=== PATIENT | male | born 1960 | race African-American/Black ===

== ENCOUNTER → 2016-10-20 | Outpatient (REF) | payer MEDICARE, MEDICAID ==
[~2016-10-20] MED LIST: /MOM400 PO; /PANT40TA PO; CALC600T7 PO; COLA50CA3 PO; DIPH50CA PO; FERR325T3 PO; KEPP1TAB2 PO; PHEN-312 PO; TRAZ150T PO; VALI2TAB PO; ZYPR20TA PO
[2016-10-20 16:26] LABS: ALBUMIN 3.8 GM/DL (3.2-5.2); ALBUMIN/GLOBULIN RATIO 1.09 (1.00-1.93); ALKALINE PHOSPHATASE 87 U/L (45-117); ALT/SGPT 25 U/L (12-78); ANION GAP 9 MEQ/L (8-16); AST/SGOT 22 U/L (15-37); BILIRUBIN,TOTAL 0.4 MG/DL (0.2-1.0); BLOOD UREA NITROGEN 7 MG/DL (7-18); CALCIUM LEVEL 9.2 MG/DL (8.5-10.1); CARBON DIOXIDE LEVEL 27 MEQ/L (21-32); CHLORIDE LEVEL 105 MEQ/L (98-107); CREATININE FOR GFR 0.63 MG/DL (0.70-1.30); FERRITIN 55 NG/ML (26-388); GLOMERULAR FILTRATION RATE > 60.0 (>56); GLUCOSE, FASTING 84 MG/DL (70-105); PERCENT SATURATION 31.1 % (19.7-37.4); POTASSIUM SERUM 4.2 MEQ/L (3.5-5.1); SODIUM LEVEL 141 MEQ/L (136-145); TOTAL IRON BINDING CAPACITY 283 UG/DL (250-450); TOTAL PROTEIN 7.3 GM/DL (6.4-8.2)
[2016-10-20 16:52] LABS: INR 0.94
[2016-10-20 17:37] LABS: MEAN CORPUSCULAR VOLUME 97.5 fl (80.0-96.0); WHITE BLOOD COUNT 3.5 K/mm3 (4.0-10.0)
[2016-10-20 17:38] LABS: MEAN CORPUSCULAR HEMOGLOBIN 32.3 pg (27.0-33.0); MEAN CORPUSCULAR HGB CONC 33.2 g/dl (32.0-36.5); RED CELL DISTRIBUTION WIDTH 12.2 % (11.5-14.5)
[2016-10-20 17:40] LABS: EOSINOPHILS 1 % (0-5)
== END ==
LOC: M SFHCPLAZ 12:12
PROVIDERS: ATTEND Family Medicine
DX: Z01.818 Encounter for other preprocedural examination (principal); K02.9 Dental caries, unspecified; D50.9 Iron deficiency anemia, unspecified; C91.50 Adult T-cell lymphoma/leukemia (HTLV-1-associated) not having achieved remission; G40.909 Epilepsy, unspecified, not intractable, without status epilepticus
CPT/HCPCS: 36415; 80053; 80180; 82728; 83550; 85007; 85027; 85610; 85730; G0463

== ENCOUNTER → 2016-10-30 | Day surgery (SDC) | payer MEDICARE, MEDICAID ==
[~2016-10-30] VITALS: Ht 162.6 cm; Wt 67.1 kg
[~2016-10-30] MED LIST changes: +GLYCOPYRROLATE INJ 0.2 MG/ML 2 ML VIAL As Ordered ONE; +KETAMINE HCL 200 MG/20 ML VIAL As Ordered ONE; +LIDOCAINE 2% INJ 100 MG/5 ML SDV (FOR ANES.) As Ordered ONE; +LR 1,000 ML IV SCH; +MIDAZOLAM INJ 2 MG/2 ML VIAL (J2250) As Ordered ONE; +NEOSTIGMINE 1MG/ML 5 ML SYRINGE (J2710) As Ordered ONE; +ONDANSETRON 4MG/2ML VIAL (J2405) As Ordered ONE; +ONDANSETRON 4MG/2ML VIAL (J2405) IV PRN; +PROPOFOL 200 MG/20 ML VIAL As Ordered ONE; +ROCURONIUM BROMIDE 50 MG/5 ML VIAL As Ordered ONE; +SEVOFLURANE INHAL SOLN 250 ML BTL As Ordered ONE; +dexameTHASONE 4 MG/ML 1ML VIAL (J1100) As Ordered ONE; +ePHEDrine SULFATE 25 MG/5 ML(5MG/ML) SYRINGE As Ordered ONE; +fentaNYL 100 MCG/2 ML INJECTION (J3010) IV PRN; +fentaNYL 250 MCG/5 ML INJECTION (J3010) As Ordered ONE
[2016-10-30 15:45] VITALS: BP 151/85
--- NOTE | 2016-10-30 18:26 | RO ---
DATE OF PROCEDURE: 10/30/2016 PREOPERATIVE DIAGNOSIS: Dental Caries POSTOPERATIVE DIAGNOSIS: Dental Caries PROCEDURE: operative, scaling and root planing, full mouth radiographs SURGEON: Dr. Kilo Knowles ACADEMIC ASSOCIATE: None ANESTHESIA: General DESCRIPTION OF PROCEDURE: The patient, Jerome Lloyd, was brought to the operating room with premedication and placed onto the operating table in the supine position. All monitoring equipment was attached to the patient, and general anesthetic medicaments were delivered via inhalation. Nasal intubation proceeded and tube extension was secured into position after breathing was monitored. Patient was then prepped for dental surgical procedures. One large moist throat pack was placed. Mouth prop was placed. Full mouth radiograph sequence was taken. Comprehensive exam completed. Decay removal followed by composite condensation was completed on the occlusal of tooth #4, 18, 20, and 31, on the lingual surface of tooth #9, on the mesial incisal, facial and lingual surface of tooth #24, on the mesial, incisal, facial, lingual , and distal surface of tooth #25. Generalized perio charting completed. Four quadrant scaling and root planing completed. Fluoride application completed. Final removal of all gross fluids from intraoral and extraoral areas. Patient then left in the care of the providing anesthesiologist. Note, there was continuous removal of all gross fluid throughout the duration of all performed dental procedures. MAGGIE
== END | disposition home or self-care (01) ==
LOC: M SDC 09:17
PROVIDERS: ATTEND Dentist General Practice
DX: K02.9 Dental caries, unspecified (principal); F73 Profound intellectual disabilities; K21.9 Gastro-esophageal reflux disease without esophagitis; Z79.899 Other long term (current) drug therapy; E55.9 Vitamin D deficiency, unspecified; K59.00 Constipation, unspecified; D50.9 Iron deficiency anemia, unspecified; C91.50 Adult T-cell lymphoma/leukemia (HTLV-1-associated) not having achieved remission; G40.909 Epilepsy, unspecified, not intractable, without status epilepticus
CPT/HCPCS: 70310; D2330; D2335; D2391; D4341; D9223; J1100; J2250; J2405; J2710; J3010

== ENCOUNTER → 2017-03-22 | Outpatient (REF) | payer MEDICARE, MEDICAID ==
[~2017-03-22] MED LIST changes: -GLYCOPYRROLATE INJ 0.2 MG/ML 2 ML VIAL As Ordered ONE; -KETAMINE HCL 200 MG/20 ML VIAL As Ordered ONE; -LIDOCAINE 2% INJ 100 MG/5 ML SDV (FOR ANES.) As Ordered ONE; -LR 1,000 ML IV SCH; -MIDAZOLAM INJ 2 MG/2 ML VIAL (J2250) As Ordered ONE; -NEOSTIGMINE 1MG/ML 5 ML SYRINGE (J2710) As Ordered ONE; -ONDANSETRON 4MG/2ML VIAL (J2405) As Ordered ONE; -ONDANSETRON 4MG/2ML VIAL (J2405) IV PRN; -PROPOFOL 200 MG/20 ML VIAL As Ordered ONE; -ROCURONIUM BROMIDE 50 MG/5 ML VIAL As Ordered ONE; -SEVOFLURANE INHAL SOLN 250 ML BTL As Ordered ONE; -dexameTHASONE 4 MG/ML 1ML VIAL (J1100) As Ordered ONE; -ePHEDrine SULFATE 25 MG/5 ML(5MG/ML) SYRINGE As Ordered ONE; -fentaNYL 100 MCG/2 ML INJECTION (J3010) IV PRN; -fentaNYL 250 MCG/5 ML INJECTION (J3010) As Ordered ONE
== END ==
LOC: M LABDRAW1 12:08
PROVIDERS: ATTEND Physician Assistant Medical
DX: R56.9 Unspecified convulsions (principal)

== ENCOUNTER → 2017-03-22 | Outpatient (REF) | payer MEDICARE, MEDICAID ==
[2017-03-22 13:10] LABS: BASO % 0.4 % (0.0-1.0); EOS % 1.5 % (0.0-3.0); LARGE UNSTAINED CELL # 0.1 K/mm3 (0.0-0.4); LYMPH # 1.1 K/mm3 (1.5-4.5); LYMPH % 33.3 % (24.0-44.0); MEAN CORPUSCULAR HGB CONC 32.8 g/dl (32.0-36.5); MEAN CORPUSCULAR VOLUME 97.4 fl (80.0-96.0); MONO # 0.4 K/mm3 (0.0-0.8); MONO % 11.9 % (0.0-5.0); NEUTROPHILS # 1.6 K/mm3 (1.8-7.7); NEUTROPHILS % 49.9 % (36.0-66.0); PLATELET COUNT, AUTOMATED 214 k/mm3 (150-450); RED CELL DISTRIBUTION WIDTH 12.6 % (11.5-14.5); VITAMIN B12 LEVEL 955 PG/ML (247-911); WHITE BLOOD COUNT 3.3 K/mm3 (4.0-10.0)
[2017-03-22 13:35] LABS: ALBUMIN 3.6 GM/DL (3.2-5.2); ALBUMIN/GLOBULIN RATIO 1.06 (1.00-1.93); ALKALINE PHOSPHATASE 105 U/L (45-117); ALT/SGPT 24 U/L (12-78); ANION GAP 7 MEQ/L (8-16); AST/SGOT 23 U/L (15-37); BILIRUBIN,TOTAL 0.2 MG/DL (0.2-1.0); BLOOD UREA NITROGEN 15 MG/DL (7-18); CALCIUM LEVEL 9.1 MG/DL (8.5-10.1); CARBON DIOXIDE LEVEL 27 MEQ/L (21-32); CHLORIDE LEVEL 105 MEQ/L (98-107); CREATININE FOR GFR 0.71 MG/DL (0.70-1.30); GLOMERULAR FILTRATION RATE > 60.0 (>56); GLUCOSE, FASTING 108 MG/DL (70-105); POTASSIUM SERUM 4.1 MEQ/L (3.5-5.1); SODIUM LEVEL 139 MEQ/L (136-145)
[2017-03-23 11:43] LABS: ALBUMIN 3.91 GM/DL (3.29-5.55); ALBUMIN % 55.9 % (55.8-66.1); GAMMA GLOBULIN % 19.4 % (11.1-18.8)
== END ==
LOC: M LABDRAW1 12:07
PROVIDERS: ATTEND Family Medicine
DX: G40.909 Epilepsy, unspecified, not intractable, without status epilepticus (principal); D50.9 Iron deficiency anemia, unspecified; Z12.5 Encounter for screening for malignant neoplasm of prostate
CPT/HCPCS: 36415; 80053; 80180; 80184; 82607; 84165; 85025; G0103

== ENCOUNTER → 2017-07-28 | Outpatient (REF) | payer MEDICARE, MEDICAID ==
[2017-07-28 13:09] LABS: MEAN CORPUSCULAR HEMOGLOBIN 30.8 pg (27.0-33.0); MEAN CORPUSCULAR VOLUME 96.5 fl (80.0-96.0); RED CELL DISTRIBUTION WIDTH 12.5 % (11.5-14.5); RETIC HEMOGLOBIN EQUIVALENT 36.8 pg (24-36); RETICULOCYTE % 2.2 % (0.5-1.5); WHITE BLOOD COUNT 3.2 10^3/uL (4.0-10.0)
[2017-07-28 13:30] LABS: ALBUMIN 3.8 GM/DL (3.2-5.2); ALBUMIN/GLOBULIN RATIO 1.06 (1.00-1.93); ALKALINE PHOSPHATASE 112 U/L (45-117); ALT/SGPT 31 U/L (12-78); ANION GAP 6 MEQ/L (8-16); AST/SGOT 19 U/L (15-37); BILIRUBIN,TOTAL 0.2 MG/DL (0.2-1.0); BLOOD UREA NITROGEN 10 MG/DL (7-18); CALCIUM LEVEL 9.5 MG/DL (8.5-10.1); CARBON DIOXIDE LEVEL 32 MEQ/L (21-32); CHLORIDE LEVEL 102 MEQ/L (98-107); CREATININE FOR GFR 0.81 MG/DL (0.70-1.30); FERRITIN 52 NG/ML (26-388); GLOMERULAR FILTRATION RATE > 60.0 (>56); GLUCOSE, FASTING 104 MG/DL (70-105); PERCENT SATURATION 31.7 % (19.7-50.0); PHENOBARBITAL LEVEL 22.4 UG/ML (15.0-40.0); POTASSIUM SERUM 4.4 MEQ/L (3.5-5.1); SODIUM LEVEL 140 MEQ/L (136-145); TOTAL IRON BINDING CAPACITY 268 UG/DL (250-450); TOTAL PROTEIN 7.4 GM/DL (6.4-8.2)
[2017-07-28 13:38] LABS: CBCMD ORDERED? YES (YES)
[2017-07-28 14:17] LABS: BASOPHILS 2 % (0-4); EOSINOPHILS 2 % (0-5)
== END ==
LOC: M LABDRAW1 10:10
PROVIDERS: ATTEND Family Medicine
DX: D50.9 Iron deficiency anemia, unspecified (principal); E55.9 Vitamin D deficiency, unspecified; G40.909 Epilepsy, unspecified, not intractable, without status epilepticus

== ENCOUNTER → 2017-09-21 | Outpatient (REF) | payer MEDICARE, MEDICAID | LOC: M LABNEURO 14:27 | PROVIDERS: ATTEND Physician Assistant Medical | DX: R56.9 Unspecified convulsions (principal) ==

== ENCOUNTER 2017-10-07 12:10 | Emergency (ER) | payer MEDICARE, MEDICAID ==
[2017-10-07] MEDS: DERMABOND TOPICAL SKIN ADHESIVE TOP (13:24)
== END 2017-10-07 13:35 | disposition home or self-care (01) ==
LOC: M ED 12:10
DX: S01.81XA Laceration without foreign body of other part of head, initial encounter (principal); W19.XXXA Unspecified fall, initial encounter; Y92.9 Unspecified place or not applicable; Y93.9 Activity, unspecified; F79 Unspecified intellectual disabilities; Z79.899 Other long term (current) drug therapy
CPT/HCPCS: 12011

== ENCOUNTER → 2017-12-09 | Outpatient (REF) | payer MEDICARE, MEDICAID ==
[2017-12-09 12:44] LABS: BASO % 0.9 % (0.0-1.0); EOS # 0.1 10^3/uL (0.0-0.50); EOS % 1.5 % (0.0-3.0); HEMATOCRIT 41.4 % (42.0-52.0); HEMOGLOBIN 13.6 g/dl (14.0-18.0); IMMATURE GRANULOCYTE % 0.3 % (0-3.0); LYMPH # 1.5 10^3/uL (1.5-4.5); LYMPH % 44.4 % (24.0-44.0); MEAN CORPUSCULAR HEMOGLOBIN 30.8 pg (27.0-33.0); MEAN CORPUSCULAR HGB CONC 32.9 g/dl (32.0-36.5); MEAN CORPUSCULAR VOLUME 93.7 fl (80.0-96.0); MONO # 0.5 10^3/uL (0.0-0.8); MONO % 15.5 % (0.0-5.0); NEUTROPHILS # 1.3 10^3/uL (1.8-7.7); NEUTROPHILS % 37.4 % (36.0-66.0); PLATELET COUNT, AUTOMATED 233 10^3/uL (150-450); RED BLOOD COUNT 4.42 10^6/uL (4.30-6.10); RED CELL DISTRIBUTION WIDTH 12.6 % (11.5-14.5); RETIC HEMOGLOBIN EQUIVALENT 35.9 pg (24-36); RETICULOCYTE % 1.5 % (0.5-1.5); WHITE BLOOD COUNT 3.4 10^3/uL (4.0-10.0)
[2017-12-09 13:45] LABS: ALKALINE PHOSPHATASE 97 U/L (45-117); ALT/SGPT 26 U/L (12-78); AST/SGOT 21 U/L (7-37); BILIRUBIN,TOTAL 0.2 MG/DL (0.2-1.0); CHLORIDE LEVEL 103 MEQ/L (98-107); CREATININE FOR GFR 0.71 MG/DL (0.70-1.30); FREE T4 0.91 NG/DL (0.76-1.46); PHENOBARBITAL LEVEL 22.2 UG/ML (15.0-40.0); POTASSIUM SERUM 4.3 MEQ/L (3.5-5.1); SODIUM LEVEL 141 MEQ/L (136-145); THYROID STIMULATING HORMONE 0.966 uIU/ML (0.358-3.740); TOTAL PROTEIN 7.7 GM/DL (6.4-8.2)
[2017-12-09 14:03] LABS: ALBUMIN 3.7 GM/DL (3.2-5.2); ALBUMIN/GLOBULIN RATIO 0.93 (1.00-1.93); ANION GAP 5 MEQ/L (8-16); BLOOD UREA NITROGEN 12 MG/DL (7-18); CALCIUM LEVEL 9.3 MG/DL (8.5-10.1); CARBON DIOXIDE LEVEL 33 MEQ/L (21-32); GLUCOSE, FASTING 82 MG/DL (70-100)
[2017-12-12 00:08] LABS: LEVETIRACETAM (KEPPRA) 25.8 ug/mL (10.0-40.0)
== END ==
LOC: M LABDRAW1 12:13
DX: G40.909 Epilepsy, unspecified, not intractable, without status epilepticus (principal); D50.9 Iron deficiency anemia, unspecified; Z79.899 Other long term (current) drug therapy
CPT/HCPCS: 84443

== ENCOUNTER → 2018-04-15 | Outpatient (REF) | payer MEDICARE, MEDICAID ==
[2018-04-15 13:48] LABS: BASO % 0.6 % (0.0-1.0); EOS # 0.1 10^3/uL (0.0-0.50); EOS % 2.4 % (0.0-3.0); HEMATOCRIT 42.7 % (42.0-52.0); HEMOGLOBIN 14.2 g/dl (13.5-17.5); IMMATURE GRANULOCYTE % 0.3 % (0-3.0); LYMPH # 1.6 10^3/uL (1.5-4.5); LYMPH % 46.8 % (24.0-44.0); MEAN CORPUSCULAR HEMOGLOBIN 31.9 pg (27.0-33.0); MEAN CORPUSCULAR HGB CONC 33.3 g/dl (32.0-36.5); MONO # 0.6 10^3/uL (0.0-0.8); MONO % 16.8 % (0.0-5.0); NEUTROPHILS # 1.1 10^3/uL (1.8-7.7); NEUTROPHILS % 33.1 % (36.0-66.0); PLATELET COUNT, AUTOMATED 217 10^3/uL (150-450); RED BLOOD COUNT 4.45 10^6/uL (4.30-6.10); RED CELL DISTRIBUTION WIDTH 12.4 % (11.5-14.5); RETIC HEMOGLOBIN EQUIVALENT 36.4 pg (24-36); RETICULOCYTE # 95.2 10^9/L (17-77); RETICULOCYTE % 2.1 % (0.5-1.5); WHITE BLOOD COUNT 3.4 10^3/uL (4.0-10.0)
[2018-04-15 14:07] LABS: ALBUMIN 3.8 GM/DL (3.2-5.2); ALBUMIN/GLOBULIN RATIO 0.95 (1.00-1.93); ALKALINE PHOSPHATASE 109 U/L (45-117); ALT/SGPT 41 U/L (12-78); ANION GAP 7 MEQ/L (8-16); AST/SGOT 32 U/L (7-37); BILIRUBIN,TOTAL 0.4 MG/DL (0.2-1.0); BLOOD UREA NITROGEN 14 MG/DL (7-18); C REACTIVE PROTEIN QUANTITATIV 3.04 MG/DL (0.00-0.30); CARBON DIOXIDE LEVEL 28 MEQ/L (21-32); CHLORIDE LEVEL 104 MEQ/L (98-107); CHOLESTEROL LEVEL 175 MG/DL (<200); CHOLESTEROL RISK RATIO 2.868 (<5); CREATININE FOR GFR 0.75 MG/DL (0.70-1.30); GLOMERULAR FILTRATION RATE > 60.0 (>56); GLUCOSE, FASTING 91 MG/DL (70-100); HDL CHOLESTEROL 61 MG/DL (>40); LDL CHOLESTEROL 86.8 MG/DL (<100); NON-HDL-C 114 MG/DL; PHENOBARBITAL LEVEL 26.8 UG/ML (15.0-40.0); POTASSIUM SERUM 4.2 MEQ/L (3.5-5.1); PSA SCREENING 1.45 NG/ML (< 4.0); SODIUM LEVEL 139 MEQ/L (136-145); TOTAL PROTEIN 7.8 GM/DL (6.4-8.2); TRIGLYCERIDES LEVEL 136 MG/DL (<150)
[2018-04-15 14:09] LABS: TOTAL 25(OH) VITAMIN D 33.7 NG/ML (30.0-100.0)
[2018-04-15 14:10] LABS: PTH INTACT 32.6 PG/ML (18.5-88.0)
[2018-04-20 00:12] LABS: (LD) FRACTION 1 33 % (17-32); (LD) FRACTION 2 28 % (25-40); (LD) FRACTION 3 19 % (17-27); (LD) FRACTION 4 8 % (5-13); (LD) FRACTION 5 12 % (4-20); LDH 146 IU/L (121-224)
== END ==
LOC: M LABDRAW1 11:50
DX: C91.50 Adult T-cell lymphoma/leukemia (HTLV-1-associated) not having achieved remission (principal); D50.9 Iron deficiency anemia, unspecified; E55.9 Vitamin D deficiency, unspecified; R63.4 Abnormal weight loss; Z12.5 Encounter for screening for malignant neoplasm of prostate; G40.909 Epilepsy, unspecified, not intractable, without status epilepticus; Z51.81 Encounter for therapeutic drug level monitoring; Z79.899 Other long term (current) drug therapy
CPT/HCPCS: 83625

== ENCOUNTER → 2018-04-15 | Outpatient (REF) | payer MEDICARE, MEDICAID ==
[2018-04-15 14:18] LABS: PHENOBARBITAL LEVEL 29.3 UG/ML (15.0-40.0)
== END ==
LOC: M LAB REF 11:53
DX: Z51.81 Encounter for therapeutic drug level monitoring (principal); Z79.899 Other long term (current) drug therapy; R56.9 Unspecified convulsions

== ENCOUNTER → 2018-04-27 | Outpatient (REF) | payer MEDICARE, MEDICAID | LOC: M LABDRAW1 08:46 | DX: G40.909 Epilepsy, unspecified, not intractable, without status epilepticus (principal) | CPT/HCPCS: 36415 ==

== ENCOUNTER 2018-07-29 16:39 | Inpatient (IN) | payer MEDICARE, MEDICAID ==
[2018-07-29] MEDS ORDERED: ONDANSETRON 4MG/2ML VIAL (J2405) IV (16:45)
[2018-07-29 17:45] LABS: ALBUMIN 3.9 GM/DL (3.2-5.2); ALBUMIN/GLOBULIN RATIO 0.95 (1.00-1.93); ALKALINE PHOSPHATASE 117 U/L (45-117); ALT/SGPT 28 U/L (12-78); ANION GAP 5 MEQ/L (8-16); AST/SGOT 27 U/L (7-37); BASO % 1.1 % (0.0-1.0); BILIRUBIN,TOTAL 0.3 MG/DL (0.2-1.0); BLOOD UREA NITROGEN 11 MG/DL (7-18); CALCIUM LEVEL 9.3 MG/DL (8.5-10.1); CARBON DIOXIDE LEVEL 32 MEQ/L (21-32); CHLORIDE LEVEL 103 MEQ/L (98-107); EOS # 0.1 10^3/uL (0.0-0.50); GLOMERULAR FILTRATION RATE > 60.0 (>56); GLUCOSE, FASTING 83 MG/DL (70-100); HEMATOCRIT 42.5 % (42.0-52.0); HEMOGLOBIN 14.1 g/dl (13.5-17.5); IMMATURE GRANULOCYTE % 0.3 % (0-3.0); LYMPH # 1.9 10^3/uL (1.5-4.5); LYMPH % 54.5 % (24.0-44.0); MEAN CORPUSCULAR HEMOGLOBIN 31.7 pg (27.0-33.0); MEAN CORPUSCULAR HGB CONC 33.2 g/dl (32.0-36.5); MEAN CORPUSCULAR VOLUME 95.5 fl (80.0-96.0); MONO # 0.5 10^3/uL (0.0-0.8); MONO % 14.8 % (0.0-5.0); NEUTROPHILS % 27.3 % (36.0-66.0); PLATELET COUNT, AUTOMATED 225 10^3/uL (150-450); POTASSIUM SERUM 4.2 MEQ/L (3.5-5.1); RED BLOOD COUNT 4.45 10^6/uL (4.30-6.10); RED CELL DISTRIBUTION WIDTH 11.9 % (11.5-14.5); SODIUM LEVEL 140 MEQ/L (136-145); WHITE BLOOD COUNT 3.5 10^3/uL (4.0-10.0)
[2018-07-29 17:48] LABS: POSITIVE DIFF POS FLAG
[2018-07-29] MEDS: OLANZapine 10 MG TAB PO (21:41)
[2018-07-29] MEDS: PANTOPRAZOLE 40MG TAB (PROTONIX) PO (21:41)
[2018-07-29] MEDS: levETIRAcetam 250MG TABLET (KEPPRA) PO (21:41)
[2018-07-29] MEDS: PHENobarbital 30 MG TAB PO (21:41)
[2018-07-29] MEDS: traZODone 100 MG TAB PO (21:41)
[2018-07-30] MEDS ORDERED: ENOXAPARIN 40 MG/0.4 ML SYRINGE (J1650) SC (09:00)
[2018-07-30] MEDS ORDERED: PANTOPRAZOLE 40MG TAB (PROTONIX) PO (09:00)
[2018-07-30] MEDS: MOM 30ML SUSPENSION UDC PO (09:14)
[2018-07-30] MEDS: PHENobarbital 30 MG TAB PO ×2 (09:14→20:18)
[2018-07-30] MEDS: levETIRAcetam 250MG TABLET (KEPPRA) PO ×2 (09:15→20:17)
[2018-07-30] MEDS: PANTOPRAZOLE 40MG TAB (PROTONIX) PO ×2 (09:15→20:17)
[2018-07-30] MEDS: DOCUSATE SODIUM 100 MG CAP PO (09:15)
[2018-07-30] MEDS: traZODone 100 MG TAB PO (20:17)
[2018-07-30] MEDS: OLANZapine 10 MG TAB PO (20:17)
[2018-07-31] MEDS: MOM 30ML SUSPENSION UDC PO (10:30)
[2018-07-31] MEDS: DOCUSATE SODIUM 100 MG CAP PO (10:30)
[2018-07-31] MEDS: PANTOPRAZOLE 40MG TAB (PROTONIX) PO ×2 (10:31→22:29)
[2018-07-31] MEDS: GOLYTELY SOLN 4000 ML BTL PO (10:31)
[2018-07-31] MEDS: PHENobarbital 30 MG TAB PO ×2 (10:31→22:29)
[2018-07-31] MEDS: levETIRAcetam 250MG TABLET (KEPPRA) PO ×2 (10:31→22:29)
[2018-07-31] MEDS: traZODone 100 MG TAB PO (22:29)
[2018-07-31] MEDS: OLANZapine 10 MG TAB PO (22:31)
[2018-08-01 06:23] LABS: HEMATOCRIT 39.7 % (42.0-52.0); HEMOGLOBIN 13.2 g/dl (13.5-17.5); MEAN CORPUSCULAR HEMOGLOBIN 31.3 pg (27.0-33.0); MEAN CORPUSCULAR HGB CONC 33.2 g/dl (32.0-36.5); MEAN CORPUSCULAR VOLUME 94.1 fl (80.0-96.0); PLATELET COUNT, AUTOMATED 191 10^3/uL (150-450); RED BLOOD COUNT 4.22 10^6/uL (4.30-6.10); RED CELL DISTRIBUTION WIDTH 11.7 % (11.5-14.5)
[2018-08-01 06:56] LABS: ANION GAP 6 MEQ/L (8-16); BLOOD UREA NITROGEN 4 MG/DL (7-18); CALCIUM LEVEL 8.2 MG/DL (8.5-10.1); CARBON DIOXIDE LEVEL 31 MEQ/L (21-32); CHLORIDE LEVEL 107 MEQ/L (98-107); GLOMERULAR FILTRATION RATE > 60.0 (>56); GLUCOSE, FASTING 79 MG/DL (70-100); POTASSIUM SERUM 3.8 MEQ/L (3.5-5.1); SODIUM LEVEL 144 MEQ/L (136-145)
[2018-08-01] MEDS: MOM 30ML SUSPENSION UDC PO (09:00)
[2018-08-01] MEDS: levETIRAcetam 250MG TABLET (KEPPRA) PO ×2 (10:00→22:03)
[2018-08-01] MEDS: PHENobarbital 30 MG TAB PO ×2 (10:00→22:03)
[2018-08-01] MEDS: DOCUSATE SODIUM 100 MG CAP PO (10:01)
[2018-08-01] MEDS: PANTOPRAZOLE 40MG TAB (PROTONIX) PO ×2 (10:01→22:03)
[2018-08-01] MEDS ORDERED: PROPOFOL 200 MG/20 ML VIAL As Ordered (14:19)
[2018-08-01] MEDS ORDERED: LIDOCAINE 2% INJ 100 MG/5 ML SDV (FOR ANES.) As Ordered (14:19)
[2018-08-01] MEDS: traZODone 100 MG TAB PO (22:03)
[2018-08-01] MEDS: OLANZapine 10 MG TAB PO (22:04)
[2018-08-02] MEDS: MOM 30ML SUSPENSION UDC PO (09:00)
[2018-08-02] MEDS: PHENobarbital 30 MG TAB PO (10:31)
[2018-08-02] MEDS: DOCUSATE SODIUM 100 MG CAP PO (10:31)
[2018-08-02] MEDS: levETIRAcetam 250MG TABLET (KEPPRA) PO (10:31)
[2018-08-02] MEDS: PANTOPRAZOLE 40MG TAB (PROTONIX) PO (10:31)
== END 2018-08-02 12:45 | disposition home or self-care (01) | DRG 392 ==
LOC: M MSPAV 16:39
DX: R19.5 Other fecal abnormalities (principal); C91.50 Adult T-cell lymphoma/leukemia (HTLV-1-associated) not having achieved remission; F73 Profound intellectual disabilities; G40.909 Epilepsy, unspecified, not intractable, without status epilepticus; R63.4 Abnormal weight loss; Z79.899 Other long term (current) drug therapy; G47.00 Insomnia, unspecified; E55.9 Vitamin D deficiency, unspecified; D50.9 Iron deficiency anemia, unspecified; K59.00 Constipation, unspecified

== ENCOUNTER → 2018-08-01 | Day surgery (SDC) | payer MEDICARE, MEDICAID | END | disposition home or self-care (01) | LOC: M OPP 13:35 | DX: Z12.11 Encounter for screening for malignant neoplasm of colon (principal); K64.0 First degree hemorrhoids | CPT/HCPCS: G0121 ==

== ENCOUNTER → 2019-06-13 | Outpatient (REF) | payer MEDICARE, MEDICAID ==
[~2019-06-13] MED LIST changes: -/MOM400 PO; -/PANT40TA PO; +ATIV2TAB PO; +BENA25CA4 PO; +CALC1TAB82 PO; +COLA100C5 PO; +MILK10SU PO; +MILK120011 PO; +PANT40TA3 PO; +PHEN64.8 PO; +PROT1TAB2 PO; +TRAZ-163 PO
[2019-06-13 13:23] LABS: BASO % 0.8 % (0.0-1.0); EOS # 0.1 10^3/uL (0.0-0.5); EOS % 2.3 % (0.0-3.0); HEMATOCRIT 41.7 % (42.0-52.0); HEMOGLOBIN 13.9 g/dl (13.5-17.5); LYMPH # 1.2 10^3/uL (1.5-5.0); LYMPH % 47.5 % (24.0-44.0); MEAN CORPUSCULAR HEMOGLOBIN 32.3 pg (27.0-33.0); MEAN CORPUSCULAR HGB CONC 33.3 g/dl (32.0-36.5); MONO # 0.4 10^3/uL (0.0-0.8); MONO % 16.9 % (0.0-5.0); NEUTROPHILS % 32.5 % (36.0-66.0); PLATELET COUNT, AUTOMATED 199 10^3/uL (150-450); WHITE BLOOD COUNT 2.6 10^3/uL (4.0-10.0)
[2019-06-13 13:32] LABS: ALBUMIN 3.8 GM/DL (3.2-5.2); ALT/SGPT 27 U/L (12-78); BILIRUBIN,TOTAL 0.3 MG/DL (0.2-1.0); BLOOD UREA NITROGEN 13 MG/DL (7-18); CALCIUM LEVEL 9.3 MG/DL (8.5-10.1); CARBON DIOXIDE LEVEL 28 MEQ/L (21-32); CHLORIDE LEVEL 105 MEQ/L (98-107); CREATININE FOR GFR 0.72 MG/DL (0.70-1.30); FERRITIN 52 NG/ML (26-388); GLOMERULAR FILTRATION RATE > 60.0 (>56); GLUCOSE, FASTING 88 MG/DL (70-100); IRON (FE) 99 UG/DL (65-175); PERCENT SATURATION 31.4 % (19.7-50.0); POTASSIUM SERUM 4.3 MEQ/L (3.5-5.1); SODIUM LEVEL 138 MEQ/L (136-145); TOTAL IRON BINDING CAPACITY 315 UG/DL (250-450); TOTAL PROTEIN 7.3 GM/DL (6.4-8.2)
[2019-06-13 13:51] LABS: NEUTROPHILS # 0.9 10^3/uL (1.5-8.5)
== END ==
LOC: M LABDRAW1 09:25
PROVIDERS: ATTEND Family Medicine
DX: C91.50 Adult T-cell lymphoma/leukemia (HTLV-1-associated) not having achieved remission (principal); G40.909 Epilepsy, unspecified, not intractable, without status epilepticus; D50.9 Iron deficiency anemia, unspecified

== ENCOUNTER → 2019-06-13 | Outpatient (REF) | payer MEDICARE, MEDICAID ==
[2019-06-13 13:32] LABS: PHENOBARBITAL LEVEL 26.4 UG/ML (15.0-40.0)
[2019-06-13 13:39] LABS: PTH INTACT 38.2 PG/ML (18.5-88.0); TOTAL 25(OH) VITAMIN D 35.2 NG/ML (30.0-100.0)
== END ==
LOC: M LABDRAW1 09:27
PROVIDERS: ATTEND Physician Assistant Medical
DX: G40.909 Epilepsy, unspecified, not intractable, without status epilepticus (principal); Z12.5 Encounter for screening for malignant neoplasm of prostate; E55.9 Vitamin D deficiency, unspecified; C91.50 Adult T-cell lymphoma/leukemia (HTLV-1-associated) not having achieved remission; D50.9 Iron deficiency anemia, unspecified
CPT/HCPCS: 36415; 80053; 80180; 80184; 82306; 82728; 83550; 83625; 83970; 85025; 85046; G0103

== ENCOUNTER → 2019-07-19 | Outpatient (REF) | payer MEDICARE, MEDICAID | LOC: M LABDRAW1 09:10 | PROVIDERS: ATTEND Physician Assistant Medical | DX: R56.9 Unspecified convulsions (principal) ==

== ENCOUNTER → 2019-11-01 | Outpatient (REF) | payer MEDICARE, MEDICAID ==
[~2019-11-01] MED LIST changes: +ACET1TAB55 PO; +AMLO25TA PO; +AZIT-12 PO; +CEFD300CAP PO; +CVS100LI4 PO; +LORA2TA PO; +MAGN400O53 PO; -TRAZ-163 PO; +TRAZ-257 PO
[2019-11-01 12:29] LABS: BASO % 2.1 % (0.0-1.0); HEMATOCRIT 38.2 % (42.0-52.0); HEMOGLOBIN 12.4 g/dl (13.5-17.5); LYMPH # 1.4 10^3/uL (1.5-5.0); LYMPH % 69.6 % (24.0-44.0); MEAN CORPUSCULAR HEMOGLOBIN 31.8 pg (27.0-33.0); MEAN CORPUSCULAR HGB CONC 32.5 g/dl (32.0-36.5); MEAN CORPUSCULAR VOLUME 97.9 fl (80.0-96.0); MONO # 0.3 10^3/uL (0.0-0.8); MONO % 14.4 % (0.0-5.0); NEUTROPHILS % 12.9 % (36.0-66.0); PLATELET COUNT, AUTOMATED 299 10^3/uL (150-450)
[2019-11-01 12:40] LABS: TOTAL 25(OH) VITAMIN D 39.7 NG/ML (30.0-100.0)
[2019-11-01 13:01] LABS: NEUTROPHILS # 0.3 10^3/uL (1.5-8.5); WHITE BLOOD COUNT 1.9 10^3/uL (4.0-10.0)
== END ==
LOC: M LABDRAW1 11:58
PROVIDERS: ATTEND Family Medicine
DX: D50.9 Iron deficiency anemia, unspecified (principal); G40.909 Epilepsy, unspecified, not intractable, without status epilepticus; E55.9 Vitamin D deficiency, unspecified; Z79.899 Other long term (current) drug therapy

== ENCOUNTER → 2019-11-20 | Outpatient (REF) | payer MEDICARE, MEDICAID ==
[2019-11-20 13:08] LABS: BASO % 0.7 % (0.0-1.0); EOS % 1.4 % (0.0-3.0); HEMATOCRIT 39.1 % (42.0-52.0); HEMOGLOBIN 12.6 g/dl (13.5-17.5); LYMPH # 1.3 10^3/uL (1.5-5.0); LYMPH % 45.8 % (24.0-44.0); MEAN CORPUSCULAR HEMOGLOBIN 30.9 pg (27.0-33.0); MEAN CORPUSCULAR HGB CONC 32.2 g/dl (32.0-36.5); MEAN CORPUSCULAR VOLUME 95.8 fl (80.0-96.0); MONO # 0.4 10^3/uL (0.0-0.8); MONO % 12.6 % (0.0-5.0); NEUTROPHILS # 1.1 10^3/uL (1.5-8.5); NEUTROPHILS % 39.2 % (36.0-66.0); PLATELET COUNT, AUTOMATED 262 10^3/uL (150-450); RED BLOOD COUNT 4.08 10^6/uL (4.30-6.10); WHITE BLOOD COUNT 2.9 10^3/uL (4.0-10.0)
== END ==
LOC: M LABDRAW1 12:15
PROVIDERS: ATTEND Family Medicine
DX: C91.50 Adult T-cell lymphoma/leukemia (HTLV-1-associated) not having achieved remission (principal)

== ENCOUNTER → 2020-03-27 | Outpatient (CLI) | payer MEDICARE, MEDICAID ==
[2020-03-27 13:57] LABS: ALBUMIN 3.8 GM/DL (3.2-5.2); ALT/SGPT 29 U/L (12-78); BILIRUBIN,TOTAL 0.3 MG/DL (0.2-1.0); BLOOD UREA NITROGEN 12 MG/DL (7-18); C REACTIVE PROTEIN QUANTITATIV < 0.30 MG/DL (0.00-0.30); CALCIUM LEVEL 9.1 MG/DL (8.5-10.1); CARBON DIOXIDE LEVEL 29 MEQ/L (21-32); CHLORIDE LEVEL 105 MEQ/L (98-107); CHOLESTEROL LEVEL 197 MG/DL (<200); CHOLESTEROL RISK RATIO 3.177 (<5); CREATININE FOR GFR 0.86 MG/DL (0.70-1.30); FREE T4 0.93 NG/DL (0.76-1.46); GLOMERULAR FILTRATION RATE > 60.0 (>56); GLUCOSE, FASTING 84 MG/DL (70-100); HDL CHOLESTEROL 62 MG/DL (>40); LDL CHOLESTEROL 102 MG/DL (<100); NON-HDL-C 135 MG/DL; POTASSIUM SERUM 3.9 MEQ/L (3.5-5.1); SODIUM LEVEL 136 MEQ/L (136-145); TOTAL PROTEIN 7.7 GM/DL (6.4-8.2); TRIGLYCERIDES LEVEL 164 MG/DL (<150)
[2020-03-27 15:16] LABS: BASO % 0.9 % (0.0-1.0); EOS # 0.1 10^3/uL (0.0-0.5); EOS % 1.7 % (0.0-3.0); HEMATOCRIT 39.8 % (42.0-52.0); HEMOGLOBIN 12.9 g/dl (13.5-17.5); LYMPH # 1.4 10^3/uL (1.5-5.0); MEAN CORPUSCULAR HEMOGLOBIN 31.2 pg (27.0-33.0); MEAN CORPUSCULAR HGB CONC 32.4 g/dl (32.0-36.5); MEAN CORPUSCULAR VOLUME 96.4 fl (80.0-96.0); MONO # 0.7 10^3/uL (0.0-0.8); MONO % 19.8 % (0.0-5.0); NEUTROPHILS # 1.2 10^3/uL (1.5-8.5); NEUTROPHILS % 35.6 % (36.0-66.0); PLATELET COUNT, AUTOMATED 210 10^3/uL (150-450); RED BLOOD COUNT 4.13 10^6/uL (4.30-6.10); WHITE BLOOD COUNT 3.4 10^3/uL (4.0-10.0)
== END ==
LOC: M PLALAB 08:30
PROVIDERS: ATTEND Family Medicine
DX: Z12.5 Encounter for screening for malignant neoplasm of prostate (principal); C91.50 Adult T-cell lymphoma/leukemia (HTLV-1-associated) not having achieved remission; I10 Essential (primary) hypertension
CPT/HCPCS: 36415; 80053; 80061; 80180; 80184; 83625; 84439; 84443; 85025; 86140; G0103

== ENCOUNTER → 2020-08-19 | Outpatient (REF) | payer MEDICARE, MEDICAID ==
[~2020-08-19] MED LIST changes: +CALC-234 PO; -CALC1TAB82 PO; -MAGN400O53 PO; +MILKSUS22 PO; +PANT40TA29 PO; -PANT40TA3 PO
[2020-08-19 14:12] LABS: BASO % 1.2 % (0.0-1.0); EOS % 0.8 % (0.0-3.0); HEMATOCRIT 41.3 % (42.0-52.0); HEMOGLOBIN 13.1 g/dl (13.5-17.5); LYMPH # 1.3 10^3/uL (1.5-5.0); LYMPH % 48.8 % (24.0-44.0); MEAN CORPUSCULAR HEMOGLOBIN 30.4 pg (27.0-33.0); MEAN CORPUSCULAR HGB CONC 31.7 g/dl (32.0-36.5); MEAN CORPUSCULAR VOLUME 95.8 fl (80.0-96.0); MONO # 0.4 10^3/uL (0.0-0.8); MONO % 16.3 % (0.0-5.0); NEUTROPHILS % 32.9 % (36.0-66.0); PLATELET COUNT, AUTOMATED 218 10^3/uL (150-450); RED BLOOD COUNT 4.31 10^6/uL (4.30-6.10); WHITE BLOOD COUNT 2.6 10^3/uL (4.0-10.0)
[2020-08-19 14:35] LABS: NEUTROPHILS # 0.9 10^3/uL (1.5-8.5)
[2020-08-19 14:42] LABS: HEMOGLOBIN A1c 5.1 %
[2020-08-19 14:45] LABS: ALBUMIN 4.2 GM/DL (3.2-5.2); ALT/SGPT 17 U/L (12-78); BILIRUBIN,TOTAL 0.3 MG/DL (0.2-1.0); BLOOD UREA NITROGEN 9 MG/DL (7-18); CALCIUM LEVEL 9.6 MG/DL (8.8-10.2); CARBON DIOXIDE LEVEL 30 MEQ/L (21-32); CHLORIDE LEVEL 104 MEQ/L (98-107); CREATININE FOR GFR 0.84 MG/DL (0.70-1.30); FERRITIN 15 NG/ML (26-388); GLOMERULAR FILTRATION RATE > 60.0 (>49); GLUCOSE, FASTING 73 MG/DL (70-100); PHENOBARBITAL LEVEL 26.7 UG/ML (15.0-40.0); POTASSIUM SERUM 4.3 MEQ/L (3.5-5.1); SODIUM LEVEL 139 MEQ/L (136-145)
[2020-08-22 00:07] LABS: INSULIN LEVEL 4.6 uIU/mL (2.6-24.9); LEVETIRACETAM (KEPPRA) 22.6 ug/mL (10.0-40.0)
== END ==
LOC: M SFHCPLAZ 10:12
PROVIDERS: ATTEND Family Medicine
DX: G40.909 Epilepsy, unspecified, not intractable, without status epilepticus (principal); D50.9 Iron deficiency anemia, unspecified; Z79.899 Other long term (current) drug therapy
CPT/HCPCS: 36415; 80053; 80180; 80184; 82728; 83036; 83525; 85025; 85046; G0463

== ENCOUNTER 2020-09-22 18:50 | Emergency (ER) | payer MEDICARE, MEDICAID ==
[2020-09-22 18:56] VITALS: BP 128/88
[2020-09-22] MEDS ORDERED: DIPH50CA29 PO (19:03)
[2020-09-22] MEDS ORDERED: LORA2TAB14 (19:03)
[2020-09-22] MEDS ORDERED: BANO25TA PO (19:03)
--- NOTE | 2020-09-22 19:52 | REP ---
INDICATION: trauma COMPARISON: None. TECHNIQUE: AP, lateral views of the thoracic spine. FINDINGS: Alignment and kyphosis is maintained. Vertebral bodies intact. No acute fracture / compression injury or subluxation. IMPRESSION: No acute fracture/compression injury or subluxation. <Electronically signed by Neville Lin > 09/22/20 194
== END 2020-09-22 20:47 | disposition home or self-care (01) ==
LOC: M ED 18:50 → EDBD 18:50 → M ED 20:47
DX: S20.419A Abrasion of unspecified back wall of thorax, initial encounter (principal); W10.8XXA Fall (on) (from) other stairs and steps, initial encounter; Y92.019 Unspecified place in single-family (private) house as the place of occurrence of the external cause; Y93.9 Activity, unspecified; Y99.9 Unspecified external cause status; Z79.899 Other long term (current) drug therapy

== ENCOUNTER → 2020-12-16 | Outpatient (REF) | payer MEDICARE, MEDICAID ==
[~2020-12-16] MED LIST changes: +BANO25TA PO; +DIPH50CA29 PO; +LORA2TAB14
[2020-12-16 12:55] LABS: BASO % 1.2 % (0.0-1.0); EOS # 0.1 10^3/uL (0.0-0.5); EOS % 2.4 % (0.0-3.0); HEMATOCRIT 38.4 % (42.0-52.0); HEMOGLOBIN 12.5 g/dl (13.5-17.5); LYMPH # 1.2 10^3/uL (1.5-5.0); LYMPH % 46.2 % (24.0-44.0); MEAN CORPUSCULAR HEMOGLOBIN 31.8 pg (27.0-33.0); MEAN CORPUSCULAR HGB CONC 32.6 g/dl (32.0-36.5); MEAN CORPUSCULAR VOLUME 97.7 fl (80.0-96.0); MONO # 0.3 10^3/uL (0.0-0.8); MONO % 11.2 % (2.0-8.0); PLATELET COUNT, AUTOMATED 211 10^3/uL (150-450); RED BLOOD COUNT 3.93 10^6/uL (4.30-6.10); WHITE BLOOD COUNT 2.5 10^3/uL (4.0-10.0)
[2020-12-16 13:27] LABS: ALBUMIN 3.8 GM/DL (3.2-5.2); ALT/SGPT 27 U/L (12-78); BILIRUBIN,TOTAL 0.2 MG/DL (0.2-1.0); BLOOD UREA NITROGEN 11 MG/DL (7-18); CALCIUM LEVEL 9.3 MG/DL (8.8-10.2); CARBON DIOXIDE LEVEL 33 MEQ/L (21-32); CHLORIDE LEVEL 105 MEQ/L (98-107); CREATININE FOR GFR 0.66 MG/DL (0.70-1.30); FERRITIN 48 NG/ML (26-388); GLOMERULAR FILTRATION RATE > 60.0 (>49); GLUCOSE, FASTING 76 MG/DL (70-100); PHENOBARBITAL LEVEL 26.7 UG/ML (15.0-40.0); POTASSIUM SERUM 4.3 MEQ/L (3.5-5.1); SODIUM LEVEL 140 MEQ/L (136-145); TOTAL PROTEIN 7.5 GM/DL (6.4-8.2)
[2020-12-16 13:28] LABS: TOTAL 25(OH) VITAMIN D 43.7 NG/ML (30.0-100.0)
[2020-12-16 13:29] LABS: PTH INTACT 34.2 PG/ML (18.5-88.0)
== END ==
LOC: M SFHCPLAZ 10:28
PROVIDERS: ATTEND Family Medicine
DX: K22.11 Ulcer of esophagus with bleeding (principal); G40.909 Epilepsy, unspecified, not intractable, without status epilepticus; E55.9 Vitamin D deficiency, unspecified; C91.50 Adult T-cell lymphoma/leukemia (HTLV-1-associated) not having achieved remission; Z79.899 Other long term (current) drug therapy
CPT/HCPCS: 36415; 80053; 80180; 80184; 82306; 82728; 83970; 85025; G0463

== ENCOUNTER → 2021-03-12 | Outpatient (CLI) | payer MEDICARE, MEDICAID ==
[~2021-03-12] MED LIST changes: +MILK24002 PO; -MILKSUS22 PO
[2021-03-12 12:33] LABS: EOS % 0.5 % (0.0-3.0); HEMATOCRIT 39.1 % (42.0-52.0); HEMOGLOBIN 12.8 g/dl (13.5-17.5); LYMPH # 0.9 10^3/uL (1.5-5.0); LYMPH % 47.2 % (24.0-44.0); MEAN CORPUSCULAR HEMOGLOBIN 32.2 pg (27.0-33.0); MEAN CORPUSCULAR HGB CONC 32.7 g/dl (32.0-36.5); MEAN CORPUSCULAR VOLUME 98.2 fl (80.0-96.0); MONO # 0.3 10^3/uL (0.0-0.8); MONO % 14.5 % (2.0-8.0); NEUTROPHILS % 36.8 % (36.0-66.0); PLATELET COUNT, AUTOMATED 192 10^3/uL (150-450); RED BLOOD COUNT 3.98 10^6/uL (4.30-6.10); WHITE BLOOD COUNT 1.9 10^3/uL (4.0-10.0)
[2021-03-12 13:08] LABS: NEUTROPHILS # 0.7 10^3/uL (1.5-8.5)
[2021-03-12 18:15] LABS: ALBUMIN 3.8 GM/DL (3.2-5.2); ALT/SGPT 32 U/L (12-78); BILIRUBIN,TOTAL 0.4 MG/DL (0.2-1.0); BLOOD UREA NITROGEN 14 MG/DL (7-18); CALCIUM LEVEL 9.1 MG/DL (8.8-10.2); CARBON DIOXIDE LEVEL 31 MEQ/L (21-32); CHLORIDE LEVEL 103 MEQ/L (98-107); CREATININE FOR GFR 0.81 MG/DL (0.70-1.30); GLOMERULAR FILTRATION RATE > 60.0 (>49); GLUCOSE, FASTING 95 MG/DL (70-100); POTASSIUM SERUM 4.3 MEQ/L (3.5-5.1); SODIUM LEVEL 140 MEQ/L (136-145); TOTAL PROTEIN 7.3 GM/DL (6.4-8.2)
[2021-03-12 19:16] LABS: PHENOBARBITAL LEVEL 27.3 UG/ML (15.0-40.0)
== END ==
LOC: M WUC 09:25
PROVIDERS: ATTEND Physician Assistant Medical
DX: R56.9 Unspecified convulsions (principal); R63.4 Abnormal weight loss

== ENCOUNTER → 2021-03-31 | Outpatient (CLI) | payer MEDICARE, MEDICAID ==
[2021-03-31 16:52] LABS: BASO % 0.7 % (0.0-1.0); EOS # 0.1 10^3/uL (0.0-0.5); EOS % 1.7 % (0.0-3.0); HEMOGLOBIN 11.6 g/dl (13.5-17.5); LYMPH # 1.4 10^3/uL (1.5-5.0); LYMPH % 48.3 % (24.0-44.0); MEAN CORPUSCULAR HEMOGLOBIN 32.5 pg (27.0-33.0); MEAN CORPUSCULAR HGB CONC 33.1 g/dl (32.0-36.5); MONO # 0.5 10^3/uL (0.0-0.8); MONO % 16.1 % (2.0-8.0); NEUTROPHILS % 33.2 % (36.0-66.0); PLATELET COUNT, AUTOMATED 206 10^3/uL (150-450); RED BLOOD COUNT 3.57 10^6/uL (4.30-6.10); WHITE BLOOD COUNT 2.9 10^3/uL (4.0-10.0)
== END ==
LOC: M WUC 15:19
PROVIDERS: ATTEND Family Medicine
DX: C91.50 Adult T-cell lymphoma/leukemia (HTLV-1-associated) not having achieved remission (principal)

== ENCOUNTER → 2021-04-23 | Outpatient (CLI) | payer MEDICARE, MEDICAID ==
[~2021-04-23] MED LIST changes: +DEPA1TAB3 PO; +SENN-23 PO
[2021-04-23 09:07] LABS: BASO % 0.8 % (0.0-1.0); EOS % 1.6 % (0.0-3.0); HEMATOCRIT 37.3 % (42.0-52.0); HEMOGLOBIN 12.6 g/dl (13.5-17.5); LYMPH % 41.3 % (24.0-44.0); MEAN CORPUSCULAR HEMOGLOBIN 32.6 pg (27.0-33.0); MEAN CORPUSCULAR HGB CONC 33.8 g/dl (32.0-36.5); MEAN CORPUSCULAR VOLUME 96.6 fl (80.0-96.0); MONO # 0.4 10^3/uL (0.0-0.8); MONO % 16.7 % (2.0-8.0); NEUTROPHILS % 39.2 % (36.0-66.0); PLATELET COUNT, AUTOMATED 184 10^3/uL (150-450); RED BLOOD COUNT 3.86 10^6/uL (4.30-6.10); WHITE BLOOD COUNT 2.5 10^3/uL (4.0-10.0)
[2021-04-23 09:40] LABS: ALT/SGPT 37 U/L (12-78); BILIRUBIN,TOTAL 0.3 MG/DL (0.2-1.0); BLOOD UREA NITROGEN 10 MG/DL (7-18); CALCIUM LEVEL 9.4 MG/DL (8.8-10.2); CARBON DIOXIDE LEVEL 29 MEQ/L (21-32); CHLORIDE LEVEL 106 MEQ/L (98-107); CREATININE FOR GFR 0.74 MG/DL (0.70-1.30); FERRITIN 26 NG/ML (26-388); FREE T4 1.01 NG/DL (0.76-1.46); GLOMERULAR FILTRATION RATE > 60.0 (>49); GLUCOSE, FASTING 82 MG/DL (70-100); PHENOBARBITAL LEVEL 29.9 UG/ML (15.0-40.0); PHENYTOIN (DILANTIN) 0.5 UG/ML (10.0-20.0); POTASSIUM SERUM 3.8 MEQ/L (3.5-5.1); SODIUM LEVEL 141 MEQ/L (136-145); TOTAL PROTEIN 7.7 GM/DL (6.4-8.2)
[2021-04-23 09:52] LABS: ERYTHROCYTE SEDIMENTATION RATE 9 mm/hr (0-20)
[2021-04-23 10:16] LABS: PTH INTACT 34.6 PG/ML (18.5-88.0); TOTAL 25(OH) VITAMIN D 41.5 NG/ML (30.0-100.0); VITAMIN B12 LEVEL 633 PG/ML (247-911)
== END ==
LOC: M LAB 08:15
PROVIDERS: ATTEND Family Medicine
DX: E55.9 Vitamin D deficiency, unspecified (principal); G40.909 Epilepsy, unspecified, not intractable, without status epilepticus; R63.4 Abnormal weight loss; Z12.5 Encounter for screening for malignant neoplasm of prostate; Z79.899 Other long term (current) drug therapy
CPT/HCPCS: 36415; 80053; 80184; 80185; 82306; 82607; 82728; 83970; 84439; 84443; 85025; 85652; 86140; 86677; G0103

== ENCOUNTER → 2021-05-14 | Outpatient (CLI) | payer MEDICARE, MEDICAID ==
[~2021-05-14] MED LIST changes: -DEPA1TAB3 PO; -SENN-23 PO
--- NOTE | 2021-05-14 11:11 | REP ---
INDICATION: CACHEXIA. COMPARISON: None. TECHNIQUE: Routine scans without contrast administration. FINDINGS: Nodules present in the left lower lobe measuring 2.6 x 2.3 x 1.5 cm, 1 cm, and 1.8 x 1.5 cm. These nodules are not calcified. The lungs are otherwise clear but show emphysematous changes. No hilar or mediastinal adenopathy. No pleural fluid or thickening. Adrenal glands not enlarged.. Bony structures unremarkable. IMPRESSION: Three nodules in the left lower lobe are suspicious for malignancy. <Electronically signed by Andrea Aguiar > 05/14/21 [id number]
--- NOTE | 2021-05-14 11:16 | REP ---
INDICATION: CACHEXIA. COMPARISON: None. TECHNIQUE: Unenhanced CT scan of the abdomen pelvis. FINDINGS: Three nodules left lower lobe. Liver normal size and attenuation. No mass or biliary tract dilatation. Gallbladder fluid-filled aunts of gallstone. Pancreas, spleen, aorta, adrenal glands and unremarkable PA kidneys normal size configuration. No hydronephrosis, mass or calculus. Distended urinary bladder. Fecal impaction in the colon and rectum. No mass, adenopathy or inflammatory change in the abdomen or pelvis. IMPRESSION: Fecal impaction. Distended urinary bladder. <Electronically signed by Andrea Aguiar > 05/14/21 1114
--- NOTE | 2021-05-14 11:17 | REPVR ---
PROCEDURE INFORMATION: Exam: CT Head Without Contrast Exam date and time: 05/14/2021 10:38 AM Age: 60 years old Clinical indication: Other: Cachexia TECHNIQUE: Imaging protocol: Computed tomography of the head without contrast. Radiation optimization: All CT scans at this facility use at least one of these dose optimization techniques: automated exposure control; mA and/or kV adjustment per patient size (includes targeted exams where dose is matched to clinical indication); or iterative reconstruction. COMPARISON: IO Teeth, partial-dental film 10/30/2016 11:00 AM FINDINGS: Brain: The brain demonstrates diffuse volume loss. No visible evolving territorial infarct. No hemorrhage. No evidence of edema or intracranial mass effect. Subinsular hypodensities likely reflecting chronic ischemia. Cerebral ventricles: No ventriculomegaly. Paranasal sinuses: Retention cyst or polyp in the right maxillary sinus. Mastoid air cells: Visualized mastoid air cells are well aerated. Bones/joints: Degenerative changes of the temporomandibular joints. No acute fracture seen. Chronic appearing nasal bone fracture. Soft tissues: Unremarkable. IMPRESSION: No acute intracranial abnormality seen. Electronically signed by: Kenzie Lerma On 05/14/2021 11:17:21 AM
--- NOTE | 2021-05-14 11:31 | REPVR ---
PROCEDURE INFORMATION: Exam: CT Neck Without Contrast Exam date and time: 05/14/2021 10:38 AM Age: 60 years old Clinical indication: Other: Cachexia TECHNIQUE: Imaging protocol: Computed tomography images of the neck without contrast. Radiation optimization: All CT scans at this facility use at least one of these dose optimization techniques: automated exposure control; mA and/or kV adjustment per patient size (includes targeted exams where dose is matched to clinical indication); or iterative reconstruction. COMPARISON: [place] Chest, 1 view 03/20/2021 6:05 PM FINDINGS: Limited assessment the mucosal surfaces without intravenous. Isodense lead not be visible. Nasopharynx: Unremarkable. Oropharynx: Unremarkable. No significant tonsillar enlargement. Hypopharynx: Unremarkable. Larynx: Unremarkable. Normal epiglottis. Retropharyngeal space: Unremarkable. Submandibular/Parotid glands: Normal. Glands are normal in size. Thyroid: The thyroid gland is mildly enlarged and heterogeneous. Bilateral thyroid nodules, for example a nodule in the lower pole of the left thyroid lobe measuring 1.5 cm. Right tracheoesophageal groove ovoid soft tissue density lesion measures approximately 3.1 x 2.2 cm on image 54 of series 401. This may represent an exophytic thyroid nodule, parathyroid adenoma or abnormal lymph node. Lymph nodes: See "Thyroid" finding. No enlarged internal jugular or accessory sammy chain lymph nodes identified. Trachea: Visualized trachea is unremarkable. Lungs: Unremarkable as visualized. Bones/joints: Multilevel cervical degenerative disc disease, in particular diffuse disc height loss and spondylosis with uncovertebral arthropathy at C2-C3. Facet arthropathy is severe on the at C4-C5. Mild lower cervical dextroconvex scoliosis. No acute fracture seen. Soft tissues: Unremarkable. IMPRESSION: 1. 3.1 x 2.2 cm right tracheal a soft groove soft tissue density lesion arising from versus adjacent to the right thyroid lobe; may represent a thyroid nodule, parathyroid adenoma or abnormal lymph node. 2. A discrete 1.5 cm nodule in the lower pole of the left thyroid lobe. Thyroid ultrasound may be performed for further evaluation. COMMENTS: Consistent with the [place] [employer]'s Incidental Findings Committee white paper (J Am Aravind Radiol 2015): In patients aged 35 years and older with an incidental thyroid nodule equal to or greater than 1.[address], MRI or extrathyroidal US, further evaluation with dedicated thyroid US is recommended for patients with normal life expectancy and without comorbidities. For smaller nodules without suspicious features, no further evaluation or follow up is recommended. Electronically signed by: Kenzie Lerma On 05/14/2021 11:30:22 AM
== END ==
LOC: M RAD 10:00
PROVIDERS: ATTEND Physician Assistant
DX: R64 Cachexia (principal)

== ENCOUNTER → 2021-05-26 | Outpatient (CLI) | payer MEDICARE, MEDICAID ==
[2021-05-26 16:24] LABS: BASO % 0.9 % (0.0-1.0); EOS # 0.1 10^3/uL (0.0-0.5); HEMATOCRIT 37.2 % (42.0-52.0); HEMOGLOBIN 12.3 g/dl (13.5-17.5); LYMPH # 1.4 10^3/uL (1.5-5.0); LYMPH % 41.4 % (24.0-44.0); MEAN CORPUSCULAR HEMOGLOBIN 31.9 pg (27.0-33.0); MEAN CORPUSCULAR HGB CONC 33.1 g/dl (32.0-36.5); MEAN CORPUSCULAR VOLUME 96.6 fl (80.0-96.0); MONO # 0.5 10^3/uL (0.0-0.8); MONO % 14.9 % (2.0-8.0); NEUTROPHILS # 1.4 10^3/uL (1.5-8.5); NEUTROPHILS % 40.5 % (36.0-66.0); PLATELET COUNT, AUTOMATED 194 10^3/uL (150-450); RED BLOOD COUNT 3.85 10^6/uL (4.30-6.10); WHITE BLOOD COUNT 3.4 10^3/uL (4.0-10.0)
[2021-05-26 16:34] LABS: INR 0.96; PROTHROMBIN TIME 13.1 SECONDS (12.7-14.5)
[2021-05-26 16:35] LABS: PARTIAL THROMBOPLASTIN TIME 31.4 SECONDS (25.9-37.0)
[2021-05-26 16:51] LABS: ALBUMIN 3.5 GM/DL (3.2-5.2); ALT/SGPT 31 U/L (12-78); BILIRUBIN,TOTAL 0.3 MG/DL (0.2-1.0); BLOOD UREA NITROGEN 16 MG/DL (7-18); CALCIUM LEVEL 9.7 MG/DL (8.8-10.2); CARBON DIOXIDE LEVEL 29 MEQ/L (21-32); CHLORIDE LEVEL 105 MEQ/L (98-107); CREATININE FOR GFR 0.62 MG/DL (0.70-1.30); GLOMERULAR FILTRATION RATE > 60.0 (>49); GLUCOSE, FASTING 81 MG/DL (70-100); POTASSIUM SERUM 4.5 MEQ/L (3.5-5.1); SODIUM LEVEL 140 MEQ/L (136-145); VALPROIC ACID (DEPAKOTE) 27.6 UG/ML (50.0-100.0)
== END ==
LOC: M WUC 13:33
PROVIDERS: ATTEND Family Medicine
DX: F79 Unspecified intellectual disabilities (principal); R63.4 Abnormal weight loss

== ENCOUNTER → 2021-05-26 | Outpatient (CLI) | payer MEDICARE, MEDICAID | LOC: M PLARAD 12:38 | PROVIDERS: ATTEND Physician Assistant | DX: R91.8 Other nonspecific abnormal finding of lung field (principal); R22.1 Localized swelling, mass and lump, neck; E04.1 Nontoxic single thyroid nodule; Z53.8 Procedure and treatment not carried out for other reasons ==

== ENCOUNTER → 2021-06-17 | Outpatient (CLI) | payer MEDICARE, MEDICAID ==
--- NOTE | 2021-06-17 14:48 | REP ---
INDICATION: ABNORMAL FINDING OF LUNG FIELD COMPARISON: 05/14/2021 also without contrast TECHNIQUE: Standard helical technique without intravenous contrast. This causes exam limitations. FINDINGS: Limited evaluation of the mediastinum and pulmonary alexus show no significant changes from the prior exam. Although adenopathy cannot be ruled out. There is no gross mass. There are no pleural or pericardial effusions. There is no significant change in appearance of the imaged osseous structures or imaged upper abdomen. Evaluation of the lung shields shows no significant change from the prior exam. There are multiple left lower lobe nodules. No new abnormal nodules, masses, or opacities have developed. IMPRESSION: There has been no significant change in appearance of the nodules when compared to the prior exam, however, I feel that the completion of findings may in fact represent a large arteriovenous malformation rather than a true nodular mass. A contrast-enhanced CT examination of the chest is recommended for further evaluation. <Electronically signed by Eric Gallo > 06/17/21 [id number]
== END ==
LOC: M PLAIMG 13:26
PROVIDERS: ATTEND Internal Medicine Pulmonary Disease
DX: R91.8 Other nonspecific abnormal finding of lung field (principal)

== ENCOUNTER → 2021-07-11 | Outpatient (CLI) | payer MEDICARE, MEDICAID | LOC: M LABSMTC 09:47 | PROVIDERS: ATTEND Anesthesiology | DX: Z01.812 Encounter for preprocedural laboratory examination (principal); Z20.822 Contact with and (suspected) exposure to COVID-19 ==

== ENCOUNTER → 2021-07-14 | Outpatient (CLI) | payer MEDICARE, MEDICAID ==
[~2021-07-14] MED LIST changes: +DEPA1TAB3 PO; +SENN-23 PO
[2021-07-14 11:49] LABS: BASO % 0.9 % (0.0-1.0); EOS # 0.1 10^3/uL (0.0-0.5); EOS % 4.6 % (0.0-3.0); HEMATOCRIT 39.4 % (42.0-52.0); HEMOGLOBIN 12.7 g/dl (13.5-17.5); LYMPH # 1.3 10^3/uL (1.5-5.0); LYMPH % 58.9 % (24.0-44.0); MEAN CORPUSCULAR HEMOGLOBIN 31.9 pg (27.0-33.0); MEAN CORPUSCULAR HGB CONC 32.2 g/dl (32.0-36.5); MONO # 0.4 10^3/uL (0.0-0.8); MONO % 19.2 % (2.0-8.0); NEUTROPHILS % 16.4 % (36.0-66.0); PLATELET COUNT, AUTOMATED 190 10^3/uL (150-450); RED BLOOD COUNT 3.98 10^6/uL (4.30-6.10); WHITE BLOOD COUNT 2.2 10^3/uL (4.0-10.0)
[2021-07-14 12:00] LABS: INR 0.93; PARTIAL THROMBOPLASTIN TIME 30.2 SECONDS (25.9-37.0); PROTHROMBIN TIME 12.8 SECONDS (12.7-14.5)
[2021-07-14 12:14] LABS: BLOOD UREA NITROGEN 9 MG/DL (7-18); CALCIUM LEVEL 9.3 MG/DL (8.8-10.2); CARBON DIOXIDE LEVEL 32 MEQ/L (21-32); CHLORIDE LEVEL 105 MEQ/L (98-107); CREATININE FOR GFR 0.82 MG/DL (0.70-1.30); GLOMERULAR FILTRATION RATE > 60.0 (>49); GLUCOSE, FASTING 80 MG/DL (70-100); POTASSIUM SERUM 4.4 MEQ/L (3.5-5.1); SODIUM LEVEL 140 MEQ/L (136-145)
[2021-07-14 12:24] LABS: NEUTROPHILS # 0.4 10^3/uL (1.5-8.5)
== END ==
LOC: M PLALAB 07-11 10:04
PROVIDERS: ATTEND Internal Medicine Pulmonary Disease
DX: R91.8 Other nonspecific abnormal finding of lung field (principal)

== ENCOUNTER 2021-07-16 07:59 | Day surgery (SDC) | payer MEDICARE, MEDICAID ==
[~2021-07-16] VITALS: Ht 162.6 cm; Wt 50.5 kg
[~2021-07-16 07:59] MED LIST changes: +ALBUTEROL SULFATE 2.5 MG/0.5 ML INH NEB SOLN INH ONE; +LIDOCAINE 4% INJ 5ML AMP INH ONE; +LR 1,000 ML IV ONE
[2021-07-16] MEDS ORDERED: LIDOCAINE 1% SDV 30ML VIAL As Ordered ONE (09:14)
[2021-07-16] MEDS ORDERED: EPINEPHrine 1MG/10ML SYRINGE 1.5IN As Ordered ONE (09:14)
[2021-07-16] MEDS ORDERED: THROMBIN SOLN 5,000 UNITS VIAL As Ordered ONE (09:14)
[2021-07-16] MEDS ORDERED: CETACAINE SPRAY 5GM As Ordered ONE (09:14)
[2021-07-16] MEDS ORDERED: dexameTHASONE 4 MG/ML 1ML VIAL (J1100 PER 1MG) As Ordered ONE (09:20)
[2021-07-16] MEDS ORDERED: fentaNYL 100 MCG/2 ML INJECTION (J3010) As Ordered ONE (09:20)
[2021-07-16] MEDS ORDERED: propofoL 200 MG/20 ML VIAL As Ordered ONE (09:20)
[2021-07-16] MEDS ORDERED: ROCURONIUM BROMIDE 50 MG/5 ML VIAL As Ordered ONE (09:20)
[2021-07-16] MEDS ORDERED: MIDAZOLAM INJ 2MG/2ML VIAL (J2250 PER 1MG) As Ordered ONE (09:20)
[2021-07-16] MEDS ORDERED: LIDOCAINE 2% 100MG/5ML SDV (FOR ANES.) As Ordered ONE (09:20)
[2021-07-16] MEDS ORDERED: KETAMINE HCL 200 MG/20 ML VIAL As Ordered ONE (09:26)
[2021-07-16] MEDS ORDERED: PHENYLephrine 500MCG 5ML (100MCG/ML) SYRINGE As Ordered ONE (10:05)
[2021-07-16] MEDS ORDERED: SUGAMMADEX SODIUM 500 MG/5 ML VIAL (BRIDION) As Ordered ONE (10:06)
[2021-07-16] MEDS ORDERED: ONDANSETRON 4MG/2ML VIAL As Ordered ONE (10:06)
--- NOTE | 2021-07-16 11:29 | REP ---
INDICATION: POST OP BRONCH COMPARISON: 03/20/2021 TECHNIQUE: Portable AP view of the chest FINDINGS: Mediastinum and cardiac silhouette are stable and within normal limits. Lung sheilds demonstrate chronic appearing changes. Subtle opacity in the left upper lung zone suggested. No effusion. No pneumothorax. Skeletal structures intact. IMPRESSION: Status post bronchoscopy. No evidence for effusion or pneumothorax. <Electronically signed by Neville Lin > 07/16/21 112
--- NOTE | 2021-07-16 11:32 | ROOR ---
Patient Name: Jerome Lloyd Procedure Date: 07/16/2021 9:22 AM Date of : 1960 Admit Type: Outpatient Age: 61 Note Status: Finalized Attending MD: Alba Lira MD Procedure: Bronchoscopy Indications: Left lower lobe nodule Providers: Alba Lira MD (Doctor), ELIECER BONILLA MD (1st Assisting Doctor) Referring MD: 1. NO/Unknown PCP 1. NO/Unknown PCP, Admin. (Referring MD) Requesting Physician: Medicines: General Anesthesia, Cetacaine topical, Epinephrine 1 mg/10 mL topical 1 mL Complications: No immediate complications. Estimated blood loss: Minimal Procedure: Pre-Anesthesia Assessment: - Prior to the procedure, a History and Physical was performed, and patient medications and allergies were reviewed. The patient's tolerance of previous anesthesia was also reviewed. The risks and benefits of the procedure and the sedation options and risks were discussed with the patient. All questions were answered, and informed consent was obtained. Prior Anticoagulants: The patient has taken no previous anticoagulant or antiplatelet agents. ASA Grade Assessment: III - A patient with severe systemic disease. After reviewing the risks and benefits, the patient was deemed in satisfactory condition to undergo the procedure. - Patient identification and proposed procedure were verified prior to the procedure by the physician, the nurse, the anesthesiologist, the moisture meter operator and the geotechnical engineering technician. The procedure was verified in the procedure room. The Bronchoscope was introduced through the mouth, via the endotracheal tube (the patient was intubated for the procedure) and advanced to the tracheobronchial tree of both lungs. The procedure was accomplished without difficulty. The patient tolerated the procedure well. Findings: The endotracheal tube is in good position. The visualized portion of the trachea is of normal caliber. The dejon is sharp. The tracheobronchial tree was examined to at least the first segmental level. Anatomic variant noted in right upper lobe. Bronchial anatomy otherwise normal. Mucosa with nodularity, appeared cartilaginous with scattered pitting noted. Scant mucous secretions. FoxyP2 Robotic Electromagnetic navigation bronchoscopy was performed. The CT scan was used for planning purposes. A virtual bronchoscopic image was generated using the planning software. The target in the posterior basal segment of the left lower lobe was marked. A nodule 2.6 cm in size was found and a pathway was created. After a complete airway exam, the navigation phase was then begun to locate the target lesion(s). Positioning off-center (in relation to the lesion) was confirmed using the Olympus radial probe US catheter. The locatable guide was removed from the extended working channel. Transbronchial biopsies of a nodule were performed in the posterior basal segment of the left lower lobe using forceps and sent for histopathology examination. The procedure was guided by fluoroscopy. Transbronchial biopsy technique was selected because the sampling site was not visible endoscopically. Transbronchial needle aspirations of a nodule were performed in the posterior basal segment of the left lower lobe using a fine (20 gauge) needle and sent for routine cytology. The procedure was guided by fluoroscopy. Transbronchial needle aspiration technique was selected because the sampling site was not accessible using standard endoscopic (bronchoscopic) techniques. Bronchoalveolar lavage was performed in the LLL posterior basal segment (B10) of the lung and sent for routine cytology and bacterial, AFB and fungal analysis. The return was blood-tinged. There were no mucoid plugs in the return fluid. An endobronchial ultrasound endoscope was utilized in order to assist with fine needle aspiration in the right paratracheal area, in the subcarinal area, in the right hilum and in the left hilum. There were no pathologically enlarged lymph nodes on survey, no aspiration performed of lymph nodes. Endobronchial biopsies of a mucosal nodularity were performed in the left lower lobe using a forceps and sent for histopathology examination. Impression: - Left lower lobe nodule - The airway examination was normal. - Electromagnetic navigation bronchoscopy was performed. - Transbronchial lung biopsies were performed. - A transbronchial needle aspiration was performed. - Bronchoalveolar lavage was performed. - Endobronchial ultrasound was performed. - An endobronchial biopsy was performed. Recommendation: - Follow up with bronchoscopist as previously scheduled. Procedure Code(s): --- Professional --- 61070, Bronchoscopy, rigid or flexible, including fluoroscopic guidance, when performed; with transbronchial needle aspiration biopsy(s), trachea, main stem and/or lobar bronchus(i) 94828, Bronchoscopy, rigid or flexible, including fluoroscopic guidance, when performed; with transbronchial lung biopsy(s), single lobe 25237, Bronchoscopy, rigid or flexible, including fluoroscopic guidance, when performed; with bronchial alveolar lavage 29870, Bronchoscopy, rigid or flexible, including fluoroscopic guidance, when performed; with computer-assisted, image-guided navigation (List separately in addition to code for primary procedure[s]) 10984, Bronchoscopy, rigid or flexible, including fluoroscopic guidance, when performed; with transendoscopic endobronchial ultrasound (EBUS) during bronchoscopic diagnostic or therapeutic intervention(s) for peripheral lesion(s) (List separately in addition to code for primary procedure[s]) CPT copyright 2019 [employer] [employer]. All rights reserved. The codes documented in this report are preliminary and upon tow operator review may be revised to meet current compliance requirements. Attending Participation: I personally performed the entire procedure. Alba Lira MD 07/16/2021 11:31:44 AM ELIECER BONILLA MD Number of Addenda: 0 Note Initiated On: 07/16/2021 9:22 AM
[2021-07-16] MEDS ORDERED: ONDANSETRON 4MG/2ML VIAL IV PRN (11:50)
[2021-07-16] MEDS ORDERED: LR 1,000 ML IV SCH (11:50)
[2021-07-16] MEDS ORDERED: fentaNYL 100 MCG/2 ML INJECTION (J3010) IV PRN (11:50)
[2021-07-16 12:27] VITALS: BP 146/77
--- NOTE | 2021-07-16 15:05 | ECGEPIP ---
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
== END 2021-07-16 12:50 | disposition home or self-care (01) ==
LOC: M SDC 07:59
PROVIDERS: ATTEND Internal Medicine Pulmonary Disease
DX: R91.8 Other nonspecific abnormal finding of lung field (principal); R63.4 Abnormal weight loss; F73 Profound intellectual disabilities; G40.89 Other seizures; E55.9 Vitamin D deficiency, unspecified; K59.04 Chronic idiopathic constipation; K44.9 Diaphragmatic hernia without obstruction or gangrene; I10 Essential (primary) hypertension; Z79.899 Other long term (current) drug therapy; K21.9 Gastro-esophageal reflux disease without esophagitis; F41.9 Anxiety disorder, unspecified
CPT/HCPCS: 31624; 31627; 31628; 31629; 31654; 71045; 76000; 87070; 87102; 87116; 87205; 87206; 88108; 88173; 88305; 88313; 93005; J1100; J2250; J2370; J2405; J3010; S2900

== ENCOUNTER 2021-07-30 09:15 | Inpatient (IN) | payer MEDICARE, MEDICAID ==
[2021-07-29 23:30] VITALS: BP 131/79
[~2021-07-30] VITALS: Ht 162.6 cm; Wt 57.6 kg
[~2021-07-30 09:15] MED LIST changes: -ALBUTEROL SULFATE 2.5 MG/0.5 ML INH NEB SOLN INH ONE; -LIDOCAINE 4% INJ 5ML AMP INH ONE; -LR 1,000 ML IV ONE
--- OUTSIDE RECORDS SUMMARY | 2021-07-30 09:24 | CCD | Continuity of Care Document ---
Author Author Jerome AHUMADA M.D. Organization Unknown Address [address] [place] [address] Phone [phone] Care Team Providers Care Vending Machine Coin Collector Name Role Phone Ligia Tineo PA-C AUTM [phone] Problems Description No Information Available Social History Type Date Description Comments Sex Unknown Tobacco Use Start: Unknown Patient has never smoked Smoking Status Reviewed: 07/22/21 Patient has never smoked Allergies and adverse reactions Description No Known Drug Allergies Medications Active Medications SIG Qnty Indications Ordering Provide r Date Banophen 50mg Capsules 1 tab by mouth every day Unknown Calcium + Vitamin D3 600-5mg-mcg T ablets 1 tab by mouth every day Unknown 0 D[address]proex Sodium 500mg Tablets [address] 1 tab by mouth every day Unknown Dulcolax 10mg Suppository 1 per rectum every day as directed Unknown Levetiracetam 750mg Tablets 1 tab by mouth twice a day Unknown Lorazepam 2mg Tablets 1 tab by mouth every day Unknown Pantoprazole Sodium 40mg Tablets D R 1 tab every day Unknown Phenobarbital 64.8mg Tablets 2 tab by mouth every day Unknown Senna 8.6mg Tablets 1 tab by mouth every day at bedtime Unknown Trazodone HCL 100mg Tablets 1 tab by mouth every day Unknown Olanzapine 20mg Tablets 1 tab by mouth every day Unknown Amlodipine Besylate 2.5mg Tablets 1 tab by mouth every day Unknown Immunizations Description No Information Available Vital Signs Date Vital Result Comment 07/22/2021 1:22pm BP Systolic 126 mmHg BP Diastolic 78 mmHg Heart Rate 73 /min O2 % BldC Oximetry 99 % Height 64 inches 5'4" [place] Body Weight 130 lb 06/13/2021 9:20am BP Systolic 124 mmHg BP Diastolic 76 mmHg Heart Rate 93 /min O2 % BldC Oximetry 99 % Height 64 inches 5'4" [place] Body Weight 130 lb Results Test Acquired Date Facility Test Result H/L Range Note Laboratory test finding 07/16/2021 [facility] Main Lab [address] [place] [address] [phone] Pathology Request For Service (SEE NOTE) 1 Bal Culture And Gram Stain 07/16/2021 [facility] Main Lab [address] [place] [address] [phone] Gram Stain (SEE NOTE) Normal 2 Bal Culture FULL REPORT IN L <SEE NOTE> Normal 3 Laboratory test finding 07/16/2021 [facility] [address] [place] [address] [phone] Afb Smear & Culture Due to limited s <SEE NOTE> 4 Laboratory test finding 07/16/2021 [facility] [address] [place] [address] [phone] Non Farm Equipment Engineer/Cytology Req For Servi (SEE NOTE) 5 Laboratory test finding 07/16/2021 [facility] [address] [place] [address] [phone] Non Farm Equipment Engineer/Cytology Req For Servi (SEE NOTE) 6 CBC With Differential 07/14/2021 [facility] Main Lab [address] [place] [address] [phone] White Blood Count 2.2 10 Low 4.0-10.0 Red Blood Count 3.98 10 Low 4.30-6.10 Hemoglobin 12.7 g/dL Low 13.5-17.5 Hematocrit 39.4 % Low 42.0-52.0 Mean Corpuscular Volume 99.0 fl High 80.0-96.0 Mean Corpuscular Hemoglobin 31.9 pg Normal 27.0-33.0 Mean Corpuscular HGB Conc 32.2 g/dL Normal 32.0-36.5 Red Cell Distribution Width 13.0 % Normal 11.5-14.5 Platelet Count, Automated 190 10 Normal 150-450 Neutrophils % 16.4 % Low 36.0-66.0 Lymph % 58.9 % High 24.0-44.0 [place] % 19.2 % High 2.0-8.0 Eos % 4.6 % High 0.0-3.0 Baso % 0.9 % Normal 0.0-1.0 Immature Granulocyte % 0.0 % Normal 0-3.0 Nucleated Red Blood Cell % 0.0 % Normal 0-0 Neutrophils # 0.4 10 Low 1.5-8.5 7 Lymph # 1.3 10 Low 1.5-5.0 Red [place]ow # 0.4 10 Normal 0.0-0.8 Eos # 0.1 10 Normal 0.0-0.5 Baso # 0.0 10 Normal 0.0-0.2 Basic Metabolic Profile 07/14/2021 [facility] Main Lab [address] [place] [address] [phone] Glucose, Fasting 80 mg/dL Normal 70-100 Blood Urea Nitrogen 9 mg/dL Normal 7-18 Creatinine For GFR 0.82 mg/dL Normal 0.70-1.30 Glomerular Filtration Rate > 60.0 Normal >49 8 Sodium Level 140 mEq/L Normal 136-145 Potassium Serum 4.4 mEq/L Normal 3.5-5.1 Chloride Level 105 mEq/L Normal 98-107 Carbon Dioxide Level 32 mEq/L Normal 21-32 Anion Gap 3 mEq/L Low 8-16 Calcium Level 9.3 mg/dL Normal 8.8-10.2 PT & Aptt 07/14/2021 [facility] Main Lab [address] [place] [address] [phone] Prothrombin Time 12.8 seconds Normal 12.7-14.5 Inr 0.93 Normal 9 Partial Thromboplastin Time 30.2 seconds Normal 25.9-37.0 Quanteferon TB Gold Test 07/14/2021 [facility] Main Lab [address] [place] [address] [phone] QuantiFERON Criteria (SEE NOTE) Normal . 10 QuantiFERON TB1 Ag Value 0.08 IU/mL Normal . QuantiFERON TB2 Ag Value 0.07 IU/mL Normal . QuantiFERON Nil Value 0.07 IU/mL Normal . QuantiFERON Mitogen Value >10.00 IU/mL Normal . QuantiFERON-TB Gold Plus Negative Normal Negative 11 Laboratory test finding 07/14/2021 [facility] Main Lab [address] [place], [place] [address] [phone] Flow Cytometry BLD Send Out SEE PATHOLOGY RE <SEE NO TE> Normal 12 Laboratory test finding 07/14/2021 [facility] [address] [place] [address] [phone] Pathology Request For Service (SEE NOTE) 13 1 FINAL DIAGNOSIS A - Lung, left lower lobe, forceps biopsy: Fragments of benign lung parenchyma. No evidence for malignancy. B - Lung, left lower lobe, endobronchial forceps biopsy: Minute fragments of bronchial wall mucosa. No evidence for malignancy. No alveolar parenchyma is noted on multiple H&E stained levels. 07/17/2021 - 1134 CLINICAL DIAGNOSIS Left lower lobe abnormality and cancer 07/16/20211444 GROSS DIAGNOSIS A - Received in formalin labeled "left lower lobe forceps biopsy" consists of multiple mooney-red fragments measuring 0.3 x 0.3 x 0.1 cm in aggregate. All in one. B - Received in formalin labeled "endobronchial forceps biopsy, left lower lobe" consists of two mooney fragments measuring 0.2 x 0.2 x 0.1 cm in aggregate. All in one. -SV 07/16/2021 - 1444 Signed CLARE SHARMA MD 07/18/2021 0852 2 NO CELLS SEEN NO ORGANISMS SEEN 3 FULL REPORT IN LAB NOTES (eC W and Medent). NO GROWTH AEROBICALLY 4 Due to limited sensitivity, smear results should be used as an adjunct in evaluating patient tuberculosis status. Cultural examination is highly recommended for clinical diagnosis. AFB smear Kinyoun NEGATIVE (NO AFB Seen ) 5 SPECIMEN: Broncho alveolar lavage 2ml Emlyn with red flecks SPECIMEN ADEQUACY: Satisfactory for evaluation CATEGORIZATION: No Malignancy identified DESCRIPTIONS: Scattered bronchial cells noted in a background of blood elements. COMMENTS: 07/17/2021 - [address](ASCP) 07/17/2021 1020 (Prelim) Signed CLARE SHARMA MD 07/18/2021 0852 6 SPECIMEN: FNA Lef t lower lobe lung Slides and Cytolyt (red) received SPECIMEN ADEQUACY: Satisfactory for evaluation CATEGORIZATION: No Malignancy identified DESCRIPTIONS: Specimen consists mainly of red blood cells with rare bronchial cells, neutrophils, and lymphocytes noted. COMMENTS: 07/17/2021 - [address](ASCP) 07/17/2021 1029 (Prelim) Signed CLARE SHARMA MD 07/18/2021 0852 7 Scan Verified machine result s. VERIFIED 8 Units are mL/min/1.73 m2 Chronic Kidney Disease Staging per NKF: Stage I & II GFR >=60 Normal to Mildly Decreased Stage III GFR 30-59 Moderately Decreased Stage IV GFR 15-29 Severely Decreased Stage V GFR <15 Very Little GFR Left ESRD GFR <15 on IT DATA ARCHITECT 9 THERAPUTIC HUMAN INR VALUES INDICATIONS NORMAL RANGES PROPHYLAXIS/TREATMENT OF: VENOUS THROMBOSIS 2.0-3.0 PULMONARY EMBOLISM 2.0-3.0 PREVENTION OF SYSTEMIC EMBOLISM FROM: TISSUE HEART VALVES 2.0-3.0 ACUTE MYOCARDIAL INFARCTION 2.0-3.0 VALVULAR HEART DISEASE 2.0-3.0 ATRIAL FIBRILLATION 2.0-3.0 MECHANICAL VALVES(HIGH RISK) 2.5-3.5 RECURRENT MYOCARDIAL INFARCTION 2.5-3.5 10 . The QuantiFERON-TB Gold Plus result is determined by subtracting the Nil value from either TB antigen (Ag) tube. The mitogen tube serves as a control for the test. 11 The specimen received for Qu antiFERON testing was incubated by the ordering institution. Specific procedures outlined in our Directory of Services and in the package insert for the QuantiFERON Gold (In Tube) test must be followed to enable for proper stimulation of cells for the production of interferon gamma. Chemiluminescence immunoassay methodology Performed at: - [facility] [address] [id number] Business Technology Architect: Alda Mac MD, Phone: [phone] SEE PATHOLOGY REPORT Specimen Collection for Pathology Reference Lab Testing. Refer to [facility] Pathology Report for Results:[id number] FINAL DIAGNOSIS Peripheral blood, flow cytometry: No definitive evidence of acute leukemia or non-Hodgkin B-cell lymphoma. Subpopulation of CD3+ T cells detected lacking both CD4 and CD8 expression (21% of total lymphocytes). Leukopenia with absolute neutropenia (0.4K/uL) and lymphopenia (1.3K/uL), and macrocytic anemia. T-cell Receptor Gamma Chain (PCR-Assay): There was no definitive evidence of a clonal population of cells exhibiting a T-cell receptor gamma chain gene rearrangement. See [facility] [id number] and [id number]. 07/18/2021 - 929 CLINICAL DIAGNOSIS Leukopenia 07/15/20211303 GROSS DIAGNOSIS Received two green and two purple top tubes of peripheral blood submitted to [facility]. for flow cytometry. -OA 07/15/2021 - 1303 Signed GO ESCAMILLA MD 07/18/2021930 Procedures Date Code Description Status 06/13/2021 74170 Office/Outpatient New Moderate M DM 45-59 Minutes Completed Medical Devices Description No Information Available Encounters Type Date Location Provider Dx Diagnosis Office Visit 06/13/2021 9:30a [facility] K Alba coles M.D. R91.8 Other nonspecific abnormal f inding of lung field F73 Profound intellectual disabi lities G40.89 Other seizures Assessments Date Code Description Provider 07/22/2021 R91.8 Other nonspecific abnormal findi ng of lung field Alba Ahumada M.D. 07/22/2021 F73 Profound intellectual disabiliti Alba Villegas M.D. 07/22/2021 G40.89 Other seizures Alba Ahumada M.D. 06/13/2021 R91.8 Other nonspecific abnormal findi ng of lung field Alba Ahumada M.D. 06/13/2021 F73 Profound intellectual disabiliti Alba Villegas M.D. 06/13/2021 G40.89 Other seizures Alba Ahumada M.D. Plan of Treatment 07/22/2021 - Alba Ahumada M.D.* R91.8 Other nonspecific abnormal finding of lung field * F73 Profound intellectual disabilities * G40.89 Other seizures* New Xrays:* CT Chest W Contrast, Ordered: 07/22/21 Functional Status Description No Information Available Mental Status Description No Information Available Referrals Refer to Reason for Referral Status Appt Date Alba Ahumada M.D. LUNG NODULE Scheduled 06/13/2021 [facility], Pulmonary [address] [place], [place] [address] [phone]
--- OUTSIDE RECORDS SUMMARY | 2021-07-30 09:24 | CCD ---
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 Active confi rmed 575041473 Problem Seizure disorder G40.909 Active confirmed 12 5119637 Problem Fe deficiency anemia D50.9 Active confirmed 95903450 Problem Colon cancer screening Z12.11 Active confirmed 075558189 Problem Ulcer of esophagus with bleeding K22.11 Active conf irmed 64618195 Problem Intellectual disability F79 Active confirmed 436198816 Problem Sleep disturbance G47.9 Active confirmed 53 148831 Problem Vitamin D deficiency E55.9 Active confirmed 25077137 Problem Thyroid nodule E04.1 Active confirmed 54355 5005 Problem Prostate cancer screening Z12.5 Active confirmed 542160655 Problem Insomnia, unspecified type G47.00 Active confirmed 893422828 Problem Hypertension, essential I10 Active confirmed 76559507 Problem Borderline osteopenia M85.80 Active confirmed 022090926 Problem Hyperactivity F90.9 Active confirmed 649469 00 ALLERGIES No Known Allergies ENCOUNTERS from 1960 to 2021-07-22 Encounter Location Date Provider Diagnosis [address] [phone] [place] [address] Jul, Mustapha Mar Intellectual disability F79 IMMUNIZATIONS Vaccine Route Administration Date Status Influenza Pharmacy Given Unknown Sep 11, 2019 Adminis tered Influenza 6mo & up Fluzone Unknown Jul 13, 2017 Other s Influenza 6mo & up Fluzone IM Intramuscular Jul 14, 2013 Admi nistered SOCIAL HISTORY Tobacco Use: Social History Observation Description Date Details (start date - stop date) Never Smoker Sex Assigned At : Social History Observation Description Sex Assigned At Unknown Audit Question Answer Notes Total Score: 0 Interpretation: Alcohol Education Restoration: Question Answer Notes Restoration No evangelical beliefs that would impact health care. Sexual Hx: Question Answer Notes Had sex in the last 12 months (vaginal, oral, or anal)? No Drug and Alcohol Question Answer Notes Total Score: 0 Interpretation: No problems reported Alcohol Screening: Question Answer Notes Did you have a drink containing alcohol in the past year? No Points 0 Interpretation Negative Tobacco Use: Question Answer Notes Are you a: never smoker REASON FOR REFERRAL No Information VITAL SIGNS No information MEDICATIONS Medication SIG (Take, Route, Frequency, Duration) Notes Start Da te End Date Status Pantoprazole Sodium 40 MG TAKE ONE TABLET BY MOUTH TWICE DAILY for 28 Active guaiFENesin 100 MG/5ML 10 ml as needed Orally every 4 hours for cough Oct, Active ZyPREXA 20 mg 1 tablet p.o. Daily at bedtime for 28 Active Senna S 8.6-50 MG 2 tab Orally bid for 28 Active Pantoprazole Sodium 40 MG 1 tablet Orally AC BID for 30 day(s) Active Calcium 600+D High Potency 600-400 MG-UNIT 1 tablet Or ally twice daily for 30 day(s) Active PHENobarbital 64.8 MG 2 capsules by mouth Daily at bedtime for 30 Day s Active Senna S 8.6-50 MG 2 tab Orally bid for 30 Days Active Ativan 2 MG 2 tablets Orally prn apointments for 30 day(s) 10 Jun, 2021 Active Trazodone HCl 100 MG 3 tablets Orally at bedtime for 30 days Active Divalproex Sodium 500 MG 2 tablet Orally Qhs for 30 Days 0 4 May, 2021 Active ZyPREXA 20 mg 1 tablet p.o. Daily at bedtime for 30 Days Active Benadryl 50 MG 2 tabs p.o. at bedtime for 30 Days Active levETIRAcetam 750 MG 1 tablet Orally Twice a day for 30 Days Active Trazodone HCl 100 MG TAKE THREE TABLETS BY MOUTH AT BEDTIME for 28 Active amLODIPine Besylate 2.5 MG 1 tablet Orally Daily Active Banophen 50 MG TAKE ONE CAPSULE BY MOUTH AT BEDTIME Orally Lawanda y for 30 days Active Dulcolax 10 MG 1 suppository Rectal if no BM after 3 days for 30 Days Active Acetaminophen 325 MG 2 tablets as needed Orally every 4 hours fo r pain Oct, Active Calcium 600+D High Potency 600-400 MG-UNIT 1 tablet Or ally twice daily for 30 Days Active Milk of Magnesia 400 MG/5ML 15 ml Orally daily for 30 day(s) Active PROCEDURES No Information RESULTS No Results REASON FOR VISIT trazodone MEDICAL (GENERAL) HISTORY Type Description Date Medical History 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 chronic since at least September 1999 when WBC was 2.7 with 36% segs/47% lymphs/17% monocytes/March 2008 normal flow cytometry Medical History anemia, macrocytic, mild, ch ronic-10/2011 EGD/colonoscopy-hiatal hernia, internal hemorrhoids, negative SB biopsy-[facility] Medical History mental retardation, profound secondary t o childhood meningitis Medical History insomnia Medical History constipation, chronic Medical History vitamin D deficiency Medical History large hiatal hernia, esophag eal ulcer s/p clipping 04/2013 EGD-[facility] Medical History + H pylori Ab-treated 05/2013 c metro/bis /tetra/PPI x 10D Medical History generalized seizure disorder Medical History Non-bleeding Grade I interna l hemorrhoids-colonosopy by Dr. Dao 07/2018 Medical History [facility] [id number] completed by Dr. Asha mehta Surgical History teeth extraction-[facility] 11/13/16 Surgical History [id number] IH-W 08/01/18 Hospitalization History UGI bleed 2 bleeding esophag eal ulcer, antoine hgb 8.0, s/p 2u PRBCs, clipped by Dr. Carranza, colonoscopy c poor prep but no obvious lesions, unable to do CT 2 agitation 04/2013 Hospitalization History admission for inpatient colonoscopy prep c W 07/2018 Hospitalization History lingular CAP by CXR-resolved c IV az ithro/ceft, BCX2 NG 10/17- Goals Section No Information Health Concerns No Information MEDICAL EQUIPMENT No Information MENTAL STATUS No Information FUNCTIONAL STATUS No Information ASSESSMENTS Encounter Date Diagnosis Assessment Notes Treatment Notes Treatm ent Clinical Notes Jul, Intellectual disability (ICD-10 - F79) PLAN OF TREATMENT Medication Medication Name Sig Start Date Stop Date Senna S 8.6-50 MG 2 tab Orally bid for 30 Days Trazodone HCl 100 MG 3 tablets Orally at bedtime for 30 days Calcium 600+D High Potency 600-400 MG-UNIT 1 tablet Or ally twice daily for 30 day(s) Ativan 2 MG 2 tablets Orally prn apointments for 30 day(s) 1 0 Jun, 2021 Milk of Magnesia 400 MG/5ML 15 ml Orally daily for 30 day(s) levETIRAcetam 750 MG 1 tablet Orally Twice a day for 30 Days ZyPREXA 20 mg 1 tablet p.o. Daily at bedtime for 30 Days Benadryl 50 MG 2 tabs p.o. at bedtime for 30 Days Banophen 50 MG TAKE ONE CAPSULE BY MOUTH AT BEDTIME Orally Lawanda y for 30 days Divalproex Sodium 500 MG 2 tablet Orally Qhs for 30 Days May, Pantoprazole Sodium 40 MG 1 tablet Orally AC BID for 30 day(s) Dulcolax 10 MG 1 suppository Rectal if no BM after 3 days for 3 0 Days PHENobarbital 64.8 MG 2 capsules by mouth Daily at bedtime for 3 0 Days Insurance Providers Payer Name Payer Address Payer Phone Insured Name Patient Relati onship to Insured Coverage Start Date Coverage End Date MEDICAID [employer] [address] [facility] [address] EL[place]E FRAGA MEDICARE Part A and B [address] [facility] [address] [phone] ELIANE FRAGA self
--- OUTSIDE RECORDS SUMMARY | 2021-07-30 09:24 | CCD ---
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 Active confi rmed 749460343 Problem Seizure disorder G40.909 Active confirmed 12 6513336 Problem Fe deficiency anemia D50.9 Active confirmed 73817540 Problem Colon cancer screening Z12.11 Active confirmed 119347618 Problem Ulcer of esophagus with bleeding K22.11 Active conf irmed 19941817 Problem Intellectual disability F79 Active confirmed 385332754 Problem Sleep disturbance G47.9 Active confirmed 53 225872 Problem Vitamin D deficiency E55.9 Active confirmed 75596465 Problem Thyroid nodule E04.1 Active confirmed 94521 5005 Problem Prostate cancer screening Z12.5 Active confirmed 628034245 Problem Insomnia, unspecified type G47.00 Active confirmed 481098815 Problem Hypertension, essential I10 Active confirmed 22167422 Problem Borderline osteopenia M85.80 Active confirmed 050266859 Problem Hyperactivity F90.9 Active confirmed 787986 00 ALLERGIES No Known Allergies ENCOUNTERS from 1960 to 2021-07-16 Encounter Location Date Provider Diagnosis [facility] [address] [place] [address] [place] [address] 12 Jul, 2021 Mustapha Mar IMMUNIZATIONS Vaccine Route Administration Date Status Influenza [...] Notes Total Score: 0 Interpretation: Alcohol Education Druze: Question Answer Notes Druze No presybeterian beliefs that would impact health care. Sexual [...] Orally AC BID for 30 day(s) Active Benadryl 50 MG 2 tabs p.o. at bedtime for 30 Days Active PHENobarbital 64.8 MG 2 capsules by mouth Daily at bedtime for 30 Day s Active Ativan 2 MG 2 tablets Orally prn apointments for 30 day(s) Jun, Active Calcium 600+D High Potency 600-400 MG-UNIT 1 tablet Or ally twice daily for 30 day(s) Active Senna S 8.6-50 MG 2 tab Orally bid for 30 Days Active Divalproex Sodium 500 MG 2 tablet Orally Qhs for 30 Days 0 May, Active ZyPREXA 20 mg 1 tablet p.o. Daily at bedtime for 30 Days Active Calcium 600+D High Potency 600-400 MG-UNIT 1 tablet Or ally twice daily for 30 Days Active levETIRAcetam 750 MG 1 tablet Orally Twice a day for 30 Days Active Trazodone HCl 100 MG TAKE THREE TABLETS BY MOUTH AT BEDTIME for 28 Active Trazodone HCl 100 MG 3 tablets Orally at bedtime for 30 days Active Banophen 50 MG TAKE ONE CAPSULE BY MOUTH AT BEDTIME Orally Lawanda y for 30 days Active Dulcolax 10 MG 1 suppository Rectal if no BM after 3 days for 30 Days Active Acetaminophen 325 MG 2 tablets as needed Orally every 4 hours fo r pain Oct, Active amLODIPine Besylate 2.5 MG 1 tablet Orally Daily Active Milk of Magnesia 400 MG/5ML 15 ml Orally daily for 30 day(s) Active PROCEDURES No Information RESULTS No Results REASON FOR VISIT question on lorazepam MEDICAL (GENERAL) HISTORY Type Description Date Medical [...] hernia, esophag eal ulcer s/p clipping 04/2013 EGD-[facility] Medical History + H pylori Ab-treated 05/2013 c metro/bis /tetra/PPI x 10D Medical History generalized seizure disorder Medical History Non-bleeding Grade I interna l hemorrhoids-colonosopy by Dr. Dao 07/2018 Medical History [facility] [id number] completed by Dr. Asha mehta Surgical History teeth extraction-[facility] 11/13/16 Surgical History [id number] IH-W 08/01/18 Hospitalization History UGI bleed 2 [...] No Information FUNCTIONAL STATUS No Information ASSESSMENTS No Information PLAN OF TREATMENT Medication Medication Name Sig Start Date Stop Date Ativan 2 MG 2 tablets Orally prn apointments for 30 day(s) 1 0 Jun, 2021 Senna S 8.6-50 MG 2 tab Orally bid for 30 Days Benadryl 50 MG 2 tabs p.o. at bedtime for 30 Days Calcium 600+D High Potency 600-400 MG-UNIT 1 tablet Or ally twice daily for 30 day(s) Milk of Magnesia 400 MG/5ML 15 ml Orally daily for 30 day(s) levETIRAcetam 750 MG 1 tablet Orally Twice a day for 30 Days ZyPREXA 20 mg 1 tablet p.o. Daily at bedtime for 30 Days Trazodone HCl 100 MG 3 tablets Orally at bedtime for 30 days Banophen 50 MG TAKE ONE CAPSULE BY [...] Insured Coverage Start Date Coverage End Date MEDICARE Part A and B [address] [facility] [phone] ELIANE FRAGA MEDICAID [email or web address] [address] [facility] [id number] [place] FRAGA
--- OUTSIDE RECORDS SUMMARY | 2021-07-30 09:24 | CCD | Continuity of Care Document ---
Author Author Jerome AHUMADA M.D. Organization Unknown Address [address] [place] [address] Phone [phone] Care Team Providers Care Supervisor Kennel Name Role Phone Ligia Tineo PA-C AUTM [phone] Problems Description No Information Available Social History [...] Oximetry 99 % Height 64 inches 5'4" [place] Body Weight 130 lb 06/13/2021 9:20am BP Systolic 124 mmHg BP Diastolic 76 mmHg Heart Rate 93 /min O2 % BldC Oximetry 99 % Height 64 inches 5'4" [place] Body Weight 130 lb Results Test Acquired Date Facility Test Result H/L Range Note Laboratory test finding 07/16/2021 [facility] Main Lab [address] [place] [address] [phone] Pathology Request For Service (SEE NOTE) 1 Bal Culture And Gram Stain 07/16/2021 [facility] Main Lab [address] [place] [address] [phone] Gram Stain (SEE NOTE) Normal 2 Bal Culture FULL REPORT IN L <SEE NOTE> Normal 3 Laboratory test finding 07/16/2021 [facility] Lab [address] [place] [address] [phone] Afb Smear & Culture Due to limited s <SEE NOTE> 4 Laboratory test finding 07/16/2021 [facility] Lab [address] [place] [address] [phone] Non Salon Shampoo Assistant/Cytology Req For Servi (SEE NOTE) 5 Laboratory test finding 07/16/2021 [facility] Lab [address] [place] [address] [phone] Non Salon Shampoo Assistant/Cytology Req For Servi (SEE NOTE) 6 CBC With Differential 07/14/2021 [facility] Main Lab [address] [place] [address] [phone] White Blood Count 2.2 10 Low 4.0-10.0 [...] 36.0-66.0 Lymph % 58.9 % High 24.0-44.0 [place] % 19.2 % High 2.0-8.0 Eos % 4.6 % High 0.0-3.0 Baso % 0.9 % Normal 0.0-1.0 Immature Granulocyte % 0.0 % Normal 0-3.0 Nucleated Red Blood Cell % 0.0 % Normal 0-0 Neutrophils # 0.4 10 Low 1.5-8.5 7 Lymph # 1.3 10 Low 1.5-5.0 [place] # 0.4 10 Normal 0.0-0.8 Eos # 0.1 10 Normal 0.0-0.5 Baso # 0.0 10 Normal 0.0-0.2 Basic Metabolic Profile 07/14/2021 [facility] Main Lab [address] [place] [address] [phone] Glucose, Fasting 80 mg/dL Normal 70-100 Blood [...] mg/dL Normal 8.8-10.2 PT & Aptt 07/14/2021 [facility] Main Lab [address] [place] [address] [phone] Prothrombin Time 12.8 seconds Normal 12.7-14.5 Inr 0.93 Normal 9 Partial Thromboplastin Time 30.2 seconds Normal 25.9-37.0 Quanteferon TB Gold Test 07/14/2021 [facility] Main Lab [address] [place] [address] [phone] QuantiFERON Criteria (SEE NOTE) Normal . 10 QuantiFERON TB1 Ag Value 0.08 IU/mL Normal . QuantiFERON TB2 Ag Value 0.07 IU/mL Normal . QuantiFERON Nil Value 0.07 IU/mL Normal . QuantiFERON Mitogen Value >10.00 IU/mL Normal . QuantiFERON-TB Gold Plus Negative Normal Negative 11 Laboratory test finding 07/14/2021 [facility] Main Lab [address], [place] [address] [phone] Flow Cytometry BLD Send Out SEE PATHOLOGY RE <SEE NO TE> Normal 12 Laboratory test finding 07/14/2021 [facility] Lab [address] [place] [address] [phone] Pathology Request For Service (SEE NOTE) 13 [...] ) 5 SPECIMEN: Broncho alveolar lavage 2ml [place] with red flecks SPECIMEN ADEQUACY: Satisfactory for [...] Little GFR Left ESRD GFR <15 on TRANSFORMER MOLDER 9 THERAPUTIC HUMAN INR VALUES INDICATIONS NORMAL [...] Chemiluminescence immunoassay methodology Performed at: - [facility] [address] [id number] Strategy Analyst: Adla Mac MD, Phone: [phone] SEE PATHOLOGY REPORT Specimen Collection for Pathology Reference Lab Testing. Refer to [facility] Pathology Report for Results:[id number] 13 FINAL DIAGNOSIS Peripheral blood, flow cytometry: [...] T-cell receptor gamma chain gene rearrangement. See [facility] [id number] and [id number]. 07/18/2021 - 929 CLINICAL DIAGNOSIS Leukopenia 07/15/2021 - 1303 GROSS DIAGNOSIS Received two green and two purple top tubes of peripheral blood submitted to [facility]. for flow cytometry. -OA 07/15/2021 - 1303 Signed GO ESCAMILLA MD 07/18/2021 0931 Procedures Date Code Description Status 07/16/2021 63690 With Endobronchial Ultrasound Gu ided Completed 07/16/2021 27610 Bronchoscopy W/Transbronchial Kelsie ng Biopsy Completed 07/16/2021 97041 Bronchoscopy Rigid/F lexible Fluoroscopic Guide Computer-Assisted Completed 07/16/2021 19084 Bronchoscopy W/Bronchial Alveola r Lavage Completed 06/13/2021 87936 Office/Outpatient New Moderate M DM 45-59 Minutes Completed Medical Devices Description No Information Available Encounters Type Date Location Provider Dx Diagnosis Office Visit 06/13/2021 9:30a [facility]Thoracic K Alba coles M.D. R91.8 Other nonspecific abnormal f inding of lung field F73 Profound intellectual disabi lities G40.89 Other seizures Assessments Date Code Description Provider 07/22/2021 R91.8 Other nonspecific abnormal findi ng of lung field Alba Ahumada M.D. 07/22/2021 F73 Profound intellectual disabiliti es Alba Ahumada M.D. 07/22/2021 G40.89 Other seizures Alba Ahumada M.D. 07/16/2021 R91.8 Other nonspecific abnormal findi ng of lung field Alba Ahumada M.D. 06/13/2021 R91.8 Other nonspecific abnormal findi ng of lung field Alba Ahumada M.D. 06/13/2021 F73 Profound intellectual disabiliti es Alba Ahumada M.D. 06/13/2021 G40.89 Other seizures Alba Ahumada M.D. Plan of Treatment 07/22/2021 - Alba Ahumada M.D.* R91.8 Other nonspecific abnormal finding of lung field * F73 Profound intellectual disabilities * G40.89 Other seizures * * New Xrays:* CT Chest W Contrast, Ordered: 07/22/21 * Follow up:* Video/phone follow-up with sister (HCP) after CT chest with IV contrast Functional Status Description No Information Available Mental Status Description No Information Available Referrals Refer to Dr Reason for Referral Status Appt Date Alba Ahumada M.D. LUNG NODULE Scheduled 06/13/2021 [facility], Pulmonary [address] [place], [place] [address] [phone]
--- OUTSIDE RECORDS SUMMARY | 2021-07-30 09:24 | CCD | Continuity of Care Document ---
Author Author Jerome AHUMADA M.D. Organization Unknown Address [address] [place] [address] Phone [phone] Care Team Providers Care Baseball Pitcher Name Role Phone Ligia Tineo PA-C AUTM [phone] Problems Description No Information Available Social History [...] Oximetry 99 % Height 64 inches 5'4" [place] Body Weight 130 lb 06/13/2021 9:20am BP Systolic 124 mmHg BP Diastolic 76 mmHg Heart Rate 93 /min O2 % BldC Oximetry 99 % Height 64 inches 5'4" [place] Body Weight 130 lb Results Test Acquired Date Facility Test Result H/L Range Note Laboratory test finding 07/16/2021 [facility] Main Lab [address] [place] [address] [phone] Pathology Request For Service (SEE NOTE) 1 Bal Culture And Gram Stain 07/16/2021 [facility] Main Lab [address] [place] [address] [phone] Gram Stain (SEE NOTE) Normal 2 Bal Culture FULL REPORT IN L <SEE NOTE> Normal 3 Laboratory test finding 07/16/2021 [facility] Lab [address] [place] [address] [phone] Afb Smear & Culture Due to limited s <SEE NOTE> 4 Laboratory test finding 07/16/2021 [facility] Lab [address] [place] [address]07 [phone] Non Liner Replacer/Cytology Req For Servi (SEE NOTE) 5 Laboratory test finding 07/16/2021 [facility] Lab [address] [place] [address] [phone] Non Liner Replacer/Cytology Req For Servi (SEE NOTE) 6 CBC With Differential 07/14/2021 [facility] Main Lab [address] [place] [address] [phone] White Blood Count 2.2 10 Low 4.0-10.0 [...] 36.0-66.0 Lymph % 58.9 % High 24.0-44.0 [place] % 19.2 % High 2.0-8.0 Eos % 4.6 % High 0.0-3.0 Baso % 0.9 % Normal 0.0-1.0 Immature Granulocyte % 0.0 % Normal 0-3.0 Nucleated Red Blood Cell % 0.0 % Normal 0-0 Neutrophils # 0.4 10 Low 1.5-8.5 7 Lymph # 1.3 10 Low 1.5-5.0 [place] # 0.4 10 Normal 0.0-0.8 Eos # 0.1 10 Normal 0.0-0.5 Baso # 0.0 10 Normal 0.0-0.2 Basic Metabolic Profile 07/14/2021 [facility] Main Lab [address] [place] [address] [phone] Glucose, Fasting 80 mg/dL Normal 70-100 Blood [...] mg/dL Normal 8.8-10.2 PT & Aptt 07/14/2021 [facility] n[facility] Main Lab [address] [place] [address] [phone] Prothrombin Time 12.8 seconds Normal 12.7-14.5 Inr 0.93 Normal 9 Partial Thromboplastin Time 30.2 seconds Normal 25.9-37.0 Quanteferon TB Gold Test 07/14/2021 [facility] Main Lab [address] [place] [address] [phone] QuantiFERON Criteria (SEE NOTE) Normal . 10 QuantiFERON TB1 Ag Value 0.08 IU/mL Normal . QuantiFERON TB2 Ag Value 0.07 IU/mL Normal . QuantiFERON Nil Value 0.07 IU/mL Normal . QuantiFERON Mitogen Value >10.00 IU/mL Normal . QuantiFERON-TB Gold Plus Negative Normal Negative 11 Laboratory test finding 07/14/2021 [facility] Main Lab [address] [place], [place] [address] [phone] Flow Cytometry BLD Send Out SEE PATHOLOGY RE <SEE NO TE> Normal 12 Laboratory test finding 07/14/2021 [facility] Lab [address] [place] [address] [phone] Pathology Request For Service (SEE NOTE) 13 [...] ) 5 SPECIMEN: Broncho alveolar lavage 2ml [place] with red flecks SPECIMEN ADEQUACY: Satisfactory for [...] Little GFR Left ESRD GFR <15 on INTERNET ASSESSOR 9 THERAPUTIC HUMAN INR VALUES INDICATIONS NORMAL [...] Chemiluminescence immunoassay methodology Performed at: - [facility] [address] [id number] Campus Recruiting Internship: Alda Mac MD, Phone: [phone] 12 SEE PATHOLOGY REPORT Specimen Collection for Pathology Reference Lab Testing. Refer to [facility] Pathology Report for Results:[id number] 13 FINAL DIAGNOSIS Peripheral blood, flow cytometry: [...] T-cell receptor gamma chain gene rearrangement. See [facility] [id number] and [id number]. 07/18/2021 - 929 CLINICAL DIAGNOSIS Leukopenia 07/15/20211303 GROSS DIAGNOSIS Received two green and two purple top tubes of peripheral blood submitted to [facility]. for flow cytometry. -OA 07/15/2021 - 1303 Signed GO ESCAMILLA MD 07/18/2021930 Procedures Date Code Description Status 06/13/2021 08036 Office/Outpatient New Moderate M DM 45-59 Minutes Completed Medical Devices Description No Information Available Encounters Type Date Location Provider Dx Diagnosis Office Visit 06/13/2021 9:30a [facility]Thoracic K Alba coles M.D. R91.8 Other [...] Alba Ahumada M.D. LUNG NODULE Scheduled 06/13/2021 [facility], Pulmonary [address] [place], [place] [address] [phone]
--- OUTSIDE RECORDS SUMMARY | 2021-07-30 09:24 | CCD | Continuity of Care Document ---
Author Author Jerome AHUMADA M.D. Organization Unknown Address [address] [place] [address] Phone [phone] Care Team Providers Care Valve Machine Operator Name Role Phone Ligia Tineo PA-C AUTM [phone] Problems Description No Information Available Social History [...] Oximetry 99 % Height 64 inches 5'4" [employer] Body Weight 130 lb 06/13/2021 9:20am BP Systolic 124 mmHg BP Diastolic 76 mmHg Heart Rate 93 /min O2 % BldC Oximetry 99 % Height 64 inches 5'4" [employer] Body Weight 130 lb Results Test Acquired Date Facility Test Result H/L Range Note Laboratory test finding 07/16/2021 [facility] Main Lab [address] [place] [address] [phone] Pathology Request For Service (SEE NOTE) 1 Bal Culture And Gram Stain 07/16/2021 [facility] Main Lab [address] [place] [address] [phone] Gram Stain (SEE NOTE) Normal 2 Bal Culture FULL REPORT IN L <SEE NOTE> Normal 3 Laboratory test finding 07/16/2021 [facility] Lab [address] [place] [address] [phone] Afb Smear & Culture Due to limited s <SEE NOTE> 4 Laboratory test finding 07/16/2021 [facility] Lab [address] [place] [address] [phone] Non Community Relations Officer/Cytology Req For Servi (SEE NOTE) 5 Laboratory test finding 07/16/2021 [facility] Lab [address] [place] [address] [phone] Non Community Relations Officer/Cytology Req For Servi (SEE NOTE) 6 CBC With Differential 07/14/2021 [facility] Main Lab [address] [place] [address] [phone] White Blood Count 2.2 10 Low 4.0-10.0 [...] 36.0-66.0 Lymph % 58.9 % High 24.0-44.0 [place] % 19.2 % High 2.0-8.0 Eos % 4.6 % High 0.0-3.0 Baso % 0.9 % Normal 0.0-1.0 Immature Granulocyte % 0.0 % Normal 0-3.0 Nucleated Red Blood Cell % 0.0 % Normal 0-0 Neutrophils # 0.4 10 Low 1.5-8.5 7 Lymph # 1.3 10 Low 1.5-5.0 [place] # 0.4 10 Normal 0.0-0.8 Eos # 0.1 10 Normal 0.0-0.5 Baso # 0.0 10 Normal 0.0-0.2 Basic Metabolic Profile 07/14/2021 [facility] Main Lab [address] [place] [address] [phone] Glucose, Fasting 80 mg/dL Normal 70-100 Blood [...] mg/dL Normal 8.8-10.2 PT & Aptt 07/14/2021 [facility] nter Main Lab [address] [place] [address]387 [phone] Prothrombin Time 12.8 seconds Normal 12.7-14.5 Inr 0.93 Normal 9 Partial Thromboplastin Time 30.2 seconds Normal 25.9-37.0 Quanteferon TB Gold Test 07/14/2021 [facility] Main Lab [address] [place] [address]645 [phone] QuantiFERON Criteria (SEE NOTE) Normal . 10 QuantiFERON TB1 Ag Value 0.08 IU/mL Normal . QuantiFERON TB2 Ag Value 0.07 IU/mL Normal . QuantiFERON Nil Value 0.07 IU/mL Normal . QuantiFERON Mitogen Value >10.00 IU/mL Normal . QuantiFERON-TB Gold Plus Negative Normal Negative 11 Laboratory test finding 07/14/2021 [facility] Main Lab [address] [place], [place] [address] [phone] Flow Cytometry BLD Send Out SEE PATHOLOGY RE <SEE NO TE> Normal 12 Laboratory test finding 07/14/2021 [facility] Lab [address] [place] [address] [phone] Pathology Request For Service (SEE NOTE) 13 [...] ) 5 SPECIMEN: Broncho alveolar lavage 2ml [place] with red flecks SPECIMEN ADEQUACY: Satisfactory for [...] Little GFR Left ESRD GFR <15 on MILKING MACHINE OPERATOR 9 THERAPUTIC HUMAN INR VALUES INDICATIONS NORMAL [...] Chemiluminescence immunoassay methodology Performed at: - [facility] [address] [id number] Data Operations Leader: Alda Mac MD, Phone: [phone] SEE PATHOLOGY REPORT Specimen Collection for Pathology Reference Lab Testing. Refer to [facility] Pathology Report for Results:[id number] 13 FINAL DIAGNOSIS Peripheral blood, flow cytometry: [...] T-cell receptor gamma chain gene rearrangement. See [facility] [id number] and [id number]. 07/18/2021 - 929 CLINICAL DIAGNOSIS Leukopenia 07/15/20211303 GROSS DIAGNOSIS Received two green and two purple top tubes of peripheral blood submitted to [facility]. for flow cytometry. -OA 07/15/2021 - 1303 Signed GO ESCAMILLA MD 07/18/2021930 Procedures Date Code Description Status 06/13/2021 44622 Office/Outpatient New Moderate M DM 45-59 Minutes Completed Medical Devices Description No Information Available Encounters Type Date Location Provider Dx Diagnosis Office Visit 06/13/2021 9:30a [facility] Pulmonary/Thoracic K Alba coles M.D. R91.8 Other [...] Alba Ahumada M.D. LUNG NODULE Scheduled 06/13/2021 [facility], Pulmonary [address] [place], [place] [address] [phone]
--- OUTSIDE RECORDS SUMMARY | 2021-07-30 09:24 | CCD | Continuity of Care Document ---
Author Author Jerome AHUMADA M.D. Organization Unknown Address [address] [place] [address] Phone [phone] Care Team Providers Care Surgery Manager Name Role Phone Ligia Tineo PA-C AUTM [phone] Problems Description No Information Available Social History [...] Oximetry 99 % Height 64 inches 5'4" [place] Body Weight 130 lb 06/13/2021 9:20am BP Systolic 124 mmHg BP Diastolic 76 mmHg Heart Rate 93 /min O2 % BldC Oximetry 99 % Height 64 inches 5'4" [place] Body Weight 130 lb Results Test Acquired Date Facility Test Result H/L Range Note Laboratory test finding 07/16/2021 [facility] Main Lab [address] [place] [address] [phone] Pathology Request For Service (SEE NOTE) 1 Bal Culture And Gram Stain 07/16/2021 [facility] Main Lab [address] [place] [address] [phone] Gram Stain (SEE NOTE) Normal 2 Bal Culture FULL REPORT IN L <SEE NOTE> Normal 3 Laboratory test finding 07/16/2021 [facility] Lab [address] [place] [address] [phone] Afb Smear & Culture Due to limited s <SEE NOTE> 4 Laboratory test finding 07/16/2021 [facility] Lab [address] [place] [address]252 [phone] Non Exhibition Designer/Cytology Req For Servi (SEE NOTE) 5 Laboratory test finding 07/16/2021 [facility] Lab [address] [place] [address] [phone] Non Exhibition Designer/Cytology Req For Servi (SEE NOTE) 6 CBC With Differential 07/14/2021 [facility] Main Lab [address] [place] [address] [phone] White Blood Count 2.2 10 Low 4.0-10.0 [...] 36.0-66.0 Lymph % 58.9 % High 24.0-44.0 [place] % 19.2 % High 2.0-8.0 Eos % 4.6 % High 0.0-3.0 Baso % 0.9 % Normal 0.0-1.0 Immature Granulocyte % 0.0 % Normal 0-3.0 Nucleated Red Blood Cell % 0.0 % Normal 0-0 Neutrophils # 0.4 10 Low 1.5-8.5 7 Lymph # 1.3 10 Low 1.5-5.0 [place] # 0.4 10 Normal 0.0-0.8 Eos # 0.1 10 Normal 0.0-0.5 Baso # 0.0 10 Normal 0.0-0.2 Basic Metabolic Profile 07/14/2021 [facility] Main Lab [address] [place] [address]81 [phone] Glucose, Fasting 80 mg/dL Normal 70-100 Blood [...] mg/dL Normal 8.8-10.2 PT & Aptt 07/14/2021 [facility] nter Main Lab [address] [place] [address] [phone] Prothrombin Time 12.8 seconds Normal 12.7-14.5 Inr 0.93 Normal 9 Partial Thromboplastin Time 30.2 seconds Normal 25.9-37.0 Quanteferon TB Gold Test 07/14/2021 [facility] Main Lab [address] [place] [address]70 [phone] QuantiFERON Criteria (SEE NOTE) Normal . 10 QuantiFERON TB1 Ag Value 0.08 IU/mL Normal . QuantiFERON TB2 Ag Value 0.07 IU/mL Normal . QuantiFERON Nil Value 0.07 IU/mL Normal . QuantiFERON Mitogen Value >10.00 IU/mL Normal . QuantiFERON-TB Gold Plus Negative Normal Negative 11 Laboratory test finding 07/14/2021 [facility] Main Lab [address] [place], [place] [address] [phone] Flow Cytometry BLD Send Out SEE PATHOLOGY RE <SEE NO TE> Normal 12 Laboratory test finding 07/14/2021 [facility] Lab [address] [place] [address] [phone] Pathology Request For Service (SEE NOTE) 13 [...] ) 5 SPECIMEN: Broncho alveolar lavage 2ml [place] with red flecks SPECIMEN ADEQUACY: Satisfactory for [...] Little GFR Left ESRD GFR <15 on LOADING MACHINE OPERATOR HELPER 9 THERAPUTIC HUMAN INR VALUES INDICATIONS NORMAL [...] Chemiluminescence immunoassay methodology Performed at: - [facility] [address] [id number] Anesthesia Tech: Alda Mac MD, Phone: [phone] SEE PATHOLOGY REPORT Specimen Collection for Pathology Reference Lab Testing. Refer to [facility] Pathology Report for Results:[id number] 13 FINAL DIAGNOSIS Peripheral blood, flow cytometry: [...] chain gene rearrangement. See [facility] [id number] and [id number]. 07/18/2021 - 929 CLINICAL DIAGNOSIS Leukopenia 07/15/2021 - 1303 GROSS DIAGNOSIS Received two green and two purple top tubes of peripheral blood submitted to [facility]. for flow cytometry. -OA 07/15/2021 - 1303 Signed GO ESCAMILLA MD 07/18/2021 0931 Procedures Date Code Description Status 07/22/2021 32150 Office/Outpatient Established Mo d MDM 30-39 Min Completed 07/16/2021 75123 With Endobronchial Ultrasound Gu ided Completed 07/16/2021 86640 Bronchoscopy W/Transbronchial Kelsie ng Biopsy Completed 07/16/2021 44265 Bronchoscopy Rigid/F lexible Fluoroscopic Guide Computer-Assisted Completed 07/16/2021 65413 Bronchoscopy W/Bronchial Alveola r Lavage Completed 06/13/2021 80384 Office/Outpatient New Moderate M DM 45-59 Minutes Completed Medical Devices Description No Information Available Encounters Type Date Location Provider Dx Diagnosis Office Visit 07/22/2021 1:30p [facility] K Alba coles M.D. R91.8 Other nonspecific abnormal f inding of lung field F73 Profound intellectual disabi lities G40.89 Other seizures Office Visit 06/13/2021 9:30a [facility] Alba Howard M.D. R91.8 Other nonspecific abnormal f inding [...] Appt Date Alba Ahumada M.D. LUNG NODULE Closed 06/13/2021 [facility], Pulmonary [address] [place], [place] [address] [phone]
--- OUTSIDE RECORDS SUMMARY | 2021-07-30 09:24 | CCD | Continuity of Care Document ---
Author Author Jerome AHUMADA M.D. Organization Unknown Address [address] [place] [address] Phone [phone] Care Team Providers Care Professor Of Marketing Name Role Phone Ligia Tineo PA-C AUTM [phone] Problems Description No Information Available Social History [...] Oximetry 99 % Height 64 inches 5'4" [place] Body Weight 130 lb 06/13/2021 9:20am BP Systolic 124 mmHg BP Diastolic 76 mmHg Heart Rate 93 /min O2 % BldC Oximetry 99 % Height 64 inches 5'4" [place] Body Weight 130 lb Results Test Acquired Date Facility Test Result H/L Range Note Laboratory test finding 07/16/2021 [facility] Main Lab [address] [place] [address] [phone] Pathology Request For Service (SEE NOTE) 1 Bal Culture And Gram Stain 07/16/2021 [facility] Main Lab [address] [place] [address] [phone] Gram Stain (SEE NOTE) Normal 2 Bal Culture FULL REPORT IN L <SEE NOTE> Normal 3 Laboratory test finding 07/16/2021 [facility] [address] [place] [address] [phone] Afb Smear & Culture Due to limited s <SEE NOTE> 4 Laboratory test finding 07/16/2021 [facility] [address] [place] [address]37 [phone] Non Nursing Staff Development Coordinator/Cytology Req For Servi (SEE NOTE) 5 Laboratory test finding 07/16/2021 [facility] [address] [place] [address] 30684 [phone] Non Nursing Staff Development Coordinator/Cytology Req For Servi (SEE NOTE) 6 CBC With Differential 07/14/2021 [facility] Main Lab [address] [place] [address] 35056 [phone] White Blood Count 2.2 10 Low 4.0-10.0 [...] 36.0-66.0 Lymph % 58.9 % High 24.0-44.0 [place] % 19.2 % High 2.0-8.0 Eos % 4.6 % High 0.0-3.0 Baso % 0.9 % Normal 0.0-1.0 Immature Granulocyte % 0.0 % Normal 0-3.0 Nucleated Red Blood Cell % 0.0 % Normal 0-0 Neutrophils # 0.4 10 Low 1.5-8.5 7 Lymph # 1.3 10 Low 1.5-5.0 [place] # 0.4 10 Normal 0.0-0.8 Eos # 0.1 10 Normal 0.0-0.5 Baso # 0.0 10 Normal 0.0-0.2 Basic Metabolic Profile 07/14/2021 [facility] Main Lab [address] [place] [address]159 [phone] Glucose, Fasting 80 mg/dL Normal 70-100 Blood [...] mg/dL Normal 8.8-10.2 PT & Aptt 07/14/2021 [facility] nter Main Lab [address] [place] [address] 61284 [phone] Prothrombin Time 12.8 seconds Normal 12.7-14.5 Inr 0.93 Normal 9 Partial Thromboplastin Time 30.2 seconds Normal 25.9-37.0 Quanteferon TB Gold Test 07/14/2021 [facility] Main Lab [address] [place] [address] [phone] QuantiFERON Criteria (SEE NOTE) Normal . 10 QuantiFERON TB1 Ag Value 0.08 IU/mL Normal . QuantiFERON TB2 Ag Value 0.07 IU/mL Normal . QuantiFERON Nil Value 0.07 IU/mL Normal . QuantiFERON Mitogen Value >10.00 IU/mL Normal . QuantiFERON-TB Gold Plus Negative Normal Negative 11 Laboratory test finding 07/14/2021 [facility] Main Lab [address] [place], [place] [address] [phone] Flow Cytometry BLD Send Out SEE PATHOLOGY RE <SEE NO TE> Normal 12 Laboratory test finding 07/14/2021 [facility] [address] [place] [address] [phone] Pathology Request For Service (SEE NOTE) 13 [...] ) 5 SPECIMEN: Broncho alveolar lavage 2ml [place] with red flecks SPECIMEN ADEQUACY: Satisfactory for [...] Little GFR Left ESRD GFR <15 on PETROLEUM PLANT OPERATOR 9 THERAPUTIC HUMAN INR VALUES INDICATIONS [...] Chemiluminescence immunoassay methodology Performed at: - [facility] [address] [id number] Road Traffic Controller: Alda Mac MD, Phone: [phone] 12 SEE PATHOLOGY REPORT Specimen Collection for Pathology Reference Lab Testing. Refer to [facility] Pathology Report for Results:[id number] 13 FINAL DIAGNOSIS Peripheral blood, flow cytometry: [...] T-cell receptor gamma chain gene rearrangement. See [facility] [id number] and [id number]. 07/18/2021 - 929 CLINICAL DIAGNOSIS Leukopenia 07/15/20211303 GROSS DIAGNOSIS Received two green and two purple top tubes of peripheral blood submitted to [facility]. for flow cytometry. -OA 07/15/2021 - 1303 Signed GO ESCAMILLA MD 07/18/2021930 Procedures Date Code Description Status 06/13/2021 83573 Office/Outpatient New Moderate M DM 45-59 Minutes Completed Medical Devices Description No Information Available Encounters Type Date Location Provider Dx Diagnosis Office Visit 06/13/2021 9:30a [facility] K Alba coles M.D. R91.8 Other [...] Alba Ahumada M.D. LUNG NODULE Scheduled 06/13/2021 [facility], Pulmonary [address] [place], [place] [address] [phone]
--- OUTSIDE RECORDS SUMMARY | 2021-07-30 09:24 | CCD | Continuity of Care Document ---
Author Author Jerome AHUMADA M.D. Organization Unknown Address [address] [place] [address] Phone [phone] Care Team Providers Care Hadoop Infrastructure Architect Name Role Phone Ligia Tineo PA-C AUTM [phone] Problems Description No Information Available Social History [...] Oximetry 99 % Height 64 inches 5'4" [place] Body Weight 130 lb 06/13/2021 9:20am BP Systolic 124 mmHg BP Diastolic 76 mmHg Heart Rate 93 /min O2 % BldC Oximetry 99 % Height 64 inches 5'4" [place] Body Weight 130 lb Results Test Acquired Date Facility Test Result H/L Range Note Laboratory test finding 07/16/2021 [facility] Main Lab [address] [place] [address] [phone] Pathology Request For Service (SEE NOTE) 1 Bal Culture And Gram Stain 07/16/2021 [facility] Main Lab [address] [place] [address]82 [phone] Gram Stain (SEE NOTE) Normal 2 Bal Culture FULL REPORT IN L <SEE NOTE> Normal 3 Laboratory test finding 07/16/2021 [facility] Lab [address] [place] [address] 65233 [phone] Afb Smear & Culture Due to limited s <SEE NOTE> 4 Laboratory test finding 07/16/2021 [facility] Lab [address] [place] [address]74 [phone] Non Print Production Coordinator/Cytology Req For Servi (SEE NOTE) 5 Laboratory test finding 07/16/2021 [facility] Lab [address] [place] [address] 92498 [phone] Non Print Production Coordinator/Cytology Req For Servi (SEE NOTE) 6 CBC With Differential 07/14/2021 [facility] Main Lab [address] [place] [address]231 [phone] White Blood Count 2.2 10 Low 4.0-10.0 [...] 36.0-66.0 Lymph % 58.9 % High 24.0-44.0 [place] % 19.2 % High 2.0-8.0 Eos % 4.6 % High 0.0-3.0 Baso % 0.9 % Normal 0.0-1.0 Immature Granulocyte % 0.0 % Normal 0-3.0 Nucleated Red Blood Cell % 0.0 % Normal 0-0 Neutrophils # 0.4 10 Low 1.5-8.5 7 Lymph # 1.3 10 Low 1.5-5.0 [place] # 0.4 10 Normal 0.0-0.8 Eos # 0.1 10 Normal 0.0-0.5 Baso # 0.0 10 Normal 0.0-0.2 Basic Metabolic Profile 07/14/2021 [facility] Main Lab [address] [place] [address]17 [phone] Glucose, Fasting 80 mg/dL Normal 70-100 Blood [...] mg/dL Normal 8.8-10.2 PT & Aptt 07/14/2021 [facility] nter Main Lab [address] [place] [address] 65783 [phone] Prothrombin Time 12.8 seconds Normal 12.7-14.5 Inr 0.93 Normal 9 Partial Thromboplastin Time 30.2 seconds Normal 25.9-37.0 Quanteferon TB Gold Test 07/14/2021 [facility] Main Lab [address] [place] [address] 51496 [phone] QuantiFERON Criteria (SEE NOTE) Normal . 10 QuantiFERON TB1 Ag Value 0.08 IU/mL Normal . QuantiFERON TB2 Ag Value 0.07 IU/mL Normal . QuantiFERON Nil Value 0.07 IU/mL Normal . QuantiFERON Mitogen Value >10.00 IU/mL Normal . QuantiFERON-TB Gold Plus Negative Normal Negative 11 Laboratory test finding 07/14/2021 [facility] Main Lab [address] [place], [place] [address] [phone] Flow Cytometry BLD Send Out SEE PATHOLOGY RE <SEE NO TE> Normal 12 Laboratory test finding 07/14/2021 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 Refer to [facility] Pathology Report for Results:[id number] 13 FINAL DIAGNOSIS Peripheral blood, flow cytometry: [...] receptor gamma chain gene rearrangement. See [facility] [id number] and [id number]. 07/18/2021 - 929 CLINICAL DIAGNOSIS Leukopenia 07/15/20211303 GROSS DIAGNOSIS Received two green and two purple top tubes of peripheral blood submitted to [facility]. for flow cytometry. -OA 07/15/2021 - 1303 Signed GO ESCAMILLA MD 07/18/2021930 Procedures Date Code Description Status 06/13/2021 76362 Office/Outpatient New Moderate M DM 45-59 Minutes Completed Medical Devices Description No Information Available Encounters Type Date Location Provider Dx Diagnosis Office Visit 06/13/2021 9:30a [facility] K Alba coles M.D. R91.8 Other [...] Alba Ahumada M.D. LUNG NODULE Scheduled 06/13/2021 [facility], Pulmonary [address] [place], [place] [address] [phone]
--- OUTSIDE RECORDS SUMMARY | 2021-07-30 09:24 | CCD | Continuity of Care Document ---
Author Author Jerome AHUMADA M.D. Organization Unknown Address [address] [place] [address] Phone [phone] Care Team Providers Care Truck Engine Assembler Name Role Phone Ligia Tineo PA-C AUTM [phone] Problems Description No Information Available Social History [...] Oximetry 99 % Height 64 inches 5'4" [place] Body Weight 130 lb 06/13/2021 9:20am BP Systolic 124 mmHg BP Diastolic 76 mmHg Heart Rate 93 /min O2 % BldC Oximetry 99 % Height 64 inches 5'4" [place] Body Weight 130 lb Results Test Acquired Date Facility Test Result H/L Range Note Laboratory test finding 07/16/2021 [facility] Main Lab [address] [place] [address] [phone] Pathology Request For Service (SEE NOTE) 1 Bal Culture And Gram Stain 07/16/2021 [facility] Main Lab [address] [place] [address]36 [phone] Gram Stain (SEE NOTE) Normal 2 Bal Culture FULL REPORT IN L <SEE NOTE> Normal 3 Laboratory test finding 07/16/2021 [facility] Lab [address] [place] [address] 18638 [phone] Afb Smear & Culture Due to limited s <SEE NOTE> 4 Laboratory test finding 07/16/2021 [facility] Lab [address] [place] [address] 86479 [phone] Non Household Assistant/Cytology Req For Servi (SEE NOTE) 5 Laboratory test finding 07/16/2021 [facility] [address] [place] [address] 22464 [phone] Non Household Assistant/Cytology Req For Servi (SEE NOTE) 6 CBC With Differential 07/14/2021 [facility] Main Lab [address] [place] [address] 61755 [phone] White Blood Count 2.2 10 Low 4.0-10.0 [...] 36.0-66.0 Lymph % 58.9 % High 24.0-44.0 [place] % 19.2 % High 2.0-8.0 Eos % 4.6 % High 0.0-3.0 Baso % 0.9 % Normal 0.0-1.0 Immature Granulocyte % 0.0 % Normal 0-3.0 Nucleated Red Blood Cell % 0.0 % Normal 0-0 Neutrophils # 0.4 10 Low 1.5-8.5 7 Lymph # 1.3 10 Low 1.5-5.0 [place] # 0.4 10 Normal 0.0-0.8 Eos # 0.1 10 Normal 0.0-0.5 Baso # 0.0 10 Normal 0.0-0.2 Basic Metabolic Profile 07/14/2021 [facility] Main Lab [address] [place] [address] 6[address]71 [phone] Glucose, Fasting 80 mg/dL Normal 70-100 Blood [...] mg/dL Normal 8.8-10.2 PT & Aptt 07/14/2021 [facility] nter Main Lab [address] [place] [address] 37171 [phone] Prothrombin Time 12.8 seconds Normal 12.7-14.5 Inr 0.93 Normal 9 Partial Thromboplastin Time 30.2 seconds Normal 25.9-37.0 Quanteferon TB Gold Test 07/14/2021 [facility] Main Lab [address] [place] [address]103 [phone] QuantiFERON Criteria (SEE NOTE) Normal . 10 QuantiFERON TB1 Ag Value 0.08 IU/mL Normal . QuantiFERON TB2 Ag Value 0.07 IU/mL Normal . QuantiFERON Nil Value 0.07 IU/mL Normal . QuantiFERON Mitogen Value >10.00 IU/mL Normal . 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 Refer to [facility] Pathology Report for Results:[id number] 13 FINAL DIAGNOSIS Peripheral blood, flow cytometry: [...] chain gene rearrangement. See [facility] [id number] and [id number]. 07/18/2021 - 929 CLINICAL DIAGNOSIS Leukopenia 07/15/20211303 GROSS DIAGNOSIS Received two green and two purple top tubes of peripheral blood submitted to [facility]. for flow cytometry. -OA 07/15/2021 - 1303 Signed GO ESCAMILLA MD 07/18/2021930 Procedures Date Code Description Status 06/13/2021 74467 Office/Outpatient New Moderate M DM 45-59 Minutes Completed Medical Devices Description No Information Available Encounters Type Date Location Provider Dx Diagnosis Office Visit 06/13/2021 9:30a [facility] K Alba coles M.D. R91.8 Other [...] Alba Ahumada M.D. LUNG NODULE Scheduled 06/13/2021 [facility], Pulmonary [address] [place], [place] [address] [phone]
--- OUTSIDE RECORDS SUMMARY | 2021-07-30 09:25 | CCD ---
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 Active confi rmed 106934678 Problem Seizure disorder G40.909 Active confirmed 12 9698879 Problem Fe deficiency anemia D50.9 Active confirmed 00105257 Problem Colon cancer screening Z12.11 Active confirmed 646954044 Problem Ulcer of esophagus with bleeding K22.11 Active conf irmed 75495783 Problem Intellectual disability F79 Active confirmed 036503193 Problem Sleep disturbance G47.9 Active confirmed 53 665169 Problem Vitamin D deficiency E55.9 Active confirmed 53754912 Problem Thyroid nodule E04.1 Active confirmed 06748 5005 Problem Prostate cancer screening Z12.5 Active confirmed 283161722 Problem Insomnia, unspecified type G47.00 Active confirmed 640366801 Problem Hypertension, essential I10 Active confirmed 82564600 Problem Borderline osteopenia M85.80 Active confirmed 080300396 Problem Hyperactivity F90.9 Active confirmed 484846 00 ALLERGIES No Known Allergies ENCOUNTERS from 1960 to 2021-05-29 Encounter Location Date Provider Diagnosis [address] [phone] [place] [address] May, Mustapha Mar IMMUNIZATIONS Vaccine Route Administration Date [...] Notes Total Score: 0 Interpretation: Alcohol Education Scientology: Question Answer Notes Scientology No uatsdin beliefs that would impact health care. Sexual [...] every 4 hours for cough Oct, Active Banophen 50 MG TAKE ONE CAPSULE BY MOUTH AT BEDTIME for 30 Active Trazodone HCl 100 MG 3 tablets Orally at bedtime for 30 days Active Pantoprazole Sodium 40 MG 1 tablet Orally AC BID for 30 day(s) Active Calcium 600+D High Potency 600-400 MG-UNIT 1 tablet Or ally twice daily for 30 day(s) Active ZyPREXA 20 mg 1 tablet p.o. Daily at bedtime for 28 Active Senna S 8.6-50 MG 2 tab Orally bid for 30 Days Active Dulcolax 10 MG 1 suppository Rectal if no BM after 3 days for 30 Days Active Ativan 2 MG 2 tablets Orally prn apointments for 30 day(s) May, Active Senna S 8.6-50 MG 2 tab Orally bid for 28 Active Benadryl 50 MG . p.o. 2 tablets QHS and 1 tablet 1 hour prior to dental apt for 30 Days Active Calcium 600+D High Potency 600-400 MG-UNIT 1 tablet Or ally twice daily for 30 Days Active Divalproex Sodium 500 MG 2 tablet Orally Qhs for 30 Days 0 4 May, 2021 Active Trazodone HCl 100 MG TAKE THREE TABLETS BY MOUTH AT BEDTIME for 28 Active amLODIPine Besylate 2.5 MG 1 tablet Orally Daily Active ZyPREXA 20 mg 1 tablet p.o. Daily at bedtime for 30 Days Active PHENobarbital 64.8 MG 2 capsules by mouth Daily at bedtime for 30 Day s Active Acetaminophen 325 MG 2 tablets as needed Orally every 4 hours fo r pain Oct, Active Milk of Magnesia 400 MG/5ML 15 ml Orally daily for 30 day(s) Active levETIRAcetam 750 MG 1 tablet Orally Twice a day for 30 Days Active PROCEDURES No Information RESULTS No Results REASON FOR VISIT PET/Pulm MEDICAL (GENERAL) HISTORY Type Description Date Medical [...] hernia, esophag eal ulcer s/p clipping 04/2013 EGD-[facility] Medical History + H pylori Ab-treated 05/2013 c metro/bis /tetra/PPI x 10D Medical History generalized seizure disorder Medical History Non-bleeding Grade I interna l hemorrhoids-colonosopy by Dr. Dao 07/2018 Medical History [facility] [id number] completed by Dr. Asha mehta Surgical History teeth extraction-[facility] 11/13/16 Surgical History [id number] IH-W 08/01/18 Hospitalization History UGI bleed 2 [...] 2 tab Orally bid for 30 Days Ativan 2 MG 2 tablets Orally prn apointments for 30 day(s) 2 3 May, 2021 Calcium 600+D High Potency 600-400 MG-UNIT 1 tablet Or ally twice daily for 30 day(s) Pantoprazole Sodium 40 MG 1 tablet Orally AC BID for 30 day(s) Dulcolax 10 MG 1 suppository Rectal if no BM after 3 days for 3 0 Days PHENobarbital 64.8 MG 2 capsules by mouth Daily at bedtime for 3 0 Days levETIRAcetam 750 MG 1 tablet Orally Twice a day for 30 Days Divalproex Sodium 500 MG 2 tablet Orally Qhs for 30 Days May, Trazodone HCl 100 MG 3 tablets Orally at bedtime for 30 days Milk of Magnesia 400 MG/5ML 15 ml Orally daily for 30 day(s) ZyPREXA 20 mg 1 tablet p.o. Daily at bedtime for 30 Days Benadryl 50 MG . p.o. 2 tablets QHS and 1 tablet 1 hour prior to dental apt for 30 Days Next Appt Details Provider Name:Mustapha Mar, 2021-07-03 0 1:30:00 PM, [address] [facility], , [place], [address], Insurance Providers Payer Name Payer Address Payer Phone Insured Name Patient Relati onship to Insured Coverage Start Date Coverage End Date MEDICAID [employer] [address] [facility] [id number] ELIANE FRAGA MEDICARE Part A and B [address] [facility] [address] [phone] ELIANE FRAGA
--- OUTSIDE RECORDS SUMMARY | 2021-07-30 09:25 | CCD ---
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 Active confi rmed 217514230 Problem Seizure disorder G40.909 Active confirmed 12 4120568 Problem Fe deficiency anemia D50.9 Active confirmed 73843860 Problem Colon cancer screening Z12.11 Active confirmed 559156229 Problem Ulcer of esophagus with bleeding K22.11 Active conf irmed 40548370 Problem Intellectual disability F79 Active confirmed 470277298 Problem Sleep disturbance G47.9 Active confirmed 53 840888 Problem Vitamin D deficiency E55.9 Active confirmed 81886484 Problem Thyroid nodule E04.1 Active confirmed 41847 5005 Problem Prostate cancer screening Z12.5 Active confirmed 221727570 Problem Insomnia, unspecified type G47.00 Active confirmed 344504566 Problem Hypertension, essential I10 Active confirmed 44809650 Problem Borderline osteopenia M85.80 Active confirmed 673320461 Problem Hyperactivity F90.9 Active confirmed 855416 00 ALLERGIES No Known Allergies ENCOUNTERS from 1960 to 2021-05-22 Encounter Location Date Provider Diagnosis [address] [phone] [place] [address] May, Mustapha Mar Weight loss R63.4 ; Constipa tion, chronic K59.00 ; Borderline osteopenia M85.80 ; T-cell leukemia-lymphoma, 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 Sexual [...] REASON FOR REFERRAL No Information VITAL SIGNS Weight 118.4 lbs May, Weight-kg 53.71 kg May, Height 64 in May, BMI 20.32 kg/m2 May, Heart Rate unable /min May, Respiratory Rate 18 /min May, Temperature 97.1 degrees Fahrenheit May, Oximetry unable May, Blood pressure systolic 112 mm Hg May, Blood pressure diastolic 62 mm Hg May, MEDICATIONS Medication SIG (Take, Route, Frequency, Duration) [...] after 3 days for 30 Days Active Divalproex Sodium 500 MG 1 tablet Orally Qhs May, Active Senna S 8.6-50 MG 2 tab Orally bid for 28 Active Benadryl 50 MG . p.o. 2 tablets QHS and 1 tablet 1 hour prior to dental apt for 30 Days Active Calcium 600+D High Potency 600-400 MG-UNIT 1 tablet Or ally twice daily for 30 Days Active ZyPREXA 20 mg 1 tablet p.o. 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 chronic since at least September 1999 when WBC was 2.7 with 36% segs/47% lymphs/17% monocytes/March 2008 normal flow cytometry Medical History anemia, macrocytic, mild, ch ronic-10/2011 EGD/colonoscopy-hiatal hernia, internal hemorrhoids, negative SB biopsy-[facility] Medical History mental retardation, profound secondary t o childhood meningitis Medical History insomnia Medical History constipation, chronic Medical History vitamin D deficiency Medical History large hiatal hernia, esophag eal ulcer s/p clipping 04/2013 EGD-[facility] Medical History + H pylori Ab-treated 05/2013 c metro/bis /tetra/PPI x 10D Medical History generalized seizure disorder Medical History Non-bleeding Grade I interna l hemorrhoids-colonosopy by Dr. Dao 07/2018 Medical History [facility] [id number] completed by Dr. Asha mehta Surgical History teeth extraction-[facility] 11/13/16 Surgical History [id number] IH-W 08/01/18 Hospitalization History UGI bleed 2 [...] Notes Treatment Notes Treatm ent Clinical Notes May, Weight loss (ICD-10 - R63.4) C: repeat Cg +/- EGD/colon, + VPA QHS (no legal guardian, sister Livier Fraga lives in [facility]-gives consent via phone, d/w her 04/21/21 re wt loss us); at least partially 2 increased hyperactivity c intermittent decreased caloric intake (see below) 05/14/21 CT HNCAP s: LLL NC nodules , 10, ; ergo, referred to Dr. Gardner Puml and WB PET 05/26/21 c pre-diazepam 05/04- caloric intake quite variable: range 340-3668, since 05/15/21 >2000 x 05/17/21 1330 04/21/21 down 24# since 12/16/20 147 (16% decline); but per staff taking 100% of ALL meals s V/D/F/C, but continues to be active QHS; ergo, BW for wt loss c recheck in 14D bringing in QD calorie count 04/01/21 140 01/06/21 given no BM in 6D; doc 200 QHS to sen/doc 2 BID c bis 10 martins prn no BM in 3D 12/16/20 147 17 May, 2021 Constipation, chronic (ICD-10 - K59.00) Stable on sen/doc 2 BID, MOM 1200 mg QD, bisa 10 sup if no BM in 3D 01/06/21 given no BM in 6D; doc 200 QHS to sen/doc 2 BID c bis 10 martins prn no BM in 3D May, Borderline osteopenia (ICD-10 - M85.80) 06/2016 BMD 1.0/0.4/0.9 c 3.5/x/11% change c/w 12/2010; therefore, CCR-recheck 06/2021May, T-cell leukemia-lymphoma, adult (ICD-10 - C91.50 ) No fever/chills, night sweats to do CT scans or bone marrow biopsy would require general anesthesia hgb as per Fe 03/31/21 2.9 (), 11.6, 98, 206K; LDH 171 c stable iso 08/09/20 2.6 (), 13.1, 96, 218K 03/27/20 3.4 (), 12.9, 96, 210; LDH 166 c WNL iso 11/01/19 1.9 ()-ANC 247, 12.4, 98, 299, CHr 37/0.8; given severe n, repeat in 7-10D (favor at least paritally 2 recent PN given baseline levels 06/2019) 06/2019 2.6 (), 13.9, 97, 199K 04/2018 3.4, 14.2 (//)-FC c high normal T/NK cell proportion but no clonal T-LGL lymphocytosis, LDH 146 c normal iso 12/2017 3.4, 13.6, 237K 07/2017 3.2, 13.2 (44/37/15), 97, 209K 03/2017 3.3, (50/33/12), 214K 10/2016 3.5 (52/32/5/10 atypical lymphs), 181K 10/2015 4.3 (33/53/5), 199K 06/2015 2.8 (34/41/11/atypical lymph 11), 195K 02/2015 2.8, 39%, 218K 04/2012 3.7, 36%-ANC 1332 May, Intellectual disability (ICD-10 - F79) Stable on traz 300 QHS, olanz 20 QHS (MDD 20), DPH 100 QHS, DVP DR 500 QHS c yen 4/diphen 50 1H prior to dental apt (now going to [place]) 05/09/21 +DVP 500 DR QHS given agitation/wt loss May, Hypertension, essential (ICD-10 - I10) Stable off amlo 2.5 10/25/19 RS held almo given SBP to 103 10/2019 amlo 2.5 started during admission for lingular PN-favor moreso 2 agitation May, Insomnia, unspecified type (ICD-10 - G47.00) Stable on regimen as per ID Contingency: yen qhs 06/2019 increased traz 200 to 300 given agitation most nights, wandering into others rooms May, Ulcer of esophagus with bleeding (ICD-10 - K22.1 1) No recurrent symptoms on current regimen 04/2013 acute blood loss anemia 2 bleeding esphogeal ulcer on HH requiring clipping by W-started panto 40 BID May, Seizure disorder (ICD-10 - G40.909) No active on chronic leve 750 BID, pheno 129.6 QHS 03/31/21 stable CBCD/CMP c 25, 27 05/22/16 leve added by [facility] due to seizure ? 2 sleep deprivation (last previous had been ~2Y prior) May, Fe deficiency anemia (ICD-10 - D50.9) hgb as per T-cell h/o UGI bleed-04/201303/31/21 11.6, 98, nadine 48 s sup 08/19/20 13.1, 96, nadine 15, r36/1.9 04/2018 14.2, 96 c CHr 36; therefore, 07/2018 held 65 QD 04/23/21 633 03/2017 955 09/2014 1275 07/2011 B12 1255 02/2015 462 07/2011 RBC folate 406 February 2011 normal SPEP May, Vitamin D deficiency (ICD-10 - E55.9) 04/23/21 42, 9.4, 35 on CC 600/400 BID 10/2019 40, PTH 30 12/2018 44, 9.1, 29 May, Prostate cancer screening (ICD-10 - Z12.5) Patient without LUTs/no incontinence with scheduled voids by staff 04/23/21 2.1 03/27/20 2.0 04/2018 1.5 03/2017 1.7 02/2016 1.7 10/2015 2.1 06/2014 0.6 04/2013 0.5 09/2012 0.5 10/2011 PSA stable at 0.5 04/2013 normal SAEID by ML May, Colon cancer screening (ICD-10 - Z12.11) repeat Cologuard 07/2021 given 04/2013 colonoscopy c poor visualization, despite multiple day inpatient prep, checked Cologuard which was +; therefore, admitted 07/29/18 for inpatient prep for colonoscopy 08/01/18 which was normal May, Other Prevention Guide lines, Men Ages 50 to 64 material was printed 03/27/20 102/62/164, <0.3 12/2018 97/58/123 06/2016 lipids 98/53/136 04/23/21 1.6, 1.0 03/27/20 1.0, 0.9 12/2017 1.0, 0.9 06/2016 TSH 1.0 PLAN OF TREATMENT Medication Medication Name Sig Start Date Stop Date Senna S 8.6-50 MG 2 tab Orally bid for 30 Days Divalproex Sodium 500 MG 1 tablet Orally Qhs May, Calcium 600+D High Potency 600-400 MG-UNIT 1 [...] 15 ml Orally daily for 30 day(s) Ativan 2 MG 3 tablets Orally prn apointments for 30 day(s) Benadryl 50 MG . p.o. 2 tablets QHS and 1 tablet 1 hour prior to dental apt for 30 Days Treatment Notes Assessment Notes Clinical Notes Weight loss C: repeat Cg +/- EG D/colon, + VPA QHS (no legal guardian, sister Livier Fraga lives in [facility]-gives consent via phone, d/w her 04/21/21 re wt loss us); at least partially 2 increased hyperactivity c intermittent decreased caloric intake (see below)05/14/21 CT HNCAP s: LLL NC nodules , 10, ; ergo, referred to Dr. Gardner Puml and WB PET 05/26/21 c pre-diazepam05/04- caloric intake quite variable: range 340-3668, since 05/15/21 >2000 x 05/17/21 16724 down 24# since 12/16/20 147 (16% decline); but per staff taking 100% of ALL meals s V/D/F/C, but continues to be active QHS; ergo, BW for wt loss c recheck in 14D bringing in QD calorie count04/01/21 1404 given no BM in 6D; doc 200 QHS to sen/doc 2 BID c bis 10 martins prn no BM in 3D12/16/20 147 Colon cancer screening repeat Cologuard given 04/2013 colonoscopy c poor visualization, despite multiple day inpatient prep, checked Cologuard which was +; therefore, admitted 07/29/18 for inpatient prep for colonoscopy 08/01/18 which was normal Constipation, chronic Stable on sen/doc 2 BID, MOM 1200 mg QD, bisa 10 sup if no BM in 3D01/06/21 given no BM in 6D; doc 200 QHS to sen/doc 2 BID c bis 10 martins prn no BM in 3D Borderline osteopenia 06/2016 BMD 1.0/0.4 /0.9 c 3.5/x/11% change c/w 12/2010; therefore, CCR-recheck 06/2021 T-cell leukemia-lymphoma, adult No fever /chills, night sweatsto do CT scans or bone marrow biopsy would require general anesthesiahgb as per 03/31/21 2.9 (33/48/16), 11.6, 98, 206K; LDH 171 c stable iso11 2.6 (33/49/16), 13.1, 9 6, 218K6/ 3.4 (36/40/20), 12.9, 96, 210; LDH 166 c WNL iso11/01/19 1.9 (/)-ANC 247, 12.4, 98, 299, CHr 37/0.8; given severe n, repeat in 7-10D (favor at least paritally 2 recent PN given baseline levels 06/2019)06/2019 2.6 (33/48/17), 13.9, 97, 199K04/2018 3.4, 14.2 (//)-FC c high normal T/NK cell proportion but no clonal T-LGL lymphocytosis, LDH 146 c normal iso12/2017 3.4, 13.6, 237K1 3.2, 13.2 (44/37/15), 97, 209 3.3, (50/33/12), 214K1 3.5 (52/32/5/10 atypical lymphs), 181K1 4.3 (33/53/5), 199K9 2.8 (34/41/11/atypical lymph 11), 195 2.8, 39%, 218K04/2012 3.7, 36%-ANC 1332 Intellectual disability Stable on traz 3 00 QHS, olanz 20 QHS (MDD 20), DPH 100 QHS, DVP DR 500 QHS c yen 4/diphen 50 1H prior to dental apt (now going to [place])05/09/21 +DVP 500 DR QHS given agitation/wt loss Hypertension, essential Stable off amlo 2. [place] [address]/2019 amlo 2.5 started during admission for lingular PN-favor moreso 2 agitation Insomnia, unspecified type Stable on reg imen as per IDContingency: yen qhs06/2019 increased traz 200 to 300 given agitation most nights, wandering into others rooms Prostate cancer screening Patient withou t LUTs/no incontinence with scheduled voids by staff04/23/21 2.16 2.04/2018 1. 1. 1. 2. 0. 0.512/2011 0. PSA stable at 0. normal SAEID by ML Vitamin D deficiency 04/23/21 42, 9.4, 35 on CC 600/400 BID10/2019 40, PTH 44, 9.1, 29 Ulcer of esophagus with bleeding No recu rrent symptoms on current regimen04/2013 acute blood loss anemia 2 bleeding esphogeal ulcer on HH requiring clipping by W-started panto 40 BID Seizure disorder No active on chronic leve 750 BID, pheno 129.6 QHS03/31/21 stable CBCD/CMP c 25, 278/ leve added by [facility] due to seizure ? 2 sleep deprivation (last previous had been ~2Y prior) Fe deficiency anemia hgb as per T-cellh/ o UGI bleed- 11.6, 98, nadine 48 s sup08/19/20 13.1, 96, nadine 15, r36/1. 14.2, 96 c CHr 36; therefore, 07/2018 held 65 QD04/23/216/2016512/2013 797988/2010 B12 1 2554/2014 20882/2010 RBC folate 406May 2010 normal SPEP Treatment Notes Test Name Order Date Comprehensive Metabolic Profile (CMP) 2021-05-20 VALPROIC ACID (DEPAKOTE) 2021-05-20 CBC with Differential 2021-05-20 PT & APTT 2021-05-20 QUANTIFERON TB GOLD TEST 2021-05-20 PHENOBARBITAL LEVEL 2021-05-20 LEVETIRACETAM (KEPPRA) 2021-05-20 Next Appt Details 6-8W, BW NOW Reason: Provider Name:Mustapha Mar, 2021-07-03 0 1:30:00 PM, [address] [facility], , [place], [address], Insurance Providers Payer Name Payer Address Payer Phone Insured Name Patient Relati onship to Insured Coverage Start Date Coverage End Date MEDICARE Part A and B [address] [place] [phone] ELIANE FRAGA self MEDICAID [employer] [address] [facility] [id number] [phone] ELIANE FRAGA self
--- OUTSIDE RECORDS SUMMARY | 2021-07-30 09:25 | CCD ---
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 Active confi rmed 033168459 Problem Seizure disorder G40.909 Active confirmed 12 1371267 Problem Fe deficiency anemia D50.9 Active confirmed 71033539 Problem Colon cancer screening Z12.11 Active confirmed 875407446 Problem Ulcer of esophagus with bleeding K22.11 Active conf irmed 64823392 Problem Intellectual disability F79 Active confirmed 902825097 Problem Sleep disturbance G47.9 Active confirmed 53 547674 Problem Vitamin D deficiency E55.9 Active confirmed 45001144 Problem Thyroid nodule E04.1 Active confirmed 70431 5005 Problem Prostate cancer screening Z12.5 Active confirmed 721874531 Problem Insomnia, unspecified type G47.00 Active confirmed 666761944 Problem Hypertension, essential I10 Active confirmed 78415528 Problem Borderline osteopenia M85.80 Active confirmed 100387881 Problem Hyperactivity F90.9 Active confirmed 071144 00 ALLERGIES No Known Allergies ENCOUNTERS from 1960 to 2021-07-09 Encounter Location Date Provider Diagnosis [address] [phone] [place] [address] 04 Jul, 2021 Mustapha Mar Intellectual disability F79 IMMUNIZATIONS Vaccine [...] Notes Total Score: 0 Interpretation: Alcohol Education Judaism: Question Answer Notes Judaism No roman catholic beliefs that would impact health care. Sexual [...] Information RESULTS No Results REASON FOR VISIT Banophen MEDICAL (GENERAL) HISTORY Type Description Date Medical [...] hemorrhoids-colonosopy by Dr. Dao 07/2018 Medical History [facility] [id number] completed by Dr. Asha mehta Surgical History teeth extraction-[facility] 11/13/16 Surgical History [id number] IH-W 08/01/18 Hospitalization History UGI bleed 2 [...] Notes Treatment Notes Treatm ent Clinical Notes 04 Oct, 2021 Intellectual disability (ICD-10 - F79) PLAN OF [...] Coverage Start Date Coverage End Date MEDICAID [employer] [address] [facility] [id number] [phone] ELIANE FRAGA MEDICARE Part A and B [address] [facility] [id number] ELIANE FRAGA self
--- OUTSIDE RECORDS SUMMARY | 2021-07-30 09:25 | CCD ---
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 Active confi rmed 172403160 Problem Seizure disorder G40.909 Active confirmed 12 4601711 Problem Fe deficiency anemia D50.9 Active confirmed 25069350 Problem Colon cancer screening Z12.11 Active confirmed 557001942 Problem Ulcer of esophagus with bleeding K22.11 Active conf irmed 41012276 Problem Intellectual disability F79 Active confirmed 759278364 Problem Sleep disturbance G47.9 Active confirmed 53 229126 Problem Vitamin D deficiency E55.9 Active confirmed 82983414 Problem Thyroid nodule E04.1 Active confirmed 68198 5005 Problem Prostate cancer screening Z12.5 Active confirmed 337659859 Problem Insomnia, unspecified type G47.00 Active confirmed 145645091 Problem Hypertension, essential I10 Active confirmed 28668198 Problem Borderline osteopenia M85.80 Active confirmed 143534603 Problem Hyperactivity F90.9 Active confirmed 937453 00 ALLERGIES No Known Allergies ENCOUNTERS from 1960 to 2021-06-24 Encounter Location Date Provider Diagnosis [address] [phone] [place] [address] Jun, Mustapha Mar Constipation, chronic K59.00 IMMUNIZATIONS Vaccine Route Administration Date Status Influenza [...] Notes Total Score: 0 Interpretation: Alcohol Education Buddhist: Question Answer Notes Buddhist No presybeterian beliefs that would impact health [...] End Date Status Pantoprazole Sodium 40 MG 1 tablet Orally AC BID for 30 day(s) Active Pantoprazole Sodium 40 MG TAKE ONE TABLET BY MOUTH TWICE DAILY for 28 Active ZyPREXA 20 mg 1 tablet p.o. Daily at bedtime for 28 Active Senna S 8.6-50 MG 2 tab Orally bid for 28 Active Banophen 50 MG TAKE ONE CAPSULE BY MOUTH AT BEDTIME for 30 Active Calcium 600+D High Potency 600-400 MG-UNIT 1 tablet Or ally twice daily for 30 Days Active PHENobarbital 64.8 MG 2 capsules by mouth Daily at bedtime for 30 Day s Active Ativan 2 MG 2 tablets Orally prn apointments for 30 day(s) 10 Jun, 2021 Active Calcium 600+D High Potency 600-400 MG-UNIT 1 tablet Or ally twice daily for 30 day(s) Active Senna S 8.6-50 MG 2 tab Orally bid for 30 Days Active Divalproex Sodium 500 MG 2 tablet Orally Qhs for 30 Days 0 May, Active ZyPREXA 20 mg 1 tablet p.o. Daily at bedtime for 30 Days Active amLODIPine Besylate 2.5 MG 1 tablet Orally Daily Active Milk of Magnesia 400 MG/5ML 15 ml Orally daily for 30 day(s) Active Trazodone HCl 100 MG TAKE THREE TABLETS BY MOUTH AT BEDTIME for 28 Active Benadryl 50 MG . p.o. 2 tablets QHS and 1 tablet 1 hour prior to dental apt for 30 Days Active levETIRAcetam 750 MG 1 tablet Orally Twice a day for 30 Days Active Dulcolax 10 MG 1 suppository Rectal if no BM after 3 days for 30 Days Active Acetaminophen 325 MG 2 tablets as needed Orally every 4 hours fo r pain Oct, Active Trazodone HCl 100 MG 3 tablets Orally at bedtime for 30 days Active guaiFENesin 100 MG/5ML 10 ml as needed Orally every 4 hours for cough Oct, Active PROCEDURES No Information RESULTS No Results REASON FOR VISIT Milk [employer] MEDICAL (GENERAL) HISTORY Type Description Date Medical [...] hernia, esophag eal ulcer s/p clipping 04/2013 EGD-[facility] Medical History + H pylori Ab-treated 05/2013 c metro/bis /tetra/PPI x 10D Medical History generalized seizure disorder Medical History Non-bleeding Grade I interna l hemorrhoids-colonosopy by Dr. Dao 07/2018 Medical History [facility] [id number] completed by Dr. Asha mehta Surgical History teeth extraction-[facility] 11/13/16 Surgical History [id number] IH-W 08/01/18 Hospitalization History UGI bleed 2 [...] Notes Treatment Notes Treatm ent Clinical Notes Jun, Constipation, chronic (ICD-10 - K59.00) PLAN OF TREATMENT Medication Medication Name Sig Start Date Stop Date Ativan 2 MG 2 tablets Orally prn apointments for 30 day(s) 1 0 Jun, 2021 Senna S 8.6-50 MG 2 tab Orally bid for 30 Days Trazodone HCl 100 MG 3 tablets Orally at bedtime for 30 days PHENobarbital 64.8 MG 2 capsules by mouth Daily at bedtime for 3 0 Days Calcium 600+D High Potency 600-400 MG-UNIT 1 tablet Or ally twice daily for 30 day(s) Dulcolax 10 MG 1 suppository Rectal if no BM after 3 days for 3 0 Days Pantoprazole Sodium 40 MG 1 tablet Orally AC BID for 30 day(s) Milk of Magnesia 400 MG/5ML 15 ml Orally daily for 30 day(s) ZyPREXA 20 mg 1 tablet p.o. Daily at bedtime for 30 Days Benadryl 50 MG . p.o. 2 tablets QHS and 1 tablet 1 hour prior to dental apt for 30 Days levETIRAcetam 750 MG 1 tablet Orally Twice a day for 30 Days Divalproex Sodium 500 MG 2 tablet Orally Qhs for 30 Days May, Next Appt Details Provider Name:Mustapha Bustamanteer, 2021-07-03 0 1:30:00 PM, [address] [facility], , [place], [address], Insurance Providers Payer Name Payer Address Payer Phone Insured Name Patient Relati onship to Insured Coverage Start Date Coverage End Date MEDICAID [employer] [address] [facility] [id number] ELIANE FRAGA MEDICARE Part A and B [address] [facility] [id number] ELIANE FRAGA
--- OUTSIDE RECORDS SUMMARY | 2021-07-30 09:25 | CCD ---
Author Author [facility] [employer] [facility] Syst [employer]s Organization [facility] [employer] 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 Active confi rmed 929328251 Problem Seizure disorder G40.909 Active confirmed 12 9338896 Problem Fe deficiency anemia D50.9 Active confirmed 99885154 Problem Colon cancer screening Z12.11 Active confirmed 775936428 Problem Ulcer of esophagus with bleeding K22.11 Active conf irmed 80696830 Problem Intellectual disability F79 Active confirmed 039589797 Problem Sleep disturbance G47.9 Active confirmed 53 894170 Problem Vitamin D deficiency E55.9 Active confirmed 63726730 Problem Thyroid nodule E04.1 Active confirmed 10420 5005 Problem Prostate cancer screening Z12.5 Active confirmed 665699268 Problem Insomnia, unspecified type G47.00 Active confirmed 255885333 Problem Hypertension, essential I10 Active confirmed 98240869 Problem Borderline osteopenia M85.80 Active confirmed 075263814 Problem Hyperactivity F90.9 Active confirmed 669817 00 ALLERGIES No Known Allergies ENCOUNTERS from 1960 to 2021-06-13 Encounter Location Date Provider Diagnosis [address] [phone] [place] [address] 10 Jun, 2021 Mustapha Mar IMMUNIZATIONS Vaccine Route Administration [...] Notes Total Score: 0 Interpretation: Alcohol Education Taoist: Question Answer Notes Taoist No pentecostalism beliefs that would impact health care. Sexual [...] p.o. Daily at bedtime for 28 Active Benadryl 50 MG . p.o. 2 tablets QHS and 1 tablet 1 hour prior to dental apt for 30 Days Active Banophen 50 MG TAKE ONE CAPSULE [...] tab Orally bid for 30 Days Active ZyPREXA 20 mg 1 tablet p.o. Daily at bedtime for 30 Days Active Senna S 8.6-50 MG 2 tab Orally bid for 28 Active Milk of Magnesia 400 MG/5ML 15 ml Orally daily for 30 day(s) Active Divalproex Sodium 500 MG 2 tablet Orally Qhs for 30 Days 0 4 May, 2021 Active Trazodone HCl 100 MG TAKE THREE TABLETS BY MOUTH AT BEDTIME for 28 Active Trazodone HCl 100 MG 3 tablets Orally at bedtime for 30 days Active levETIRAcetam 750 MG 1 tablet Orally Twice a day for 30 Days Active Dulcolax 10 MG 1 suppository Rectal if no BM after 3 days for 30 Days Active Acetaminophen 325 MG 2 tablets as needed Orally every 4 hours fo r pain Oct, Active amLODIPine Besylate 2.5 MG 1 tablet Orally Daily Active guaiFENesin 100 MG/5ML 10 ml as needed Orally every 4 hours for cough Oct, Active PROCEDURES No Information RESULTS No Results REASON FOR VISIT No Information MEDICAL (GENERAL) HISTORY Type Description Date Medical [...] eal ulcer s/p clipping 04/2013 EGD-[facility] Medical History + H pylori Ab-treated 05/2013 c metro/bis /tetra/PPI x 10D Medical History generalized seizure disorder Medical History Non-bleeding Grade I interna l hemorrhoids-colonosopy by Dr. Dao 07/2018 Medical History [facility] [id number] completed by Dr. Asha mehta Surgical History teeth extraction-[facility] 11/13/16 Surgical History [id number]-cxy-uhngbjjh IH-W 08/01/18 Hospitalization History UGI bleed 2 [...] 2 tab Orally bid for 30 Days Milk of Magnesia 400 MG/5ML 15 ml Orally daily for 30 day(s) PHENobarbital 64.8 MG 2 capsules by mouth Daily at bedtime for 3 0 Days Calcium 600+D High Potency 600-400 MG-UNIT 1 tablet Or ally twice daily for 30 day(s) Dulcolax 10 MG 1 suppository Rectal if no BM after 3 days for 3 0 Days Pantoprazole Sodium 40 MG 1 tablet Orally AC BID for 30 day(s) Divalproex Sodium 500 MG 2 tablet Orally Qhs for 30 Days May, Benadryl 50 MG . p.o. 2 tablets QHS and 1 tablet 1 hour prior to dental apt for 30 Days Trazodone HCl 100 MG 3 tablets Orally at bedtime for 30 days levETIRAcetam 750 MG 1 tablet Orally Twice a day for 30 Days ZyPREXA 20 mg 1 tablet p.o. Daily at bedtime for 30 Days Next Appt Details Provider Name:Mustapha Mar, 2021-07-03 0 1:30:00 PM, [address] [facility], , [place], [address], Insurance Providers Payer Name Payer Address Payer Phone Insured Name Patient Relati onship to Insured Coverage Start Date Coverage End Date MEDICAID [employer] [address] [facility] [address] ELIANE FRAGA MEDICARE Part A and B [address] [facility] [phone] ELIANE FRAGA
--- OUTSIDE RECORDS SUMMARY | 2021-07-30 09:25 | CCD ---
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 Active confi rmed 622966857 Problem Seizure disorder G40.909 Active confirmed 12 2702160 Problem Fe deficiency anemia D50.9 Active confirmed 01383018 Problem Colon cancer screening Z12.11 Active confirmed 468832618 Problem Ulcer of esophagus with bleeding K22.11 Active conf irmed 87642200 Problem Intellectual disability F79 Active confirmed 617493410 Problem Sleep disturbance G47.9 Active confirmed 53 397519 Problem Vitamin D deficiency E55.9 Active confirmed 53628778 Problem Thyroid nodule E04.1 Active confirmed 25022 5005 Problem Prostate cancer screening Z12.5 Active confirmed 953478413 Problem Insomnia, unspecified type G47.00 Active confirmed 013278897 Problem Hypertension, essential I10 Active confirmed 83182013 Problem Borderline osteopenia M85.80 Active confirmed 517529839 Problem Hyperactivity F90.9 Active confirmed 057584 00 ALLERGIES No Known Allergies ENCOUNTERS from 1960 to 2021-05-30 Encounter Location Date Provider Diagnosis [address] [phone] [place] [address] May, Mustapha Mar Intellectual disability F79 and Constipation, chronic K59.00 IMMUNIZATIONS Vaccine Route Administration [...] Notes Total Score: 0 Interpretation: Alcohol Education Moravian: Question Answer Notes Moravian No worship beliefs that would impact health care. Sexual [...] tab Orally bid for 30 Days Active Calcium 600+D High Potency 600-400 MG-UNIT 1 tablet Or ally twice daily for 30 day(s) Active Ativan 2 MG 2 tablets Orally prn apointments for 30 day(s) May, Active ZyPREXA 20 mg 1 tablet [...] Information RESULTS No Results REASON FOR VISIT Divalproex Sodium 500 MG Tablet Delayed Release MEDICAL (GENERAL) HISTORY Type Description Date Medical [...] hernia, esophag eal ulcer s/p clipping 04/2013 EGD-[facility] Medical History + H pylori Ab-treated 05/2013 c metro/bis /tetra/PPI x 10D Medical History generalized seizure disorder Medical History Non-bleeding Grade I interna l hemorrhoids-colonosopy by Dr. Dao 07/2018 Medical History [facility] [id number] completed by Dr. Asha mehta Surgical History teeth extraction-[facility] 11/13/16 Surgical History sbptn-akw-cgpuctas IH-W 08/01/18 Hospitalization History UGI bleed 2 [...] Treatment Notes Treatm ent Clinical Notes May, Intellectual disability (ICD-10 - F79) May, Constipation, chronic (ICD-10 - K59.00) PLAN OF TREATMENT Medication Medication Name Sig Start Date Stop Date Senna S 8.6-50 MG 2 tab Orally bid for 30 Days Ativan 2 MG 2 tablets Orally prn apointments for 30 day(s) 2 3 May, 2021 Milk of Magnesia 400 MG/5ML 15 [...] Name:Mustapha Mar, 2021-07-03 0 1:30:00 PM, [address] [facility], , [place], [address], Insurance Providers Payer Name Payer Address Payer Phone Insured Name Patient Relati onship to Insured Coverage Start Date Coverage End Date MEDICAID [employer] [address] [facility] [address] ELIANE FRAGA MEDICARE Part A and B [address] [facility] [address] [phone] ELIANE FRAGA
--- OUTSIDE RECORDS SUMMARY | 2021-07-30 09:25 | CCD | Continuity of Care Document ---
Author Author Jerome LIRA M.D. Organization Unknown Address [address] [place] [address] Phone [phone] Care Team Providers Care Lift Driver Name Role Phone Ligia Tineo PA-C AUTM [phone] Problems Description No Information Available Social History Type Date Description Comments Sex Unknown Tobacco Use Start: Unknown Patient has never smoked Smoking Status Reviewed: 06/13/21 Patient has never smoked Allergies, Adverse Reactions, Alerts Description No Known Drug Allergies Medications Active [...] Available Vital Signs Date Vital Result Comment 06/13/2021 9:20am BP Systolic 124 mmHg BP Diastolic 76 mmHg Heart Rate 93 /min O2 % BldC Oximetry 99 % Height 64 inches 5'4" [place] Body Weight 130 lb Procedures Description No Information Available Medical Devices Description No Information Available Encounters Description No Information Available Assessments Date Code Description Provider 06/13/2021 R91.8 Other nonspecific abnormal findi ng of lung field Alba Lira M.D. 06/13/2021 F73 Profound intellectual disabiliti es Alba Lira M.D. 06/13/2021 G40.89 Other seizures Alba Lira M.D. Plan of Treatment 06/13/2021 - Alba Lira M.D.* R91.8 Other nonspecific abnormal finding of lung field * F73 Profound intellectual disabilities * G40.89 Other seizures * * New Labs:* CBC With Differential, Ordered: 06/13/21 * Basic Metabolic Profile, Ordered: 06/13/21 * Flow Cytometry For [employer], Ordered: 06/13/21 * PT & Aptt, Ordered: 06/13/21 * Quanteferon TB Gold Test, Ordered: 06/13/21 * New Xrays:* CT Chest W/O Contrast, Scheduled: 06/17/21 * Unlisted CT Procedure, Scheduled: 06/17/21 * New Orders:* Bronchoscopy in Or, Ordered: 06/13/21 * Follow up:* Follow up in office after procedure. Functional Status Description No Information Available Mental Status Description No Information Available Referrals Refer to Dr Reason for Referral Status Appt Date Alba Lira M.D. LUNG NODULE Scheduled 06/13/2021 [facility], Pulmonary [address] [place], [place] [address] [phone]
--- OUTSIDE RECORDS SUMMARY | 2021-07-30 09:25 | CCD ---
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 Active confi rmed 731419366 Problem Seizure disorder G40.909 Active confirmed 12 1064738 Problem Fe deficiency anemia D50.9 Active confirmed 98223063 Problem Colon cancer screening Z12.11 Active confirmed 043819997 Problem Ulcer of esophagus with bleeding K22.11 Active conf irmed 69466554 Problem Intellectual disability F79 Active confirmed 997128898 Problem Sleep disturbance G47.9 Active confirmed 53 963242 Problem Vitamin D deficiency E55.9 Active confirmed 59510097 Problem Thyroid nodule E04.1 Active confirmed 89197 5005 Problem Prostate cancer screening Z12.5 Active confirmed 986125532 Problem Insomnia, unspecified type G47.00 Active confirmed 460281536 Problem Hypertension, essential I10 Active confirmed 19811062 Problem Borderline osteopenia M85.80 Active confirmed 104230978 Problem Hyperactivity F90.9 Active confirmed 764753 00 ALLERGIES No Known Allergies ENCOUNTERS from 1960 to 2021-07-01 Encounter Location Date Provider Diagnosis [address] [phone] [place] [address] 27 Jun, 2021 Mustapha Mar IMMUNIZATIONS Vaccine Route [...] Notes Total Score: 0 Interpretation: Alcohol Education Mandaen: Question Answer Notes Mandaen No mandaen beliefs that would impact health care. Sexual [...] 2.5 MG 1 tablet Orally Daily Active levETIRAcetam 750 MG 1 tablet Orally [...] Orally at bedtime for 30 days Active Milk of Magnesia 400 MG/5ML 15 [...] hernia, esophag eal ulcer s/p clipping 04/2013 EGD-[facility] Medical History + H pylori Ab-treated 05/2013 c metro/bis /tetra/PPI x 10D Medical History generalized seizure disorder Medical History Non-bleeding Grade I interna l hemorrhoids-colonosopy by Dr. Dao 07/2018 Medical History [facility] [id number] completed by Dr. Asha mehta Surgical History teeth extraction-[facility] 11/13/16 Surgical History owxjv-tis-oddebcif IH-W 08/01/18 Hospitalization History UGI bleed 2 [...] prior to dental apt for 30 Days Banophen 50 MG TAKE [...] Daily at bedtime for 3 0 Days Next Appt Details Provider Name:Mustapha Mar, 2021-07-09 1 1:00:00 AM, [address] [facility], , [place], [address], Insurance Providers Payer Name Payer Address Payer Phone Insured Name Patient Relati onship to Insured Coverage Start Date Coverage End Date MEDICARE Part A and B [address] [facility] [id number] [phone] ELIANE FRAGA self MEDICAID [employer] [address] [facility] [address] ELIANE FRAGA self
--- OUTSIDE RECORDS SUMMARY | 2021-07-30 09:25 | CCD ---
Author Author [facility] [employer] 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 Active confi rmed 837172826 Problem Seizure disorder G40.909 Active confirmed 12 1482114 Problem Fe deficiency anemia D50.9 Active confirmed 15030301 Problem Colon cancer screening Z12.11 Active confirmed 535694537 Problem Ulcer of esophagus with bleeding K22.11 Active conf irmed 89512153 Problem Intellectual disability F79 Active confirmed 168626875 Problem Sleep disturbance G47.9 Active confirmed 53 987296 Problem Vitamin D deficiency E55.9 Active confirmed 89890789 Problem Thyroid nodule E04.1 Active confirmed 32162 5005 Problem Prostate cancer screening Z12.5 Active confirmed 965934764 Problem Insomnia, unspecified type G47.00 Active confirmed 948763355 Problem Hypertension, essential I10 Active confirmed 48289783 Problem Borderline osteopenia M85.80 Active confirmed 593133760 Problem Hyperactivity F90.9 Active confirmed 059450 00 ALLERGIES No Known Allergies ENCOUNTERS from 1960 to 2021-05-20 Encounter Location Date Provider Diagnosis [address] [phone] [place] [address] 17 May, 2021 Mustapha Mar IMMUNIZATIONS Vaccine Route Administration [...] Notes Total Score: 0 Interpretation: Alcohol Education Worship: Question Answer Notes Worship No orthodoxy beliefs that would impact health care. Sexual [...] Information RESULTS No Results REASON FOR VISIT appt MEDICAL (GENERAL) HISTORY Type Description Date Medical [...] hernia, esophag eal ulcer s/p clipping 04/2013 EGD-[facility] Medical History + H pylori Ab-treated 05/2013 c metro/bis /tetra/PPI x 10D Medical History generalized seizure disorder Medical History Non-bleeding Grade I interna l hemorrhoids-colonosopy by Dr. Dao 07/[address] [facility] [id number] completed by Dr. Asha mehta Surgical History teeth extraction-[facility] 11/13/16 Surgical History upygf-qnt-wmpzpatk IH-W 08/01/18 Hospitalization History UGI bleed 2 [...] Name:Mustapha Mar, 2021-07-03 0 1:30:00 PM, [address] [facility], , [place], [address], Insurance Providers Payer Name Payer Address Payer Phone Insured Name Patient Relati onship to Insured Coverage Start Date Coverage End Date MEDICARE Part A and B [address] [facility] [address] ELIANE FRAGA MEDICAID [employer] [address] [facility] [id number] ELIANE FRAGA
--- OUTSIDE RECORDS SUMMARY | 2021-07-30 09:25 | CCD ---
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 Active confi rmed 027850492 Problem Seizure disorder G40.909 Active confirmed 12 5676920 Problem Fe deficiency anemia D50.9 Active confirmed 48199076 Problem Colon cancer screening Z12.11 Active confirmed 511034280 Problem Ulcer of esophagus with bleeding K22.11 Active conf irmed 41900584 Problem Intellectual disability F79 Active confirmed 252982581 Problem Sleep disturbance G47.9 Active confirmed 53 625470 Problem Vitamin D deficiency E55.9 Active confirmed 96529401 Problem Thyroid nodule E04.1 Active confirmed 80979 5005 Problem Prostate cancer screening Z12.5 Active confirmed 143645978 Problem Insomnia, unspecified type G47.00 Active confirmed 676683279 Problem Hypertension, essential I10 Active confirmed 56753912 Problem Borderline osteopenia M85.80 Active confirmed 503652203 Problem Hyperactivity F90.9 Active confirmed 060529 00 ALLERGIES No Known Allergies ENCOUNTERS from 1960 to 2021-06-16 Encounter Location Date Provider Diagnosis [address] [phone] [place] [address] 13 Jun, 2021 Mustapha Mar IMMUNIZATIONS Vaccine Route [...] Notes Total Score: 0 Interpretation: Alcohol Education Sikhism: Question Answer Notes Sikhism No mormon beliefs that would impact health care. Sexual [...] Information RESULTS No Results REASON FOR VISIT Ativan [address] scan MEDICAL (GENERAL) HISTORY Type Description Date Medical [...] hernia, esophag eal ulcer s/p clipping 04/2013 EGD-[facility] Medical History + H pylori Ab-treated 05/2013 c metro/bis /tetra/PPI x 10D Medical History generalized seizure disorder Medical History Non-bleeding Grade I interna l hemorrhoids-colonosopy by Dr. Dao 07/2018 [id number] completed by Dr. Asha mehta Surgical History teeth extraction-[facility] 11/13/16 Surgical History [id number]-rng-aczgvhkh IH-W 08/01/18 Hospitalization History UGI bleed 2 [...] Name:Mustapha Mar, 2021-07-03 0 1:30:00 PM, [address] [facility], , [place], [address], Insurance Providers Payer Name Payer Address Payer Phone Insured Name Patient Relati onship to Insured Coverage Start Date Coverage End Date MEDICARE Part A and B [address] [facility] [id number] ELIANE FRAGA self MEDICAID [facility] [address] [facility] [address] ELIANE FRAGA self
--- OUTSIDE RECORDS SUMMARY | 2021-07-30 09:25 | CCD ---
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 Active confi rmed 379013420 Problem Seizure disorder G40.909 Active confirmed 12 9571499 Problem Fe deficiency anemia D50.9 Active confirmed 13874469 Problem Colon cancer screening Z12.11 Active confirmed 287584077 Problem Ulcer of esophagus with bleeding K22.11 Active conf irmed 20823338 Problem Intellectual disability F79 Active confirmed 182616311 Problem Sleep disturbance G47.9 Active confirmed 53 079387 Problem Vitamin D deficiency E55.9 Active confirmed 89878377 Problem Thyroid nodule E04.1 Active confirmed 05412 5005 Problem Prostate cancer screening Z12.5 Active confirmed 441849044 Problem Insomnia, unspecified type G47.00 Active confirmed 901433003 Problem Hypertension, essential I10 Active confirmed 69838457 Problem Borderline osteopenia M85.80 Active confirmed 607852801 Problem Hyperactivity F90.9 Active confirmed 626141 00 ALLERGIES No Known Allergies ENCOUNTERS from 1960 to 2021-06-13 Encounter Location Date Provider Diagnosis [address] [phone] [place] [address] 10 Jun, 2021 Mustapha Mar Intellectual disability F79 IMMUNIZATIONS [...] Notes Total Score: 0 Interpretation: Alcohol Education Gnosticism: Question Answer Notes Gnosticism No christianity beliefs that would impact health care. Sexual [...] REASON FOR VISIT Ativan 2 MG Tablet MEDICAL (GENERAL) HISTORY Type Description Date Medical [...] hernia, esophag eal ulcer s/p clipping 04/2013 EGD-[facility] Medical History + H pylori Ab-treated 05/2013 c metro/bis /tetra/PPI x 10D Medical History generalized seizure disorder Medical History Non-bleeding Grade I interna l hemorrhoids-colonosopy by Dr. Dao 07/2018 Medical History [facility] [id number] completed by Dr. Asha mehta Surgical History teeth extraction-[facility] 11/13/16 Surgical History [id number]-eci-kkcokpsg IH-W 08/01/18 Hospitalization History UGI bleed 2 [...] Treatment Notes Treatm ent Clinical Notes Jun, Intellectual disability (ICD-10 - F79) PLAN OF [...] Name:Mustapha Mar, 2021-07-03 0 1:30:00 PM, [address] [facility], , [place], [address], Insurance Providers Payer Name Payer Address Payer Phone Insured Name Patient Relati onship to Insured Coverage Start Date Coverage End Date MEDICARE Part A and B [address] [facility][1] [phone] ELIANE FRAGA MEDICAID [employer] [address] [facility] [address] ELIANE FRAGA
--- OUTSIDE RECORDS SUMMARY | 2021-07-30 09:25 | CCD ---
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 Active confi rmed 240247191 Problem Seizure disorder G40.909 Active confirmed 12 4778430 Problem Fe deficiency anemia D50.9 Active confirmed 77902355 Problem Colon cancer screening Z12.11 Active confirmed 275649538 Problem Ulcer of esophagus with bleeding K22.11 Active conf irmed 06375971 Problem Intellectual disability F79 Active confirmed 381062037 Problem Sleep disturbance G47.9 Active confirmed 53 934308 Problem Vitamin D deficiency E55.9 Active confirmed 15279708 Problem Thyroid nodule E04.1 Active confirmed 39130 5005 Problem Prostate cancer screening Z12.5 Active confirmed 620865547 Problem Insomnia, unspecified type G47.00 Active confirmed 964291118 Problem Hypertension, essential I10 Active confirmed 99363953 Problem Borderline osteopenia M85.80 Active confirmed 783209101 Problem Hyperactivity F90.9 Active confirmed 119487 00 ALLERGIES No Known Allergies ENCOUNTERS from 1960 to 2021-06-24 Encounter Location Date Provider Diagnosis [address] [phone] [place] [address] Jun, Mustapha Mar Intellectual disability F79 IMMUNIZATIONS Vaccine [...] Education Taoist: Question Answer Notes Taoist No islam beliefs that would impact health care. Sexual [...] Notes Start Da te End Date Status Milk of Magnesia 400 MG/5ML 15 ml Orally daily for 30 day(s) Active Pantoprazole Sodium 40 MG 1 tablet Orally AC BID for 30 day(s) Active ZyPREXA 20 mg [...] every 4 hours for cough Oct, Active Trazodone HCl 100 MG TAKE THREE [...] 30 days Active Pantoprazole Sodium 40 MG TAKE ONE TABLET BY MOUTH TWICE DAILY for 28 Active PROCEDURES No Information RESULTS No Results REASON FOR VISIT refill MEDICAL (GENERAL) HISTORY Type Description Date Medical [...] hernia, esophag eal ulcer s/p clipping 04/2013 EGD-[facility] Medical History + H pylori Ab-treated 05/2013 c metro/bis /tetra/PPI x 10D Medical History generalized seizure disorder Medical History Non-bleeding Grade I interna l hemorrhoids-colonosopy by Dr. Dao 07/2018 Medical History [facility] [id number] completed by Dr. Asha mehta Surgical History teeth extraction-[facility] 11/13/16 Surgical History [id number] IH-W 08/01/18 Hospitalization History UGI bleed 2 [...] after 3 days for 3 0 Days Milk of Magnesia 400 MG/5ML 15 ml Orally daily for 30 day(s) Pantoprazole Sodium 40 MG 1 tablet Orally AC BID for 30 day(s) ZyPREXA 20 mg 1 [...] Days May, Next Appt Details Provider Name:Mustapha Mar, 2021-07-03 0 1:30:00 PM, [address] [facility], , [place], [address], Insurance Providers Payer Name Payer Address Payer Phone Insured Name Patient Relati onship to Insured Coverage Start Date Coverage End Date MEDICAID [employer] [address] [facility] [id number] ELIANE FRAGA MEDICARE Part A and B [address] [facility] [id number] ELIANE FRAGA
--- OUTSIDE RECORDS SUMMARY | 2021-07-30 09:25 | CCD ---
Author Author [facility] Organization 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 Active confi rmed 896642609 Problem Seizure disorder G40.909 Active confirmed 12 6833725 Problem Fe deficiency anemia D50.9 Active confirmed 42743948 Problem Colon cancer screening Z12.11 Active confirmed 677394356 Problem Ulcer of esophagus with bleeding K22.11 Active conf irmed 70548060 Problem Intellectual disability F79 Active confirmed 692543740 Problem Sleep disturbance G47.9 Active confirmed 53 693197 Problem Vitamin D deficiency E55.9 Active confirmed 64860037 Problem Thyroid nodule E04.1 Active confirmed 59350 5005 Problem Prostate cancer screening Z12.5 Active confirmed 609602359 Problem Insomnia, unspecified type G47.00 Active confirmed 150475629 Problem Hypertension, essential I10 Active confirmed 71907298 Problem Borderline osteopenia M85.80 Active confirmed 761107788 Problem Hyperactivity F90.9 Active confirmed 445992 00 ALLERGIES No Known Allergies ENCOUNTERS from 1960 to 2021-05-27 Encounter Location Date Provider Diagnosis [address] [phone] [place] [address] May, Mustapha Mar Intellectual disability F79 IMMUNIZATIONS Vaccine [...] Notes Total Score: 0 Interpretation: Alcohol Education Uatsdin: Question Answer Notes Uatsdin No tenriism beliefs that would impact health care. Sexual [...] BY MOUTH AT BEDTIME for 30 Active amLODIPine Besylate 2.5 MG 1 tablet Orally Daily Active Pantoprazole Sodium 40 MG 1 tablet Orally AC BID for 30 day(s) Active Dulcolax 10 MG 1 suppository Rectal if no BM after 3 days for 30 Days Active ZyPREXA 20 mg 1 tablet p.o. Daily at bedtime for 28 Active Ativan 2 MG 2 tablets Orally prn apointments for 30 day(s) May, Active Senna S 8.6-50 MG 2 tab Orally bid for 30 Days Active Divalproex Sodium 500 MG 1 tablet Orally Qhs May, Active Benadryl 50 MG . p.o. 2 tablets QHS and 1 tablet 1 hour prior to dental apt for 30 Days Active Trazodone HCl 100 MG 3 tablets Orally at bedtime for 30 days Active Calcium 600+D High Potency 600-400 MG-UNIT 1 tablet Or ally twice daily for 30 day(s) Active ZyPREXA 20 mg 1 tablet p.o. Daily at bedtime for 30 Days Active Trazodone HCl 100 MG TAKE THREE TABLETS BY MOUTH AT BEDTIME for 28 Active Milk of Magnesia 400 MG/5ML 15 ml Orally daily for 30 day(s) Active Senna S 8.6-50 MG 2 tab Orally bid for 28 Active PHENobarbital 64.8 MG 2 capsules by [...] Information RESULTS No Results REASON FOR VISIT lorazepam MEDICAL (GENERAL) HISTORY Type Description Date [...] eal ulcer s/p clipping 04/2013 EGD-[facility] Medical History + H pylori Ab-treated 05/2013 c metro/bis /tetra/PPI x 10D Medical History generalized seizure disorder Medical History Non-bleeding Grade I interna l hemorrhoids-colonosopy by Dr. Dao 07/2018 Medical History [facility] [id number] completed by Dr. Asha mehta Surgical History teeth extraction-[facility] 11/13/16 Surgical History [id number] IH-W 08/01/18 Hospitalization History UGI bleed 2 [...] Notes May, Intellectual disability (ICD-10 - F79) PLAN OF TREATMENT Medication Medication Name Sig Start Date Stop Date Ativan 2 MG 2 tablets Orally prn apointments for 30 day(s) 2 3 May, 2021 Divalproex Sodium 500 MG 1 tablet Orally Qhs May, Dulcolax 10 MG 1 suppository Rectal if no BM after 3 days for 3 0 Days Pantoprazole Sodium 40 MG 1 tablet Orally AC BID for 30 day(s) Senna S 8.6-50 MG 2 tab Orally bid for 30 Days PHENobarbital 64.8 MG 2 capsules by mouth Daily at bedtime for 3 0 Days levETIRAcetam 750 MG 1 tablet Orally Twice a day for 30 Days ZyPREXA 20 mg 1 tablet p.o. Daily at bedtime for 30 Days Milk of Magnesia 400 MG/5ML 15 ml Orally daily for 30 day(s) Calcium 600+D High Potency 600-400 MG-UNIT 1 tablet Or ally twice daily for 30 day(s) Benadryl 50 MG . p.o. 2 tablets QHS and 1 tablet 1 hour prior to dental apt for 30 Days Trazodone HCl 100 MG 3 tablets Orally at bedtime for 30 days Next Appt Details Provider Name:Mustapha Mar, 2021-07-03 0 1:30:00 PM, [address] [facility], , [place], [address], Insurance Providers Payer Name Payer Address Payer Phone Insured Name Patient Relati onship to Insured Coverage Start Date Coverage End Date MEDICAID [employer] [address] [facility] [id number] ELIANE FRAGA MEDICARE Part A and B [address] [facility] [id number] ELIANE FRAGA self
--- OUTSIDE RECORDS SUMMARY | 2021-07-30 09:25 | CCD | Continuity of Care Document ---
Author Author Jerome AHUMADA M.D. Organization Unknown Address [address] [place] [address] Phone [phone] Care Team Providers Care Pure Pak Machine Operator Name Role Phone Ligia Tineo PA-C AUTM [phone] Problems Description No Information Available Social History [...] Oximetry 99 % Height 64 inches 5'4" [place] Body Weight 130 lb Results Description No Information Available Procedures Date Code Description Status 06/13/2021 49289 Office/Outpatient New Moderate M DM 45-59 Minutes Completed Medical Devices Description No Information Available Encounters Type Date Location Provider Dx Diagnosis Office Visit 06/13/2021 9:30a [facility] Pulmonary/Thoracic K Alba coles M.D. R91.8 Other nonspecific abnormal f inding of lung field F73 Profound intellectual disabi lities G40.89 Other seizures Assessments Date Code Description Provider 06/13/2021 R91.8 Other nonspecific abnormal findi ng of lung field Alba Ahumada M.D. 06/13/2021 F73 Profound intellectual disabiliti es Alba Ahumada M.D. 06/13/2021 G40.89 Other seizures Alba Ahumada M.D. Plan of Treatment 06/13/2021 - Alba Ahumada M.D.* R91.8 Other nonspecific abnormal finding of lung field * F73 Profound intellectual disabilities * G40.89 Other seizures * * New Labs:* CBC With Differential, Ordered: 06/13/21 * Basic Metabolic Profile, Ordered: 06/13/21 * Flow Cytometry For [employer], Ordered: 06/13/21 * PT & Aptt, Ordered: 06/13/21 * Quanteferon TB Gold Test, Ordered: 06/13/21 * New Orders:* Bronchoscopy in Or, Ordered: 06/13/21 * Follow up:* Follow up in office after procedure. Functional Status Description No Information Available Mental Status Description No Information Available Referrals Refer to Reason for Referral Status Appt Date Alba Ahumada M.D. LUNG NODULE Scheduled 06/13/2021 [facility], Pulmonary [address] [place], [place] [id number] [phone]
[2021-07-30] MEDS ORDERED: DULC10SU2 PR (09:26)
[2021-07-30] MEDS ORDERED: CALCCAP4 PO (09:26)
[2021-07-30] MEDS ORDERED: DIPH50CA29 PO (09:26)
--- OUTSIDE RECORDS SUMMARY | 2021-07-30 09:26 | CCD ---
Author Author [facility] Organization [facility] Address Unknown Phone Unavailable Care Team Providers Care Helicopter Repairer Name Role Phone Alba Lira MD Unavailable Unavailable Alba Lira MD Unavailable Unavailable Alba Lira MD Unavailable Unavailable Alba Lira MD Unavailable Unavailable Alba Lira MD Unavailable Unavailable Alba Lira MD Unavailable Unavailable Alba Lira MD Unavailable Unavailable Alba Lira MD Unavailable Unavailable Alba Lira MD Unavailable Unavailable Alba Lira MD Unavailable Unavailable Alba Lira MD Unavailable Unavailable Alba Lira MD Unavailable Unavailable Alba Lira MD Unavailable Unavailable Alba Lira MD Unavailable Unavailable Alba Lira MD Unavailable Unavailable Alba Lira MD Unavailable Unavailable Alba Lira MD Unavailable Unavailable Alba Lira MD Unavailable Unavailable Alba Lira MD Unavailable Unavailable Alba Lira MD Unavailable Unavailable Alba Lira MD Unavailable Unavailable Alba Lira MD Unavailable Unavailable Alba Lira MD Unavailable Unavailable Alba Lira MD Unavailable Unavailable Alba Lira MD Unavailable Unavailable Alba Lira MD Unavailable Unavailable Alba Lira MD Unavailable Unavailable Alba Lira MD Unavailable Unavailable Alba Lira MD Unavailable Unavailable Alba Lira MD Unavailable Unavailable Trickey, J Kia PA Unavailable Unavailable Trickey, J Kia PA Unavailable Unavailable Trickey, J Kia PA Unavailable Unavailable Trickey, J Kia PA Unavailable Unavailable Trickey, J Kia PA Unavailable Unavailable Trickey, J Kia PA Unavailable Unavailable Trickey, J Kia PA Unavailable Unavailable Trickey, J Kia PA Unavailable Unavailable Trickey, J Kia PA Unavailable Unavailable Trickey, J Kia PA Unavailable Unavailable Trickey, J Kia PA Unavailable Unavailable Trickey, J Kia PA Unavailable Unavailable Trickey, J Kia PA Unavailable Unavailable Trickey, J Kia PA Unavailable Unavailable Trickey, J Kia PA Unavailable Unavailable Trickey, J Kia PA Unavailable Unavailable Trickey, J Kia PA Unavailable Unavailable Trickey, J Kia PA Unavailable Unavailable Trickey, J Kia PA Unavailable Unavailable Trickey, J Kia PA Unavailable Unavailable Trickey, J Kia PA Unavailable Unavailable Trickey, J Kia PA Unavailable Unavailable Trickey, J Kia PA Unavailable Unavailable Trickey, J Kia PA Unavailable Unavailable Trickey, J Kia PA Unavailable Unavailable Trickey, J Kia PA Unavailable Unavailable Trickey, J Kia PA Unavailable Unavailable Trickey, J Kia PA Unavailable Unavailable Trickey, J Kia PA Unavailable Unavailable Trickey, J Kia PA Unavailable Unavailable Trickey, J Kia PA Unavailable Unavailable Trickey, J Kia PA Unavailable Unavailable Trickey, J Kia PA Unavailable Unavailable Trickey, J Kia PA Unavailable Unavailable Trickey, J Kia PA Unavailable Unavailable Trickey, J Kia PA Unavailable Unavailable Trickey, J Kia PA Unavailable Unavailable Trickey, J Kia PA Unavailable Unavailable Trickey, J Kia PA Unavailable Unavailable Trickey, J Kia PA Unavailable Unavailable Trickey, J Kia PA Unavailable Unavailable Trickey, J Kia PA Unavailable Unavailable Trickey, J Kia PA Unavailable Unavailable Trickey, J Kia PA Unavailable Unavailable Trickey, J Kia PA Unavailable Unavailable Trickey, J Kia PA Unavailable Unavailable Trickey, J Kia PA Unavailable Unavailable Trickey, J Kia PA Unavailable Unavailable Trickey, J Kia PA Unavailable Unavailable ADJAPONG, GO Unavailable Unavailable Re-disclosure Warning The records that you are about to access may contain information from federally-assisted alcohol or drug abuse programs. If such information is present, then the following federally mandated warning applies: This information has been disclosed to you from records protected by federal confidentiality rules (42 CFR part 2). The federal rules prohibit you from making any further disclosure of this information unless further disclosure is expressly permitted by the written consent of the person to whom it pertains or as otherwise permitted by 42 CFR part 2. A general authorization for the release of medical or other information is NOT sufficient for this purpose. The Federal rules restrict any use of the information to criminally investigate or prosecute any alcohol or drug abuse patient.The records that you are about to access may contain highly sensitive health information, the redisclosure of which is protected by Article 27-F of the [facility] Public Health law. If you continue you may have access to information: Regarding HIV / AIDS; Provided by facilities licensed or operated by the [facility] Office of Mental Health; or Provided by the [facility] Office for People With Developmental Disabilities. If such information is present, then the following [facility] mandated warning applies: This information has been disclosed to you from confidential records which are protected by state law. State law prohibits you from making any further disclosure of this information without the specific written consent of the person to whom it pertains, or as otherwise permitted by law. Any unauthorized further disclosure in violation of state law may result in a fine or retirement sentence or both. A general authorization for the release of medical or other information is NOT sufficient authorization for further disc losure. Encounters Encounter Providers Location Date Indications Data Source(s ) Outpatient Attender: Alba Reyes/Edinson/Jorge Luis/Lio turner 07/22/2021 01:30:00 PM EDT [facility] ([facility] [place] [address] [facility] [address] 07/21/2021 12:00:00 AM EDT eCW1 ([facility]) [place] [address] [facility] [address] 07/15/2021 12:00:00 AM EDT eCW1 ([facility]) Outpatient Admitter: GO ESCAMILLAReferrer: GO ESCAMILLA 07/14/2021 12:00:00 AM [facility] [place] [address] [facility] [address] 07/07/2021 12:00:00 AM EDT eCW1 ([facility]) [place] [address] [facility] [address] 06/30/2021 12:00:00 AM EDT eCW1 ([facility]) [place] [address] [facility] [address] 06/23/2021 12:00:00 AM EDT eCW1 ([facility]) [place] [address] [facility] [address] 06/23/2021 12:00:00 AM EDT eCW1 ([facility]) [place] [address] [facility] [address] 06/16/2021 12:00:00 AM EDT eCW1 ([facility]) Outpatient Attender: Alba Reyes/Edinson/Jorge Luis/Lio turner 06/13/2021 09:30:00 AM EDT [facility] ([facility] [place] [address] [facility] [address] 06/13/2021 12:00:00 AM EDT eCW1 ([facility]) [place] [address] [facility] [address] 06/13/2021 12:00:00 AM EDT eCW1 ([facility]) [place] [address] [facility] [address] 05/27/2021 12:00:00 AM EDT eCW1 ([facility]) [place] [address] [facility] [address] 05/26/2021 12:00:00 AM EDT eCW1 ([facility]) [place] [address] [facility] [address] 05/26/2021 12:00:00 AM EDT eCW1 ([facility]) [place] [address] [facility] [address] 05/20/2021 12:00:00 AM EDT eCW1 ([facility]) [place] [address] [facility] [address] 05/20/2021 12:00:00 AM EDT eCW1 ([facility]) [place] [address] [facility] [address] 05/19/2021 12:00:00 AM EDT eCW1 ([facility]) [place] [address] [facility] [address] 05/16/2021 12:00:00 AM EDT eCW1 ([facility]) [place] [address] [facility] [address] 05/09/2021 12:00:00 AM EDT [facility]CW1 [facility] Office Visit, Est Pt., Level 5 PC [address] [place] [address] 05/07/2021 12:00:00 AM EDT eCW1 ([facility]) [place] [address] [facility] [address] 04/21/2021 12:00:00 AM EDT eCW1 [facility]) [place] [address] [facility] [address] 04/21/2021 12:00:00 AM EDT [facility] [place] [address] [facility] [address] 04/11/2021 12:00:00 AM EDT [facility] [place] [address] [facility] [address] 04/11/2021 12:00:00 AM EDT [facility]CW1 [facility] Office Visit, Est Pt., Level 3 PC [address] [place] [address] 04/01/2021 12:00:00 AM EDT eCW1 ([facility]) Unknown [address] [facility] [place] [address] 03/28/2021 12:00:00 AM EDT eCW1 ([facility]) [place] [address] [facility] [address] 03/17/2021 12:00:00 AM EDT eCW1 ([facility]) Outpatient Attender: Kia YIN Main office - [facility] [place] 03/12/2021 08:45:00 AM EDT MED[facility] ([facility]) [place] [address] [facility] [address] 01/27/2021 12:00:00 AM EDT eCW1 ([facility]) [place] [address] [facility] [address] 01/15/2021 12:00:00 AM EDT eCW1 ([facility]) [place] [address] [facility] [address] 01/13/2021 12:00:00 AM EDT eCW1 ([facility]) [place] [address] [facility] [address] 01/10/2021 12:00:00 AM EDT eCW1 ([facility]) [place] [address] [facility] [address] 01/06/2021 12:00:00 AM EDT eCW1 ([facility]) [place] [address] [facility] [address] 01/06/2021 12:00:00 AM EDT eCW1 ([facility]) [place] [address] [facility] [address] 12/16/2020 12:00:00 AM EDT eCW1 ([facility]) Office Visit Attender: Kia YIN Main office - [facility] [place] 12/06/2020 08:15:00 AM EST [facility] ([facility]) [place] [address] [facility] [address] 10/23/2020 12:00:00 AM EST eCW1 ([facility]) [place] [address] [facility] [address] 10/09/2020 12:00:00 AM EST [facility] [place] [address] [facility] [address] 10/08/2020 12:00:00 AM EST eCW1 ([facility]) [place] [address] [facility] [address] 09/12/2020 12:00:00 AM EST eCW1 ([facility]) [place] [address] [facility] [address] 09/05/2020 12:00:00 AM EST eCW1 ([facility]) [place] [address] [facility] [address] 08/19/2020 12:00:00 AM EST eCW1 ([facility]) [place] [address] [facility] [address] 07/22/2020 12:00:00 AM EDT eCW1 ([facility]) [place] [address] [facility] [address] 07/04/2020 12:00:00 AM EDT eCW1 ([facility]) Outpatient Attender: Kia YIN [facility] 06/06/2020 09:15:00 AM EDT MED[facility] ([facility]) Immunizations Vaccine Date Status Description Data Source(s) COVID-19 VACCINE Moderna 11/12/2020 12:00:00 AM EST completed [employer] Vaccine Series Complete: NOThis Data was Submitted to [facility] Via [employer]. Medications Medication Brand Name Start Date Product Form Dose Route Admi nistrative Instructions Pharmacy Instructions Status Indications Reaction Description Data Source(s) Lorazepam 2 MG Oral Tablet [Ativan] Ativan 2 MG Ativan 2 MG 06/13/2021 12:00:00 AM EDT 2.0 {tablets} active Ativan 2 M G eCW1 ([facility]) Lorazepam 2 MG Oral Tablet [Ativan] Ativan 2 MG Ativan 2 MG 06/13/2021 12:00:00 AM EDT 2.0 {tablets} active Ativan 2 M G eCW1 ([facility]) Lorazepam 2 MG Oral Tablet [Ativan] Ativan 2 MG Ativan 2 MG 06/13/2021 12:00:00 AM EDT 2.0 {tablets} active Ativan 2 M G eCW1 ([facility]) Lorazepam 2 MG Oral Tablet [Ativan] Ativan 2 MG Ativan 2 MG 06/13/2021 12:00:00 AM EDT 2.0 {tablets} active Ativan 2 M G eCW1 ([facility]) Lorazepam 2 MG Oral Tablet [Ativan] Ativan 2 MG Ativan 2 MG 06/13/2021 12:00:00 AM EDT 2.0 {tablets} active Ativan 2 M G eCW1 ([facility]) Lorazepam 2 MG Oral Tablet [Ativan] Ativan 2 MG Ativan 2 MG 06/13/2021 12:00:00 AM EDT 2.0 {tablets} active Ativan 2 M G eCW1 ([facility]) Lorazepam 2 MG Oral Tablet [Ativan] Ativan 2 MG Ativan 2 MG 06/13/2021 12:00:00 AM EDT 2.0 {tablets} active Ativan 2 M G eCW1 ([facility]) Lorazepam 2 MG Oral Tablet [Ativan] Ativan 2 MG Ativan 2 MG 06/13/2021 12:00:00 AM EDT 2.0 {tablets} active Ativan 2 M G eCW1 ([facility]) Lorazepam 2 MG Oral Tablet [Ativan] Ativan 2 MG Ativan 2 MG 06/13/2021 12:00:00 AM EDT 2.0 {tablets} active Ativan 2 M G eCW1 ([facility]) Lorazepam 2 MG Oral Tablet [Ativan] Ativan 2 MG Ativan 2 MG 05/26/2021 12:00:00 AM EDT 2.0 {tablets} active Ativan 2 M G eCW1 ([facility]) Lorazepam 2 MG Oral Tablet [Ativan] Ativan 2 MG Ativan 2 MG 05/26/2021 12:00:00 AM EDT 2.0 {tablets} active Ativan 2 M G eCW1 ([facility]) Lorazepam 2 MG Oral Tablet [Ativan] Ativan 2 MG Ativan 2 MG 05/26/2021 12:00:00 AM EDT 2.0 {tablets} active Ativan 2 M G eCW1 ([facility]) Lorazepam 2 MG Oral Tablet [Ativan] Ativan 2 MG Ativan 2 MG 05/19/2021 12:00:00 AM EDT 3.0 {tablets} active Ativan 2 M G eCW1 ([facility]) Lorazepam 2 MG Oral Tablet [Ativan] Ativan 2 MG Ativan 2 MG 05/19/2021 12:00:00 AM EDT 3.0 {tablets} active Ativan 2 M G eCW1 ([facility]) Divalproex Sodium 500 MG Delayed Release Oral Tablet Divalpr oex Sodium 500 MG 05/07/2021 12:00:00 AM EDT 2.0 {tablet} active Divalproex Sodium 500 MG eCW1 ([facility]) Divalproex Sodium 500 MG Delayed Release Oral Tablet Divalpr oex Sodium 500 MG 05/07/2021 12:00:00 AM EDT 1.0 {tablet} active Divalproex Sodium 500 MG eCW1 ([facility]) Divalproex Sodium 500 MG Delayed Release Oral Tablet Divalpr oex Sodium 500 MG 05/07/2021 12:00:00 AM EDT 1.0 {tablet} active Divalproex Sodium 500 MG eCW1 ([facility]) Divalproex Sodium 500 MG Delayed Release Oral Tablet Divalpr oex Sodium 500 MG 05/07/2021 12:00:00 AM EDT 2.0 {tablet} active Divalproex Sodium 500 MG eCW1 ([facility]) Divalproex Sodium 500 MG Delayed Release Oral Tablet Divalpr oex Sodium 500 MG 05/07/2021 12:00:00 AM EDT 2.0 {tablet} active Divalproex Sodium 500 MG eCW1 ([facility]) Divalproex Sodium 500 MG Delayed Release Oral Tablet Divalpr oex Sodium 500 MG 05/07/2021 12:00:00 AM EDT 2.0 {tablet} active Divalproex Sodium 500 MG eCW1 ([facility]) Divalproex Sodium 500 MG Delayed Release Oral Tablet Divalpr oex Sodium 500 MG 05/07/2021 12:00:00 AM EDT 2.0 {tablet} active Divalproex Sodium 500 MG eCW1 ([facility]) Divalproex Sodium 500 MG Delayed Release Oral Tablet Divalpr oex Sodium 500 MG 05/07/2021 12:00:00 AM EDT 1.0 {tablet} active Divalproex Sodium 500 MG eCW1 ([facility]) Divalproex Sodium 500 MG Delayed Release Oral Tablet Divalpr oex Sodium 500 MG 05/07/2021 12:00:00 AM EDT 1.0 {tablet} active Divalproex Sodium 500 MG eCW1 ([facility]) Divalproex Sodium 500 MG Delayed Release Oral Tablet Divalpr oex Sodium 500 MG 05/07/2021 12:00:00 AM EDT 2.0 {tablet} active Divalproex Sodium 500 MG eCW1 ([facility]) Divalproex Sodium 500 MG Delayed Release Oral Tablet Divalpr oex Sodium 500 MG 05/07/2021 12:00:00 AM EDT 1.0 {tablet} active Divalproex Sodium 500 MG eCW1 ([facility]) Divalproex Sodium 500 MG Delayed Release Oral Tablet Divalpr oex Sodium 500 MG 05/07/2021 12:00:00 AM EDT 1.0 {tablet} active Divalproex Sodium 500 MG eCW1 ([facility]) Divalproex Sodium 500 MG Delayed Release Oral Tablet Divalpr oex Sodium 500 MG 05/07/2021 12:00:00 AM EDT 2.0 {tablet} active Divalproex Sodium 500 MG eCW1 ([facility]) Divalproex Sodium 500 MG Delayed Release Oral Tablet Divalpr oex Sodium 500 MG 05/07/2021 12:00:00 AM EDT 2.0 {tablet} active Divalproex Sodium 500 MG eCW1 ([facility]) Divalproex Sodium 500 MG Delayed Release Oral Tablet Divalpr oex Sodium 500 MG 05/07/2021 12:00:00 AM EDT 2.0 {tablet} active Divalproex Sodium 500 MG eCW1 ([facility]) Divalproex Sodium 500 MG Delayed Release Oral Tablet Divalpr oex Sodium 500 MG 05/07/2021 12:00:00 AM EDT 1.0 {tablet} active Divalproex Sodium 500 MG eCW1 ([facility]) Divalproex Sodium 500 MG Delayed Release Oral Tablet Divalpr oex Sodium 500 MG 05/07/2021 12:00:00 AM EDT 1.0 {tablet} active Divalproex Sodium 500 MG eCW1 ([facility]) Divalproex Sodium 500 MG Delayed Release Oral Tablet Divalpr oex Sodium 500 MG 05/07/2021 12:00:00 AM EDT 2.0 {tablet} active Divalproex Sodium 500 MG eCW1 ([facility]) Divalproex Sodium 500 MG Delayed Release Oral Tablet Divalpr oex Sodium 500 MG 05/07/2021 12:00:00 AM EDT 2.0 {tablet} active Divalproex Sodium 500 MG eCW1 ([facility]) Bisacodyl 10 MG Rectal Suppository [Dulcolax] Dulcolax 10 MG Dulcolax 10 MG 01/06/2021 12:00:00 AM EDT 1.0 {suppository} active Dulcolax 10 MG eCW1 ([facility]) Bisacodyl 10 MG Rectal Suppository [Dulcolax] Dulcolax 10 MG Dulcolax 10 MG 01/06/2021 12:00:00 AM EDT 1.0 {suppository} active Dulcolax 10 MG eCW1 ([facility]) Bisacodyl 10 MG Rectal Suppository [Dulcolax] Dulcolax 10 MG Dulcolax 10 MG 01/06/2021 12:00:00 AM EDT 1.0 {suppository} active Dulcolax 10 MG eCW1 ([facility]) Bisacodyl 10 MG Rectal Suppository [Dulcolax] Dulcolax 10 MG Dulcolax 10 MG 01/06/2021 12:00:00 AM EDT 1.0 {suppository} active Dulcolax 10 MG eCW1 ([facility]) Bisacodyl 10 MG Rectal Suppository [Dulcolax] Dulcolax 10 MG Dulcolax 10 MG 01/06/2021 12:00:00 AM EDT 1.0 {suppository} active Dulcolax 10 MG eCW1 ([facility]) Docusate Sodium 50 MG / sennosides, SENIOR LIVING 8.6 MG Oral Ta blet Senna S 8.6-50 MG Senna S 8.6-50 MG 01/06/2021 12:00:00 AM EDT active Senna S 8.6-50 MG eCW1 ([facility]) Bisacodyl 10 MG Rectal Suppository [Dulcolax] Dulcolax 10 MG Dulcolax 10 MG 01/06/2021 12:00:00 AM EDT 1.0 {suppository} active Dulcolax 10 MG eCW1 ([facility]) Bisacodyl 10 MG Rectal Suppository [Dulcolax] Dulcolax 10 MG Dulcolax 10 MG 01/06/2021 12:00:00 AM EDT 1.0 {suppository} active Dulcolax 10 MG eCW1 ([facility]) Docusate Sodium 50 MG / sennosides, SENIOR LIVING 8.6 MG Oral Ta blet Senna S 8.6-50 MG Senna S 8.6-50 MG 01/06/2021 12:00:00 AM EDT active Senna S 8.6-50 MG eCW1 ([facility]) Bisacodyl 10 MG Rectal Suppository [Dulcolax] Dulcolax 10 MG Dulcolax 10 MG 01/06/2021 12:00:00 AM EDT 1.0 {suppository} active Dulcolax 10 MG eCW1 ([facility]) Bisacodyl 10 MG Rectal Suppository [Dulcolax] Dulcolax 10 MG Dulcolax 10 MG 01/06/2021 12:00:00 AM EDT 1.0 {suppository} active Dulcolax 10 MG eCW1 ([facility]) Bisacodyl 10 MG Rectal Suppository [Dulcolax] Dulcolax 10 MG Dulcolax 10 MG 01/06/2021 12:00:00 AM EDT 1.0 {suppository} active Dulcolax 10 MG eCW1 ([facility]) Docusate Sodium 50 MG / sennosides, SEN[facility] LIVING 8.6 MG Oral Ta blet Senna S 8.6-50 MG Senna S 8.6-50 MG 01/06/2021 12:00:00 AM EDT active Senna S 8.6-50 MG eCW1 ([facility]) Bisacodyl 10 MG Rectal Suppository [Dulcolax] Dulcolax 10 MG Dulcolax 10 MG 01/06/2021 12:00:00 AM EDT 1.0 {suppository} active Dulcolax 10 MG eCW1 ([facility]) Docusate Sodium 50 MG / sennosides, S[facility] LIVING 8.6 MG Oral Ta blet Senna S 8.6-50 MG Senna S 8.6-50 MG 01/06/2021 12:00:00 AM EDT active Senna S 8.6-50 MG eCW1 ([facility]) Bisacodyl 10 MG Rectal Suppository [Dulcolax] Dulcolax 10 MG Dulcolax 10 MG 01/06/2021 12:00:00 AM EDT 1.0 {suppository} active Dulcolax 10 MG eCW1 ([facility]) Bisacodyl 10 MG Rectal Suppository [Dulcolax] Dulcolax 10 MG Dulcolax 10 MG 01/06/2021 12:00:00 AM EDT 1.0 {suppository} active Dulcolax 10 MG eCW1 ([facility]) Docusate Sodium 50 MG / sennosides, S[facility] LIVING 8.6 MG Oral Ta blet Senna S 8.6-50 MG Senna S 8.6-50 MG 01/06/2021 12:00:00 AM EDT active Senna S 8.6-50 MG eCW1 ([facility]) Bisacodyl 10 MG Rectal Suppository [Dulcolax] Dulcolax 10 MG Dulcolax 10 MG 01/06/2021 12:00:00 AM EDT 1.0 {suppository} active Dulcolax 10 MG eCW1 ([facility]) Bisacodyl 10 MG Rectal Suppository [Dulcolax] Dulcolax 10 MG Dulcolax 10 MG 01/06/2021 12:00:00 AM EDT 1.0 {suppository} active Dulcolax 10 MG eCW1 ([facility]) Bisacodyl 10 MG Rectal Suppository [Dulcolax] Dulcolax 10 MG Dulcolax 10 MG 01/06/2021 12:00:00 AM EDT 1.0 {suppository} active Dulcolax 10 MG eCW1 ([facility]) Bisacodyl 10 MG Rectal Suppository [Dulcolax] Dulcolax 10 MG Dulcolax 10 MG 01/06/2021 12:00:00 AM EDT 1.0 {suppository} active Dulcolax 10 MG eCW1 ([facility]) Bisacodyl 10 MG Rectal Suppository [Dulcolax] Dulcolax 10 MG Dulcolax 10 MG 01/06/2021 12:00:00 AM EDT 1.0 {suppository} active Dulcolax 10 MG eCW1 ([facility]) Docusate Sodium 50 MG / sennosides, S[facility]IOR LIVING 8.6 MG Oral Ta blet Senna S 8.6-50 MG Senna S 8.6-50 MG 01/06/2021 12:00:00 AM EDT active Senna S 8.6-50 MG eCW1 ([facility]) Insurance Providers Payer name Policy type / Coverage type Policy ID Covered alliance party ID Covered alliance party's relationship to wild Policy Wild Plan Information MEDICARE A [id number] Self [id number] MEDICARE A [id number] Self [id number] MEDICARE [id number] MEDICAID M [id number] Self [id number] ANSI-Medicare Part B [id number] ANSI-Medicare Part B [id number] ANSI-Medicaid [id number] ANSI-Medicare Part B [id number] ANSI-Medicaid [id number] ANSI-Medicare Part B [id number] ANSI-Medicaid [id number] [facility] Part B [id number] Self [id number] Medicare Part B Medicare Primary [id number] Self [id number] ANSI-Medicare Part B [id number] ANSI-Medicaid [id number] ANSI-Medicaid [id number] ANSI-Medicare Part B [id number] MEDICARE [id number] ANSI-Medicaid [id number] ANSI-Medicare Part B [id number] ANSI-Medicaid [id number] ANSI-Medicare Part B [id number] ANSI-Medicare Part B [id number] ANSI-Medicaid [id number] ANSI-Medicaid [id number] ANSI-Medicare Part B [id number] ANSI-Medicaid [id number] ANSI-Medicare Part B [id number] ANSI-Medicaid [id number] ANSI-Medicare Part B [id number] ANSI-Medicare Part B [id number] ANSI-Medicaid [id number] ANSI-Medicare Part B [id number] ANSI-Medicaid [id number] ANSI-Medicaid [id number] [facility] [id number] Medicaid [place] [id number] 43.0 Self [id number] Medicare Part B Medicare Primary [id number] Self [id number] [facility] MEDICAID [id number] SP [id number] D Medicare Part B Medicare Primary [id number] Self [id number] Medicaid Medigap Part B [id number] 43.0 Self [id number] Medicare Part B Medicare Primary [id number] Self [id number] Medicaid Medigap Part B [id number] 43.0 Self [id number] MEDICARE [id number] SP [id number] EMEDNY [id number] SP [id number] MEDICAID [id number] SP [id number] [facility]-Medicaid [id number] Problems, Conditions, and Diagnoses Code Display Name Description Problem Type Effective Dates Data Source(s) E04.1 [id number] Thyroid nodule Problem 05/16/2021 12:00:00 A M EDT eCW1 ([facility]) F90.9 [id number] Hyperactivity Problem 05/07/2021 12:00:00 AM EDT eCW1 ([facility]) G47.9 [id number] Sleep disturbance Problem 05/07/2021 12:00:0 0 AM EDT eCW1 ([facility]) M85.80 [id number] Borderline osteopenia Problem 04/21/2021 12: 00:00 AM EDT eCW1 ([facility]) Surgeries/Procedures Procedure Description Date Indications Data Source(s) OFFICE OUTPATIENT VISIT 25 MINUTES 07/22/2021 12:00:00 AM EDT MED[facility] ([facility]) Bronchoscopy W/Bronchial Alveolar Lavage 07/16/2021 12 :00:00 AM EDT [facility] ([facility]) Bronchoscopy Rigid/Flexible Fluoroscopic Guide Computer-Assi sted 07/16/2021 12:00:00 AM EDT [facility] Bronchoscopy W/Transbronchial Lung Biopsy 07/16/2021 1 2:00:00 AM EDT [facility] ([facility]) With Endobronchial Ultrasound Guided 07/16/2021 12:00: 00 AM EDT [facility]) OFFICE OUTPATIENT NEW 45 MINUTES 06/13/2021 12:00:00 A M EDT [facility] ([facility]) Results ID Date Data Source [id number] 07/16/2021 10:48:00 AM EDT [facility] ([facility]) Name Value Range Interpretation Code Description Data Dafne rce(s) Supporting Document(s) Surgical pathology study Laboratory test result [facility] ([facility]) <content>FINAL DIAGNOSIS</content>
< content></content>
<content>A - Lung, left lower lobe, forceps biopsy:</content>
<content>Fragments of benign lung parenchyma.</content>
<content>No evidence for malignancy.</content>
<content></content>
<content>B - Lung, left lower lobe, endobronchial forceps biopsy:</content>
<content>Minute fragments of bronchial wall mucosa.</content>
<content>No evidence for malignancy.</content>
<content>No alveolar parenchyma is noted on multiple H&E stained levels.</content>
<content>07/17/2021 - 1133</content>
<content></content>
<content>CLINICAL DIAGNOSIS</content>
<content></content>
<content>Left lower lobe abnormality and cancer</content>
<content>07/16/2021 - 1444</content>
<content></content>
<content>GROSS DIAGNOSIS</content>
<content></content>
<content>A - Received in formalin labeled "left lower lobe forceps biopsy"</content>
<content> consists of multiple mooney-red fragments measuring 0.3 x 0.3 x 0.1 cm in</content>
<content>aggregate. All in one.</content>
<content></content>
<content>B - Received in formalin labeled "endobronchial forceps biopsy, left</content>
<content>lower lobe" consists of two mooney fragments measuring 0.2 x 0.2 x 0.1 cm</content>
<content>in aggregate. All in one.</content>
<content>- SV</content>
<content>07/16/2021 - 1444</content>
<content></content>
<content>Signed CLARE SHARMA MD 07/18/2021 0852</content>
<content></content> ID Date Data Source [id number] 07/16/2021 10:30:00 AM EDT [facility] ([facility], ) Name Value Range Interpretation Code Description Data Dafne rce(s) Supporting Document(s) Microscopic observation [Identifier] in Unspecified specimen by Non- gynecological cytology method Laboratory test result JOSELIN ([facility], ) SPECIMEN: Bronchoalveolar lav age 2ml Myrtle with red flecks SPECIMEN ADEQUACY: Satisfactory for evaluation CATEGORIZATION: No Malignancy identified DESCRIPTIONS: Scattered bronchial cells noted in a background of blood elements. 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 Cultural examination is highly recommended for clinical diagnosis. AFB smear Kinyoun NEGATIVE (NO AFB Seen ) ID Date Data Source [id number] 07/16/2021 10:30:00 AM EDT [facility] ([facility]) Name Value Range Interpretation Code Description Data Dafne rce(s) Supporting Document(s) Gram Stain Laboratory test result Normal (applies to non-n umeric results) [facility] ([facility]) NO CELLS SEEN NO ORGANISMS SEEN Bal Culture Laboratory test result Normal (applies to non- numeric results) [facility] ([facility]) FULL REPORT IN LAB NOTES ([facility] and [facility] ). NO GROWTH AEROBICALLY ID Date Data Source [id number] 07/16/2021 10:20:00 AM EDT [facility] ([facility]) Name Value Range Interpretation Code Description Data Dafne rce(s) Supporting Document(s) Microscopic observation [Identifier] in Unspecified specimen by Non- gynecological cytology method Laboratory test result [facility] ([facility]) SPECIMEN: FNA Left lower lobe lung Slides and Cytolyt (red) received SPECIMEN ADEQUACY: Satisfactory for evaluation CATEGORIZATION: No Malignancy identified DESCRIPTIONS: Specimen consists mainly of red blood cells with rare bronchial cells, neutrophils, and lymphocytes noted. COMMENTS: 07/17/20211027 Signed ASHER LAL(ASCP) 07/17/2021 102 (Prelim) Signed CLARE SHARMA MD 07/18/2021 0852 ID Date Data Source [id number] 07/14/2021 08:08:00 AM EDT [facility] ([facility]) Name Value Range Interpretation Code Description Data Dafne rce(s) Supporting Document(s) Surgical pathology study Laboratory test result [facility] ([facility]) FINAL DIAGNOSIS Peripheral blood, flow cytometry: No [...] receptor gamma chain gene rearrangement. See [facility] [id number] and [id number]. 07/18/2021929 CLINICAL DIAGNOSIS Leukopenia 07/15/20211303 GROSS DIAGNOSIS Received two green and two purple top tubes of peripheral blood submitted to [facility]. for flow cytometry. -OA 07/15/20211303 Signed GO ESCAMILLA MD 07/18/2021 0931 ID Date Data Source [id number] 07/14/2021 08:08:00 AM EDT [facility] ([facility]) Name Value Range Interpretation Code Description Data Dafne rce(s) Supporting Document(s) Laboratory test finding (navigational concept) Laboratory test r esult Normal (applies to non-numeric results) [facility] ([facility]) SEE PATHOLOGY REPORT Specimen Collection for Pathology Reference Lab Testing. Refer to [facility] Pathology Report for Results:[id number] ID Date Data Source [id number] 07/14/2021 08:08:00 AM EDT [facility] ([facility]) Name Value Range Interpretation Code Description Data Dafne rce(s) Supporting Document(s) QuantiFERON Criteria Laboratory test result Norm al (applies to non-numeric results) [facility] ([facility]) . The QuantiFERON-TB Gold Plus result is determined by subtracting the Nil value from either TB antigen (Ag) tube. The mitogen tube serves as a control for the test. QuantiFERON TB1 Ag Value 0.08 IU/ml Normal (applies to non -numeric results) [facility]) QuantiFERON TB2 Ag Value 0.07 IU/ml Normal (applies to non -numeric results) [facility]) QuantiFERON Nil Value 0.07 IU/ml Normal (applies to non-nu meric results) [facility]) QuantiFERON Mitogen Value Laboratory test result Normal (applies to non- numeric results) [facility]) QuantiFERON-TB Gold Plus Laboratory test result Normal (applies to non-numeric results) [facility]) The specimen received for QuantiFERON te sting was incubated by the ordering institution. Specific procedures outlined in our Directory of Services and in the package insert for the QuantiFERON Gold (In Tube) test must be followed to enable for proper stimulation of cells for the production of interferon gamma. Chemiluminescence immunoassay methodology Performed at: - [facility] [address] [id number] Lock Tender: Alda Mac MD, Phone: [phone] ID Date Data Source [id number] 07/14/2021 08:08:00 AM EDT [facility] ([facility]) Name Value Range Interpretation Code Description Data Dafne rce(s) Supporting Document(s) Prothrombin Time 12.8 s 12.7-14.5 Normal (applies to non-numeric results) [facility]) Inr 0.93 Normal (applies to non-numeric resul ts) [facility]) THERAPUTIC HUMAN INR VALUES INDICATIONS NORMAL RANGES PROPHYLAXIS/TREATMENT OF: VENOUS THROMBOSIS 2.0-3.0 PULMONARY EMBOLISM 2.0-3.0 PREVENTION OF SYSTEMIC EMBOLISM FROM: TISSUE HEART VALVES 2.0-3.0 ACUTE MYOCARDIAL INFARCTION 2.0-3.0 VALVULAR HEART DISEASE 2.0-3.0 ATRIAL FIBRILLATION 2.0-3.0 MECHANICAL VALVES(HIGH RISK) 2.5-3.5 RECURRENT MYOCARDIAL INFARCTION 2.5-3.5 Partial Thromboplastin Time 30.2 s 25.9-37.0 Norm al (applies to non-numeric results) [facility]) ID Date Data Source [id number] 07/14/2021 08:08:00 AM EDT [facility] ([facility]) Name Value Range Interpretation Code Description Data Dafne rce(s) Supporting Document(s) Glucose, Fasting 80 mg/dL 70-100 Normal (applies to non-numeric results) [facility] ([facility]) Blood Urea Nitrogen 9 mg/dL 7-18 Normal (applies to non-nume anisha results) [facility] ([facility]) Creatinine For GFR 0.82 mg/dL 0.70-1.30 Normal (applies to non -numeric results) [facility] ([facility]) Glomerular Filtration Rate Laboratory test result Normal (applies to non- numeric results) [facility]) <content>Units are mL/min/1.73 m2</content>
<content></content>
<content>Chronic Kidney Disease Staging per NKF:</content>
<content></content>
<content>Stage I & II GFR >=60 Normal to Mildly Decreased</content>
<content>Stage III GFR 30- 59 Moderately Decreased</content>
<content>Stage IV GFR 15-29 Severely Decreased</content>
<content>Stage V GFR <15 Very Little GFR Left</content>
<content>ESRD GFR <15 on AUTOMOT[employer]ODUCTION WORKER</content>
<content></content> Sodium Level 140 meq/L 136-145 Normal (applies to non-numeric res ults) [facility] ([facility]) Potassium Serum 4.4 meq/L 3.5-5.1 Normal (applies to non-numeric results) [facility]) Chloride Level 105 meq/L 98-107 Normal (applies to non-numeric r esults) [facility] ([facility]) Carbon Dioxide Level 32 meq/L 21-32 Normal (applies to non-num shiv results) [facility]) Anion Gap 3 meq/L 8-16 Below low normal [facility] ( [facility]) Calcium Level 9.3 mg/dL 8.8-10.2 Normal (applies to non-numeric re sults) [facility] ([facility]) ID Date Data Source [id number] 07/14/2021 08:08:00 AM EDT [facility]) Name Value Range Interpretation Code Description Data Dafne rce(s) Supporting Document(s) White Blood Count 2.2 10 4.0-10.0 Below low normal [facility] ([facility]) Red Blood Count 3.98 10 4.30-6.10 Below low normal [facility] ([facility]) Hemoglobin 12.7 g/dL 13.5-17.5 Below low normal [facility] ( [facility]) Hematocrit 39.4 % 42.0-52.0 Below low [facility] Mean Corpuscular Hemoglobin 31.9 pg 27.0-33.0 Norm al (applies to non-numeric results) [facility] ([facility]) Mean Corpuscular Volume 99.0 fl 80.0-96.0 Above high normal [facility] ([facility]) Red Cell Distribution Width 13.0 % 11.5-14.5 Norm al (applies to non-numeric results) [facility] ([facility]) Mean Corpuscular HGB Conc 32.2 g/dL 32.0-36.5 Normal (applies to non-numeric results) [facility] Lymph % 58.9 % 24.0-44.0 Above high normal [facility] ([facility]) Platelet Count, Automated 190 10 150-450 Normal (applies to non-numeric results) [facility]) Neutrophils % 16.4 % 36.0-66.0 Below low normal [facility] T ([facility]) Baso % 0.9 % 0.0-1.0 Normal (applies to non-numeric resul ts) [facility] ([facility]) Eos % 4.6 % 0.0-3.0 Above high normal [facility] ([facility], ) [place] % 19.2 % 2.0-8.0 Above high normal [facility] ([facility]) Immature Granulocyte % 0.0 % 0-3.0 Normal (applies to non-n umeric results) [facility] ([facility]) Nucleated Red Blood Cell % 0.0 % 0-0 Normal (applies to n on-numeric results) [facility] ([facility]) Neutrophils # 0.4 10 1.5-8.5 Below low normal [facility] T ([facility]) Scan Verified machine results. VERIFIED [place] # 0.4 10 0.0-0.8 Normal (applies to non-numeric resul ts) [facility] ([facility]) Lymph # 1.3 10 1.5-5.0 Below low normal [facility] ( [facility]) Baso # 0.0 10 0.0-0.2 Normal (applies to non-numeric resul ts) [facility] ([facility]) Eos # 0.1 10 0.0-0.5 Normal (applies to non-numeric resul ts) [facility] ([facility]) ID Date Data Source [id number] 07/16/2021 12:25:00 PM EDT [facility] Hematopathology Report See Addendum Faisal wName: ELIANE FRAGAMRN: [id number] Number: [id number] Date: 07/14/2021 08:08Received Date: 07/15/2021 13:18Physician(s): GO ESCAMILLA MD ADJAPONG, OPOKU, MDSpecimen(s) ReceivedA: Blood, Flow Cytometry; RECEIVED 2 GREEN TOP PB (2 EXTRA EDTA PB SENT TOMOLECULAR)Clinical HistoryLeukopenia and anemiaTEST REQUESTED/PERFORMED: Flow Cytometry Analysis DiagnosisFlow cytometry of blood: No definite evidence of acute leukemia ornon-Hodgkin B-cell lymphoma. Subpopulation of CD3+ T cells detectedlacking both CD4 and CD8 expression (21% of total lymphocytes). Leukopeniawith absolute neutropenia (0.4 K/uL) and lymphopenia (1.3 K/uL), andmacrocytic anemia. T-cell PCR is pending to evaluate for clonality. Boston Mandel M.D.;Resident PathologistElectronically Signed By Margareth Guevara MD AttendingPathologist 07/16/2021 12:25:31The attending pathologist named above attests that he/she has personallyreviewed the relevant preparation(s) for the specimen(s) and rendered thefinal diagnosis. Addendum 07/18/2021 PCR testing of this specimen (see [id number]) is negative for a clonalrearrangement of the T cell receptor gamma chain gene (TCRG), providing noevidence for a clonal T cell lymphoproliferation. Addendum Electronically Signed By: Margareth Guevara MD 07/18/2021 13:45 ProceduresFlow Cytometry Date Ordered:07/15/2021 Status: Signed Out07/16/2021 InterpretationPERIPHERAL BLOOD: CBC performed at [facility], [address] [place] [address] on 07/15/21.WBC *2.2 K/uLRBC *3.98 M/uLHgb *12.7 g/dLHct *39.4 %MCV *99.0 fLMCH 31.9 pgMCHC 32.2 g/dLRDW 13.0 %Platelets 190 K/uLDifferential Count (automated):16,4 % Neutrophils 4.6 % Eosinophils 0.9 % Pqlqfcyly39.9 % Qeapdnkwmfg60.2 % Monocytes-------100.0 % A peripheral blood film is reviewed.Lymphoid Panel: Gabino Cano HP21 [id number] following markers were assayed: CD45 (gate), CD2, CD3, CD4, CD5, CD7,CD8, CD10, CD11c, CD19,CD20, CD22, CD23, CD25, CD38, CD56, CD57, CD103, [place], Lambda, and FMC7.# even ts:21923Gxzwhfukc: 93%Flow Cytometry Differential (CD45/SSC)Lymphocyte [place]: 57%CD45 dim [place]: 1%Monocyte [place]: 7%Granulocyte [place]: 28%Nucleated/Erythroid [place]: 3%The lymphocyte gate showsB-cells (CD19): 11%[place]/Lambda Ratio: 1.4T- cells (CD3): 62%NK-cells (CD3-/CD56+): 21%CD4/CD8 Ratio: 1.7Results: (expressed as % of lymphocyte gate)T-cell Markers: CD2 = 76, CD3 = 62, CD3/CD4 = 31, CD3/CD8 = 17, CD5 = 65,CD7 = 80, CD3/57 = 23B-cell markers: [place] = 6, Lambda = 4, CD19 = 11, CD20 = 13, CD19/10 = 1,CD19/CD5 = 2,CD38/CD20 = 10, CD22 = 13, CD19/CD23 = 10, FMC7 = 10Light chain as % of B-Cells: CD19/[place] = 53, CD19/Lambda = 38CD19/CD5/[place] = 3, CD19/CD5/Lambda = 3CD19/CD10/[place] = 3, CD19/CD10/Lambda = 2CD38 on CD19/5 positive cells: 90%NK cell Markers: CD56 = 38, CD57 = 35Other Markers: CD25 = 52, CD103 = 1, CD11c = 31, CD103/CD11c = 0, CD103/25= 1, CD103/22 = 0CD10 = 1, CD38 = 50Results: (expressed as % of CD45 dim gate)T-cell Markers: CD2 = 1, CD3 = 3, CD3/CD4 = 0, CD3/CD8 = 0, CD5 = 3, CD7 =3, CD3/57 = 0B-cell markers: [place] = 0, Lambda = 0, CD19 = 0, CD20 = 1, CD19/10 = 0,CD19/CD5 = 0,CD38/CD20 = 1, CD22 = 0, CD19/CD23 = 0, FMC7 = 0Light chain as % of B-Cells: CD19/[place] = 0, CD19/Lambda = 0CD19/CD5/[place] = 0, CD19/CD5/Lambda = 0CD19/CD10/[place] = 0, CD19/CD10/Lambda = 0NK cell Markers: CD56 = 3, CD57 = 1Other Markers: CD10 = 1, CD38 = 60, CD25 = 0, CD103 = 1, CD11c = 1,CD103/CD11c = 0, CD103/25 = 0,CD103/22 = 0Results-CommentsThe gated population of lymphocytes consist predominantly of T cells withmostly normal expression of corcoran-T cell antigens and a normal CD4/NU8sjeqq, an increased pro portion of cytotoxic T cells, a normal proportionof NK cells, and polyclonal B cells. A subset of CD3+ T cells (21% oftotal lymphocytes) lacks expression of both CD4 and CD8. This subset ispositive for CD2 and CD7, and expresses CD57 and variable to dim CD56. Procedure Electronically Signed By:Margareth Castaneda MD07/16/2021 This report may include one or more immunohistochemical stain/fluorochromeconjugated monoclonal antibody results that use analyte specific reagents.All positive and negative controls have been reviewed by the attendingpathologist and are satisfactory. The tests were developed and theirperformance characteristics determined by [facility] Pathology department.They have not been cleared or approved by the US Food and DrugAdministration. The FDA has determined that such clearance or approval isnot necessary. Name Value Range Interpretation Code Description Data Dafne rce(s) Supporting Document(s) ID Date Data Source 07/17/2021 03:58:00 PM [facility] Molecular Diagnostics ReportName: ELIANE RFAGAMRN: [id number] Number: [id number] Date: 07/14/2021 00:00Received Date: 07/16/2021 12:00Physician(s): GO ESCAMILLA MD ADJAPONG, OPOKU,[facility]opy To:MARGARETH MCCLENDON MDSpecimen(s) ReceivedA: Peripheral Blood - T-cell, [id number] of Study: T-cell Receptor Gamma Chain PCR Assay SPECIMEN TYPE: Peripheral Blood (#[id number])RESULTS: Negative Family I & III / J Major and Minor Background smear Family II & IV / J Major and Minor Background smear withweak oligoclonal pattern INTERPRETATION: There was NO definitive evidence of a clonal population ofcells exhibiting a T-cell Receptor Gamma chain gene rearrangement. COMMENTS: Genomic DNA extracted from this sample was amplified withprimers specific for detecting a rearranged T-cell receptor Gamma Chaingene (van Eliasen et al. Leukemia 17:4185-5063, 2003). A quality controlamplification showed DNA of sufficient anurag gth to be amplified by theT-cell receptor Gamma chain gene primers. Lack of demonstration of aclonal population by PCR is possible even in the presence of a clonalpopulation because of insufficient homology between the primers and thevariable region employed in the clone. Diagnostic sensitivity fordetecting T- cell clonality is about 90%. In addition, a negative resultcould be due to the presence of <10% clonal cells in the sample. Theresults of gene rearrangement studies should be reviewed in conjunctionwith morphology, immunophenotyping, and clinical findings.This test was developed and its performance determined by the MolecularDiagnostics section of the Department of Clinical Pathology. It has notbeen cleared or approved by the U.S. Food and Drug Administration (FDA),the FDA has determined that such approval is not necessary. The test hasbeen validated and authorized for clinical use by the [facility] ([facility]).rw/jsElectronically Signed By Mario Crews M.D. Attending Pathologist 07/17/2021 15:58:08 Name Value Range Interpretation Code Description Data Dafne rce(s) Supporting Document(s) ID Date Data Source VITAMIN B12 LEVEL 04/23/2021 12:00:00 AM EDT eCW1 ([facility]) Name Value Range Interpretation Code Description Data Dafne rce(s) Supporting Document(s) [id number] VITAMIN B12 LEVEL eCW1 ([facility]) ID Date Data Source VITAMIN D 25-HYDROXY 04/23/2021 12:00:00 AM EDT eCW1 ([facility]) Name Value Range Interpretation Code Description Data Dafne rce(s) Supporting Document(s) 41.5 30.0-100.0 TOTAL 25(OH) VITAMIN D eC W1 ([facility]) ID Date Data Source PTH INTACT 04/23/2021 12:00:00 AM EDT eCW1 ([facility]) Name Value Range Interpretation Code Description Data Dafne rce(s) Supporting Document(s) 34.6 18.5-88.0 PTH INTACT eCW1 ([facility]) ID Date Data Source PSA SCREENING 04/23/2021 12:00:00 AM EDT eCW1 ([facility]) Name Value Range Interpretation Code Description Data Dafne rce(s) Supporting Document(s) 2.07 < 4.00 PSA SCREENING eCW1 ([facility]) ID Date Data Source PHENYTOIN (DILANTIN) 04/23/2021 12:00:00 AM EDT eCW1 ([facility]) Name Value Range Interpretation Code Description Data Dafne rce(s) Supporting Document(s) 0.5 10.0-20.0 PHENYTOIN (DILANTIN) eCW1 ([facility]) ID Date Data Source PHENOBARBITAL LEVEL 04/23/2021 12:00:00 AM EDT eCW1 ([facility]) Name Value Range Interpretation Code Description Data Dafne rce(s) Supporting Document(s) 29.9 15.0-40.0 PHENOBARBITAL LEVEL eCW1 ([facility]) ID Date Data Source H PYLORI SERUM QUANT IgG DEEJAY 04/23/2021 12:00:00 AM EDT eCW1 ([facility]) Name Value Range Interpretation Code Description Data Dafne rce(s) Supporting Document(s) 1.12 0.00-0.79 H PYLORI SERUM QUANT IgG DEEJAY eCW1 ([facility]) ID Date Data Source FREE T4 & TSH PANEL 04/23/2021 12:00:00 AM EDT eCW1 ([facility]) Name Value Range Interpretation Code Description Data Dafne rce(s) Supporting Document(s) 1.01 0.76-1.46 FREE T4 eCW1 ([facility]) 1.580 0.358-3.740 THYROID STIMULATING HORM ONE eCW1 ([facility]) ID Date Data Source FERRITIN 04/23/2021 12:00:00 AM EDT eCW1 ([facility]) Name Value Range Interpretation Code Description Data Dafne rce(s) Supporting Document(s) 26 24-388 FERRITIN eCW1 ([facility]) FERRITIN ID Date Data Source ERYTHROCYTE SEDIMENTATION RATE 04/23/2021 12:00:00 AM EDT eC W1 ([facility]) Name Value Range Interpretation Code Description Data Dafne rce(s) Supporting Document(s) 9 0-20 ERYTHROCYTE SEDIMENTATION RATE eCW1 ([facility]) ID Date Data Source C REACTIVE PROTEIN QUANTITATIV (At [facility]) 04/23/2021 12:00 :00 AM EDT eCW1 ([facility]) Name Value Range Interpretation Code Description Data Dafne rce(s) Supporting Document(s) 0.30 0.00-0.30 C REACTIVE PROTEIN QUANTI TATIV eCW1 ([facility]) ID Date Data Source Comprehensive Metabolic Profile (CMP) 04/23/2021 12:00:00 AM EDT eCW1 ([facility]) Name Value Range Interpretation Code Description Data Dafne rce(s) Supporting Document(s) 10 7-18 BLOOD UREA NITROGEN eCW1 ([facility]) 82 70-100 GLUCOSE, FASTING eCW1 ([facility]) 0.74 0.70-1.30 CREATININE FOR GFR eCW1 ([facility]) > 60.0 >49 GLOMERULAR FILTRATION RATE eCW 1 ([facility]) 141 136-145 SODIUM LEVEL eCW1 ([facility]) 29 21-32 CARBON DIOXIDE LEVEL eCW1 ([facility]) 106 98-107 CHLORIDE LEVEL eCW1 ([facility]) 3.8 3.5-5.1 POTASSIUM SERUM eCW1 ([facility]) 108 45-117 ALKALINE PHOSPHATASE eCW1 ([facility]) 9.4 8.8-10.2 CALCIUM LEVEL eCW1 ([facility]) 37 12-78 ALT/SGPT eCW1 ([facility]) 29 7-37 AST/SGOT eCW1 ([facility]) 0.3 0.2-1.0 BILIRUBIN,TOTAL eCW1 ([facility]) 7.7 6.4-8.2 TOTAL PROTEIN eCW1 ([facility]) 4.0 3.2-5.2 ALBUMIN eCW1 ([facility]) 1.1 ALBUMIN/GLOBULIN RATIO eCW1 ([facility]) ID Date Data Source CBC with Differential 04/23/2021 12:00:00 AM EDT eCW1 ([facility]) Name Value Range Interpretation Code Description Data Dafne rce(s) Supporting Document(s) 2.5 4.0-10.0 WHITE BLOOD COUNT eCW1 ([facility]) 3.86 4.30-6.10 RED BLOOD COUNT eCW1 ([facility]) 12.6 13.5-17.5 HEMOGLOBIN eCW1 ([facility]) 96.6 80.0-96.0 MEAN CORPUSCULAR VOLUME e CW1 ([facility]) 37.3 42.0-52.0 HEMATOCRIT eCW1 ([facility]) 33.8 32.0-36.5 MEAN CORPUSCULAR HGB CONC eCW1 ([facility]) 32.6 27.0-33.0 MEAN CORPUSCULAR HEMOGLOB IN eCW1 ([facility]) 12.1 11.5-14.5 RED CELL DISTRIBUTION WID TH eCW1 ([facility]) 39.2 36.0-66.0 NEUTROPHILS % eCW1 ([facility]) 184 150-450 PLATELET COUNT, AUTOMATED eCW1 ([facility]) 41.3 24.0-44.0 LYMPH % eCW1 ([facility]) 16.7 2.0-8.0 MONO % eCW1 ([facility]) 1.6 0.0-3.0 EOS % eCW1 ([facility]) 0.8 0.0-1.0 BASO % eCW1 ([facility]) 0.4 0.0-0.8 MONO # eCW1 ([facility]) 1.0 1.5-5.0 LYMPH # eCW1 ([facility]) 1.0 1.5-8.5 NEUTROPHILS # eCW1 ([facility]) 0.0 0.0-0.2 BASO # eCW1 ([facility]) 0.0 0.0-0.5 EOS # eCW1 ([facility]) ID Date Data Source [id number] 03/12/2021 09:25:00 AM EDT MEDENT ([facility], ) Name Value Range Interpretation Code Description Data Dafne rce(s) Supporting Document(s) Levetiracetam [Mass/volume] in Serum or Plasma 28.1 ug/mL 10.0-40.0 [facility] This test was developed and its performa nce characteristics determined by [facility]. It has not been cleared or approved by the Food and Drug Administration. Performed at: - [address] [id number] Lock Tender: Debbi Herrera MD, Phone: [phone] Phenobarbital [Mass/volume] in Serum or Plasma 27.3 UG/ML 15.0-40.0 MEDENT ([facility]) Thyrotropin [Units/volume] in Serum or Plasma 1.000 uIU/ML 0.358-3.74 0 MEDENT ([facility]) ID Date Data Source [id number] 03/12/2021 09:25:00 AM EDT [facility] Name Value Range Interpretation Code Description Data Dafne rce(s) Supporting Document(s) Blood Urea Nitrogen 14 mg/dL 7-18 MEDENT ([facility], ) Creatinine For GFR 0.81 mg/dL 0.70-1.30 MEDENT ([facility]) Glucose, Fasting 95 mg/dL 70-100 MEDENT ([facility]) Glomerular Filtration Rate Laboratory test result [facility] ([facility]) <content>Units are mL/min/1.73 m2</content>
<content></content>
<content>Chronic Kidney Disease Staging per NKF:</content>
<content></content>
<content>Stage I & II GFR >=60 Normal to Mildly Decreased</content>
<content>Stage III GFR 30- 59 Moderately Decreased</content>
<content>Stage IV GFR 15-29 Severely Decreased</content>
<content>Stage V GFR <15 Very Little GFR Left</content>
<content>ESRD GFR <15 on AUTOMOTIVE PRODUCTION WORKER</content>
<content></content> Sodium Level 140 meq/L 136-145 MEDENT ([facility], ) Potassium Serum 4.3 meq/L 3.5-5.1 MEDENT ([facility]) Chloride Level 103 meq/L 98-107 MEDENT ([facility]) Carbon Dioxide Level 31 meq/L 21-32 MEDENT ([facility]) Anion Gap 6 meq/L 8-16 MEDENT ([facility]) Calcium Level 9.1 mg/dL 8.8-10.2 MEDENT ([facility]) Ast/Sgot 27 U/L 7-37 MEDENT ([facility]) Alkaline Phosphatase 113 U/L 45-117 MEDENT ([facility]) Alt/SGPT 32 U/L 12-78 MEDENT ([facility]) Albumin 3.8 GM/DL 3.2-5.2 MEDENT ([facility]) Total Protein 7.3 GM/DL 6.4-8.2 MEDENT ([facility], ) Bilirubin,Total 0.4 mg/dL 0.2-1.0 MEDENT ([facility]) Albumin/Globulin Ratio 1.1 MEDENT ([facility]) ID Date Data Source [id number] 03/12/2021 09:25:00 AM EDT MEDENT ([facility]) Name Value Range Interpretation Code Description Data Dafne rce(s) Supporting Document(s) White Blood Count 1.9 10 4.0-10.0 MEDENT ([facility], ) Hemoglobin 12.8 g/dL 13.5-17.5 MEDENT ([facility]) Red Blood Count 3.98 10 4.30-6.10 MEDENT ([facility]) Hematocrit 39.1 % 42.0-52.0 MEDENT ([facility]) Mean Corpuscular Volume 98.2 fl 80.0-96.0 M EDENT ([facility]) Mean Corpuscular Hemoglobin 32.2 pg 27.0-33.0 MEDENT ([facility]) Red Cell Distribution Width 12.5 % 11.5-14.5 MEDENT ([facility]) Mean Corpuscular HGB Conc 32.7 g/dL 32.0-36.5 MEDENT ([facility]) Neutrophils % 36.8 % 36.0-66.0 MEDENT ([facility]) Platelet Count, Automated 192 10 150-450 MEDENT ([facility]) Lymph % 47.2 % 24.0-44.0 MEDENT ([facility]) [place] % 14.5 % 2.0-8.0 MEDENT ([facility]) Eos % 0.5 % 0.0-3.0 MEDENT ([facility]) Baso % 1.0 % 0.0-1.0 MEDENT ([facility]) Immature Granulocyte % 0.0 % 0-3.0 MEDENT ([facility]) Neutrophils # 0.7 10 1.5-8.5 MEDENT ([facility]) Scan Verified machine results Nucleated Red Blood Cell % 0.0 % 0-0 MED ENT ([facility]) Lymph # 0.9 10 1.5-5.0 MEDENT ([facility]) [place] # 0.3 10 0.0-0.8 MEDENT ([facility]) Eos # 0.0 10 0.0-0.5 MEDENT ([facility]) Baso # 0.0 10 0.0-0.2 MEDENT ([facility]) ID Date Data Source INSULIN LEVEL 08/19/2020 12:00:00 AM EST eCW1 ([facility]) Name Value Range Interpretation Code Description Data Dafne rce(s) Supporting Document(s) 4.6 2.6-24.9 INSULIN LEVEL eCW1 ([facility]) ID Date Data Source LEVETIRACETAM ([facility]) 08/19/2020 12:00:00 AM EST eCW1 ([facility]) Name Value Range Interpretation Code Description Data Dafne rce(s) Supporting Document(s) 22.6 10.0-40.0 LEVETIRACETAM ([facility]) eCW1 ([facility]) ID Date Data Source [id number] 08/19/2020 12:00:00 AM EST eCW1 ([facility]) Name Value Range Interpretation Code Description Data Dafne rce(s) Supporting Document(s) Hemoglobin A1c/Hemoglobin.total in Blood 5.1 HEMOGLOBIN A1c eCW1 ([facility]) ID Date Data Source Reticulocyte Count Sysmex 08/19/2020 12:00:00 AM EST eCW1 ([facility]) Name Value Range Interpretation Code Description Data Dafne rce(s) Supporting Document(s) 1.9 0.5-1.5 RETICULOCYTE % eCW1 ([facility]) Procedure Social History Code Duration Value Status Description Data Source(s ) Smoking 07/22/2021 12:00:00 AM EDT Patient has never smoked co mpleted Patient has never smoked MEDENT ([facility], ) Smoking 05/20/2021 12:00:00 AM EDT Never Smoker completed Never S moker eCW1 ([facility]) Smoking 05/20/2021 12:00:00 AM EDT Never Smoker completed Never S moker eCW1 ([facility]) Smoking 05/20/2021 12:00:00 AM EDT Never Smoker completed Never S moker eCW1 ([facility]) Smoking 05/20/2021 12:00:00 AM EDT Never Smoker completed Never S moker eCW1 ([facility]) Smoking 05/20/2021 12:00:00 AM EDT Never Smoker completed Never S moker eCW1 ([facility]) Smoking 05/20/2021 12:00:00 AM EDT Never Smoker completed Never S moker eCW1 ([facility]) Smoking 05/20/2021 12:00:00 AM EDT Never Smoker completed Never S moker eCW1 ([facility]) Smoking 05/20/2021 12:00:00 AM EDT Never Smoker completed Never S moker eCW1 ([facility]) Smoking 05/20/2021 12:00:00 AM EDT Never Smoker completed Never S moker eCW1 ([facility]) Smoking 05/20/2021 12:00:00 AM EDT Never Smoker completed Never S moker eCW1 ([facility]) Smoking 05/20/2021 12:00:00 AM EDT Never Smoker completed Never S moker eCW1 ([facility]) Smoking 05/20/2021 12:00:00 AM EDT Never Smoker completed Never S moker eCW1 ([facility]) Smoking 05/20/2021 12:00:00 AM EDT Never Smoker completed Never S moker eCW1 ([facility]) Smoking 05/20/2021 12:00:00 AM EDT Never Smoker completed Never S moker eCW1 ([facility]) Smoking 05/07/2021 12:00:00 AM EDT Never Smoker completed Never S moker eCW1 ([facility]) Smoking 05/07/2021 12:00:00 AM EDT Never Smoker completed Never S moker eCW1 ([facility]) Smoking 05/07/2021 12:00:00 AM EDT Never Smoker completed Never S moker eCW1 ([facility]) Smoking 05/07/2021 12:00:00 AM EDT Never Smoker completed Never S moker eCW1 ([facility]) Smoking 05/07/2021 12:00:00 AM EDT Never Smoker completed Never S moker eCW1 ([facility]) Smoking 04/21/2021 12:00:00 AM EDT Never Smoker completed Never S moker eCW1 ([facility]) Smoking 04/21/2021 12:00:00 AM EDT Never Smoker completed Never S moker eCW1 ([facility]) Smoking 04/21/2021 12:00:00 AM EDT Never Smoker completed Never S moker eCW1 ([facility]) Smoking 04/11/2021 12:00:00 AM EDT Never Smoker completed Never S moker eCW1 ([facility]) Smoking 04/01/2021 12:00:00 AM EDT Never Smoker completed Never S moker eCW1 ([facility]) Smoking 12/16/2020 12:00:00 AM EDT Never Smoker completed Never S moker eCW1 ([facility]) Smoking 12/16/2020 12:00:00 AM EDT Never Smoker completed Never S moker eCW1 ([facility]) Smoking 12/16/2020 12:00:00 AM EDT Never Smoker completed Never S moker eCW1 ([facility]) Smoking 12/16/2020 12:00:00 AM EDT Never Smoker completed Never S moker eCW1 ([facility]) Smoking 12/16/2020 12:00:00 AM EDT Never Smoker completed Never S moker eCW1 ([facility]) Smoking 12/16/2020 12:00:00 AM EDT Never Smoker completed Never S moker eCW1 ([facility]) Smoking 12/16/2020 12:00:00 AM EDT Never Smoker completed Never S moker eCW1 ([facility]) Smoking 12/16/2020 12:00:00 AM EDT Never Smoker completed Never S moker eCW1 ([facility]) Smoking 12/16/2020 12:00:00 AM EDT Never Smoker completed Never S moker eCW1 ([facility]) Smoking 08/19/2020 12:00:00 AM EST Never Smoker completed Never S moker eCW1 ([facility]) Smoking 08/19/2020 12:00:00 AM EST Never Smoker completed Never S moker eCW1 ([facility]) Smoking 08/19/2020 12:00:00 AM EST Never Smoker completed Never S moker eCW1 ([facility]) Smoking 08/19/2020 12:00:00 AM EST Never Smoker completed Never S moker eCW1 ([facility]) Smoking 08/19/2020 12:00:00 AM EST Never Smoker completed Never S moker eCW1 ([facility]) Smoking 08/19/2020 12:00:00 AM EST Never Smoker completed Never S moker eCW1 ([facility]) Vital Signs ID Date Data Source UNK Name Value Range Interpretation Code Description Data Source(s) Heart rate 73 /min 73 /min MEDENT ([facility], ) Body height 64 [in_i] 64 [in_i] MEDENT ([facility]) 5'4" Seminary body weight 130 [lb_av] 130 [lb_av] MEDEN T ([facility]) Systolic blood pressure 126 mm[Hg] 126 mm[Hg] M EDENT ([facility]) Diastolic blood pressure 78 mm[Hg] 78 [facility] Oxygen saturation in Arterial blood by Pulse oximetry 99 % 99 % [facility] ([facility]) Systolic blood pressure 124 mm[Hg] 124 mm[Hg] [facility] Diastolic blood pressure 76 mm[Hg] 76 mm[Hg] [facility] ([facility]) Heart rate 93 /min 93 /min [facility] ([facility]) Oxygen saturation in Arterial blood by Pulse oximetry 99 % 99 % [facility] ([facility]) Body height 64 [in_i] 64 [in_i] MEDENT ([facility]) 5'4" Seminary body weight 130 [lb_av] 130 [lb_av] MEDEN T ([facility]) Body weight 118.4 [lb_av] 118.4 [lb_av] W1 ([facility]) Body weight 53.71 kg 53.71 kg eCW1 ([facility]) Body height 64 [in_i] 64 [in_i] eCW1 ([facility]) Body mass index (BMI) [Ratio] 20.32 kg/m2 20.32 kg/m2 eCW1 ([facility]) Heart rate /min eCW1 ([facility]) Respiratory rate 18 /min 18 /min eCW1 ([facility]) Body temperature 97.1 [degF] 97.1 [degF] eCW1 ( [facility]) Systolic blood pressure 112 mm[Hg] 112 mm[Hg] e CW1 ([facility]) Diastolic blood pressure 62 mm[Hg] 62 mm[Hg] eCW1 ([facility]) Body weight 116 [lb_av] 116 [lb_av] eCW1 ([facility]) Body weight 52.62 kg 52.62 kg eCW1 ([facility]) Body height 64 [in_i] 64 [in_i] eCW1 ([facility]) Body mass index (BMI) [Ratio] 19.91 kg/m2 19.91 kg/m2 eCW1 ([facility]) Body temperature 97.8 [degF] 97.8 [degF] eCW1 ( [facility]) Systolic blood pressure 136 mm[Hg] 136 mm[Hg] e CW1 ([facility]) Diastolic blood pressure 76 mm[Hg] 76 mm[Hg] eCW1 ([facility]) Body weight 123 [lb_av] 123 [lb_av] eCW1 ([facility]) Body height 64 [in_i] 64 [in_i] eCW1 ([facility]) Body mass index (BMI) [Ratio] 21.11 kg/m2 21.11 kg/m2 eCW1 ([facility]) Heart rate 54 /min 54 /min eCW1 ([facility]) Respiratory rate 20 /min 20 /min eCW1 ([facility]) Body temperature 98.2 [degF] 98.2 [degF] eCW1 ( [facility]) Systolic blood pressure 130 mm[Hg] 130 mm[Hg] e CW1 ([facility]) Diastolic blood pressure 82 mm[Hg] 82 mm[Hg] eCW1 ([facility]) Body weight 123 [lb_av] 123 [lb_av] eCW1 ([facility]) Body height 64 [in_i] 64 [in_i] eCW1 ([facility]) Body mass index (BMI) [Ratio] 21.11 kg/m2 21.11 kg/m2 eCW1 ([facility]) Heart rate 54 /min 54 /min eCW1 ([facility]) Respiratory rate 20 /min 20 /min eCW1 ([facility]) Body temperature 98.2 [degF] 98.2 [degF] eCW1 ( [facility]) Systolic blood pressure 130 mm[Hg] 130 mm[Hg] e CW1 ([facility]) Diastolic blood pressure 82 mm[Hg] 82 mm[Hg] eCW1 ([facility]) Body weight [lb_av] eCW1 ([facility]) Body height 64 [in_i] 64 [in_i] eCW1 ([facility]) Body mass index (BMI) [Ratio] 24.03 kg/m2 24.03 kg/m2 eCW1 ([facility]) Respiratory rate 18 /min 18 /min eCW1 ([facility]) Systolic blood pressure 114 mm[Hg] 114 mm[Hg] e CW1 ([facility]) Diastolic blood pressure 68 mm[Hg] 68 mm[Hg] eCW1 ([facility]) Body weight 140 [lb_av] 140 [lb_av] eCW1 ([facility]) Body height 64 [in_i] 64 [in_i] eCW1 ([facility]) Body mass index (BMI) [Ratio] 24.03 kg/m2 24.03 kg/m2 eCW1 ([facility]) Respiratory rate 18 /min 18 /min eCW1 ([facility]) Body temperature 97.7 [degF] 97.7 [degF] eCW1 ( [facility]) Systolic blood pressure 110 mm[Hg] 110 mm[Hg] e CW1 ([facility]) Diastolic blood pressure 70 mm[Hg] 70 mm[Hg] eCW1 ([facility]) Systolic blood pressure 124 mm[Hg] 124 mm[Hg] M EDENT ([facility], ) Diastolic blood pressure 78 mm[Hg] 78 mm[Hg] MEDENT ([facility], ) Heart rate 64 /min 64 /min MEDENT ([facility], ) Respiratory rate 16 /min 16 /min MEDENT ( [facility], ) Body weight 147 [lb_av] 147 [lb_av] eCW1 ([facility]) Body height 64 [in_i] 64 [in_i] eCW1 ([facility]) Body mass index (BMI) [Ratio] 25.23 kg/m2 25.23 kg/m2 eCW1 ([facility]) Heart rate 122 /min 122 /min eCW1 ([facility]) Respiratory rate 18 /min 18 /min eCW1 ([facility]) Body temperature 97.2 [degF] 97.2 [degF] eCW1 ( [facility]) Systolic blood pressure 130 mm[Hg] 130 mm[Hg] e CW1 ([facility]) Diastolic blood pressure 80 mm[Hg] 80 mm[Hg] eCW1 ([facility]) Body weight 147.0 [lb_av] 147.0 [lb_av] eCW1 ([facility]) Body height 64 [in_i] 64 [in_i] eCW1 ([facility]) Body mass index (BMI) [Ratio] 25.23 kg/m2 25.23 kg/m2 eCW1 ([facility]) Heart rate 115 /min 115 /min eCW1 ([facility]) Respiratory rate 18 /min 18 /min eCW1 ([facility]) Body temperature 97.0 [degF] 97.0 [degF] eCW1 ( [facility]) Systolic blood pressure 120 mm[Hg] 120 mm[Hg] e CW1 ([facility]) Diastolic blood pressure 72 mm[Hg] 72 mm[Hg] eCW1 ([facility]) Heart rate 88 /min 88 /min MEDENT ([facility], ) Respiratory rate 20 /min 20 /min MEDENT ( [facility], ) Systolic blood pressure 120 mm[Hg] 120 mm[Hg] M EDENT ([facility], ) Diastolic blood pressure 78 mm[Hg] 78 mm[Hg] MEDENT ([facility], ) Patient Treatment Plan of Care Planned Activity Planned Date Details Description Data Source (s) Lorazepam 2 MG Oral Tablet [Ativan] 06/13/2021 12:00:00 AM EDT eCW1 ([facility]) Lorazepam 2 MG Oral Tablet [Ativan] 06/13/2021 12:00:00 AM EDT eCW1 ([facility]) Lorazepam 2 MG Oral Tablet [Ativan] 06/13/2021 12:00:00 AM EDT eCW1 ([facility]) Lorazepam 2 MG Oral Tablet [Ativan] 06/13/2021 12:00:00 AM EDT eCW1 ([facility]) Lorazepam 2 MG Oral Tablet [Ativan] 06/13/2021 12:00:00 AM EDT eCW1 ([facility]) Lorazepam 2 MG Oral Tablet [Ativan] 06/13/2021 12:00:00 AM EDT eCW1 ([facility]) Lorazepam 2 MG Oral Tablet [Ativan] 06/13/2021 12:00:00 AM EDT eCW1 ([facility]) Lorazepam 2 MG Oral Tablet [Ativan] 06/13/2021 12:00:00 AM EDT eCW1 ([facility]) Lorazepam 2 MG Oral Tablet [Ativan] 06/13/2021 12:00:00 AM EDT eCW1 ([facility]) Lorazepam 2 MG Oral Tablet [Ativan] 05/26/2021 12:00:00 AM EDT eCW1 ([facility]) Lorazepam 2 MG Oral Tablet [Ativan] 05/26/2021 12:00:00 AM EDT eCW1 ([facility]) Lorazepam 2 MG Oral Tablet [Ativan] 05/26/2021 12:00:00 AM EDT eCW1 ([facility]) Lorazepam 2 MG Oral Tablet [Ativan] 05/19/2021 12:00:00 AM EDT eCW1 ([facility]) Lorazepam 2 MG Oral Tablet [Ativan] 05/19/2021 12:00:00 AM EDT eCW1 ([facility]) Divalproex Sodium 500 MG Delayed Release Oral Tablet 12:00:00 AM EDT eCW1 ([facility]) Divalproex Sodium 500 MG Delayed Release Oral Tablet 12:00:00 AM EDT eCW1 ([facility]) Divalproex Sodium 500 MG Delayed Release Oral Tablet 12:00:00 AM EDT eCW1 ([facility]) Divalproex Sodium 500 MG Delayed Release Oral Tablet 12:00:00 AM EDT eCW1 ([facility]) Divalproex Sodium 500 MG Delayed Release Oral Tablet 12:00:00 AM EDT eCW1 ([facility]) Divalproex Sodium 500 MG Delayed Release Oral Tablet 12:00:00 AM EDT eCW1 ([facility]) Divalproex Sodium 500 MG Delayed Release Oral Tablet 12:00:00 AM EDT eCW1 ([facility]) Divalproex Sodium 500 MG Delayed Release Oral Tablet 12:00:00 AM EDT eCW1 ([facility]) Divalproex Sodium 500 MG Delayed Release Oral Tablet 12:00:00 AM EDT eCW1 ([facility]) Divalproex Sodium 500 MG Delayed Release Oral Tablet 12:00:00 AM EDT eCW1 ([facility]) Divalproex Sodium 500 MG Delayed Release Oral Tablet 12:00:00 AM EDT eCW1 ([facility]) Divalproex Sodium 500 MG Delayed Release Oral Tablet 12:00:00 AM EDT eCW1 ([facility]) Divalproex Sodium 500 MG Delayed Release Oral Tablet 12:00:00 AM EDT eCW1 ([facility]) Divalproex Sodium 500 MG Delayed Release Oral Tablet 08/04/2 021 12:00:00 AM EDT eCW1 ([facility]) Divalproex Sodium 500 MG Delayed Release Oral Tablet 12:00:00 AM EDT eCW1 ([facility]) Divalproex Sodium 500 MG Delayed Release Oral Tablet 12:00:00 AM EDT eCW1 ([facility]) Divalproex Sodium 500 MG Delayed Release Oral Tablet 12:00:00 AM EDT eCW1 ([facility]) Divalproex Sodium 500 MG Delayed Release Oral Tablet 12:00:00 AM EDT eCW1 ([facility]) Divalproex Sodium 500 MG Delayed Release Oral Tablet 12:00:00 AM EDT eCW1 ([facility]) Bisacodyl 10 MG Rectal Suppository [Dulcolax] 01/06/2021 12:00:00 A M EDT eCW1 ([facility]) Bisacodyl 10 MG Rectal Suppository [Dulcolax] 01/06/2021 12:00:00 A M EDT eCW1 ([facility]) Bisacodyl 10 MG Rectal Suppository [Dulcolax] 01/06/2021 12:00:00 A M EDT eCW1 ([facility]) Bisacodyl 10 MG Rectal Suppository [Dulcolax] 01/06/2021 12:00:00 A M EDT eCW1 ([facility]) Docusate Sodium 50 MG / sennosides, [facility] 8.6 MG Oral Ta blet 01/06/2021 12:00:00 AM EDT eCW1 ([facility]) Bisacodyl 10 MG Rectal Suppository [Dulcolax] 01/06/2021 12:00:00 A M EDT eCW1 ([facility]) Docusate Sodium 50 MG / sennosides, [facility] 8.6 MG Oral Ta blet 01/06/2021 12:00:00 AM EDT eCW1 ([facility]) Bisacodyl 10 MG Rectal Suppository [Dulcolax] 01/06/2021 12:00:00 A M EDT eCW1 ([facility]) Docusate Sodium 50 MG / sennosides, SENIOR LIVING 8.6 MG Oral Ta blet 01/06/2021 12:00:00 AM EDT [email or web address] ([facility]) Bisacodyl 10 MG Rectal Suppository [Dulcolax] 01/06/2021 12:00:00 A M EDT [email or web address] ([facility]) Docusate Sodium 50 MG / sennosides, [facility] LIVING 8.6 MG Oral Ta blet 01/06/2021 12:00:00 AM EDT [email or web address] ([facility]) Bisacodyl 10 MG Rectal Suppository [Dulcolax] 01/06/2021 12:00:00 A M EDT [email or web address] ([facility]) Bisacodyl 10 MG Rectal Suppository [Dulcolax] 01/06/2021 12:00:00 A M EDT [email or web address] ([facility]) Bisacodyl 10 MG Rectal Suppository [Dulcolax] 01/06/2021 12:00:00 A M EDT [email or web address] ([facility]) Bisacodyl 10 MG Rectal Suppository [Dulcolax] 01/06/2021 12:00:00 A M EDT [email or web address] ([facility]) Docusate Sodium 50 MG / sennosides, S[facility]IOR LIVING 8.6 MG Oral Ta blet 01/06/2021 12:00:00 AM EDT [email or web address] ([facility]) Docusate Sodium 50 MG / sennosides, S[facility]IOR LIVING 8.6 MG Oral Ta blet 01/06/2021 12:00:00 AM EDT [email or web address] ([facility]) Bisacodyl 10 MG Rectal Suppository [Dulcolax] 01/06/2021 12:00:00 A M EDT [email or web address] ([facility])
--- OUTSIDE RECORDS SUMMARY | 2021-07-30 10:42 | CCD ---
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 Public Health law. If you continue you may have access to information: Regarding HIV / AIDS; Provided by facilities licensed or operated by the [facility] Office of Mental Health; or Provided by the [facility] Office for People With Developmental Disabilities. If such information is present, then the following [facility] mandated warning applies: This information has been [...] law may result in a fine or care home sentence or both. A general authorization for the release of medical or other information is NOT sufficient authorization for further disc losure. Encounters Encounter Providers Location Date Indications Data Source(s ) Outpatient Attender: Alba Reyes/Edinson/Jorge Luis/Lio turner 07/22/2021 01:30:00 PM EDT MEDENT ([facility]) Unknown [address] [facility] [place] [address] 07/21/2021 12:00:00 AM EDT eCW1 ([facility]) Unknown [address] [facility] [place] [address] 07/15/2021 12:00:00 AM EDT eCW1 ([facility]) Outpatient Admitter: GO ESCAMILLAReferrer: GO ESCAMILLA 07/14/2021 12:00:[address] [facility] [place] [address] [facility] [place] [address] 07/07/2021 12:00:00 AM EDT eCW1 ([facility]) [place] [address] [facility] [address] 06/30/2021 12:00:00 AM EDT eCW1 ([facility]) [place] [address] [facility] [address] 06/23/2021 12:00:00 AM EDT [facility]CW1 [facility] [place] [address] [facility] [place] [address] 06/23/2021 12:00:00 AM EDT eCW1 ([facility]) [place] [address] [facility] [address] 06/16/2021 12:00:00 AM EDT eCW1 ([facility]) Outpatient Attender: Alba Reyes/Edinson/Jorge Luis/Lio turner 06/13/2021 09:30:00 AM EDT MEDENT ([facility]) [place] [address] [facility] [place] [address] 06/13/2021 12:00:00 AM EDT [facility] [place] [address] [facility] [place] [address] 06/13/2021 12:00:00 AM EDT [facility]CW1 ([facility]) [place] [address] [facility] [place] [address] 05/27/2021 12:00:00 AM EDT eCW1 ([facility]) [place] [address] [facility] [place] [address] 05/26/2021 12:00:00 AM EDT eCW1 [facility]) [place] [address] [facility] [place] [address] 05/26/2021 12:00:00 AM EDT eCW1 ([facility]) [place] [address] [facility] [place] [address] 05/20/2021 12:00:00 AM EDT eCW1 ([facility]) Outpatient [address] [facility] [place] [address] 05/20/2021 12:00:00 AM EDT eCW1 ([facility]) [place] [address] [facility] [place] [address] 05/19/2021 12:00:00 AM EDT eCW1 ([facility]) Unknown [address] [facility] [place] [address] 05/16/2021 12:00:00 AM EDT eCW1 ([facility]) [place] [address] [facility] [place] [address] 05/09/2021 12:00:00 AM EDT eCW1 ([facility]) Office Visit, Est Pt., Level 5 PC [address] [place] [address] 05/07/2021 12:00:00 AM EDT eCW1 ([facility]) Outpatient [address] [facility] [place] [address] 04/21/2021 12:00:00 AM EDT eCW1 ([facility]) Unknown [address] [facility] [place] [address] 04/21/2021 12:00:00 AM EDT eCW1 ([facility]) Outpatient [address] [facility] [place] [address] 04/11/2021 12:00:00 AM EDT eCW1 ([facility]) Unknown [address] [facility] [place] [address] 04/11/2021 12:00:00 AM EDT eCW1 ([facility]) Office Visit, Est Pt., Level 3 PC [address] [place] [address] 04/01/2021 12:00:00 AM EDT eCW1 ([facility]) Unknown [address] [facility] [place] [address] 03/28/2021 12:00:00 AM EDT eCW1 ([facility]) Unknown [address] [facility] [place] [address] 03/17/2021 12:00:00 AM EDT eCW1 ([facility]) Outpatient Attender: Kia YIN Main office - [facility] n 03/12/2021 08:45:00 AM EDT MEDENT ([facility]) Unknown [address] [facility] [place] [address] 01/27/2021 12:00:00 AM EDT eCW1 ([facility]) Unknown [address] [facility] [place] [address] 01/15/2021 12:00:00 AM EDT eCW1 ([facility]) Unknown [address] [facility] [place] [address] 01/13/2021 12:00:00 AM EDT eCW1 ([facility]) Unknown [address] [facility] [place] [address] 01/10/2021 12:00:00 AM EDT eCW1 ([facility]) Unknown [address] [facility] [place] [address] 01/06/2021 12:00:00 AM EDT eCW1 ([facility]) Unknown [address] [facility] [place] [address] 01/06/2021 12:00:00 AM EDT eCW1 ([facility]) Outpatient [address] [facility] [place] [address] 12/16/2020 12:00:00 AM EDT eCW1 ([facility]) Office Visit Attender: Kia YIN Main office - [facility] n 12/06/2020 08:15:00 AM EST MEDENT ([facility]) Unknown [address] [facility] [place] [address] 10/23/2020 12:00:00 AM EST eCW1 ([facility]) Unknown [address] [facility] [place] [address] 10/09/2020 12:00:00 AM EST eCW1 [facility] [place] [address] [facility] [place] [address] 10/08/2020 12:00:00 AM EST eCW1 ([facility] [place] [address] [facility] [place] [address] 09/12/2020 12:00:00 AM EST eCW1 ([facility] Unknown [address] [facility] [place] [address] 09/05/2020 12:00:00 AM EST eCW1 ([facility] Outpatient [address] [facility] [place] [address] 08/19/2020 12:00:00 AM EST eCW1 ([facility]) Unknown [address] [facility] [place] [address] 07/22/2020 12:00:00 AM EDT eCW1 ([facility]) Unknown [address] [facility] [place] [address] 07/04/2020 12:00:00 AM EDT eCW1 ([facility]) Outpatient Attender: Kia YIN Main office - [facility] 06/06/2020 09:15:00 AM EDT MEDENT ([facility] jeanne ) Immunizations Vaccine Date Status Description Data Source(s) COVID-19 VACCINE Moderna 11/12/2020 12:00:00 AM EST completed [facility] Vaccine Series Complete: NOThis Data was Submitted to [facility] [employer]. Medications Medication Brand Name Start Date Product Form Dose Route Admi nistrative Instructions Pharmacy Instructions Status Indications Reaction Description Data Source(s) Lorazepam 2 MG Oral Tablet [Ativan] Ativan 2 MG Ativan 2 MG 06/13/2021 12:00:00 AM EDT 2.0 {tablets} active Ativan 2 M G eCW1 ([facility]) Lorazepam 2 MG Oral Tablet [Ativan] Ativan 2 MG Ativan 2 MG 06/13/2021 12:00:00 AM EDT 2.0 {tablets} active Ativan 2 M G eCW1 ([facility]) Lorazepam 2 MG Oral Tablet [Ativan] Ativan 2 MG Ativan 2 MG 06/13/2021 12:00:00 AM EDT 2.0 {tablets} active Ativan 2 M G eCW1 ([facility]) Lorazepam 2 MG Oral Tablet [Ativan] Ativan 2 MG Ativan 2 MG 06/13/2021 12:00:00 AM EDT 2.0 {tablets} active Ativan 2 M G eCW1 ([facility]) Lorazepam 2 MG Oral Tablet [Ativan] Ativan 2 MG Ativan 2 MG 06/13/2021 12:00:00 AM EDT 2.0 {tablets} active Ativan 2 M G eCW1 ([facility]) Lorazepam 2 MG Oral Tablet [Ativan] Ativan 2 MG Ativan 2 MG 06/13/2021 12:00:00 AM EDT 2.0 {tablets} active Ativan 2 M G eCW1 ([facility]) Lorazepam 2 MG Oral Tablet [Ativan] Ativan 2 MG Ativan 2 MG 06/13/2021 12:00:00 AM EDT 2.0 {tablets} active Ativan 2 M G eCW1 ([facility]) Lorazepam 2 MG Oral Tablet [Ativan] Ativan 2 MG Ativan 2 MG 06/13/2021 12:00:00 AM EDT 2.0 {tablets} active Ativan 2 M G eCW1 ([facility]) Lorazepam 2 MG Oral Tablet [Ativan] Ativan 2 MG Ativan 2 MG 06/13/2021 12:00:00 AM EDT 2.0 {tablets} active Ativan 2 M G eCW1 ([facility]) Lorazepam 2 MG Oral Tablet [Ativan] Ativan 2 MG Ativan 2 MG 05/26/2021 12:00:00 AM EDT 2.0 {tablets} active Ativan 2 M G eCW1 ([facility]) Lorazepam 2 MG Oral Tablet [Ativan] Ativan 2 MG Ativan 2 MG 05/26/2021 12:00:00 AM EDT 2.0 {tablets} active Ativan 2 M G eCW1 ([facility]) Lorazepam 2 MG Oral Tablet [Ativan] Ativan 2 MG Ativan 2 MG 05/26/2021 12:00:00 AM EDT 2.0 {tablets} active Ativan 2 M G eCW1 ([facility]) Lorazepam 2 MG Oral Tablet [Ativan] Ativan 2 MG Ativan 2 MG 05/19/2021 12:00:00 AM EDT 3.0 {tablets} active Ativan 2 M G eCW1 ([facility]) Lorazepam 2 MG Oral Tablet [Ativan] Ativan 2 MG Ativan 2 MG 05/19/2021 12:00:00 AM EDT 3.0 {tablets} active Ativan 2 M G eCW1 ([facility]) Divalproex Sodium 500 MG Delayed Release Oral Tablet Divalpr oex Sodium 500 MG 05/07/2021 12:00:00 AM EDT 2.0 {tablet} active Divalproex Sodium 500 MG eCW1 ([facility]) Divalproex Sodium 500 MG Delayed Release Oral Tablet Divalpr oex Sodium 500 MG 05/07/2021 12:00:00 AM EDT 1.0 {tablet} active Divalproex Sodium 500 MG eCW1 ([facility]) Divalproex Sodium 500 MG Delayed Release Oral Tablet Divalpr oex Sodium 500 MG 05/07/2021 12:00:00 AM EDT 1.0 {tablet} active Divalproex Sodium 500 MG eCW1 ([facility]) Divalproex Sodium 500 MG Delayed Release Oral Tablet Divalpr oex Sodium 500 MG 05/07/2021 12:00:00 AM EDT 2.0 {tablet} active Divalproex Sodium 500 MG eCW1 ([facility]) Divalproex Sodium 500 MG Delayed Release Oral Tablet Divalpr oex Sodium 500 MG 05/07/2021 12:00:00 AM EDT 2.0 {tablet} active Divalproex Sodium 500 MG eCW1 ([facility]) Divalproex Sodium 500 MG Delayed Release Oral Tablet Divalpr oex Sodium 500 MG 05/07/2021 12:00:00 AM EDT 2.0 {tablet} active Divalproex Sodium 500 MG eCW1 ([facility]) Divalproex Sodium 500 MG Delayed Release Oral Tablet Divalpr oex Sodium 500 MG 05/07/2021 12:00:00 AM EDT 2.0 {tablet} active Divalproex Sodium 500 MG eCW1 ([facility]) Divalproex Sodium 500 MG Delayed Release Oral Tablet Divalpr oex Sodium 500 MG 05/07/2021 12:00:00 AM EDT 1.0 {tablet} active Divalproex Sodium 500 MG eCW1 ([facility]) Divalproex Sodium 500 MG Delayed Release Oral Tablet Divalpr oex Sodium 500 MG 05/07/2021 12:00:00 AM EDT 1.0 {tablet} active Divalproex Sodium 500 MG eCW1 ([facility]) Divalproex Sodium 500 MG Delayed Release Oral Tablet Divalpr oex Sodium 500 MG 05/07/2021 12:00:00 AM EDT 2.0 {tablet} active Divalproex Sodium 500 MG eCW1 ([facility]) Divalproex Sodium 500 MG Delayed Release Oral Tablet Divalpr oex Sodium 500 MG 05/07/2021 12:00:00 AM EDT 1.0 {tablet} active Divalproex Sodium 500 MG eCW1 ([facility]) Divalproex Sodium 500 MG Delayed Release Oral Tablet Divalpr oex Sodium 500 MG 05/07/2021 12:00:00 AM EDT 1.0 {tablet} active Divalproex Sodium 500 MG eCW1 ([facility]) Divalproex Sodium 500 MG Delayed Release Oral Tablet Divalpr oex Sodium 500 MG 05/07/2021 12:00:00 AM EDT 2.0 {tablet} active Divalproex Sodium 500 MG eCW1 ([facility]) Divalproex Sodium 500 MG Delayed Release Oral Tablet Divalpr oex Sodium 500 MG 05/07/2021 12:00:00 AM EDT 2.0 {tablet} active Divalproex Sodium 500 MG eCW1 ([facility]) Divalproex Sodium 500 MG Delayed Release Oral Tablet Divalpr oex Sodium 500 MG 05/07/2021 12:00:00 AM EDT 2.0 {tablet} active Divalproex Sodium 500 MG eCW1 ([facility]) Divalproex Sodium 500 MG Delayed Release Oral Tablet Divalpr oex Sodium 500 MG 05/07/2021 12:00:00 AM EDT 1.0 {tablet} active Divalproex Sodium 500 MG eCW1 ([facility]) Divalproex Sodium 500 MG Delayed Release Oral Tablet Divalpr oex Sodium 500 MG 05/07/2021 12:00:00 AM EDT 1.0 {tablet} active Divalproex Sodium 500 MG eCW1 ([facility]) Divalproex Sodium 500 MG Delayed Release Oral Tablet Divalpr oex Sodium 500 MG 05/07/2021 12:00:00 AM EDT 2.0 {tablet} active Divalproex Sodium 500 MG eCW1 ([facility]) Divalproex Sodium 500 MG Delayed Release Oral Tablet Divalpr oex Sodium 500 MG 05/07/2021 12:00:00 AM EDT 2.0 {tablet} active Divalproex Sodium 500 MG eCW1 ([facility]) Bisacodyl 10 MG Rectal Suppository [Dulcolax] Dulcolax 10 MG Dulcolax 10 MG 01/06/2021 12:00:00 AM EDT 1.0 {suppository} active Dulcolax 10 MG eCW1 ([facility]) Bisacodyl 10 MG Rectal Suppository [Dulcolax] Dulcolax 10 MG Dulcolax 10 MG 01/06/2021 12:00:00 AM EDT 1.0 {suppository} active Dulcolax 10 MG eCW1 ([facility]) Bisacodyl 10 MG Rectal Suppository [Dulcolax] Dulcolax 10 MG Dulcolax 10 MG 01/06/2021 12:00:00 AM EDT 1.0 {suppository} active Dulcolax 10 MG eCW1 ([facility]) Bisacodyl 10 MG Rectal Suppository [Dulcolax] Dulcolax 10 MG Dulcolax 10 MG 01/06/2021 12:00:00 AM EDT 1.0 {suppository} active Dulcolax 10 MG eCW1 ([facility]) Bisacodyl 10 MG Rectal Suppository [Dulcolax] Dulcolax 10 MG Dulcolax 10 MG 01/06/2021 12:00:00 AM EDT 1.0 {suppository} active Dulcolax 10 MG eCW1 ([facility]) Docusate Sodium 50 MG / sennosides, FDC 8.6 MG Oral Ta blet Senna S 8.6-50 MG Senna S 8.6-50 MG 01/06/2021 12:00:00 AM EDT active Senna S 8.6-50 MG eCW1 ([facility]) Bisacodyl 10 MG Rectal Suppository [Dulcolax] Dulcolax 10 MG Dulcolax 10 MG 01/06/2021 12:00:00 AM EDT 1.0 {suppository} active Dulcolax 10 MG eCW1 ([facility]) Bisacodyl 10 MG Rectal Suppository [Dulcolax] Dulcolax 10 MG Dulcolax 10 MG 01/06/2021 12:00:00 AM EDT 1.0 {suppository} active Dulcolax 10 MG eCW1 ([facility]) Docusate Sodium 50 MG / sennosides, FDC 8.6 MG Oral Ta blet Senna S 8.6-50 MG Senna S 8.6-50 MG 01/06/2021 12:00:00 AM EDT active Senna S 8.6-50 MG eCW1 ([facility]) Bisacodyl 10 MG Rectal Suppository [Dulcolax] Dulcolax 10 MG Dulcolax 10 MG 01/06/2021 12:00:00 AM EDT 1.0 {suppository} active Dulcolax 10 MG eCW1 ([facility]) Bisacodyl 10 MG Rectal Suppository [Dulcolax] Dulcolax 10 MG Dulcolax 10 MG 01/06/2021 12:00:00 AM EDT 1.0 {suppository} active Dulcolax 10 MG eCW1 ([facility]) Bisacodyl 10 MG Rectal Suppository [Dulcolax] Dulcolax 10 MG Dulcolax 10 MG 01/06/2021 12:00:00 AM EDT 1.0 {suppository} active Dulcolax 10 MG eCW1 ([facility]) Docusate Sodium 50 MG / sennosides, FDC 8.6 MG Oral Ta blet Senna S 8.6-50 MG Senna S 8.6-50 MG 01/06/2021 12:00:00 AM EDT active Senna S 8.6-50 MG eCW1 ([facility]) Bisacodyl 10 MG Rectal Suppository [Dulcolax] Dulcolax 10 MG Dulcolax 10 MG 01/06/2021 12:00:00 AM EDT 1.0 {suppository} active Dulcolax 10 MG eCW1 ([facility]) Docusate Sodium 50 MG / sennosides, FDC 8.6 MG Oral Ta blet Senna S 8.6-50 MG Senna S 8.6-50 MG 01/06/2021 12:00:00 AM EDT active Senna S 8.6-50 MG eCW1 ([facility]) Bisacodyl 10 MG Rectal Suppository [Dulcolax] Dulcolax 10 MG Dulcolax 10 MG 01/06/2021 12:00:00 AM EDT 1.0 {suppository} active Dulcolax 10 MG eCW1 ([facility]) Bisacodyl 10 MG Rectal Suppository [Dulcolax] Dulcolax 10 MG Dulcolax 10 MG 01/06/2021 12:00:00 AM EDT 1.0 {suppository} active Dulcolax 10 MG eCW1 ([facility]) Docusate Sodium 50 MG / sennosides, FDC 8.6 MG Oral Ta blet Senna S 8.6-50 MG Senna S 8.6-50 MG 01/06/2021 12:00:00 AM EDT active Senna S 8.6-50 MG eCW1 ([facility]) Bisacodyl 10 MG Rectal Suppository [Dulcolax] Dulcolax 10 MG Dulcolax 10 MG 01/06/2021 12:00:00 AM EDT 1.0 {suppository} active Dulcolax 10 MG eCW1 ([facility]) Bisacodyl 10 MG Rectal Suppository [Dulcolax] Dulcolax 10 MG Dulcolax 10 MG 01/06/2021 12:00:00 AM EDT 1.0 {suppository} active Dulcolax 10 MG eCW1 ([facility]) Bisacodyl 10 MG Rectal Suppository [Dulcolax] Dulcolax 10 MG Dulcolax 10 MG 01/06/2021 12:00:00 AM EDT 1.0 {suppository} active Dulcolax 10 MG eCW1 ([facility]) Bisacodyl 10 MG Rectal Suppository [Dulcolax] Dulcolax 10 MG Dulcolax 10 MG 01/06/2021 12:00:00 AM EDT 1.0 {suppository} active Dulcolax 10 MG eCW1 ([facility]) Bisacodyl 10 MG Rectal Suppository [Dulcolax] Dulcolax 10 MG Dulcolax 10 MG 01/06/2021 12:00:00 AM EDT 1.0 {suppository} active Dulcolax 10 MG eCW1 ([facility]) Docusate Sodium 50 MG / sennosides, FDC 8.6 MG Oral Ta blet Senna S 8.6-50 MG Senna S 8.6-50 MG 01/06/2021 12:00:00 AM EDT active Senna S 8.6-50 MG eCW1 ([facility]) Insurance Providers Payer name Policy type / Coverage type Policy ID Covered alliance party ID Covered alliance party's relationship to wild Policy Wild Plan Information MEDICARE A [id number] Self [id number] MEDICARE A [id number] Self [id number] MEDICARE [id number] MEDICAID M [id number] Self [id number] ANSI-Medicare Part B [id number] ANSI-Medicare Part B [id number] ANSI-Medicaid [id number] ANSI-Medicare Part B [id number] ANSI-Medicaid [id number] ANSI-Medicare Part B [id number] ANSI-Medicaid [id number] Medicaid [facility] Part B [id number] 43.0 Self [id number] Medicare Part B Medicare Primary [id number] Self [id number] ANSI-Medicare Part B [id number] ANSI-Medicaid [id number] ANSI-Medicaid [id number] ANSI-Medicare Part B [id number] MEDICARE [id number] ANSI-Medicaid [id number] ANSI-Medicare Part B [id number] ANSI-Medicaid [id number] ANSI-Medicare Part B [id number] ANSI-Medicare Part B [id number] ANSI-Medicaid [id number] ANSI-Medicaid [id number] ANSI-Medicare Part B [id number] ANSI-Medicaid [id number] ANSI-Medicare Part B [id number] ANSI-Medicaid [id number] ANSI-Medicare Part B [id number] ANSI-Medicare Part B [id number] ANSI-Medicaid [id number] ANSI-Medicare Part B [id number] ANSI-Medicaid [id number] ANSI-Medicaid [id number] [facility] [id number] Medicaid Medigap Part B [id number] 43.0 Self [id number] Medicare Part B Medicare Primary [id number] Self [id number] [facility] MEDICAID [id number] SP [id number] D Medicare Part B Medicare Primary [id number] Self [id number] Medicaid Medigap Part B [id number] 43.0 Self [id number] Medicare Part B Medicare Primary [id number] Self [id number] Medicaid Medigap Part B [id number] 43.0 Self [id number] MEDICARE [id number] SP [id number] EMEDNY [id number] SP [id number] MEDICAID [id number] SP [id number] [facility] [id number] Problems, Conditions, and Diagnoses Code Display Name Description Problem Type Effective Dates Data Source(s) E04.1 959336283 Thyroid nodule Problem 05/16/2021 12:00:00 A M EDT eCW1 ([facility]) F90.9 48296201 Hyperactivity Problem 05/07/2021 12:00:00 AM EDT eCW1 ([facility]) G47.9 [id number] Sleep disturbance Problem 05/07/2021 12:00:0 0 AM EDT eCW1 ([facility]) M85.80 [id number] Borderline osteopenia Problem 04/21/2021 12: 00:00 AM EDT eCW1 ([facility]) Surgeries/Procedures Procedure Description Date Indications Data Source(s) OFFICE OUTPATIENT VISIT 25 MINUTES 07/22/2021 12:00:00 AM EDT [facility] ([facility]) Bronchoscopy W/Bronchial Alveolar Lavage 07/16/2021 12 :00:00 AM EDT [facility] Bronchoscopy Rigid/Flexible Fluoroscopic Guide Computer-Assi sted 07/16/2021 12:00:00 AM EDT [facility] ([facility]) Bronchoscopy W/Transbronchial Lung Biopsy 07/16/2021 1 2:00:00 AM EDT [facility]) With Endobronchial Ultrasound Guided 07/16/2021 12:00: 00 AM EDT [facility] ([facility]) OFFICE OUTPATIENT NEW 45 MINUTES 06/13/2021 12:00:00 A M EDT [facility] ([facility]) Results ID Date Data Source [id number] 07/16/2021 10:48:00 AM EDT [facility]) Name Value Range Interpretation Code Description Data Dafne rce(s) Supporting Document(s) Surgical pathology study Laboratory test result [facility] ([facility]) <content>FINAL DIAGNOSIS</content>
< content></content>
<content>A - [...] 07/18/2021 0852</content>
<content></content> ID Date Data Source [id number] 07/16/2021 10:30:00 AM EDT [facility] ([facility], ) Name Value Range Interpretation Code Description Data Dafne rce(s) Supporting Document(s) Microscopic observation [Identifier] in Unspecified specimen by Non- gynecological cytology method Laboratory test result [facility] ([facility], ) SPECIMEN: Bronchoalveolar lav age 2ml Amasa with red flecks SPECIMEN ADEQUACY: Satisfactory for evaluation CATEGORIZATION: No Malignancy identified DESCRIPTIONS: Scattered bronchial cells noted in a background of blood elements. 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 Cultural examination is highly recommended for clinical diagnosis. AFB smear Kinyoun NEGATIVE (NO AFB Seen ) ID Date Data Source [id number] 07/16/2021 10:30:00 AM EDT [facility] ([facility]) Name Value Range Interpretation Code Description Data Dafne rce(s) Supporting Document(s) Gram Stain Laboratory test result Normal (applies to non-n umeric results) [facility] ([facility]) NO CELLS SEEN NO ORGANISMS SEEN Bal Culture Laboratory test result Normal (applies to non- numeric results) [facility] ([facility]) FULL REPORT IN LAB NOTES (eCW and [facility] ). NO GROWTH AEROBICALLY ID Date Data Source [id number] 07/16/2021 10:20:00 AM EDT [facility] ([facility]) Name Value Range Interpretation Code Description Data Dafne rce(s) Supporting Document(s) Microscopic observation [Identifier] in Unspecified specimen by Non- gynecological cytology method Laboratory test result [facility] ([facility]) SPECIMEN: FNA Left lower lobe lung Slides and Cytolyt (red) received SPECIMEN ADEQUACY: Satisfactory for evaluation CATEGORIZATION: No Malignancy identified DESCRIPTIONS: Specimen consists mainly of red blood cells with rare bronchial cells, neutrophils, and lymphocytes noted. COMMENTS: 07/17/20211027 Signed ASHER LAL CT(ASCP) 07/17/2021 102 (Prelim) Signed CLARE SHARMA MD 07/18/2021 0852 ID Date Data Source [id number] 07/14/2021 08:08:00 AM EDT [facility] ([facility]) Name Value Range Interpretation Code Description Data Dafne rce(s) Supporting Document(s) Surgical pathology study Laboratory test result [facility] ([facility]) FINAL DIAGNOSIS Peripheral blood, flow cytometry: [...] T-cell receptor gamma chain gene rearrangement. See [facility] [id number] and [id number]. 07/18/2021929 CLINICAL DIAGNOSIS Leukopenia 07/15/20211303 GROSS DIAGNOSIS Received two green and two purple top tubes of peripheral blood submitted to [facility]. for flow cytometry. -OA 07/15/20211303 Signed GO ESCAMILLA MD 07/18/2021 0931 ID Date Data Source [id number] 07/14/2021 08:08:00 AM EDT [facility] ([facility]) Name Value Range Interpretation Code Description Data Dafne rce(s) Supporting Document(s) Laboratory test finding (navigational concept) Laboratory test r esult Normal (applies to non-numeric results) [facility] ([facility]) SEE PATHOLOGY REPORT Specimen Collection for Pathology Reference Lab Testing. Refer to [facility] Pathology Report for Results:[id number] ID Date Data Source [id number] 07/14/2021 08:08:00 AM EDT [facility] ([facility]) Name Value Range Interpretation Code Description Data Dafne rce(s) Supporting Document(s) QuantiFERON Criteria Laboratory test result Norm al (applies to non-numeric results) [facility] ([facility]) . The QuantiFERON-TB Gold Plus result is determined by subtracting the Nil value from either TB antigen (Ag) tube. The mitogen tube serves as a control for the test. QuantiFERON TB1 Ag Value 0.08 IU/ml Normal (applies to non -numeric results) [facility]) QuantiFERON TB2 Ag Value 0.07 IU/ml Normal (applies to non -numeric results) [facility]) QuantiFERON Nil Value 0.07 IU/ml Normal (applies to non-nu meric results) [facility]) QuantiFERON Mitogen Value Laboratory test result Normal (applies to non- numeric results) [facility]) QuantiFERON-TB Gold Plus Laboratory test result Normal (applies to non-numeric results) [facility]) The specimen received for QuantiFERON te sting was incubated by the ordering institution. Specific procedures outlined in our Directory of Services and in the package insert for the QuantiFERON Gold (In Tube) test must be followed to enable for proper stimulation of cells for the production of interferon gamma. Chemiluminescence immunoassay methodology Performed at: - [facility] [address] [id number] Physical Therapy Assistant Instructor: Alda Mac MD, Phone: [phone] ID Date Data Source [id number] 07/14/2021 08:08:00 AM EDT [facility] ([facility]) Name Value Range Interpretation Code Description Data Dafne rce(s) Supporting Document(s) Prothrombin Time 12.8 s 12.7-14.5 Normal (applies to non-numeric results) [facility]) Inr 0.93 Normal (applies to non-numeric resul ts) [facility]) THERAPUTIC HUMAN INR VALUES INDICATIONS NORMAL RANGES PROPHYLAXIS/TREATMENT OF: VENOUS THROMBOSIS 2.0-3.0 PULMONARY EMBOLISM 2.0-3.0 PREVENTION OF SYSTEMIC EMBOLISM FROM: TISSUE HEART VALVES 2.0-3.0 ACUTE MYOCARDIAL INFARCTION 2.0-3.0 VALVULAR HEART DISEASE 2.0-3.0 ATRIAL FIBRILLATION 2.0-3.0 MECHANICAL VALVES(HIGH RISK) 2.5-3.5 RECURRENT MYOCARDIAL INFARCTION 2.5-3.5 Partial Thromboplastin Time 30.2 s 25.9-37.0 Norm al (applies to non-numeric results) [facility] ([facility]) ID Date Data Source [id number] 07/14/2021 08:08:00 AM EDT [facility] ([facility]) Name Value Range Interpretation Code Description Data Dafne rce(s) Supporting Document(s) Glucose, Fasting 80 mg/dL 70-100 Normal (applies to non-numeric results) [facility] ([facility]) Blood Urea Nitrogen 9 mg/dL 7-18 Normal (applies to non-nume anisha results) [facility] ([facility]) Creatinine For GFR 0.82 mg/dL 0.70-1.30 Normal (applies to non -numeric results) [facility] ([facility]) Glomerular Filtration Rate Laboratory test result Normal (applies to non- numeric results) [facility] ([facility]) <content>Units are mL/min/1.73 m2</content>
<content></content>
<content>Chronic Kidney Disease Staging per NKF:</content>
<content></content>
<content>Stage I & II GFR >=60 Normal to Mildly Decreased</content>
<content>Stage III GFR 30- 59 Moderately Decreased</content>
<content>Stage IV GFR 15-29 Severely Decreased</content>
<content>Stage V GFR <15 Very Little GFR Left</content>
<content>ESRD GFR <15 on MANAGER BALANCE</content>
<content></content> Sodium Level 140 meq/L 136-145 Normal (applies to non-numeric res ults) [facility] ([facility]) Potassium Serum 4.4 meq/L 3.5-5.1 Normal (applies to non-numeric results) [facility] ([facility]) Chloride Level 105 meq/L 98-107 Normal (applies to non-numeric r esults) [facility] ([facility]) Carbon Dioxide Level 32 meq/L 21-32 Normal (applies to non-num shiv results) [facility]) Anion Gap 3 meq/L 8-16 Below low normal [facility] ( [facility]) Calcium Level 9.3 mg/dL 8.8-10.2 Normal (applies to non-numeric re sults) [facility] ([facility]) ID Date Data Source [id number] 07/14/2021 08:08:00 AM EDT [facility] ([facility]) Name Value Range Interpretation Code Description Data Dafne rce(s) Supporting Document(s) White Blood Count 2.2 10 4.0-10.0 Below low normal [facility] ([facility]) Red Blood Count 3.98 10 4.30-6.10 Below low normal [facility] ([facility]) Hemoglobin 12.7 g/dL 13.5-17.5 Below low normal [facility] ( [facility]) Hematocrit 39.4 % 42.0-52.0 Below low normal [facility] ( [facility]) Mean Corpuscular Hemoglobin 31.9 pg 27.0-33.0 Norm al (applies to non-numeric results) [facility] ([facility]) Mean Corpuscular Volume 99.0 fl 80.0-96.0 Above high normal [facility] ([facility]) Red Cell Distribution Width 13.0 % 11.5-14.5 Norm al (applies to non-numeric results) [facility] ([facility]) Mean Corpuscular HGB Conc 32.2 g/dL 32.0-36.5 Normal (applies to non-numeric results) [facility] ([facility]) Lymph % 58.9 % 24.0-44.0 Above high normal [facility] ([facility]) Platelet Count, Automated 190 10 150-450 Normal (applies to non-numeric results) [facility]) Neutrophils % 16.4 % 36.0-66.0 Below low normal [facility] ([facility]) Baso % 0.9 % 0.0-1.0 Normal (applies to non-numeric resul ts) [facility] ([facility]) Eos % 4.6 % 0.0-3.0 Above high normal [facility] ([facility], ) Bland % 19.2 % 2.0-8.0 Above high normal [facility] ([facility]) Immature Granulocyte % 0.0 % 0-3.0 Normal (applies to non-n umeric results) [facility] ([facility]) Nucleated Red Blood Cell % 0.0 % 0-0 Normal (applies to n on-numeric results) [facility] ([facility]) Neutrophils # 0.4 10 1.5-8.5 Below low normal [facility] ([facility]) Scan Verified machine results. VERIFIED Bland # 0.4 10 0.0-0.8 Normal (applies to non-numeric resul ts) [facility] ([facility]) Lymph # 1.3 10 1.5-5.0 Below low normal [facility] ( [facility]) Baso # 0.0 10 0.0-0.2 Normal (applies to non-numeric resul ts) [facility] ([facility]) Eos # 0.1 10 0.0-0.5 Normal (applies to non-numeric resul ts) [facility] ([facility]) ID Date Data Source [id number] 07/16/2021 12:25:00 PM [facility] Hematopathology Report See Addendum Belamanda wName: ELIANE FRAGAMRN: [id number] Number: [id number] Date: 07/14/2021 08:08Received Date: 07/15/2021 13:18Physician(s): GO [...] 07/18/2021 PCR testing of this specimen (see [id number]) is negative for a clonalrearrangement of the T cell receptor gamma chain gene (TCRG), providing noevidence for a clonal T cell lymphoproliferation. Addendum Electronically Signed By: Margareth Guevara MD 07/18/2021 13:45 ProceduresFlow Cytometry Date Ordered:07/15/2021 Status: Signed Out07/16/2021 InterpretationPERIPHERAL BLOOD: CBC performed at [facility], [address] [place] [address] on 07/15/21.WBC *2.2 K/uLRBC *3.98 M/uLHgb *12.7 g/dLHct *39.4 %MCV *99.0 fLMCH 31.9 pgMCHC 32.2 g/dLRDW 13.0 %Platelets 190 K/uLDifferential Count (automated):16,4 % Neutrophils 4.6 % Eosinophils 0.9 % Ysiaxjmav14.9 % Qvnsvbzmuui43.2 % Monocytes-------100.0 % A peripheral blood film is reviewed.Lymphoid Panel: Gabino Cano [id number] following markers were assayed: CD45 (gate), CD2, CD3, CD4, CD5, CD7,CD8, CD10, CD11c, CD19,CD20, CD22, CD23, CD25, CD38, CD56, CD57, CD103, [place], Lambda, and FMC7.# even ts:93513Irsjrlctu: 93%Flow Cytometry Differential (CD45/SSC)Lymphocyte Aimwell: 57%CD45 dim Aimwell: 1%Monocyte [place]well: 7%Granulocyte [place]well: 28%Nucleated/Erythroid Aimwell: 3%The lymphocyte gate showsB-cells (CD19): 11%[place]/Lambda Ratio: 1.4T- cells (CD3): 62%NK-cells (CD3-/CD56+): 21%CD4/CD8 Ratio: 1.7Results: (expressed as % of lymphocyte gate)T-cell Markers: CD2 = 76, CD3 = 62, CD3/CD4 = 31, CD3/CD8 = 17, CD5 = 65,CD7 = 80, CD3/57 = 23B-cell markers: [place] = 6, Lambda = 4, CD19 = 11, CD20 = 13, CD19/10 = 1,CD19/CD5 = 2,CD38/CD20 = 10, CD22 = 13, CD19/CD23 = 10, FMC7 = 10Light chain as % of B-Cells: CD19/[place] = 53, CD19/Lambda = 38CD19/CD5/[place] = 3, CD19/CD5/Lambda = 3CD19/CD10/[place] = 3, CD19/CD10/Lambda = 2CD38 on CD19/5 [...] 3, CD7 =3, CD3/57 = 0B-cell markers: [place] = 0, Lambda = 0, CD19 = 0, CD20 = 1, CD19/10 = 0,CD19/CD5 = 0,CD38/CD20 = 1, CD22 = 0, CD19/CD23 = 0, FMC7 = 0Light chain as % of B-Cells: CD19/[place] = 0, CD19/Lambda = 0CD19/CD5/[place] = 0, CD19/CD5/Lambda = 0CD19/CD10/[place] = 0, CD19/CD10/Lambda = 0NK cell Markers: CD56 = 3, CD57 = 1Other Markers: CD10 = 1, CD38 = 60, CD25 = 0, CD103 = 1, CD11c = 1,CD103/CD11c = 0, CD103/25 = 0,CD103/22 = 0Results-CommentsThe gated population of lymphocytes consist predominantly of T cells withmostly normal expression of corcoran-T cell antigens and a normal CD4/VH8msmkh, an increased pro portion of cytotoxic T [...] were developed and theirperformance characteristics determined by [facility] Pathology department.They have not been cleared or approved by the US Food and DrugAdministration. The FDA has determined that such clearance or approval isnot necessary. Name Value Range Interpretation Code Description Data Dafne rce(s) Supporting Document(s) ID Date Data Source 07/17/2021 03:58:00 PM [facility] Molecular Diagnostics ReportName: ELIANE FRAGAMRN: [id number] Number: [id number] Date: 07/14/2021 00:00Received Date: 07/16/2021 12:00Physician(s): GO ESCAMILLA MD ADJAPONG, [place] [place] To:MARGARETH MCCLENDON MDSpecimen(s) ReceivedA: Peripheral Blood - T-cell, [id number] of Study: T-cell Receptor Gamma Chain PCR Assay SPECIMEN TYPE: Peripheral Blood (#[id number])RESULTS: Negative Family I & III / J [...] Gamma Chaingene (van Eliasen et al. Leukemia 17:2870-9453, 2003). A quality controlamplification showed DNA of [...] and authorized for clinical use by the [facility] Dept.of Health ([facility]).rw/jsElectronically Signed By Mario Crews M.D. Attending Pathologist 07/17/2021 15:58:08 Name Value Range Interpretation Code Description Data Dafne rce(s) Supporting Document(s) ID Date Data Source VITAMIN B12 LEVEL 04/23/2021 12:00:00 AM EDT eCW1 ([facility]) Name Value Range Interpretation Code Description Data Dafne rce(s) Supporting Document(s) [id number] VITAMIN B12 LEVEL eCW1 ([facility]) ID Date Data Source VITAMIN D [id number]-HYDROXY 04/23/2021 12:00:00 AM EDT eCW1 ([facility]) Name Value Range Interpretation Code Description Data Dafne rce(s) Supporting Document(s) 41.5 30.0-100.0 TOTAL 25(OH) VITAMIN D eC W1 ([facility]) ID Date Data Source PTH INTACT 04/23/2021 12:00:00 AM EDT eCW1 ([facility]) Name Value Range Interpretation Code Description Data Dafne rce(s) Supporting Document(s) 34.6 18.5-88.0 PTH INTACT eCW1 ([facility]) ID Date Data Source PSA SCREENING 04/23/2021 12:00:00 AM EDT eCW1 ([facility]) Name Value Range Interpretation Code Description Data Dafne rce(s) Supporting Document(s) 2.07 < 4.00 PSA SCREENING eCW1 ([facility]) ID Date Data Source PHENYTOIN (DILANTIN) 04/23/2021 12:00:00 AM EDT eCW1 ([facility]) Name Value Range Interpretation Code Description Data Dafne rce(s) Supporting Document(s) 0.5 10.0-20.0 PHENYTOIN (DILANTIN) eCW1 ([facility]) ID Date Data Source PHENOBARBITAL LEVEL 04/23/2021 12:00:00 AM EDT eCW1 ([facility]) Name Value Range Interpretation Code Description Data Dafne rce(s) Supporting Document(s) 29.9 15.0-40.0 PHENOBARBITAL LEVEL eCW1 ([facility]) ID Date Data Source H PYLORI SERUM QUANT IgG DEEJAY 04/23/2021 12:00:00 AM EDT eCW1 ([facility]) Name Value Range Interpretation Code Description Data Dafne rce(s) Supporting Document(s) 1.12 0.00-0.79 H PYLORI SERUM QUANT IgG DEEJAY eCW1 ([facility]) ID Date Data Source FREE T4 & TSH PANEL 04/23/2021 12:00:00 AM EDT eCW1 ([facility]) Name Value Range Interpretation Code Description Data Dafne rce(s) Supporting Document(s) 1.01 0.76-1.46 FREE T4 eCW1 ([facility] hospital) 1.580 0.358-3.740 THYROID STIMULATING HORM ONE eCW1 ([facility]) ID Date Data Source FERRITIN 04/23/2021 12:00:00 AM EDT eCW1 ([facility]) Name Value Range Interpretation Code Description Data Dafne rce(s) Supporting Document(s) 26 70-388 FERRITIN eCW1 (Critical access hospital) FERRITIN ID Date Data Source ERYTHROCYTE SEDIMENTATION RATE 04/23/2021 12:00:00 AM EDT eC W1 ([facility]) Name Value Range Interpretation Code Description Data Dafne rce(s) Supporting Document(s) 9 0-20 ERYTHROCYTE SEDIMENTATION RATE eCW1 ([facility]) ID Date Data Source C REACTIVE PROTEIN QUANTITATIV (At [facility]) 04/23/2021 12:00 :00 AM EDT eCW1 ([facility]) Name Value Range Interpretation Code Description Data Dafne rce(s) Supporting Document(s) 0.30 0.00-0.30 C REACTIVE PROTEIN QUANTI TATIV eCW1 ([facility]) ID Date Data Source Comprehensive Metabolic Profile (CMP) 04/23/2021 12:00:00 AM EDT eCW1 ([facility]) Name Value Range Interpretation Code Description Data Dafne rce(s) Supporting Document(s) 10 7-18 BLOOD UREA NITROGEN eCW1 ([facility]) 82 70-100 GLUCOSE, FASTING eCW1 ([facility]) 0.74 0.70-1.30 CREATININE FOR GFR eCW1 ([facility]) > 60.0 >49 GLOMERULAR FILTRATION RATE eCW 1 ([facility]) 141 136-145 SODIUM LEVEL eCW1 ([facility]) 29 21-32 CARBON DIOXIDE LEVEL eCW1 ([facility]) 106 98-107 CHLORIDE LEVEL eCW1 ([facility]) 3.8 3.5-5.1 POTASSIUM SERUM eCW1 ([facility]) 108 45-117 ALKALINE PHOSPHATASE eCW1 ([facility]) 9.4 8.8-10.2 CALCIUM LEVEL eCW1 ([facility]) 37 12-78 ALT/SGPT eCW1 (Critical access hospital) 29 7-37 AST/SGOT eCW1 (Critical access hospital) 0.3 0.2-1.0 BILIRUBIN,TOTAL eCW1 ([facility]) 7.7 6.4-8.2 TOTAL PROTEIN eCW1 ([facility]) 4.0 3.2-5.2 ALBUMIN eCW1 (Critical access hospital) 1.1 ALBUMIN/GLOBULIN RATIO eCW1 ([facility]) ID Date Data Source CBC with Differential 04/23/2021 12:00:00 AM EDT eCW1 ([facility]) Name Value Range Interpretation Code Description Data Dafne rce(s) Supporting Document(s) 2.5 4.0-10.0 WHITE BLOOD COUNT eCW1 ([facility]) 3.86 4.30-6.10 RED BLOOD COUNT eCW1 ([facility]) 12.6 13.5-17.5 HEMOGLOBIN eCW1 ([facility]) 96.6 80.0-96.0 MEAN CORPUSCULAR VOLUME e CW1 ([facility]) 37.3 42.0-52.0 HEMATOCRIT eCW1 ([facility]) 33.8 32.0-36.5 MEAN CORPUSCULAR HGB CONC eCW1 ([facility]) 32.6 27.0-33.0 MEAN CORPUSCULAR HEMOGLOB IN eCW1 ([facility]) 12.1 11.5-14.5 RED CELL DISTRIBUTION WID TH eCW1 ([facility]) 39.2 36.0-66.0 NEUTROPHILS % eCW1 ([facility]) 184 150-450 PLATELET COUNT, AUTOMATED eCW1 ([facility]) 41.3 24.0-44.0 LYMPH % eCW1 (Critical access hospital) 16.7 2.0-8.0 MONO % eCW1 (Critical access hospital) 1.6 0.0-3.0 EOS % eCW1 (Critical access hospital) 0.8 0.0-1.0 BASO % eCW1 (Critical access hospital) 0.4 0.0-0.8 MONO # eCW1 (Critical access hospital) 1.0 1.5-5.0 LYMPH # eCW1 (Critical access hospital) 1.0 1.5-8.5 NEUTROPHILS # eCW1 ([facility]) 0.0 0.0-0.2 BASO # eCW1 (Critical access hospital) 0.0 0.0-0.5 EOS # eCW1 (Critical access hospital) ID Date Data Source [id number] 03/12/2021 09:25:00 AM EDT [facility] ([facility], ) Name Value Range Interpretation Code Description Data Dafne rce(s) Supporting Document(s) Levetiracetam [Mass/volume] in Serum or Plasma 28.1 ug/mL 10.0-40.0 [facility] ([facility], ) This test was developed and its performa nce characteristics determined by [facility]. It has not been cleared or approved by the Food and Drug Administration. Performed at: [address] [id number] Physical Therapy Assistant Instructor: Debbi Herrera MD, Phone: [phone] Phenobarbital [Mass/volume] in Serum or Plasma 27.3 UG/ML 15.0-40.0 [facility] ([facility], ) Thyrotropin [Units/volume] in Serum or Plasma 1.000 uIU/ML 0.358-3.74 0 [facility] ([facility], ) ID Date Data Source [id number] 03/12/2021 09:25:00 AM EDT [facility] ([facility], ) Name Value Range Interpretation Code Description Data Dafne rce(s) Supporting Document(s) Blood Urea Nitrogen 14 mg/dL 7-18 [facility] ([facility], ) Creatinine For GFR 0.81 mg/dL 0.70-1.30 [facility] ([facility], ) Glucose, Fasting 95 mg/dL 70-100 [facility] ([facility]) Glomerular Filtration Rate Laboratory test result [facility] ([facility]) <content>Units are mL/min/1.73 m2</content>
<content></content>
<content>Chronic Kidney Disease Staging per NKF:</content>
<content></content>
<content>Stage I & II GFR >=60 Normal to Mildly Decreased</content>
<content>Stage III GFR 30- 59 Moderately Decreased</content>
<content>Stage IV GFR 15-29 Severely Decreased</content>
<content>Stage V GFR <15 Very Little GFR Left</content>
<content>ESRD GFR <15 on MANAGER BALANCE</content>
<content></content> Sodium Level 140 meq/L 136-145 [facility] ([facility], ) Potassium Serum 4.3 meq/L 3.5-5.1 [facility] ([facility]) Chloride Level 103 meq/L 98-107 [facility] ([facility], ) Carbon Dioxide Level 31 meq/L 21-32 [facility] ([facility]) Anion Gap 6 meq/L 8-16 [facility] ([facility]) Calcium Level 9.1 mg/dL 8.8-10.2 [facility] ([facility]) Ast/Sgot 27 U/L 7-37 [facility] ([facility]) Alkaline Phosphatase 113 U/L 45-117 [facility] ([facility]) Alt/SGPT 32 U/L 12-78 [facility] ([facility]) Albumin 3.8 GM/DL 3.2-5.2 [facility] ([facility]) Total Protein 7.3 GM/DL 6.4-8.2 [facility] ([facility]) Bilirubin,Total 0.4 mg/dL 0.2-1.0 [facility] ([facility]) Albumin/Globulin Ratio 1.1 [facility] ([facility]) ID Date Data Source [id number] 03/12/2021 09:25:00 AM EDT [facility] ([facility]) Name Value Range Interpretation Code Description Data Dafne rce(s) Supporting Document(s) White Blood Count 1.9 10 4.0-10.0 [facility] ([facility], ) Hemoglobin 12.8 g/dL 13.5-17.5 [facility] ([facility]) Red Blood Count 3.98 10 4.30-6.10 [facility] ([facility]) Hematocrit 39.1 % 42.0-52.0 [facility] ([facility]) Mean Corpuscular Volume 98.2 fl 80.0-96.0 M EDENT ([facility]) Mean Corpuscular Hemoglobin 32.2 pg 27.0-33.0 [facility] ([facility]) Red Cell Distribution Width 12.5 % 11.5-14.5 [facility] ([facility]) Mean Corpuscular HGB Conc 32.7 g/dL 32.0-36.5 [facility] ([facility]) Neutrophils % 36.8 % 36.0-66.0 [facility] ([facility]) Platelet Count, Automated 192 10 150-450 [facility] ([facility]) Lymph % 47.2 % 24.0-44.0 [facility] ([facility]) Bland % 14.5 % 2.0-8.0 [facility] ([facility]) Eos % 0.5 % 0.0-3.0 [facility] ([facility]) Baso % 1.0 % 0.0-1.0 [facility] ([facility]) Immature Granulocyte % 0.0 % 0-3.0 [facility] ([facility]) Neutrophils # 0.7 10 1.5-8.5 [facility] ([facility]) Scan Verified machine results Nucleated Red Blood Cell % 0.0 % 0-0 [facility] ([facility]) Lymph # 0.9 10 1.5-5.0 [facility] ([facility]) Bland # 0.3 10 0.0-0.8 [facility] ([facility]) Eos # 0.0 10 0.0-0.5 [facility] ([facility]) Baso # 0.0 10 0.0-0.2 [facility] ([facility]) ID Date Data Source INSULIN LEVEL 08/19/2020 12:00:00 AM EST eCW1 ([facility]) Name Value Range Interpretation Code Description Data Dafne rce(s) Supporting Document(s) 4.6 2.6-24.9 INSULIN LEVEL eCW1 ([facility]) ID Date Data Source LEVETIRACETAM (KEPPRA) 08/19/2020 12:00:00 AM EST eCW1 ([facility]) Name Value Range Interpretation Code Description Data Dafne rce(s) Supporting Document(s) 22.6 10.0-40.0 LEVETIRACETAM (KEPPRA) eCW1 ([facility]) ID Date Data Source [id number] 08/19/2020 12:00:00 AM EST eCW1 ([facility]) Name Value Range Interpretation Code Description Data Dafne rce(s) Supporting Document(s) Hemoglobin A1c/Hemoglobin.total in Blood 5.1 HEMOGLOBIN A1c eCW1 ([facility]) ID Date Data Source Reticulocyte Count Sysmex 08/19/2020 12:00:00 AM EST eCW1 ([facility]) Name Value Range Interpretation Code Description Data Dafne rce(s) Supporting Document(s) 1.9 0.5-1.5 RETICULOCYTE % eCW1 ([facility]) Procedure Social History Code Duration Value Status Description Data Source(s ) Smoking 07/22/2021 12:00:00 AM EDT Patient has never smoked co mpleted Patient has never smoked MEDENT ([facility], ) Smoking 05/20/2021 12:00:00 AM EDT Never Smoker completed Never S moker eCW1 ([facility]) Smoking 05/20/2021 12:00:00 AM EDT Never Smoker completed Never S moker eCW1 ([facility]) Smoking 05/20/2021 12:00:00 AM EDT Never Smoker completed Never S moker eCW1 ([facility]) Smoking 05/20/2021 12:00:00 AM EDT Never Smoker completed Never S moker eCW1 ([facility]) Smoking 05/20/2021 12:00:00 AM EDT Never Smoker completed Never S moker eCW1 ([facility]) Smoking 05/20/2021 12:00:00 AM EDT Never Smoker completed Never S moker eCW1 ([facility]) Smoking 05/20/2021 12:00:00 AM EDT Never Smoker completed Never S moker eCW1 ([facility]) Smoking 05/20/2021 12:00:00 AM EDT Never Smoker completed Never S moker eCW1 ([facility]) Smoking 05/20/2021 12:00:00 AM EDT Never Smoker completed Never S moker eCW1 ([facility]) Smoking 05/20/2021 12:00:00 AM EDT Never Smoker completed Never S moker eCW1 ([facility]) Smoking 05/20/2021 12:00:00 AM EDT Never Smoker completed Never S moker eCW1 ([facility]) Smoking 05/20/2021 12:00:00 AM EDT Never Smoker completed Never S moker eCW1 ([facility]) Smoking 05/20/2021 12:00:00 AM EDT Never Smoker completed Never S moker eCW1 ([facility]) Smoking 05/20/2021 12:00:00 AM EDT Never Smoker completed Never S moker eCW1 ([facility]) Smoking 05/07/2021 12:00:00 AM EDT Never Smoker completed Never S moker eCW1 ([facility]) Smoking 05/07/2021 12:00:00 AM EDT Never Smoker completed Never S moker eCW1 ([facility]) Smoking 05/07/2021 12:00:00 AM EDT Never Smoker completed Never S moker eCW1 ([facility]) Smoking 05/07/2021 12:00:00 AM EDT Never Smoker completed Never S moker eCW1 ([facility]) Smoking 05/07/2021 12:00:00 AM EDT Never Smoker completed Never S moker eCW1 ([facility]) Smoking 04/21/2021 12:00:00 AM EDT Never Smoker completed Never S moker eCW1 ([facility]) Smoking 04/21/2021 12:00:00 AM EDT Never Smoker completed Never S moker eCW1 ([facility]) Smoking 04/21/2021 12:00:00 AM EDT Never Smoker completed Never S moker eCW1 ([facility]) Smoking 04/11/2021 12:00:00 AM EDT Never Smoker completed Never S moker eCW1 ([facility]) Smoking 04/01/2021 12:00:00 AM EDT Never Smoker completed Never S moker eCW1 ([facility]) Smoking 12/16/2020 12:00:00 AM EDT Never Smoker completed Never S moker eCW1 ([facility]) Smoking 12/16/2020 12:00:00 AM EDT Never Smoker completed Never S moker eCW1 ([facility]) Smoking 12/16/2020 12:00:00 AM EDT Never Smoker completed Never S moker eCW1 ([facility]) Smoking 12/16/2020 12:00:00 AM EDT Never Smoker completed Never S moker eCW1 ([facility]) Smoking 12/16/2020 12:00:00 AM EDT Never Smoker completed Never S moker eCW1 ([facility]) Smoking 12/16/2020 12:00:00 AM EDT Never Smoker completed Never S moker eCW1 ([facility]) Smoking 12/16/2020 12:00:00 AM EDT Never Smoker completed Never S moker eCW1 ([facility]) Smoking 12/16/2020 12:00:00 AM EDT Never Smoker completed Never S moker eCW1 ([facility]) Smoking 12/16/2020 12:00:00 AM EDT Never Smoker completed Never S moker eCW1 ([facility]) Smoking 08/19/2020 12:00:00 AM EST Never Smoker completed Never S moker eCW1 ([facility]) Smoking 08/19/2020 12:00:00 AM EST Never Smoker completed Never S moker eCW1 ([facility]) Smoking 08/19/2020 12:00:00 AM EST Never Smoker completed Never S moker eCW1 ([facility]) Smoking 08/19/2020 12:00:00 AM EST Never Smoker completed Never S moker eCW1 ([facility]) Smoking 08/19/2020 12:00:00 AM EST Never Smoker completed Never S moker eCW1 ([facility]) Smoking 08/19/2020 12:00:00 AM EST Never Smoker completed Never S moker eCW1 ([facility]) Vital Signs ID Date Data Source UNK Name Value Range Interpretation Code Description Data Source(s) Heart rate 73 /min 73 /min MEDENT ([facility], ) Body height 64 [in_i] 64 [in_i] MEDENT ([facility]) 5'4" [place] body weight 130 [lb_av] 130 [lb_av] MEDEN T ([facility]) Systolic blood pressure 126 mm[Hg] 126 mm[Hg] M EDENT ([facility]) Diastolic blood pressure 78 mm[Hg] 78 mm[Hg] MEDENT ([facility]) Oxygen saturation in Arterial blood by Pulse oximetry 99 % 99 % [facility] ([facility]) Systolic blood pressure 124 mm[Hg] 124 mm[Hg] M EDENT ([facility]) Diastolic blood pressure 76 mm[Hg] 76 mm[Hg] [facility] ([facility]) Heart rate 93 /min 93 /min [facility] ([facility]) Oxygen saturation in Arterial blood by Pulse oximetry 99 % 99 % [facility] ([facility]) Body height 64 [in_i] 64 [in_i] MEDENT ([facility]) 5'4" [place] body weight 130 [lb_av] 130 [lb_av] MEDEN T ([facility], ) Body weight 118.4 [lb_av] 118.4 [lb_av] eCW1 ([facility]) Body weight 53.71 kg 53.71 kg eCW1 ([facility]) Body height 64 [in_i] 64 [in_i] eCW1 ([facility]) Body mass index (BMI) [Ratio] 20.32 kg/m2 20.32 kg/m2 eCW1 ([facility]) Heart rate /min eCW1 ([facility]) Respiratory rate 18 /min 18 /min eCW1 ([facility]) Body temperature 97.1 [degF] 97.1 [degF] eCW1 ( [facility]) Systolic blood pressure 112 mm[Hg] 112 mm[Hg] e CW1 ([facility]) Diastolic blood pressure 62 mm[Hg] 62 mm[Hg] eCW1 ([facility]) Body weight 116 [lb_av] 116 [lb_av] eCW1 ([facility]) Body weight 52.62 kg 52.62 kg eCW1 ([facility]) Body height 64 [in_i] 64 [in_i] eCW1 ([facility]) Body mass index (BMI) [Ratio] 19.91 kg/m2 19.91 kg/m2 eCW1 ([facility]) Body temperature 97.8 [degF] 97.8 [degF] eCW1 ( [facility]) Systolic blood pressure 136 mm[Hg] 136 mm[Hg] e CW1 ([facility]) Diastolic blood pressure 76 mm[Hg] 76 mm[Hg] eCW1 ([facility]) Body weight 123 [lb_av] 123 [lb_av] eCW1 ([facility]) Body height 64 [in_i] 64 [in_i] eCW1 ([facility]) Body mass index (BMI) [Ratio] 21.11 kg/m2 21.11 kg/m2 eCW1 ([facility]) Heart rate 54 /min 54 /min eCW1 ([facility]) Respiratory rate 20 /min 20 /min eCW1 ([facility]) Body temperature 98.2 [degF] 98.2 [degF] eCW1 ( [facility]) Systolic blood pressure 130 mm[Hg] 130 mm[Hg] e CW1 ([facility]) Diastolic blood pressure 82 mm[Hg] 82 mm[Hg] eCW1 ([facility]) Body weight 123 [lb_av] 123 [lb_av] eCW1 ([facility]) Body height 64 [in_i] 64 [in_i] eCW1 ([facility]) Body mass index (BMI) [Ratio] 21.11 kg/m2 21.11 kg/m2 eCW1 ([facility]) Heart rate 54 /min 54 /min eCW1 ([facility]) Respiratory rate 20 /min 20 /min eCW1 ([facility]) Body temperature 98.2 [degF] 98.2 [degF] eCW1 ( [facility]) Systolic blood pressure 130 mm[Hg] 130 mm[Hg] e CW1 ([facility]) Diastolic blood pressure 82 mm[Hg] 82 mm[Hg] eCW1 ([facility]) Body weight [lb_av] eCW1 ([facility]) Body height 64 [in_i] 64 [in_i] eCW1 ([facility]) Body mass index (BMI) [Ratio] 24.03 kg/m2 24.03 kg/m2 eCW1 ([facility]) Respiratory rate 18 /min 18 /min eCW1 ([facility]) Systolic blood pressure 114 mm[Hg] 114 mm[Hg] e CW1 ([facility]) Diastolic blood pressure 68 mm[Hg] 68 mm[Hg] eCW1 ([facility]) Body weight 140 [lb_av] 140 [lb_av] eCW1 ([facility]) Body height 64 [in_i] 64 [in_i] eCW1 ([facility]) Body mass index (BMI) [Ratio] 24.03 kg/m2 24.03 kg/m2 eCW1 ([facility]) Respiratory rate 18 /min 18 /min eCW1 ([facility]) Body temperature 97.7 [degF] 97.7 [degF] eCW1 ( [facility]) Systolic blood pressure 110 mm[Hg] 110 mm[Hg] e CW1 ([facility]) Diastolic blood pressure 70 mm[Hg] 70 mm[Hg] eCW1 ([facility]) Systolic blood pressure 124 mm[Hg] 124 mm[Hg] M EDENT ([facility], ) Diastolic blood pressure 78 mm[Hg] 78 mm[Hg] MEDENT ([facility], ) Heart rate 64 /min 64 /min MEDENT ([facility], ) Respiratory rate 16 /min 16 /min MEDENT ( [facility], ) Body weight 147 [lb_av] 147 [lb_av] eCW1 ([facility]) Body height 64 [in_i] 64 [in_i] eCW1 ([facility]) Body mass index (BMI) [Ratio] 25.23 kg/m2 25.23 kg/m2 eCW1 ([facility]) Heart rate 122 /min 122 /min eCW1 ([facility]) Respiratory rate 18 /min 18 /min eCW1 ([facility]) Body temperature 97.2 [degF] 97.2 [degF] eCW1 ( [facility]) Systolic blood pressure 130 mm[Hg] 130 mm[Hg] e CW1 ([facility]) Diastolic blood pressure 80 mm[Hg] 80 mm[Hg] eCW1 ([facility]) Body weight 147.0 [lb_av] 147.0 [lb_av] eCW1 ([facility]) Body height 64 [in_i] 64 [in_i] eCW1 ([facility]) Body mass index (BMI) [Ratio] 25.23 kg/m2 25.23 kg/m2 eCW1 ([facility]) Heart rate 115 /min 115 /min eCW1 ([facility]) Respiratory rate 18 /min 18 /min eCW1 ([facility]) Body temperature 97.0 [degF] 97.0 [degF] eCW1 ( [facility]) Systolic blood pressure 120 mm[Hg] 120 mm[Hg] e CW1 ([facility]) Diastolic blood pressure 72 mm[Hg] 72 mm[Hg] eCW1 ([facility]) Heart rate 88 /min 88 /min MEDENT ([facility], ) Respiratory rate 20 /min 20 /min MEDENT ( [facility], ) Systolic blood pressure 120 mm[Hg] 120 mm[Hg] M EDENT ([facility], ) Diastolic blood pressure 78 mm[Hg] 78 mm[Hg] MEDENT ([facility], ) Patient Treatment Plan of Care Planned Activity Planned Date Details Description Data Source (s) Lorazepam 2 MG Oral Tablet [Ativan] 06/13/2021 12:00:00 AM EDT eCW1 ([facility]) Lorazepam 2 MG Oral Tablet [Ativan] 06/13/2021 12:00:00 AM EDT eCW1 ([facility]) Lorazepam 2 MG Oral Tablet [Ativan] 06/13/2021 12:00:00 AM EDT eCW1 ([facility]) Lorazepam 2 MG Oral Tablet [Ativan] 06/13/2021 12:00:00 AM EDT eCW1 ([facility]) Lorazepam 2 MG Oral Tablet [Ativan] 06/13/2021 12:00:00 AM EDT eCW1 ([facility]) Lorazepam 2 MG Oral Tablet [Ativan] 06/13/2021 12:00:00 AM EDT eCW1 ([facility]) Lorazepam 2 MG Oral Tablet [Ativan] 06/13/2021 12:00:00 AM EDT eCW1 ([facility]) Lorazepam 2 MG Oral Tablet [Ativan] 06/13/2021 12:00:00 AM EDT eCW1 ([facility]) Lorazepam 2 MG Oral Tablet [Ativan] 06/13/2021 12:00:00 AM EDT eCW1 ([facility]) Lorazepam 2 MG Oral Tablet [Ativan] 05/26/2021 12:00:00 AM EDT eCW1 ([facility]) Lorazepam 2 MG Oral Tablet [Ativan] 05/26/2021 12:00:00 AM EDT eCW1 ([facility]) Lorazepam 2 MG Oral Tablet [Ativan] 05/26/2021 12:00:00 AM EDT eCW1 ([facility]) Lorazepam 2 MG Oral Tablet [Ativan] 05/19/2021 12:00:00 AM EDT eCW1 ([facility]) Lorazepam 2 MG Oral Tablet [Ativan] 05/19/2021 12:00:00 AM EDT eCW1 ([facility]) Divalproex Sodium 500 MG Delayed Release Oral Tablet 12:00:00 AM EDT eCW1 ([facility]) Divalproex Sodium 500 MG Delayed Release Oral Tablet 12:00:00 AM EDT eCW1 ([facility]) Divalproex Sodium 500 MG Delayed Release Oral Tablet 12:00:00 AM EDT eCW1 ([facility]) Divalproex Sodium 500 MG Delayed Release Oral Tablet 12:00:00 AM EDT eCW1 ([facility]) Divalproex Sodium 500 MG Delayed Release Oral Tablet 12:00:00 AM EDT eCW1 ([facility]) Divalproex Sodium 500 MG Delayed Release Oral Tablet 12:00:00 AM EDT eCW1 ([facility]) Divalproex Sodium 500 MG Delayed Release Oral Tablet 12:00:00 AM EDT eCW1 ([facility]) Divalproex Sodium 500 MG Delayed Release Oral Tablet 12:00:00 AM EDT eCW1 ([facility]) Divalproex Sodium 500 MG Delayed Release Oral Tablet 12:00:00 AM EDT eCW1 ([facility]) Divalproex Sodium 500 MG Delayed Release Oral Tablet 12:00:00 AM EDT eCW1 ([facility]) Divalproex Sodium 500 MG Delayed Release Oral Tablet 12:00:00 AM EDT eCW1 ([facility]) Divalproex Sodium 500 MG Delayed Release Oral Tablet 12:00:00 AM EDT eCW1 ([facility]) Divalproex Sodium 500 MG Delayed Release Oral Tablet 12:00:00 AM EDT eCW1 ([facility]) Divalproex Sodium 500 MG Delayed Release Oral Tablet 12:00:00 AM EDT eCW1 ([facility]) Divalproex Sodium 500 MG Delayed Release Oral Tablet 12:00:00 AM EDT eCW1 ([facility]) Divalproex Sodium 500 MG Delayed Release Oral Tablet 12:00:00 AM EDT eCW1 ([facility]) Divalproex Sodium 500 MG Delayed Release Oral Tablet 12:00:00 AM EDT eCW1 ([facility]) Divalproex Sodium 500 MG Delayed Release Oral Tablet 12:00:00 AM EDT eCW1 ([facility]) Divalproex Sodium 500 MG Delayed Release Oral Tablet 12:00:00 AM EDT eCW1 ([facility]) Bisacodyl 10 MG Rectal Suppository [Dulcolax] 01/06/2021 12:00:00 A M EDT eCW1 ([facility]) Bisacodyl 10 MG Rectal Suppository [Dulcolax] 01/06/2021 12:00:00 A M EDT eCW1 ([facility]) Bisacodyl 10 MG Rectal Suppository [Dulcolax] 01/06/2021 12:00:00 A M EDT eCW1 ([facility]) Bisacodyl 10 MG Rectal Suppository [Dulcolax] 01/06/2021 12:00:00 A M EDT eCW1 ([facility]) Docusate Sodium 50 MG / sennosides, FDC 8.6 MG Oral Ta blet 01/06/2021 12:00:00 AM EDT eCW1 [facility] Bisacodyl 10 MG Rectal Suppository [Dulcolax] 01/06/2021 12:00:00 A M EDT eCW1 ([facility]) Docusate Sodium 50 MG / sennosides, FDC 8.6 MG Oral Ta blet 01/06/2021 12:00:00 AM EDT eCW1 ([facility]) Bisacodyl 10 MG Rectal Suppository [Dulcolax] 01/06/2021 12:00:00 A M EDT eCW1 ([facility]) Docusate Sodium 50 MG / sennosides, FDC 8.6 MG Oral Ta blet 01/06/2021 12:00:00 AM EDT eCW1 ([facility]) Bisacodyl 10 MG Rectal Suppository [Dulcolax] 01/06/2021 12:00:00 A M EDT eCW1 ([facility]) Docusate Sodium 50 MG / sennosides, FDC 8.6 MG Oral Ta blet 01/06/2021 12:00:00 AM EDT eCW1 ([facility]) Bisacodyl 10 MG Rectal Suppository [Dulcolax] 01/06/2021 12:00:00 A M EDT eCW1 ([facility]) Bisacodyl 10 MG Rectal Suppository [Dulcolax] 01/06/2021 12:00:00 A M EDT eCW1 ([facility]) Bisacodyl 10 MG Rectal Suppository [Dulcolax] 01/06/2021 12:00:00 A M EDT eCW1 ([facility]) Bisacodyl 10 MG Rectal Suppository [Dulcolax] 01/06/2021 12:00:00 A M EDT eCW1 ([facility]) Docusate Sodium 50 MG / sennosides, FDC 8.6 MG Oral Ta blet 01/06/2021 12:00:00 AM EDT eCW1 ([facility]) Docusate Sodium 50 MG / sennosides, FDC 8.6 MG Oral Ta blet 01/06/2021 12:00:00 AM EDT eCW1 ([facility]) Bisacodyl 10 MG Rectal Suppository [Dulcolax] 01/06/2021 12:00:00 A M EDT eCW1 ([facility])
[2021-07-30] MEDS ORDERED: ONDANSETRON 4MG/2ML VIAL IV ONE (11:35)
[2021-07-30] MEDS ORDERED: NS 1,000 ML IV ONE ×2 (11:35→18:40)
[2021-07-30] MEDS ORDERED: diazePAM 10MG/2ML SYRINGE (J3360 PER 5MG) IV ONE ×2 (11:35→15:45)
[2021-07-30 14:08] LABS: BASO # 0.1 10^3/uL (0.0-0.2); BASO % 0.3 % (0.0-1.0); HEMATOCRIT 35.4 % (42.0-52.0); HEMOGLOBIN 11.7 g/dl (13.5-17.5); LYMPH # 1.2 10^3/uL (1.5-5.0); LYMPH % 6.8 % (24.0-44.0); MEAN CORPUSCULAR HEMOGLOBIN 32.3 pg (27.0-33.0); MEAN CORPUSCULAR HGB CONC 33.1 g/dl (32.0-36.5); MEAN CORPUSCULAR VOLUME 97.8 fl (80.0-96.0); MONO # 2.3 10^3/uL (0.0-0.8); MONO % 12.9 % (2.0-8.0); NEUTROPHILS # 13.9 10^3/uL (1.5-8.5); NEUTROPHILS % 78.3 % (36.0-66.0); PLATELET COUNT, AUTOMATED 187 10^3/uL (150-450); RED BLOOD COUNT 3.62 10^6/uL (4.30-6.10); WHITE BLOOD COUNT 17.7 10^3/uL (4.0-10.0)
[2021-07-30] MEDS ORDERED: LIDOCAINE 2% 5ML JELLY UROJET TOP ONE (14:30)
[2021-07-30 14:40] LABS: BILIRUBIN,DIRECT 0.2 MG/DL (0.0-0.2); BILIRUBIN,TOTAL 0.7 MG/DL (0.2-1.0); TOTAL PROTEIN 6.8 GM/DL (6.4-8.2)
[2021-07-30] MEDS ORDERED: ACETAMINOPHEN 500 MG TAB PO ONE (14:50)
[2021-07-30 14:59] LABS: ERYTHROCYTE SEDIMENTATION RATE 59 mm/hr (0-20)
[2021-07-30] MEDS ORDERED: cefTRIAXone SOD 1 GM in D5W MINI-BAG PLUS 50 ML IV ONE (15:35)
--- NOTE | 2021-07-30 17:38 | REPVR ---
PROCEDURE INFORMATION: Exam: CT Abdomen And Pelvis Without Contrast Exam date and time: 07/30/2021 4:20 PM Age: 61 years old Clinical indication: Fever; Additional info: UTI, fever, R/O stone TECHNIQUE: Imaging protocol: Computed tomography of the abdomen and pelvis without contrast. Radiation optimization: All CT scans at this facility use at least one of these dose optimization techniques: automated exposure control; mA and/or kV adjustment per patient size (includes targeted exams where dose is matched to clinical indication); or iterative reconstruction. COMPARISON: CT ABD PELVIS W/O CONTRAST 05/14/2021 10:36 AM FINDINGS: Limitations: Examination is limited by patient positioning. Liver: Unremarkable. Gallbladder and bile ducts: Unremarkable. No ductal dilation. Pancreas: Unremarkable. No ductal dilation. Spleen: Unremarkable. Adrenal glands: Normal. No mass. Kidneys and ureters: 1.9 cm fluid density cyst in the left kidney, to which no further follow-up is necessary. No hydronephrosis or stones. Stomach and bowel: Moderate stool burden throughout the colon. Appendix: No evidence of appendicitis. Intraperitoneal space: No pneumoperitoneum. No significant fluid collection. Vasculature: Unremarkable. Lymph nodes: No enlarged lymph nodes. Urinary bladder: Diffuse nonspecific wall thickening of the urinary bladder. Reproductive: Unremarkable as visualized. Bones/joints: No acute osseus lesion or fracture. Soft tissues: Unremarkable. IMPRESSION: 1. Diffuse nonspecific wall thickening of the urinary bladder. Correlate clinically with urinalysis to exclude cystitis. 2. No evidence of nephrolithiasis or hydronephrosis. Absence of IV contrast limits evaluation of the renal parenchyma. 3. Moderate stool burden throughout the colon. Electronically signed by: Stevie Sapp On 07/30/2021 17:37:59 PM
[2021-07-30] MEDS ORDERED: KETOROLAC 30 MG/ML 1ML VIAL IV ONE (18:00)
[2021-07-30] MEDS ORDERED: HOME MED LIST COMPLETE! XX SCH (18:50)
[2021-07-30] MEDS: NS 1,000 ML IV SCH ×3 (19:00→22:09)
[2021-07-30] MEDS ORDERED: LORazepam 2 MG TAB PO PRN (19:00)
[2021-07-30] MEDS ORDERED: IBUPROFEN 600MG TAB PO PRN (19:00)
[2021-07-30] MEDS ORDERED: ONDANSETRON 4MG/2ML VIAL IV PRN (19:05)
--- NOTE | 2021-07-30 19:09 | HPEPDOC ---
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 History is taken from the chart and [facility] staff. [facility] staff tell me that patient is normally very mobile and high energy, however within the past day he has been very lethargic with associated poor oral intake. Staff tell me that they decided to check his temp and noted it to be at 100.9. Due to his nonverbal status, patient is unable to voice complaints. Staff tell me that they have noted no falls, vomiting, diarrhea. Upon evaluation in the ED, patient found to meet sepsis criteria with temp of 100.8, pulse of 122, wbc of 17.7, and grossly +UA.] PAST MEDICAL HISTORY: 1. [See HPI PAST SURGICAL HISTORY: 1. [Endoscopy with esophageal clipping]. 2. [Bronchoscopy]. 3. [Colonoscopy]. SOCIAL HISTORY: Resides in: [[facility]] Unable to obtain rest of social history d/t nonverbal status FAMILY HISTORY: Unable to obtain family hx d/t nonverbal status ALLERGIES: Please see below. REVIEW OF SYSTEMS: Accurate ros unable to be obtained d/t nonverbal status HOME MEDICATIONS: Please see below. PHYSICAL EXAMINATION: VITAL SIGNS: Please see below. GENERAL APPEARANCE: [Somnolent 61 y/o male. Patient does not appear to be in any acute distress]. HEENT: [No mass or lesion. Nares patent. Oral mucosa moist]. CARDIOVASCULAR: [Tachy rate, regular rhythm. No murmurs, rubs, gallops]. LUNGS: [Good air flow b/l. No wheezing, rales, rhonchi]. ABDOMEN: [Soft. Nondistended]. MUSCULOSKELETAL: [No joint deformity noted]. EXTREMITIES: [No pedal edema appreciated. Pulses intact. No overlying skin changes]. NEUROLOGICAL: [Patient is somnolent]. PSYCHIATRIC: [Patient is somnolent]. LABORATORY DATA: See below. IMAGING: [CT Abd/pelvis: FINDINGS: Limitations: Examination is limited by patient positioning. Liver: Unremarkable. Gallbladder and bile ducts: Unremarkable. No ductal dilation. Pancreas: Unremarkable. No ductal dilation. Spleen: Unremarkable. Adrenal glands: Normal. No mass. Kidneys and ureters: 1.9 cm fluid density cyst in the left kidney, to which no further follow-up is necessary. No hydronephrosis or stones. Stomach and bowel: Moderate stool burden throughout the colon. Appendix: No evidence of appendicitis. Intraperitoneal space: No pneumoperitoneum. No significant fluid collection. Vasculature: Unremarkable. Lymph nodes: No enlarged lymph nodes. Urinary bladder: Diffuse nonspecific wall thickening of the urinary bladder. Reproductive: Unremarkable as visualized. Bones/joints: No acute osseus lesion or fracture. Soft tissues: Unremarkable. IMPRESSION: 1. Diffuse nonspecific wall thickening of the urinary bladder. Correlate clinically with urinalysis to exclude cystitis. 2. No evidence of nephrolithiasis or hydronephrosis. Absence of IV contrast limits evaluation of the renal parenchyma. 3. Moderate stool burden throughout the colon. ] MICROBIOLOGY: Please see below. 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 Upon evaluation in the ED, patient found to meet sepsis criteria with temp of 100.8, pulse of 122, wbc of 17.7, and grossly +UA.]. . PLAN: 1. [Sepsis 2/2 UTI - Most likely the cause of patients lethargy - Patient received first dose of rocephin, fluid boluses in the ED - Will continue rocephin on the floor - Will continue IVF d/t recent poor intake - Will begin pyridium tid - Urine culture sent - Blood cultures sent - Tylenol/ibuprofen for fevers - zofran for n/v - Admit to med surg for tx 2. Epilepsy - continue depakote, keppra, phenobarbital - will check depakote level 3. GERD - continue protonix 4. Constipation - appears to be chronic issue. continue bowel regimen 5. Behaviors 2/2 mental disability - Continue ativan, olanzipine, nightly benadryl, trazodone - will monitor patients need for sitters DVT prophylaxis - lovenox]. Vital Signs Vital Signs Date Time Temp Pulse Resp B/P (MAP) Pulse Ox O2 Delivery O2 Flow Rate FiO2 07/30/21 18:04 98.6 70 16 137/80 (99) 99 Room Air Laboratory Data Labs 24H Laboratory Tests 2 07/30/21 13:14: Immature Granulocyte % (Auto) 1.7, Neutrophils (%) (Auto) 78.3H, Lymphocytes (%) (Auto) 6.8L, Monocytes (%) (Auto) 12.9H, Eosinophils (%) (Auto) 0.0, Basophils (%) (Auto) 0.3, Neutrophils # (Auto) 13.9H, Lymphocytes # (Auto) 1.2L, Monocytes # (Auto) 2.3H, Eosinophils # (Auto) 0.0, Basophils # (Auto) 0.1, Nucleated Red Blood Cells % (auto) 0.0, Erythrocyte Sedimentation Rate 59H, Urine Color YELLOW, Urine Appearance CLOUDYH, Urine pH 6.0, Urine Specific [place] 1.017, Urine Protein 2+H, Urine Glucose (UA) NEGATIVE, Urine Ketones 1+H, Urine Blood 2+H, Urine Nitrite POSITIVEH, Urine Bilirubin NEGATIVE, Urine Urobilinogen 0.2, Urine Leukocyte Esterase 3+H, Urine WBC (Auto) TNTCH, Urine RBC (Auto) 11H, Urine Hyaline Casts (Auto) 0, Urine Bacteria (Auto) 1+H, Urine Squamous Epithelial Cells 0, Urine Mucus (Auto) SMALL, Urine Sperm (Auto) , Total Bilirubin 0.7, Direct Bilirubin 0.2, Aspartate Amino Transf (AST/SGOT) 72H, Alanine Aminotransferase (ALT/SGPT) 99H, Alkaline Phosphatase 87, C-Reactive Protein, Quantitative 27.00H, Total Protein 6.8, Albumin 3.0L, Albumin/Globulin Ratio 0.8, Lipase 55L 07/30/21 13:37: POC Glucose (Misc Panel) 104, POC Sodium (Misc Panel) 140, POC Potassium (Misc Panel) 3.9, POC Chloride (Misc Panel) 102, POC Total CO2 (Misc Panel) 28.0H, POC Blood Urea Nitrogen (Misc Panel 11, POC Ionized Calcium (Misc Panel) 4.8, POC Creatinine (Misc Panel) 0.8, POC Hematocrit (Misc Panel) 37.0L CBC/BMP Laboratory Tests 07/30/21 13:14 Microbiology Microbiology 07/30/21 Urine Culture, Received Pending 07/30/21 Blood Culture, Received Pending 07/30/21 Blood Culture, Received Pending 07/30/21 Respiratory Virus Panel (PCR) ([facility]) - Final, Complete Home Medications Scheduled Bisacodyl (Dulcolax) 10 Mg Supp.rect, 10 MG NV DAILY for constipation Calcium Carbonate/Vitamin D3 (Calcium 600 + Vit D 400 Softgl) 1 Each Capsule, 1 CAP PO BID Diphenhydramine HCl (Banophen) 50 Mg Capsule, 50 MG PO QPM for sleep Divalproex Sodium (Depakote) 500 Mg Tablet.dr, 1,000 MG PO QHS Levetiracetam (Keppra) 750 Mg Tab, 750 MG PO BID Magnesium Hydroxide (Milk of Magnesia) 400 Mg/5 Ml Oral.susp, 15 ML PO DAILY 1600 Olanzapine (Zyprexa) 20 Mg Tab, 20 MG PO QHS Pantoprazole Sodium (Pantoprazole Sodium) 40 Mg Tab, 40 MG PO BID Phenobarbital (Phenobarbital) 64.8 Mg Tab, 129.6 MG PO QHS Sennosides/Docusate Sodium (Senna-S Tablet) 1 Each Tablet, 2 TAB PO BID Trazodone HCl (Trazodone HCl) 100 Mg Tab, 300 MG PO QHS Scheduled PRN Lorazepam (Lorazepam) 2 Mg Tablet, 4 MG PO DAILY PRN for ANXIETY Allergies Coded Allergies: No Known Drug Allergies (Verified Allergy, Unknown, 07/14/21) A-FIB/CHADSVASC A-FIB History Current/History of A-Fib/PAF?: No Current PO Anticoag Therapy: No JOE RAMÍREZ Jul 30, 2021 19:09
--- OUTSIDE RECORDS SUMMARY | 2021-07-30 19:29 | CCD ---
Author Author [facility] Organization [facility] Address Unknown Phone Unavailable Care Team Providers Care Laundry Room Attendant Name Role Phone Alba Lira MD Unavailable [...] J Kia PA Unavailable Unavailable Trickey, J Kai PA Unavailable Unavailable Trickey, J Kia PA [...] is protected by Article 27-F of the [facility] Public Health law. If you continue you may have access to information: Regarding HIV / AIDS; Provided by facilities licensed or operated by the [facility] Office of Mental Health; or Provided by the [facility] Office for People With Developmental Disabilities. If such information is present, then the following [facility] mandated warning applies: This information has been [...] law may result in a fine or residential sentence or both. A general authorization for the release of medical or other information is NOT sufficient authorization for further disc losure. Encounters Encounter Providers Location Date Indications Data Source(s ) Outpatient Attender: Alba Reyes/Edinson/Jorge Luis/Lio ndadelfo 07/22/2021 01:30:00 PM EDT MED[facility] ([facility]) [place] [address] [facility] [address] 07/21/2021 12:00:00 AM EDT eCW1 ([facility]) Unknown [address] [facility] [address] 07/15/2021 12:00:00 AM EDT eCW1 ([facility]) Outpatient Admitter: GO ESCAMILLAReferrer: GO ESCAMILLA 07/14/2021 12:00:00 AM EDT [facility] Unknown [address] [facility] [address] 07/07/2021 12:00:00 AM EDT eCW1 ([facility]) [place] [address] [facility] [address] 06/30/2021 12:00:00 AM EDT eCW1 ([facility]) Unknown [address] [facility] [address] 06/23/2021 12:00:00 AM EDT eCW1 ([facility]) Unknown [address] [facility] [address] 06/23/2021 12:00:00 AM EDT eCW1 ([facility]) [place] [address] [facility] [address] 06/16/2021 12:00:00 AM EDT [facility] Outpatient Attender: Alba Reyes/Edinson/Jorge Luis/Lio ndadelfo 06/13/2021 09:30:00 AM EDT [facility] ([facility]) Unknown [address] [facility] [address] 06/13/2021 12:00:00 AM EDT [facility] [place] [address] [facility] [address] 06/13/2021 12:00:00 AM EDT eCW1 [facility] [place] [address] [facility] [address] 05/27/2021 12:00:00 AM EDT eCW1 ([facility]) Unknown [address] [facility] [address] 05/26/2021 12:00:00 AM EDT eCW1 ([facility]) Unknown [address] [facility] [address] 05/26/2021 12:00:00 AM EDT eCW1 ([facility] [place] [address] [facility] [address] 05/20/2021 12:00:00 AM EDT eCW1 ([facility]) Outpatient [address] [facility] [address] 05/20/2021 12:00:00 AM EDT eCW1 ([facility]) Unknown [address] [facility] [address] 05/19/2021 12:00:00 AM EDT eCW1 ([facility]) Unknown [address] [facility] [address] 05/16/2021 12:00:00 AM EDT eCW1 ([facility]) Unknown [address] [facility] [address] 05/09/2021 12:00:00 AM EDT eCW1 ([facility] Office Visit, Est Pt., Level 5 PC [address] [place] [address] 05/07/2021 12:00:00 AM EDT eCW1 ([facility]) Outpatient [address] [facility] [address] 04/21/2021 12:00:00 AM EDT eCW1 ([facility]) Unknown [address] [facility] [address] 04/21/2021 12:00:00 AM EDT eCW1 ([facility]) Outpatient [address] [facility] [address] 04/11/2021 12:00:00 AM EDT eCW1 ([facility]) Unknown [address] [facility] [address] 04/11/2021 12:00:00 AM EDT eCW1 ([facility]) Office Visit, Est Pt., Level 3 PC [address] [place] [address] 04/01/2021 12:00:00 AM EDT eCW1 ([facility]) Unknown [address] [facility] [address] 03/28/2021 12:00:00 AM EDT eCW1 ([facility]) Unknown [address] [facility] [address] 03/17/2021 12:00:00 AM EDT eCW1 ([facility]) Outpatient Attender: Kia YIN Main office - [facility] 03/12/2021 08:45:00 AM EDT [facility] ([facility]) Unknown [address] [facility] [address] 01/27/2021 12:00:00 AM EDT eCW1 ([facility]) Unknown [address] [facility] [address] 01/15/2021 12:00:00 AM EDT eCW1 ([facility]) Unknown [address] [facility] [address] 01/13/2021 12:00:00 AM EDT eCW1 ([facility]) Unknown [address] [facility] [address] 01/10/2021 12:00:00 AM EDT eCW1 ([facility]) Unknown [address] [facility] [address] 01/06/2021 12:00:00 AM EDT eCW1 ([facility]) Unknown [address] [facility] [address] 01/06/2021 12:00:00 AM EDT eCW1 ([facility]) Outpatient [address] [facility] [address] 12/16/2020 12:00:00 AM EDT eCW1 ([facility]) Office Visit Attender: Kia YIN Main office - [facility] 12/06/2020 08:15:00 AM EST MED[facility] ([facility]) Unknown [address] [facility] [place] [address] 10/23/2020 12:00:00 AM EST [facility]) [place] [address] [facility] [address] 10/09/2020 12:00:00 AM EST [facility]CW1 [facility]) Unknown [address] [facility] [address] 10/08/2020 12:00:00 AM EST [facility]CW1 ([facility]) Unknown [address] [facility] [address] 09/12/2020 12:00:00 AM EST [facility]CW1 ([facility]) Unknown [address] [facility] [address] 09/05/2020 12:00:00 AM EST eCW1 ([facility]) [place]patient [address] [facility] [place] [address] 08/19/2020 12:00:00 AM EST eCW1 ([facility]) Unknown [address] [facility] [address] 07/22/2020 12:00:00 AM EDT eCW1 ([facility]) Unknown [address] [facility] [address] 07/04/2020 12:00:00 AM EDT eCW1 ([facility]) Outpatient Attender: Kia YIN Main office - [facility] 06/06/2020 09:15:00 AM EDT MED[facility] ([facility]) Immunizations Vaccine Date Status Description Data Source(s) COVID-19 VACCINE Moderna 11/12/2020 12:00:00 AM EST completed [facility] Vaccine Series Complete: NOThis Data was Submitted to [facility] Via [employer]. Medications Medication Brand Name Start Date Product Form Dose Route Admi nistrative Instructions Pharmacy Instructions Status Indications Reaction Description Data Source(s) Lorazepam 2 MG Oral Tablet [Ativan] Ativan 2 MG Ativan 2 MG 06/13/2021 12:00:00 AM EDT 2.0 {tablets} active [facility]am 2 MG Oral Tablet [Ativan] Ativan 2 MG Ativan 2 MG 06/13/2021 12:00:00 AM EDT 2.0 {tablets} active Ativan 2 M G [facility] Lorazepam 2 MG Oral Tablet [Ativan] Ativan 2 MG Ativan 2 MG 06/13/2021 12:00:00 AM EDT 2.0 {tablets} active Ativan 2 M G [facility]CW1 ([facility]) Lorazepam 2 MG Oral Tablet [Ativan] Ativan 2 MG Ativan 2 MG 06/13/2021 12:00:00 AM EDT 2.0 {tablets} active Ativan 2 M G [facility]CW1 ([facility]) Lorazepam 2 MG Oral Tablet [Ativan] Ativan 2 MG Ativan 2 MG 06/13/2021 12:00:00 AM EDT 2.0 {tablets} active Ativan 2 M G eCW1 ([facility]) Lorazepam 2 MG Oral Tablet [Ativan] Ativan 2 MG Ativan 2 MG 06/13/2021 12:00:00 AM EDT 2.0 {tablets} active Ativan 2 M G eCW1 ([facility]) Lorazepam 2 MG Oral Tablet [Ativan] Ativan 2 MG Ativan 2 MG 06/13/2021 12:00:00 AM EDT 2.0 {tablets} active Ativan 2 M G eCW1 ([facility]) Lorazepam 2 MG Oral Tablet [Ativan] Ativan 2 MG Ativan 2 MG 06/13/2021 12:00:00 AM EDT 2.0 {tablets} active Ativan 2 M G eCW1 ([facility]) Lorazepam 2 MG Oral Tablet [Ativan] Ativan 2 MG Ativan 2 MG 06/13/2021 12:00:00 AM EDT 2.0 {tablets} active Ativan 2 M G eCW1 ([facility]) Lorazepam 2 MG Oral Tablet [Ativan] Ativan 2 MG Ativan 2 MG 05/26/2021 12:00:00 AM EDT 2.0 {tablets} active Ativan 2 M G eCW1 ([facility]) Lorazepam 2 MG Oral Tablet [Ativan] Ativan 2 MG Ativan 2 MG 05/26/2021 12:00:00 AM EDT 2.0 {tablets} active Ativan 2 M G eCW1 ([facility]) Lorazepam 2 MG Oral Tablet [Ativan] Ativan 2 MG Ativan 2 MG 05/26/2021 12:00:00 AM EDT 2.0 {tablets} active Ativan 2 M G eCW1 ([facility]) Lorazepam 2 MG Oral Tablet [Ativan] Ativan 2 MG Ativan 2 MG 05/19/2021 12:00:00 AM EDT 3.0 {tablets} active Ativan 2 M G eCW1 ([facility]) Lorazepam 2 MG Oral Tablet [Ativan] Ativan 2 MG Ativan 2 MG 05/19/2021 12:00:00 AM EDT 3.0 {tablets} active Ativan 2 M G eCW1 ([facility]) Divalproex Sodium 500 MG Delayed Release Oral Tablet Divalpr oex Sodium 500 MG 05/07/2021 12:00:00 AM EDT 2.0 {tablet} active Divalproex Sodium 500 MG eCW1 ([facility]) Divalproex Sodium 500 MG Delayed Release Oral Tablet Divalpr oex Sodium 500 MG 05/07/2021 12:00:00 AM EDT 1.0 {tablet} active Divalproex Sodium 500 MG eCW1 ([facility]) Divalproex Sodium 500 MG Delayed Release Oral Tablet Divalpr oex Sodium 500 MG 05/07/2021 12:00:00 AM EDT 1.0 {tablet} active Divalproex Sodium 500 MG eCW1 ([facility]) Divalproex Sodium 500 MG Delayed Release Oral Tablet Divalpr oex Sodium 500 MG 05/07/2021 12:00:00 AM EDT 2.0 {tablet} active Divalproex Sodium 500 MG eCW1 ([facility]) Divalproex Sodium 500 MG Delayed Release Oral Tablet Divalpr oex Sodium 500 MG 05/07/2021 12:00:00 AM EDT 2.0 {tablet} active Divalproex Sodium 500 MG eCW1 ([facility]) Divalproex Sodium 500 MG Delayed Release Oral Tablet Divalpr oex Sodium 500 MG 05/07/2021 12:00:00 AM EDT 2.0 {tablet} active Divalproex Sodium 500 MG eCW1 ([facility] Divalproex Sodium 500 MG Delayed Release Oral Tablet Divalpr oex Sodium 500 MG 05/07/2021 12:00:00 AM EDT 2.0 {tablet} active Divalproex Sodium 500 MG eCW1 ([facility]) Divalproex Sodium 500 MG Delayed Release Oral Tablet Divalpr oex Sodium 500 MG 05/07/2021 12:00:00 AM EDT 1.0 {tablet} active Divalproex Sodium 500 MG eCW1 ([facility]) Divalproex Sodium 500 MG Delayed Release Oral Tablet Divalpr oex Sodium 500 MG 05/07/2021 12:00:00 AM EDT 1.0 {tablet} active Divalproex Sodium 500 MG eCW1 ([facility]) Divalproex Sodium 500 MG Delayed Release Oral Tablet Divalpr oex Sodium 500 MG 05/07/2021 12:00:00 AM EDT 2.0 {tablet} active Divalproex Sodium 500 MG eCW1 ([facility]) Divalproex Sodium 500 MG Delayed Release Oral Tablet Divalpr oex Sodium 500 MG 05/07/2021 12:00:00 AM EDT 1.0 {tablet} active Divalproex Sodium 500 MG eCW1 ([facility]) Divalproex Sodium 500 MG Delayed Release Oral Tablet Divalpr oex Sodium 500 MG 05/07/2021 12:00:00 AM EDT 1.0 {tablet} active Divalproex Sodium 500 MG eCW1 ([facility]) Divalproex Sodium 500 MG Delayed Release Oral Tablet Divalpr oex Sodium 500 MG 05/07/2021 12:00:00 AM EDT 2.0 {tablet} active Divalproex Sodium 500 MG eCW1 ([facility]) Divalproex Sodium 500 MG Delayed Release Oral Tablet Divalpr oex Sodium 500 MG 05/07/2021 12:00:00 AM EDT 2.0 {tablet} active Divalproex Sodium 500 MG eCW1 ([facility]) Divalproex Sodium 500 MG Delayed Release Oral Tablet Divalpr oex Sodium 500 MG 05/07/2021 12:00:00 AM EDT 2.0 {tablet} active Divalproex Sodium 500 MG eCW1 ([facility]) Divalproex Sodium 500 MG Delayed Release Oral Tablet Divalpr oex Sodium 500 MG 05/07/2021 12:00:00 AM EDT 1.0 {tablet} active Divalproex Sodium 500 MG eCW1 ([facility]) Divalproex Sodium 500 MG Delayed Release Oral Tablet Divalpr oex Sodium 500 MG 05/07/2021 12:00:00 AM EDT 1.0 {tablet} active Divalproex Sodium 500 MG eCW1 ([facility]) Divalproex Sodium 500 MG Delayed Release Oral Tablet Divalpr oex Sodium 500 MG 05/07/2021 12:00:00 AM EDT 2.0 {tablet} active Divalproex Sodium 500 MG eCW1 ([facility]) Divalproex Sodium 500 MG Delayed Release Oral Tablet Divalpr oex Sodium 500 MG 05/07/2021 12:00:00 AM EDT 2.0 {tablet} active Divalproex Sodium 500 MG eCW1 ([facility]) Bisacodyl 10 MG Rectal Suppository [Dulcolax] Dulcolax 10 MG Dulcolax 10 MG 01/06/2021 12:00:00 AM EDT 1.0 {suppository} active Dulcolax 10 MG eCW1 ([facility]) Bisacodyl 10 MG Rectal Suppository [Dulcolax] Dulcolax 10 MG Dulcolax 10 MG 01/06/2021 12:00:00 AM EDT 1.0 {suppository} active Dulcolax 10 MG eCW1 ([facility]) Bisacodyl 10 MG Rectal Suppository [Dulcolax] Dulcolax 10 MG Dulcolax 10 MG 01/06/2021 12:00:00 AM EDT 1.0 {suppository} active Dulcolax 10 MG eCW1 ([facility]) Bisacodyl 10 MG Rectal Suppository [Dulcolax] Dulcolax 10 MG Dulcolax 10 MG 01/06/2021 12:00:00 AM EDT 1.0 {suppository} active Dulcolax 10 MG eCW1 [facility]) Bisacodyl 10 MG Rectal Suppository [Dulcolax] Dulcolax 10 MG Dulcolax 10 MG 01/06/2021 12:00:00 AM EDT 1.0 {suppository} active Dulcolax 10 MG eCW1 ([facility]) Docusate Sodium 50 MG / sennosides, INTERMEDIATE 8.6 MG Oral Ta blet Senna S 8.6-50 MG Senna S 8.6-50 MG 01/06/2021 12:00:00 AM EDT active Senna S 8.6-50 MG eCW1 ([facility] Bisacodyl 10 MG Rectal Suppository [Dulcolax] Dulcolax 10 MG Dulcolax 10 MG 01/06/2021 12:00:00 AM EDT 1.0 {suppository} active Dulcolax 10 MG eCW1 [facility] Bisacodyl 10 MG Rectal Suppository [Dulcolax] Dulcolax 10 MG Dulcolax 10 MG 01/06/2021 12:00:00 AM EDT 1.0 {suppository} active Dulcolax 10 MG eCW1 ([facility]) Docusate Sodium 50 MG / sennosides, INTERMEDIATE 8.6 MG Oral Ta blet Senna S 8.6-50 MG Senna S 8.6-50 MG 01/06/2021 12:00:00 AM EDT active Senna S 8.6-50 MG eCW1 ([facility]) Bisacodyl 10 MG Rectal Suppository [Dulcolax] Dulcolax 10 MG Dulcolax 10 MG 01/06/2021 12:00:00 AM EDT 1.0 {suppository} active Dulcolax 10 MG eCW1 ([facility]) Bisacodyl 10 MG Rectal Suppository [Dulcolax] Dulcolax 10 MG Dulcolax 10 MG 01/06/2021 12:00:00 AM EDT 1.0 {suppository} active Dulcolax 10 MG eCW1 [facility] Bisacodyl 10 MG Rectal Suppository [Dulcolax] Dulcolax 10 MG Dulcolax 10 MG 01/06/2021 12:00:00 AM EDT 1.0 {suppository} active Dulcolax 10 MG eCW1 ([facility]) Docusate Sodium 50 MG / sennosides, INTERMEDIATE 8.6 MG Oral Ta blet Senna S 8.6-50 MG Senna S 8.6-50 MG 01/06/2021 12:00:00 AM EDT active Senna S 8.6-50 MG eCW1 ([facility]) Bisacodyl 10 MG Rectal Suppository [Dulcolax] Dulcolax 10 MG Dulcolax 10 MG 01/06/2021 12:00:00 AM EDT 1.0 {suppository} active Dulcolax 10 MG eCW1 [facility] Docusate Sodium 50 MG / sennosides, INTERMEDIATE 8.6 MG Oral Ta blet Senna S 8.6-50 MG Senna S 8.6-50 MG 01/06/2021 12:00:00 AM EDT active Senna S 8.6-50 MG eCW1 ([facility] Bisacodyl 10 MG Rectal Suppository [Dulcolax] Dulcolax 10 MG Dulcolax 10 MG 01/06/2021 12:00:00 AM EDT 1.0 {suppository} active Dulcolax 10 MG eCW1 [facility] Bisacodyl 10 MG Rectal Suppository [Dulcolax] Dulcolax 10 MG Dulcolax 10 MG 01/06/2021 12:00:00 AM EDT 1.0 {suppository} active Dulcolax 10 MG eCW1 [facility] Docusate Sodium 50 MG / sennosides, INTERMEDIATE 8.6 MG Oral Ta blet Senna S 8.6-50 MG Senna S 8.6-50 MG 01/06/2021 12:00:00 AM EDT active Senna S 8.6-50 MG eCW1 [facility] Bisacodyl 10 MG Rectal Suppository [Dulcolax] Dulcolax 10 MG Dulcolax 10 MG 01/06/2021 12:00:00 AM EDT 1.0 {suppository} active Dulcolax 10 MG [facility]CW1 [facility] Bisacodyl 10 MG Rectal Suppository [Dulcolax] Dulcolax 10 MG Dulcolax 10 MG 01/06/2021 12:00:00 AM EDT 1.0 {suppository} active Dulcolax 10 MG eCW1 [facility] Bisacodyl 10 MG Rectal Suppository [Dulcolax] Dulcolax 10 MG Dulcolax 10 MG 01/06/2021 12:00:00 AM EDT 1.0 {suppository} active Dulcolax 10 MG eCW1 [facility] Bisacodyl 10 MG Rectal Suppository [Dulcolax] Dulcolax 10 MG Dulcolax 10 MG 01/06/2021 12:00:00 AM EDT 1.0 {suppository} active Dulcolax 10 MG eCW1 [facility] Bisacodyl 10 MG Rectal Suppository [Dulcolax] Dulcolax 10 MG Dulcolax 10 MG 01/06/2021 12:00:00 AM EDT 1.0 {suppository} active Dulcolax 10 MG [facility]CW1 [facility] Docusate Sodium 50 MG / sennosides, INTERMEDIATE 8.6 MG Oral Ta blet Senna S 8.6-50 MG Senna S 8.6-50 MG 01/06/2021 12:00:00 AM EDT active Senna S 8.6-50 MG [facility]CW[facility] Insurance Providers Payer name Policy type / Coverage type Policy ID Covered constitution party ID Covered constitution party's relationship to wild Policy Wild Plan Information MEDICARE A [id number] Self [id number] MEDICARE A [id number] Self [id number] MEDICARE [id number] SP [id number] MEDICAID M [id number] Self [id number] ANSI-Medicare Part B [id number] ANSI-Medicare Part B [id number] ANSI-Medicaid [id number] ANSI-Medicare Part B [id number] ANSI-Medicaid [id number] ANSI-Medicare Part B [id number] ANSI-Medicaid [id number] Medicaid Medifarrell Part B [id number] 43.0 Self [id number] Medicare Part B Medicare Primary [id number] Self [id number] ANSI-Medicare Part B [id number] ANSI-Medicaid [id number] ANSI-Medicaid [id number] ANSI-Medicare Part B [id number] MEDICARE [id number] ANSI-Medicaid [id number] ANSI-Medicare Part B [id number] ANSI-Medicaid [id number] ANSI-Medicare Part B [id number] ANSI-Medicare Part B [id number] ANSI-Medicaid [id number] ANSI-Medicaid [id number] ANSI-Medicare Part B [id number] ANSI-Medicaid [id number] ANSI-Medicare Part B [id number] ANSI-Medicaid [id number] ANSI-Medicare Part B [id number] ANSI-Medicare Part B [id number] ANSI-Medicaid [id number] ANSI-Medicare Part B [id number] ANSI-Medicaid [id number] ANSI-Medicaid [id number] [facility] [id number] Medicaid Medigap Part B [id number] 43.0 Self [id number] Medicare Part B Medicare Primary [id number] Self [id number] [facility] MEDICAID [id number] SP [id number] Medicare Part B Medicare Primary [id number] Self [id number] Medicaid Medigap Part B [id number] 43.0 Self [id number] Medicare Part B Medicare Primary [id number] Self [id number] Medicaid Medigap Part B [id number] 43.0 Self [id number] MEDICARE [id number] SP [id number] EMEDNY [id number] SP [id number] MEDICAID [id number] SP [id number] [facility]-Medicaid [id number] Problems, Conditions, and Diagnoses Code Display Name Description Problem Type Effective Dates Data Source(s) E04.1 [id number] Thyroid nodule Problem 05/16/2021 12:00:00 A M [facility] F90.9 [id number] Hyperactivity Problem 05/07/2021 12:00:00 AM EDT [facility]) G47.9 [id number] Sleep disturbance Problem 05/07/2021 12:00:0 0 AM EDT [facility] ([facility]) M85.80 [id number] Borderline osteopenia Problem 04/21/2021 12: 00:00 AM EDT [facility] ([facility]) Surgeries/Procedures Procedure Description Date Indications Data Source(s) OFFICE OUTPATIENT VISIT 25 MINUTES 07/22/2021 12:00:00 AM EDT [facility] ([facility]) Bronchoscopy W/Bronchial Alveolar Lavage 07/16/2021 12 :00:00 [facility] Bronchoscopy Rigid/Flexible Fluoroscopic Guide Computer-Assi sted 07/16/2021 12:00:00 AM EDT [facility] ([facility]) Bronchoscopy W/Transbronchial Lung Biopsy 07/16/2021 1 2:00:00 AM [facility] With Endobronchial Ultrasound Guided 07/16/2021 12:00: 00 AM EDT [facility] OFFICE OUTPATIENT NEW 45 MINUTES 06/13/2021 12:00:00 A M EDT [facility] ([facility]) Results ID Date Data Source [id number] 07/16/2021 10:48:00 AM EDT [facility] Name Value Range Interpretation Code Description Data Dafne rce(s) Supporting Document(s) Surgical pathology study Laboratory test result [facility]) <content>FINAL DIAGNOSIS</content>
< content></content>
<content>A - [...] 07/18/2021 0852</content>
<content></content> ID Date Data Source [id number] 07/16/2021 10:30:00 AM EDT [facility] ([facility]) Name Value Range Interpretation Code Description Data Dafne rce(s) Supporting Document(s) Microscopic observation [Identifier] in Unspecified specimen by Non- gynecological cytology method Laboratory test result [facility] ([facility]) SPECIMEN: Bronchoalveolar lav age 2ml [place] with red flecks SPECIMEN ADEQUACY: Satisfactory for evaluation CATEGORIZATION: No Malignancy identified DESCRIPTIONS: Scattered bronchial cells noted in a background of blood elements. 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 Cultural examination is highly recommended for clinical diagnosis. AFB smear Kinyoun NEGATIVE (NO AFB Seen ) ID Date Data Source [id number] 07/16/2021 10:30:00 AM EDT [facility] ([facility]) Name Value Range Interpretation Code Description Data Dafne rce(s) Supporting Document(s) Gram Stain Laboratory test result Normal (applies to non-n umeric results) [facility] ([facility]) NO CELLS SEEN NO ORGANISMS SEEN Bal Culture Laboratory test result Normal (applies to non- numeric results) [facility] ([facility]) FULL REPORT [facility] LAB NOTES ([facility] NO GROWTH AEROBICALLY ID Date Data Source [id number] 07/16/2021 10:20:00 AM EDT [facility] ([facility]) Name Value Range Interpretation Code Description Data Dafne rce(s) Supporting Document(s) Microscopic observation [Identifier] in Unspecified specimen by Non- gynecological cytology method Laboratory test result [facility] ([facility]) SPECIMEN: FNA Left lower lobe lung Slides and Cytolyt (red) received SPECIMEN ADEQUACY: Satisfactory for evaluation CATEGORIZATION: No Malignancy identified DESCRIPTIONS: Specimen consists mainly of red blood cells with rare bronchial cells, neutrophils, and lymphocytes noted. COMMENTS: 07/17/20211027 Signed ASHER LAL CT(ASCP) 07/17/2021 1029 (Prelim) Signed CLARE SHARMA MD 07/18/2021 0852 ID Date Data Source [id number] 07/14/2021 08:08:00 AM EDT [facility] ([facility]) Name Value Range Interpretation Code Description Data Dafne rce(s) Supporting Document(s) Surgical pathology study Laboratory test result [facility] ([facility]) FINAL DIAGNOSIS Peripheral blood, flow cytometry: [...] T-cell receptor gamma chain gene rearrangement. See [facility] [id number] and [id number]. 07/18/2021929 CLINICAL DIAGNOSIS Leukopenia 07/15/20211303 GROSS DIAGNOSIS Received two green and two purple top tubes of peripheral blood submitted to [facility]. for flow cytometry. -OA 07/15/20211303 Signed GO ESCAMILLA MD 07/18/2021 0931 ID Date Data Source [id number] 07/14/2021 08:08:00 AM EDT [facility] ([facility]) Name Value Range Interpretation Code Description Data Dafne rce(s) Supporting Document(s) Laboratory test finding (navigational concept) Laboratory test r esult Normal (applies to non-numeric results) [facility] ([facility]my, ) SEE PATHOLOGY REPORT Specimen Collection for Pathology Reference Lab Testing. Refer to [facility] Pathology Report for Results:[id number] ID Date Data Source [id number] 07/14/2021 08:08:00 AM EDT [facility] ([facility]) Name Value Range Interpretation Code Description Data Dafne rce(s) Supporting Document(s) QuantiFERON Criteria Laboratory test result Norm al (applies to non-numeric results) [facility] ([facility]) . The QuantiFERON-TB Gold Plus result is determined by subtracting the Nil value from either TB antigen (Ag) tube. The mitogen tube serves as a control for the test. QuantiFERON TB1 Ag Value 0.08 IU/ml Normal (applies to non -numeric results) [facility]) QuantiFERON TB2 Ag Value 0.07 IU/ml Normal (applies to non -numeric results) [facility]) QuantiFERON Nil Value 0.07 IU/ml Normal (applies to non-nu meric results) [facility] ([facility]) QuantiFERON Mitogen Value Laboratory test result Normal (applies to non- numeric results) [facility]) QuantiFERON-TB Gold Plus Laboratory test result Normal (applies to non-numeric results) [facility]) The specimen received for QuantiFERON te sting was incubated by the ordering institution. Specific procedures outlined in our Directory of Services and in the package insert for the QuantiFERON Gold (In Tube) test must be followed to enable for proper stimulation of cells for the production of interferon gamma. Chemiluminescence immunoassay methodology Performed at: - [facility] [id number] Headend Technician: Alda Mac MD, Phone: [phone] ID Date Data Source [id number] 07/14/2021 08:08:00 AM EDT [facility]) Name Value Range Interpretation Code Description Data Dafne rce(s) Supporting Document(s) Prothrombin Time 12.8 s 12.7-14.5 Normal (applies to non-numeric results) [facility]) Inr 0.93 Normal (applies to non-numeric resul ts) [facility]) THERAPUTIC HUMAN INR VALUES INDICATIONS NORMAL RANGES PROPHYLAXIS/TREATMENT OF: VENOUS THROMBOSIS 2.0-3.0 PULMONARY EMBOLISM 2.0-3.0 PREVENTION OF SYSTEMIC EMBOLISM FROM: TISSUE HEART VALVES 2.0-3.0 ACUTE MYOCARDIAL INFARCTION 2.0-3.0 VALVULAR HEART DISEASE 2.0-3.0 ATRIAL FIBRILLATION 2.0-3.0 MECHANICAL VALVES(HIGH RISK) 2.5-3.5 RECURRENT MYOCARDIAL INFARCTION 2.5-3.5 Partial Thromboplastin Time 30.2 s 25.9-37.0 Norm al (applies to non-numeric results) [facility]) ID Date Data Source [id number] 07/14/2021 08:08:00 AM EDT [facility]) Name Value Range Interpretation Code Description Data Dafne rce(s) Supporting Document(s) Glucose, Fasting 80 mg/dL 70-100 Normal (applies to non-numeric results) [facility] ([facility]) Blood Urea Nitrogen 9 mg/dL 7-18 Normal (applies to non-nume anisha results) [facility] ([facility]) Creatinine For GFR 0.82 mg/dL 0.70-1.30 Normal (applies to non -numeric results) [facility] ([facility]) Glomerular Filtration Rate Laboratory test result Normal (applies to non- numeric results) [facility]) <content>Units are mL/min/1.73 m2</content>
<content></content>
<content>Chronic Kidney Disease Staging per NKF:</content>
<content></content>
<content>Stage I & II GFR >=60 Normal to Mildly Decreased</content>
<content>Stage III GFR 30- 59 Moderately Decreased</content>
<content>Stage IV GFR 15-29 Severely Decreased</content>
<content>Stage V GFR <15 Very Little GFR Left</content>
<content>ESRD GFR <15 on BLOW UP OPERATOR</content>
<content></content> Sodium Level 140 meq/L 136-145 Normal (applies to non-numeric res ults) [facility] ([facility]) Potassium Serum 4.4 meq/L 3.5-5.1 Normal (applies to non-numeric results) [facility]) Chloride Level 105 meq/L 98-107 Normal (applies to non-numeric r esults) [facility]) Carbon Dioxide Level 32 meq/L 21-32 Normal (applies to non-num shiv results) [facility] ([facility]) Anion Gap 3 meq/L 8-16 Below low normal [facility] Calcium Level 9.3 mg/dL 8.8-10.2 Normal (applies to non-numeric re sults) [facility] ([facility]) ID Date Data Source [id number] 07/14/2021 08:08:00 AM EDT [facility] ([facility]) Name Value Range Interpretation Code Description Data Dafne rce(s) Supporting Document(s) White Blood Count 2.2 10 4.0-10.0 Below low normal [facility] ([facility]) Red Blood Count 3.98 10 4.30-6.10 Below low normal [facility] ([facility]) Hemoglobin 12.7 g/dL 13.5-17.5 Below low normal [facility] ( [facility]) Hematocrit 39.4 % 42.0-52.0 Below low normal [facility] ( [facility]) Mean Corpuscular Hemoglobin 31.9 pg 27.0-33.0 Norm al (applies to non-numeric results) [facility] ([facility]) Mean Corpuscular Volume 99.0 fl 80.0-96.0 Above high normal [facility] ([facility]) Red Cell Distribution Width 13.0 % 11.5-14.5 Norm al (applies to non-numeric results) [facility] ([facility]) Mean Corpuscular HGB Conc 32.2 g/dL 32.0-36.5 Normal (applies to non-numeric results) [facility] Lymph % 58.9 % 24.0-44.0 Above high normal [facility] Platelet Count, Automated 190 10 150-450 Normal (applies to non-numeric results) [facility] ([facility]) Neutrophils % 16.4 % 36.0-66.0 Below low normal [facility] ([facility]) Baso % 0.9 % 0.0-1.0 Normal (applies to non-numeric resul ts) [facility] ([facility]) Eos % 4.6 % 0.0-3.0 Above high normal [facility] ([facility]) Whiteside % 19.2 % 2.0-8.0 Above high normal [facility] ([facility]) Immature Granulocyte % 0.0 % 0-3.0 Normal (applies to non-n umeric results) [facility] ([facility]) Nucleated Red Blood Cell % 0.0 % 0-0 Normal (applies to n on-numeric results) [facility] ([facility]) Neutrophils # 0.4 10 1.5-8.5 Below low normal [facility] ([facility]) Scan Verified machine results. VERIFIED Whiteside # 0.4 10 0.0-0.8 Normal (applies to non-numeric resul ts) [facility] ([facility]) Lymph # 1.3 10 1.5-5.0 Below low normal [facility] ( [facility]) Baso # 0.0 10 0.0-0.2 Normal (applies to non-numeric resul ts) [facility] ([facility]) Eos # 0.1 10 0.0-0.5 Normal (applies to non-numeric resul ts) [facility] ([facility]) ID Date Data Source [id number] 07/16/2021 12:25:00 PM T [facility] Hematopathology Report See Addendum Faisal Shelton: ELIANE FRAGAMRN: [id number] Number: [id number] Date: 07/14/2021 08:08Received Date: 07/15/2021 13:18Physician(s): GO [...] 07/18/2021 PCR testing of this specimen (see [id number]) is negative for a clonalrearrangement of the T cell receptor gamma chain gene (TCRG), providing noevidence for a clonal T cell lymphoproliferation. Addendum Electronically Signed By: Margareth Guevara MD 07/18/2021 13:45 ProceduresFlow Cytometry Date Ordered:07/15/2021 Status: Signed Out07/16/2021 InterpretationPERIPHERAL BLOOD: CBC performed at [facility], [address] [place] [id number] on 07/15/21.WBC *2.2 K/uLRBC *3.98 M/uLHgb *12.7 g/dLHct *39.4 %MCV *99.0 fLMCH 31.9 pgMCHC 32.2 g/dLRDW 13.0 %Platelets 190 K/uLDifferential Count (automated):16,4 % Neutrophils 4.6 % Eosinophils 0.9 % Xfvninbog93.9 % Giuxewgenso59.2 % Monocytes-------100.0 % A peripheral blood film is reviewed.Lymphoid Panel: Gabino Cano HP21 [id number] following markers were assayed: CD45 (gate), CD2, CD3, CD4, CD5, CD7,CD8, CD10, CD11c, CD19,CD20, CD22, CD23, CD25, CD38, CD56, CD57, CD103, Serena, Lambda, and FMC7.# even ts:[id number]: 93%Flow Cytometry Differential (CD45/SSC)Lymphocyte Acushnet: 57%CD45 dim Acushnet: 1%Monocyte Acushnet: 7%Granulocyte Acushnet: 28%Nucleated/Erythroid Acushnet: 3%The lymphocyte gate showsB-cells (CD19): 11%Serena/Lambda Ratio: 1.4T- cells (CD3): 62%NK-cells (CD3-/CD56+): 21%CD4/CD8 Ratio: 1.7Results: (expressed as % of lymphocyte gate)T-cell Markers: CD2 = 76, CD3 = 62, CD3/CD4 = 31, CD3/CD8 = 17, CD5 = 65,CD7 = 80, CD3/57 = 23B-cell markers: Serena = 6, Lambda = 4, CD19 = 11, CD20 = 13, CD19/10 = 1,CD19/CD5 = 2,CD38/CD20 = 10, CD22 = 13, CD19/CD23 = 10, FMC7 = 10Light chain as % of B-Cells: CD19/Serena = 53, CD19/Lambda = 38CD19/CD5/Serena = 3, CD19/CD5/Lambda = 3CD19/CD10/Serena = 3, CD19/CD10/Lambda = 2CD38 on CD19/5 [...] 3, CD7 =3, CD3/57 = 0B-cell markers: Serena = 0, Lambda = 0, CD19 = 0, CD20 = 1, CD19/10 = 0,CD19/CD5 = 0,CD38/CD20 = 1, CD22 = 0, CD19/CD23 = 0, FMC7 = 0Light chain as % of B-Cells: CD19/Serena = 0, CD19/Lambda = 0CD19/CD5/Serena = 0, CD19/CD5/Lambda = 0CD19/CD10/Serena = 0, CD19/CD10/Lambda = 0NK cell Markers: CD56 = 3, CD57 = 1Other Markers: CD10 = 1, CD38 = 60, CD25 = 0, CD103 = 1, CD11c = 1,CD103/CD11c = 0, CD103/25 = 0,CD103/22 = 0Results-CommentsThe gated population of lymphocytes consist predominantly of T cells withmostly normal expression of corcoran-T cell antigens and a normal CD4/TR1myiiz, an increased pro portion of cytotoxic T cells, a normal proportionof NK cells, and polyclonal B cells. A subset of CD3+ T cells (21% oftotal lymphocytes) lacks expression of both CD4 and CD8. This subset ispositive for CD2 and CD7, and expresses CD57 and variable to dim CD56. Procedure Electronically Signed By:Margareth aCstaneda MD07/16/2021 This report may include one or more immunohistochemical stain/fluorochromeconjugated monoclonal antibody results that use analyte specific reagents.All positive and negative controls have been reviewed by the attendingpathologist and are satisfactory. The tests were developed and theirperformance characteristics determined by [facility] Pathology department.They have not been cleared or approved by the US Food and DrugAdministration. The FDA has determined that such clearance or approval isnot necessary. Name Value Range Interpretation Code Description Data Dafne rce(s) Supporting Document(s) ID Date Data Source 07/17/2021 03:58:00 PM T [facility] Molecular Diagnostics ReportName: ELIANE FRAGAMRN: [id number] Number: [id number] Date: 07/14/2021 00:00Received Date: 07/16/2021 12:00Physician(s): GO ESCAMILLA MD ADJAPONG, [facility] [place] To:MARGARETH MCCLENDON MDSpecimen(s) ReceivedA: Peripheral Blood - T-cell, 21- 2689Type of Study: T-cell Receptor Gamma Chain PCR Assay SPECIMEN TYPE: Peripheral Blood (#[id number])RESULTS: Negative Family I & III / J [...] a rearranged T-cell receptor Gamma Chaingene (van Dongen et al. Leukemia 17:8002-3101, 2003). A quality controlamplification showed DNA of [...] and authorized for clinical use by the [facility] Dept.of Health ([facility]).rw/jsElectronically Signed By Mario Crews M.D. Attending Pathologist 07/17/2021 15:58:08 Name Value Range Interpretation Code Description Data Dafne rce(s) Supporting Document(s) ID Date Data Source VITAMIN B12 LEVEL 04/23/2021 12:00:00 AM EDT eCW1 ([facility]) Name Value Range Interpretation Code Description Data Dafne rce(s) Supporting Document(s) [id number] VITAMIN B12 LEVEL eCW1 ([facility]) ID Date Data Source VITAMIN D 25-HYDROXY 04/23/2021 12:00:00 AM EDT eCW1 ([facility]) Name Value Range Interpretation Code Description Data Dafne rce(s) Supporting Document(s) 41.5 30.0-100.0 TOTAL 25(OH) VITAMIN D [facility]C [facility] ID Date Data Source PTH INTACT 04/23/2021 12:00:00 AM EDT eCW1 ([facility]) Name Value Range Interpretation Code Description Data Dafne rce(s) Supporting Document(s) 34.6 18.5-88.0 PTH INTACT eCW1 ([facility]) ID Date Data Source PSA SCREENING 04/23/2021 12:00:00 AM EDT eCW1 ([facility]) Name Value Range Interpretation Code Description Data Dafne rce(s) Supporting Document(s) 2.07 < 4.00 PSA SCREENING eCW1 ([facility]) ID Date Data Source PHENYTOIN (DILANTIN) 04/23/2021 12:00:00 AM EDT eCW1 ([facility]) Name Value Range Interpretation Code Description Data Dafne rce(s) Supporting Document(s) 0.5 10.0-20.0 PHENYTOIN (DILANTIN) eCW1 ([facility]) ID Date Data Source PHENOBARBITAL LEVEL 04/23/2021 12:00:00 AM EDT eCW1 ([facility]) Name Value Range Interpretation Code Description Data Dafne rce(s) Supporting Document(s) 29.9 15.0-40.0 PHENOBARBITAL LEVEL eCW1 ([facility]) ID Date Data Source H PYLORI SERUM QUANT IgG DEEJAY 04/23/2021 12:00:00 AM EDT eCW1 ([facility]) Name Value Range Interpretation Code Description Data Dafne rce(s) Supporting Document(s) 1.12 0.00-0.79 H PYLORI SERUM QUANT IgG DEEJAY eCW1 ([facility]) ID Date Data Source FREE T4 & TSH PANEL 04/23/2021 12:00:00 AM EDT eCW1 ([facility]) Name Value Range Interpretation Code Description Data Dafne rce(s) Supporting Document(s) 1.01 0.76-1.46 FREE T4 eCW1 ([facility]) 1.580 0.358-3.740 THYROID STIMULATING HORM ONE eCW1 ([facility]) ID Date Data Source FERRITIN 04/23/2021 12:00:00 AM EDT eCW1 ([facility]) Name Value Range Interpretation Code Description Data Dafne rce(s) Supporting Document(s) 49 99-388 FERRITIN eCW1 ([facility]) FERRITIN ID Date Data Source ERYTHROCYTE SEDIMENTATION RATE 04/23/2021 12:00:00 AM EDT eC W1 ([facility]) Name Value Range Interpretation Code Description Data Dafne rce(s) Supporting Document(s) 9 0-20 ERYTHROCYTE SEDIMENTATION RATE eCW1 ([facility]) ID Date Data Source C REACTIVE PROTEIN QUANTITATIV (At [facility]) 04/23/2021 12:00 :00 AM EDT eCW1 ([facility]) Name Value Range Interpretation Code Description Data Dafne rce(s) Supporting Document(s) 0.30 0.00-0.30 C REACTIVE PROTEIN QUANTI TATIV eCW1 ([facility]) ID Date Data Source Comprehensive Metabolic Profile (CMP) 04/23/2021 12:00:00 AM EDT eCW1 ([facility]) Name Value Range Interpretation Code Description Data Dafne rce(s) Supporting Document(s) 10 7-18 BLOOD UREA NITROGEN eCW1 ([facility]) 82 70-100 GLUCOSE, FASTING eCW1 ([facility]) 0.74 0.70-1.30 CREATININE FOR GFR eCW1 ([facility]) > 60.0 >49 GLOMERULAR FILTRATION RATE eCW 1 ([facility]) 141 136-145 SODIUM LEVEL eCW1 ([facility]) 29 21-32 CARBON DIOXIDE LEVEL eCW1 ([facility]) 106 98-107 CHLORIDE LEVEL eCW1 ([facility]) 3.8 3.5-5.1 POTASSIUM SERUM eCW1 ([facility]) 108 45-117 ALKALINE PHOSPHATASE eCW1 ([facility]) 9.4 8.8-10.2 CALCIUM LEVEL eCW1 ([facility]) 37 12-78 ALT/SGPT eCW1 ([facility]) 29 7-37 AST/SGOT eCW1 ([facility]) 0.3 0.2-1.0 BILIRUBIN,TOTAL eCW1 ([facility]) 7.7 6.4-8.2 TOTAL PROTEIN eCW1 ([facility]) 4.0 3.2-5.2 ALBUMIN eCW1 ([facility]) 1.1 ALBUMIN/GLOBULIN RATIO eCW1 ([facility]) ID Date Data Source CBC with Differential 04/23/2021 12:00:00 AM EDT eCW1 ([facility]) Name Value Range Interpretation Code Description Data Dafne rce(s) Supporting Document(s) 2.5 4.0-10.0 WHITE BLOOD COUNT eCW1 ([facility]) 3.86 4.30-6.10 RED BLOOD COUNT eCW1 ([facility]) 12.6 13.5-17.5 HEMOGLOBIN eCW1 ([facility]) 96.6 80.0-96.0 MEAN CORPUSCULAR VOLUME e CW1 ([facility]) 37.3 42.0-52.0 HEMATOCRIT eCW1 ([facility]) 33.8 32.0-36.5 MEAN CORPUSCULAR HGB CONC eCW1 ([facility]) 32.6 27.0-33.0 MEAN CORPUSCULAR HEMOGLOB IN eCW1 ([facility]) 12.1 11.5-14.5 RED CELL DISTRIBUTION WID TH eCW1 ([facility]) 39.2 36.0-66.0 NEUTROPHILS % eCW1 ([facility]) 184 150-450 PLATELET COUNT, AUTOMATED eCW1 ([facility]) 41.3 24.0-44.0 LYMPH % eCW1 ([facility]) 16.7 2.0-8.0 MONO % eCW1 ([facility]) 1.6 0.0-3.0 EOS % eCW1 ([facility]) 0.8 0.0-1.0 BASO % eCW1 ([facility]) 0.4 0.0-0.8 MONO # eCW1 ([facility]) 1.0 1.5-5.0 LYMPH # eCW1 ([facility]) 1.0 1.5-8.5 NEUTROPHILS # eCW1 ([facility]) 0.0 0.0-0.2 BASO # eCW1 ([facility]) 0.0 0.0-0.5 EOS # eCW1 ([facility]) ID Date Data Source [id number] 03/12/2021 09:25:00 AM EDT [facility] ([facility], ) Name Value Range Interpretation Code Description Data Dafne rce(s) Supporting Document(s) Levetiracetam [Mass/volume] in Serum or Plasma 28.1 ug/mL 10.0-40.0 [facility] ([facility], ) This test was developed and its performa nce characteristics determined by [facility]. It has not been cleared or approved by the Food and Drug Administration. Performed at: [facility] [id number] Headend Technician: Debbi Herrera MD, Phone: [phone] Phenobarbital [Mass/volume] in Serum or Plasma 27.3 UG/ML 15.0-40.0 [facility] ([facility], ) Thyrotropin [Units/volume] in Serum or Plasma 1.000 uIU/ML 0.358-3.74 0 [facility] ([facility], ) ID Date Data Source [id number] 03/12/2021 09:25:00 AM EDT [facility] ([facility], ) Name Value Range Interpretation Code Description Data Dafne rce(s) Supporting Document(s) Blood Urea Nitrogen 14 mg/dL 7-18 [facility] ([facility], ) Creatinine For GFR 0.81 mg/dL 0.70-1.30 [facility] ([facility], ) Glucose, Fasting 95 mg/dL 70-100 [facility] ([facility], ) Glomerular Filtration Rate Laboratory test result [facility] ([facility], ) <content>Units are mL/min/1.73 m2</content>
<content></content>
<content>Chronic Kidney Disease Staging per NKF:</content>
<content></content>
<content>Stage I & II GFR >=60 Normal to Mildly Decreased</content>
<content>Stage III GFR 30- 59 Moderately Decreased</content>
<content>Stage IV GFR 15-29 Severely Decreased</content>
<content>Stage V GFR <15 Very Little GFR Left</content>
<content>ESRD GFR <15 on BLOW UP OPERATOR</content>
<content></content> Sodium Level 140 meq/L 136-145 [facility] ([facility], ) Potassium Serum 4.3 meq/L 3.5-5.1 [facility] ([facility]) Chloride Level 103 meq/L 98-107 [facility] ([facility]) Carbon Dioxide Level 31 meq/L 21-32 [facility] ([facility]) Anion Gap 6 meq/L 8-16 [facility] ([facility]) Calcium Level 9.1 mg/dL 8.8-10.2 [facility] ([facility]) Ast/Sgot 27 U/L 7-37 [facility] ([facility]) Alkaline Phosphatase 113 U/L 45-117 [facility] ([facility], ) Alt/SGPT 32 U/L 12-78 [facility] ([facility]) Albumin 3.8 GM/DL 3.2-5.2 [facility] ([facility], ) Total Protein 7.3 GM/DL 6.4-8.2 [facility] ([facility], ) Bilirubin,Total 0.4 mg/dL 0.2-1.0 [facility] ([facility]) Albumin/Globulin Ratio 1.1 [facility] ([facility]) ID Date Data Source [id number] 03/12/2021 09:25:00 AM EDT [facility] ([facility]) Name Value Range Interpretation Code Description Data Dafne rce(s) Supporting Document(s) White Blood Count 1.9 10 4.0-10.0 [facility] ([facility], ) Hemoglobin 12.8 g/dL 13.5-17.5 [facility] ([facility], ) Red Blood Count 3.98 10 4.30-6.10 [facility] ([facility]) Hematocrit 39.1 % 42.0-52.0 [facility] ([facility]) Mean Corpuscular Volume 98.2 fl 80.0-96.0 M EDENT ([facility]) Mean Corpuscular Hemoglobin 32.2 pg 27.0-33.0 [facility] ([facility]) Red Cell Distribution Width 12.5 % 11.5-14.5 [facility] ([facility]) Mean Corpuscular HGB Conc 32.7 g/dL 32.0-36.5 [facility] ([facility]) Neutrophils % 36.8 % 36.0-66.0 [facility] ([facility]) Platelet Count, Automated 192 10 150-450 [facility] ([facility]) Lymph % 47.2 % 24.0-44.0 [facility] ([facility]) Whiteside % 14.5 % 2.0-8.0 [facility] ([facility]) Eos % 0.5 % 0.0-3.0 [facility] ([facility]) Baso % 1.0 % 0.0-1.0 [facility] ([facility]) Immature Granulocyte % 0.0 % 0-3.0 [facility] ([facility]) Neutrophils # 0.7 10 1.5-8.5 [facility] ([facility]) Scan Verified machine results Nucleated Red Blood Cell % 0.0 % 0-0 MED ENT ([facility]) Lymph # 0.9 10 1.5-5.0 [facility] ([facility]) Whiteside # 0.3 10 0.0-0.8 [facility] ([facility]) Eos # 0.0 10 0.0-0.5 MEDENT ([facility]) Baso # 0.0 10 0.0-0.2 MEDENT ([facility]) ID Date Data Source INSULIN LEVEL 08/19/2020 12:00:00 AM EST eCW1 ([facility]) Name Value Range Interpretation Code Description Data Dafne rce(s) Supporting Document(s) 4.6 2.6-24.9 INSULIN LEVEL [facility] ID Date Data Source LEVETIRACETAM (KEPPRA) 08/19/2020 12:00:00 AM EST eCW1 ([facility]) Name Value Range Interpretation Code Description Data Dafne rce(s) Supporting Document(s) 22.6 10.0-40.0 LEVETIRACETAM (KEPPRA) eCW1 ([facility]) ID Date Data Source [id number] 08/19/2020 12:00:00 AM EST eCW1 ([facility]) Name Value Range Interpretation Code Description Data Dafne rce(s) Supporting Document(s) Hemoglobin A1c/Hemoglobin.total in Blood 5.1 HEMOGLOBIN A1c eCW1 ([facility]) ID Date Data Source Reticulocyte Count Sysmex 08/19/2020 12:00:00 AM EST eCW1 ([facility]) Name Value Range Interpretation Code Description Data Dafne rce(s) Supporting Document(s) 1.9 0.5-1.5 RETICULOCYTE % eCW1 ([facility]) Procedure Social History Code Duration Value Status Description Data Source(s ) Smoking 07/22/2021 12:00:00 AM EDT Patient has never smoked co mpleted Patient has never smoked MEDENT ([facility] ) Smoking 05/20/2021 12:00:00 AM EDT Never Smoker completed Never S moker eCW1 ([facility]) Smoking 05/20/2021 12:00:00 AM EDT Never Smoker completed Never S moker eCW1 ([facility]) Smoking 05/20/2021 12:00:00 AM EDT Never Smoker completed Never S moker eCW1 ([facility]) Smoking 05/20/2021 12:00:00 AM EDT Never Smoker completed Never S moker eCW1 ([facility]) Smoking 05/20/2021 12:00:00 AM EDT Never Smoker completed Never S moker eCW1 ([facility]) Smoking 05/20/2021 12:00:00 AM EDT Never Smoker completed Never S moker eCW1 ([facility]) Smoking 05/20/2021 12:00:00 AM EDT Never Smoker completed Never S moker eCW1 ([facility]) Smoking 05/20/2021 12:00:00 AM EDT Never Smoker completed Never S moker eCW1 ([facility]) Smoking 05/20/2021 12:00:00 AM EDT Never Smoker completed Never S moker eCW1 ([facility]) Smoking 05/20/2021 12:00:00 AM EDT Never Smoker completed Never S moker eCW1 ([facility]) Smoking 05/20/2021 12:00:00 AM EDT Never Smoker completed Never S moker eCW1 ([facility]) Smoking 05/20/2021 12:00:00 AM EDT Never Smoker completed Never S moker eCW1 ([facility]) Smoking 05/20/2021 12:00:00 AM EDT Never Smoker completed Never S moker eCW1 ([facility]) Smoking 05/20/2021 12:00:00 AM EDT Never Smoker completed Never S moker eCW1 ([facility]) Smoking 05/07/2021 12:00:00 AM EDT Never Smoker completed Never S moker eCW1 ([facility]) Smoking 05/07/2021 12:00:00 AM EDT Never Smoker completed Never S moker eCW1 ([facility]) Smoking 05/07/2021 12:00:00 AM EDT Never Smoker completed Never S moker eCW1 ([facility]) Smoking 05/07/2021 12:00:00 AM EDT Never Smoker completed Never S moker eCW1 ([facility]) Smoking 05/07/2021 12:00:00 AM EDT Never Smoker completed Never S moker eCW1 ([facility]) Smoking 04/21/2021 12:00:00 AM EDT Never Smoker completed Never S moker eCW1 ([facility]) Smoking 04/21/2021 12:00:00 AM EDT Never Smoker completed Never S moker eCW1 ([facility]) Smoking 04/21/2021 12:00:00 AM EDT Never Smoker completed Never S moker eCW1 ([facility]) Smoking 04/11/2021 12:00:00 AM EDT Never Smoker completed Never S moker eCW1 ([facility]) Smoking 04/01/2021 12:00:00 AM EDT Never Smoker completed Never S moker eCW1 ([facility]) Smoking 12/16/2020 12:00:00 AM EDT Never Smoker completed Never S moker eCW1 ([facility]) Smoking 12/16/2020 12:00:00 AM EDT Never Smoker completed Never S moker eCW1 ([facility]) Smoking 12/16/2020 12:00:00 AM EDT Never Smoker completed Never S moker eCW1 ([facility]) Smoking 12/16/2020 12:00:00 AM EDT Never Smoker completed Never S moker eCW1 ([facility]) Smoking 12/16/2020 12:00:00 AM EDT Never Smoker completed Never S moker eCW1 ([facility]) Smoking 12/16/2020 12:00:00 AM EDT Never Smoker completed Never S moker eCW1 ([facility]) Smoking 12/16/2020 12:00:00 AM EDT Never Smoker completed Never S moker eCW1 ([facility]) Smoking 12/16/2020 12:00:00 AM EDT Never Smoker completed Never S moker eCW1 ([facility]) Smoking 12/16/2020 12:00:00 AM EDT Never Smoker completed Never S moker eCW1 ([facility]) Smoking 08/19/2020 12:00:00 AM EST Never Smoker completed Never S moker eCW1 ([facility]) Smoking 08/19/2020 12:00:00 AM EST Never Smoker completed Never S moker eCW1 ([facility]) Smoking 08/19/2020 12:00:00 AM EST Never Smoker completed Never S moker eCW1 ([facility]) Smoking 08/19/2020 12:00:00 AM EST Never Smoker completed Never S moker eCW1 ([facility]) Smoking 08/19/2020 12:00:00 AM EST Never Smoker completed Never S moker eCW1 ([facility]) Smoking 08/19/2020 12:00:00 AM EST Never Smoker completed Never S moker eCW1 ([facility]) Vital Signs ID Date Data Source UNK Name Value Range Interpretation Code Description Data Source(s) Heart rate 73 /min 73 /min [facility] ([facility]) Body height 64 [in_i] 64 [in_i] [facility] ([facility]) 5'4" [place] body weight 130 [lb_av] 130 [lb_av] MEDEN T ([facility]) Systolic blood pressure 126 mm[Hg] 126 mm[Hg] [facility]) Diastolic blood pressure 78 mm[Hg] 78 mm[Hg] [facility] ([facility]) Oxygen saturation in Arterial blood by Pulse oximetry 99 % 99 % [facility] ([facility]) Systolic blood pressure 124 mm[Hg] 124 mm[Hg] [facility] ([facility]) Diastolic blood pressure 76 mm[Hg] 76 mm[Hg] [facility] ([facility]) Heart rate 93 /min 93 /min [facility] ([facility]) Oxygen saturation in Arterial blood by Pulse oximetry 99 % 99 % [facility] ([facility]) Body height 64 [in_i] 64 [in_i] [facility] ([facility]) 5'4" [place] body weight 130 [lb_av] 130 [lb_av] MEDEN T ([facility]) Body weight 118.4 [lb_av] 118.4 [lb_av] W1 ([facility]) Body weight 53.71 kg 53.71 kg W1 ([facility]) Body height 64 [in_i] 64 [in_i] W1 ([facility]) Body mass index (BMI) [Ratio] 20.32 kg/m2 20.32 kg/m2 W1 ([facility]) Heart rate /min eCW1 ([facility]) Respiratory rate 18 /min 18 /min eCW1 ([facility]) Body temperature 97.1 [degF] 97.1 [degF] eCW1 ( [facility]) Systolic blood pressure 112 mm[Hg] 112 mm[Hg] e CW1 ([facility]) Diastolic blood pressure 62 mm[Hg] 62 mm[Hg] eCW1 ([facility]) Body weight 116 [lb_av] 116 [lb_av] eCW1 ([facility]) Body weight 52.62 kg 52.62 kg eCW1 ([facility]) Body height 64 [in_i] 64 [in_i] eCW1 ([facility]) Body mass index (BMI) [Ratio] 19.91 kg/m2 19.91 kg/m2 eCW1 ([facility] Body temperature 97.8 [degF] 97.8 [degF] eCW1 ( [facility]) Systolic blood pressure 136 mm[Hg] 136 mm[Hg] e CW1 ([facility]) Diastolic blood pressure 76 mm[Hg] 76 mm[Hg] eCW1 ([facility]) Body weight 123 [lb_av] 123 [lb_av] eCW1 ([facility]) Body height 64 [in_i] 64 [in_i] eCW1 ([facility]) Body mass index (BMI) [Ratio] 21.11 kg/m2 21.11 kg/m2 W1 ([facility]) Heart rate 54 /min 54 /min eCW1 ([facility]) Respiratory rate 20 /min 20 /min eCW1 ([facility]) Body temperature 98.2 [degF] 98.2 [degF] eCW1 ( [facility]) Systolic blood pressure 130 mm[Hg] 130 mm[Hg] e CW1 ([facility]) Diastolic blood pressure 82 mm[Hg] 82 mm[Hg] eCW1 ([facility]) Body weight 123 [lb_av] 123 [lb_av] eCW1 ([facility]) Body height 64 [in_i] 64 [in_i] eCW1 ([facility]) Body mass index (BMI) [Ratio] 21.11 kg/m2 21.11 kg/m2 eCW1 ([facility]) Heart rate 54 /min 54 /min eCW1 ([facility]) Respiratory rate 20 /min 20 /min eCW1 ([facility]) Body temperature 98.2 [degF] 98.2 [degF] eCW1 ( [facility]) Systolic blood pressure 130 mm[Hg] 130 mm[Hg] e CW1 ([facility]) Diastolic blood pressure 82 mm[Hg] 82 mm[Hg] eCW1 ([facility]) Body weight [lb_av] eCW1 ([facility]) Body height 64 [in_i] 64 [in_i] eCW1 ([facility]) Body mass index (BMI) [Ratio] 24.03 kg/m2 24.03 kg/m2 eCW1 ([facility]) Respiratory rate 18 /min 18 /min eCW1 ([facility]) Systolic blood pressure 114 mm[Hg] 114 mm[Hg] e CW1 ([facility]) Diastolic blood pressure 68 mm[Hg] 68 mm[Hg] eCW1 ([facility] Body weight 140 [lb_av] 140 [lb_av] eCW1 ([facility]) Body height 64 [in_i] 64 [in_i] eCW1 ([facility]) Body mass index (BMI) [Ratio] 24.03 kg/m2 24.03 kg/m2 eCW1 ([facility]) Respiratory rate 18 /min 18 /min eCW1 ([facility]) Body temperature 97.7 [degF] 97.7 [degF] eCW1 ( [facility]) Systolic blood pressure 110 mm[Hg] 110 mm[Hg] e CW1 ([facility]) Diastolic blood pressure 70 mm[Hg] 70 mm[Hg] eCW1 ([facility]) Systolic blood pressure 124 mm[Hg] 124 mm[Hg] M EDENT ([facility]) Diastolic blood pressure 78 mm[Hg] 78 mm[Hg] MEDENT ([facility]) Heart rate 64 /min 64 /min MEDENT ([facility]) Respiratory rate 16 /min 16 /min MEDENT ( [facility] ) Body weight 147 [lb_av] 147 [lb_av] eCW1 ([facility]) Body height 64 [in_i] 64 [in_i] eCW1 ([facility]) Body mass index (BMI) [Ratio] 25.23 kg/m2 25.23 kg/m2 eCW1 ([facility]) Heart rate 122 /min 122 /min eCW1 ([facility]) Respiratory rate 18 /min 18 /min eCW1 ([facility]) Body temperature 97.2 [degF] 97.2 [degF] eCW1 ( [facility]) Systolic blood pressure 130 mm[Hg] 130 mm[Hg] e CW1 ([facility]) Diastolic blood pressure 80 mm[Hg] 80 mm[Hg] eCW1 ([facility]) Body weight 147.0 [lb_av] 147.0 [lb_av] eCW1 ([facility]) Body height 64 [in_i] 64 [in_i] eCW1 ([facility]) Body mass index (BMI) [Ratio] 25.23 kg/m2 25.23 kg/m2 eCW1 ([facility]) Heart rate 115 /min 115 /min eCW1 ([facility]) Respiratory rate 18 /min 18 /min eCW1 ([facility]) Body temperature 97.0 [degF] 97.0 [degF] eCW1 ( [facility]) Systolic blood pressure 120 mm[Hg] 120 mm[Hg] e CW1 ([facility]) Diastolic blood pressure 72 mm[Hg] 72 mm[Hg] eCW1 ([facility]) Systolic blood pressure 120 mm[Hg] 120 mm[Hg] M EDENT ([facility]) Heart rate 88 /min 88 /min MEDENT ([facility]) Respiratory rate 20 /min 20 /min MEDENT ( [facility] ) Diastolic blood pressure 78 mm[Hg] 78 mm[Hg] MEDENT ([facility]) Patient Treatment Plan of Care Planned Activity Planned Date Details Description Data Source (s) Lorazepam 2 MG Oral Tablet [Ativan] 06/13/2021 12:00:00 AM EDT eCW1 ([facility] Lorazepam 2 MG Oral Tablet [Ativan] 06/13/2021 12:00:00 AM EDT eCW1 ([facility]) Lorazepam 2 MG Oral Tablet [Ativan] 06/13/2021 12:00:00 AM EDT eCW1 ([facility]) Lorazepam 2 MG Oral Tablet [Ativan] 06/13/2021 12:00:00 AM EDT eCW1 ([facility]) Lorazepam 2 MG Oral Tablet [Ativan] 06/13/2021 12:00:00 AM EDT eCW1 ([facility]) Lorazepam 2 MG Oral Tablet [Ativan] 06/13/2021 12:00:00 AM EDT eCW1 ([facility]) Lorazepam 2 MG Oral Tablet [Ativan] 06/13/2021 12:00:00 AM EDT eCW1 ([facility]) Lorazepam 2 MG Oral Tablet [Ativan] 06/13/2021 12:00:00 AM EDT eCW1 ([facility]) Lorazepam 2 MG Oral Tablet [Ativan] 06/13/2021 12:00:00 AM EDT eCW1 ([facility]) Lorazepam 2 MG Oral Tablet [Ativan] 05/26/2021 12:00:00 AM EDT eCW1 ([facility]) Lorazepam 2 MG Oral Tablet [Ativan] 05/26/2021 12:00:00 AM EDT eCW1 ([facility]) Lorazepam 2 MG Oral Tablet [Ativan] 05/26/2021 12:00:00 AM EDT eCW1 ([facility]) Lorazepam 2 MG Oral Tablet [Ativan] 05/19/2021 12:00:00 AM EDT eCW1 ([facility]) Lorazepam 2 MG Oral Tablet [Ativan] 05/19/2021 12:00:00 AM EDT eCW1 ([facility]) Divalproex Sodium 500 MG Delayed Release Oral Tablet 021 12:00:00 AM EDT eCW1 ([facility]) Divalproex Sodium 500 MG Delayed Release Oral Tablet 12:00:00 AM EDT eCW1 ([facility]) Divalproex Sodium 500 MG Delayed Release Oral Tablet 12:00:00 AM EDT eCW1 ([facility]) Divalproex Sodium 500 MG Delayed Release Oral Tablet 12:00:00 AM EDT eCW1 ([facility]) Divalproex Sodium 500 MG Delayed Release Oral Tablet 12:00:00 AM EDT eCW1 ([facility]) Divalproex Sodium 500 MG Delayed Release Oral Tablet 12:00:00 AM EDT eCW1 ([facility]) Divalproex Sodium 500 MG Delayed Release Oral Tablet 12:00:00 AM EDT eCW1 ([facility]) Divalproex Sodium 500 MG Delayed Release Oral Tablet 12:00:00 AM EDT eCW1 ([facility]) Divalproex Sodium 500 MG Delayed Release Oral Tablet 12:00:00 AM EDT eCW1 ([facility]) Divalproex Sodium 500 MG Delayed Release Oral Tablet 12:00:00 AM EDT eCW1 ([facility]) Divalproex Sodium 500 MG Delayed Release Oral Tablet 12:00:00 AM EDT eCW1 ([facility]) Divalproex Sodium 500 MG Delayed Release Oral Tablet 12:00:00 AM EDT eCW1 ([facility]) Divalproex Sodium 500 MG Delayed Release Oral Tablet 12:00:00 AM EDT eCW1 ([facility]) Divalproex Sodium 500 MG Delayed Release Oral Tablet 12:00:00 AM EDT eCW1 ([facility]) Divalproex Sodium 500 MG Delayed Release Oral Tablet 12:00:00 AM EDT eCW1 ([facility]) Divalproex Sodium 500 MG Delayed Release Oral Tablet 12:00:00 AM EDT eCW1 ([facility]) Divalproex Sodium 500 MG Delayed Release Oral Tablet 12:00:00 AM EDT eCW1 ([facility]) Divalproex Sodium 500 MG Delayed Release Oral Tablet 12:00:00 AM EDT eCW1 ([facility]) Divalproex Sodium 500 MG Delayed Release Oral Tablet 12:00:00 AM EDT eCW1 ([facility]) Bisacodyl 10 MG Rectal Suppository [Dulcolax] 01/06/2021 12:00:00 A M EDT eCW1 [facility] Bisacodyl 10 MG Rectal Suppository [Dulcolax] 01/06/2021 12:00:00 A M EDT eCW1 ([facility]) Bisacodyl 10 MG Rectal Suppository [Dulcolax] 01/06/2021 12:00:00 A M EDT eCW1 ([facility]) Bisacodyl 10 MG Rectal Suppository [Dulcolax] 01/06/2021 12:00:00 A M EDT eCW1 ([facility]) Docusate Sodium 50 MG / sennosides, INTERMEDIATE 8.6 MG Oral Ta blet 01/06/2021 12:00:00 AM EDT eCW1 ([facility]) Bisacodyl 10 MG Rectal Suppository [Dulcolax] 01/06/2021 12:00:00 A M EDT eCW1 ([facility]) Docusate Sodium 50 MG / sennosides, INTERMEDIATE 8.6 MG Oral Ta blet 01/06/2021 12:00:00 AM EDT eCW1 ([facility]) Bisacodyl 10 MG Rectal Suppository [Dulcolax] 01/06/2021 12:00:00 A M EDT eCW1 ([facility]) Docusate Sodium 50 MG / sennosides, INTERMEDIATE 8.6 MG Oral Ta blet 01/06/2021 12:00:00 AM EDT eCW1 ([facility]) Bisacodyl 10 MG Rectal Suppository [Dulcolax] 01/06/2021 12:00:00 A M EDT eCW1 ([facility]) Docusate Sodium 50 MG / sennosides, INTERMEDIATE 8.6 MG Oral Ta blet 01/06/2021 12:00:00 AM EDT eCW1 ([facility]) Bisacodyl 10 MG Rectal Suppository [Dulcolax] 01/06/2021 12:00:00 A M EDT eCW1 [facility]) Bisacodyl 10 MG Rectal Suppository [Dulcolax] 01/06/2021 12:00:00 A M EDT eCW1 ([facility]) Bisacodyl 10 MG Rectal Suppository [Dulcolax] 01/06/2021 12:00:00 A M EDT eCW1 ([facility]) Bisacodyl 10 MG Rectal Suppository [Dulcolax] 01/06/2021 12:00:00 A M EDT eCW1 ([facility]) Docusate Sodium 50 MG / sennosides, INTERMEDIATE 8.6 MG Oral Ta blet 01/06/2021 12:00:00 AM EDT eCW1 ([facility]) Docusate Sodium 50 MG / sennosides, INTERMEDIATE 8.6 MG Oral Ta blet 01/06/2021 12:00:00 AM EDT eCW1 ([facility]) Bisacodyl 10 MG Rectal Suppository [Dulcolax] 01/06/2021 12:00:00 A M EDT eCW1 [facility]
[2021-07-30 19:53] LABS: VALPROIC ACID (DEPAKOTE) 58.8 UG/ML (50.0-100.0)
[2021-07-30] MEDS ORDERED: diphenhydrAMINE 50MG CAP PO SCH (21:00)
[2021-07-30] MEDS: SENOKOT S TAB PO SCH (21:59)
[2021-07-30] MEDS: PANTOPRAZOLE 40MG TAB (PROTONIX) PO SCH (22:00)
[2021-07-30] MEDS: traZODone 100 MG TAB PO SCH (22:00)
[2021-07-30] MEDS: levETIRAcetam 250MG TABLET (KEPPRA) PO SCH (22:01)
[2021-07-30] MEDS: DIVALPROEX 500 MG TAB PO SCH (22:59)
[2021-07-30] MEDS: PHENobarbitaL 30 MG TAB PO SCH (23:00)
[2021-07-30] MEDS: OLANZapine 10 MG TAB PO SCH (23:00)
[2021-07-30] MEDS: PHENAZOPYRIDINE 100 MG TAB PO SCH (23:00)
[2021-07-30 23:30] VITALS: BP 131/78
[2021-07-30 23:53] LABS: PERCENT SATURATION 5.6 % (19.7-50.0)
[2021-07-31] VITALS (8 sets, daily range): BP systolic 70–144; BP diastolic 47–90
[2021-07-31 07:07] LABS: HEMATOCRIT 28.2 % (42.0-52.0); MEAN CORPUSCULAR HEMOGLOBIN 32.3 pg (27.0-33.0); MEAN CORPUSCULAR VOLUME 97.9 fl (80.0-96.0); PLATELET COUNT, AUTOMATED 153 10^3/uL (150-450); RED BLOOD COUNT 2.88 10^6/uL (4.30-6.10); WHITE BLOOD COUNT 10.1 10^3/uL (4.0-10.0)
[2021-07-31 07:23] LABS: HEMOGLOBIN 9.3 g/dl (13.5-17.5)
[2021-07-31 07:32] LABS: BLOOD UREA NITROGEN 16 MG/DL (7-18); CARBON DIOXIDE LEVEL 27 MEQ/L (21-32); CHLORIDE LEVEL 113 MEQ/L (98-107); GLOMERULAR FILTRATION RATE > 60.0 (>49); GLUCOSE, FASTING 87 MG/DL (70-100); POTASSIUM SERUM 4.1 MEQ/L (3.5-5.1); SODIUM LEVEL 144 MEQ/L (136-145)
[2021-07-31] MEDS: SENOKOT S TAB PO SCH ×3 (09:00→20:56)
[2021-07-31] MEDS: BISACODYL 10 MG SUPP PR SCH (09:00)
[2021-07-31] MEDS ORDERED: cefTRIAXone SOD 1 GM in D5W MINI-BAG PLUS 50 ML IV SCH (09:00)
[2021-07-31] MEDS: PHENAZOPYRIDINE 100 MG TAB PO SCH ×4 (09:00→20:58)
[2021-07-31] MEDS: PANTOPRAZOLE 40MG TAB (PROTONIX) PO SCH ×3 (09:00→20:56)
[2021-07-31] MEDS: ENOXAPARIN 40MG/0.4ML SYRINGE (J1650 PER 10MG) SC SCH (09:31)
[2021-07-31] MEDS: levETIRAcetam 250MG TABLET (KEPPRA) PO SCH (09:31)
[2021-07-31 09:36] LABS: FOLATE 6.2 NG/ML (>5.4)
--- NOTE | 2021-07-31 09:56 | IPNPDOC ---
Text Note Date of Service The patient was seen on 07/31/21. NOTE SUBJECTIVE: Patient was seen and examined this morning at bedside. He is nonverbal and unable to communicate. One of his [facility] aids is at bedside and tells me he just met this patient yesterday. He states per staff that patient had a fever earlier this week and was treated with Tylenol. The patient was noted to continue to be warm without recurrent fever. He was also noted to be more lethargic. OBJECTIVE: VITAL SIGNS: See below GENERAL: Alert, comfortable, in no acute distress HEENT: Normocephalic, atraumatic, moist mucous membranes NECK: Supple, trachea midline, no lymphadenopathy CARDIOVASCULAR: Regular rate and rhythm, normal S1 and S2. RESPIRATORY: Clear to auscultation bilaterally with equal air entry bilaterally. No wheezing, rhonchi, or rales. ABDOMEN: Soft, nondistended, bowel sounds present EXTREMITIES: No cyanosis or edema. Pulses 2+/4 in bilateral upper and lower extremities NEUROLOGIC: Moves all 4 extremities spontaneously. Unable to further assess as patient is lethargic and sleeping during my exam. PSYCHIATRIC: Mood and affect appropriate ASSESSMENT/PLAN: 61-year-old male with past medical history of meningitis during childhood now no nverbal, epilepsy, hypertension, hyperlipidemia, T-cell leukemia who lives at [facility] who was brought in by staff due to increased lethargy found to be septic with urinalysis suggestive of UTI, admitted for IV antibiotics and further management #Sepsis secondary to UTI On admission patient meets 3 out of 4 SIRS criteria with fever, tachycardia, and leukocytosis Suspected source UTI due to positive urinalysis Urine culture pending. Blood cultures x2 pending Continue IV antibiotics with ceftriaxone day #2 Continue IV fluid resuscitation No lactic acidosis on admission CRP elevated at 27.0 and ESR elevated at 59 on admission #Macrocytic anemia Baseline hemoglobin has been 11-12 Hemoglobin 11.7 on admission, trended down to 9.3 Likely related to IV fluid resuscitation. No signs of active bleeding. 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 He also developed altered mental status and was minimally responsive to painful stimuli during this. Repeat lab work worse drawn at that time. ABG was done which appeared normal. Patient was given a 1 L fluid bolus with no response in his blood pressure. A second fluid bolus was given and the patient was transferred to ICU for potential need of central line placement and pressors. After transfer, the patient became more alert and his blood pressure improved to 104/71. Maintenance fluids were increased to 150 mL/h normal saline and he will continue on this today. He was made n.p.o. due to his lethargic state. Attending Attestation: I saw and evaluated the patient. I agree with the finding and the plan of care as documented in the residents note. VS,Fishbone, I+O VS, Fishbone, I+O Laboratory Tests 07/30/21 13:14 07/31/21 06:23 Vital Signs Date Time Temp Pulse Resp B/P (MAP) Pulse Ox O2 Delivery O2 Flow Rate FiO2 07/31/21 06:52 98.0 84 18 129/77 (94) 99 Room Air I&O- Last 24 Hours up to 6 AM 07/31/21 06:00 Intake Total 1560 ml Balance 1560 ml HERNAN DICKINSON D.O. Jul 31, 2021 09:56 JEAN-CLAUDE LILLY MD Aug 01, 2021 06:32
[2021-07-31 09:57] LABS: HEPATITIS B SURFACE ANTIGEN NEGATIVE (NEGATIVE)
[2021-07-31] MEDS ORDERED: NS 1,000 ML IV ONE ×2 (10:05→12:15)
--- NOTE | 2021-07-31 10:22 | REP ---
INDICATION: transaminitis. COMPARISON: CT 07/30/2021. TECHNIQUE: Real-time sonographic evaluation of right upper quadrant performed. FINDINGS: The gallbladder demonstrates no evidence of intraluminal sludge or calculi, wall thickening or pericholecystic fluid. There is no intrahepatic or extrahepatic biliary dilatation, common bile duct measures 4 mm in maximum diameter. The liver demonstrates homogeneous echotexture with no gross mass. Liver is mildly enlarged with a length of 18.1 cm. Pancreas is not visualized due to overlying bowel gas. The right kidney demonstrates no hydronephrosis, with a normal size of 9.6 cm in length. No free fluid is seen. IMPRESSION: Mild hepatomegaly. No other significant sonographic finding. <Electronically signed by Reggie Schmidt > 07/31/21 1012
[2021-07-31 10:24] LABS: HEPATITIS C VIRUS ABY INDEX < 0.0 INDEX (<0.8)
[2021-07-31 10:25] LABS: HEPATITIS B CORE ANTIBODY IGM NEGATIVE (NEGATIVE)
[2021-07-31 11:34] LABS: ABG BASE EXCESS -0.5 (-2.0-2.0); ABG HCO3 24.7 MEQ/L (22.0-26.0); ABG O2 SATURATION 96.1 % (95.0-99.0); ABG PARTIAL PRESSURE CO2 42.8 mmHg (35.0-45.0); ABG PARTIAL PRESSURE O2 90.6 mmHg (75.0-100.0); ABG STANDARD HCO3 24.1 MEQ/L (22.0-26.0); ABG pH (ARTERIAL) 7.379 UNITS (7.350-7.450)
[2021-07-31 12:03] LABS: HEMATOCRIT 28.5 % (42.0-52.0); HEMOGLOBIN 9.2 g/dl (13.5-17.5); MEAN CORPUSCULAR HEMOGLOBIN 32.3 pg (27.0-33.0); MEAN CORPUSCULAR HGB CONC 32.3 g/dl (32.0-36.5); PLATELET COUNT, AUTOMATED 133 10^3/uL (150-450); RED BLOOD COUNT 2.85 10^6/uL (4.30-6.10); WHITE BLOOD COUNT 8.1 10^3/uL (4.0-10.0)
[2021-07-31 12:27] LABS: CK-MB VALUE MASS < 1.0 NG/ML (<3.6); CPK CREATINE PHOSPHOKINASE 243 U/L (39-308); MB/CK RELATIVE INDEX 0.41 (< OR =4); TROPONIN I < 0.02 NG/ML (< 0.10)
[2021-07-31 12:49] LABS: ALBUMIN 1.9 GM/DL (3.2-5.2); ALT/SGPT 52 U/L (12-78); BILIRUBIN,TOTAL 0.5 MG/DL (0.2-1.0); BLOOD UREA NITROGEN 17 MG/DL (7-18); CARBON DIOXIDE LEVEL 27 MEQ/L (21-32); CHLORIDE LEVEL 114 MEQ/L (98-107); CREATININE FOR GFR 0.68 MG/DL (0.70-1.30); GLOMERULAR FILTRATION RATE > 60.0 (>49); GLUCOSE, FASTING 90 MG/DL (70-100); POTASSIUM SERUM 3.8 MEQ/L (3.5-5.1); SODIUM LEVEL 143 MEQ/L (136-145); TOTAL PROTEIN 5.1 GM/DL (6.4-8.2)
[2021-07-31 12:50] LABS: EOSINOPHILS 1 % (0-3); LYMPHOCYTES 11 % (16-44); MONOCYTES 3 % (0-5); NEUTROPHILS 82 % (28-66); PLATELET ESTIMATE NORMAL (NORMAL)
[2021-07-31] MEDS: levETIRAcetam INJection 750 MG in D5W 100 ML IV SCH ×2 (14:45→21:10)
[2021-07-31] MEDS: PIPERACILLIN/TAZOBACTAM SOD 3.375 GM in D5W MINI-BAG PLUS 50 ML IV SCH ×2 (15:18→18:56)
[2021-07-31] MEDS: PHENobarbitaL 30 MG TAB PO SCH (20:56)
[2021-07-31] MEDS: traZODone 100 MG TAB PO SCH (20:58)
[2021-07-31] MEDS: OLANZapine 10 MG TAB PO SCH (20:58)
[2021-07-31] MEDS: DIVALPROEX 500 MG TAB PO SCH (20:58)
[2021-08-01] VITALS (7 sets, daily range): BP systolic 142–193; BP diastolic 67–96
[2021-08-01] MEDS: NS 1,000 ML IV SCH ×2 (00:06→10:00)
[2021-08-01] MEDS: PIPERACILLIN/TAZOBACTAM SOD 3.375 GM in D5W MINI-BAG PLUS 50 ML IV SCH ×2 (01:25→06:51)
[2021-08-01] MEDS: ACETAMINOPHEN TAB 650MG DOSE (2X325MG) PO PRN ×3 (03:23→21:35)
[2021-08-01 05:58] LABS: HEMATOCRIT 29.3 % (42.0-52.0); HEMOGLOBIN 9.6 g/dl (13.5-17.5); MEAN CORPUSCULAR HEMOGLOBIN 31.4 pg (27.0-33.0); MEAN CORPUSCULAR HGB CONC 32.8 g/dl (32.0-36.5); MEAN CORPUSCULAR VOLUME 95.8 fl (80.0-96.0); PLATELET COUNT, AUTOMATED 158 10^3/uL (150-450); RED BLOOD COUNT 3.06 10^6/uL (4.30-6.10); WHITE BLOOD COUNT 6.8 10^3/uL (4.0-10.0)
[2021-08-01 06:27] LABS: BLOOD UREA NITROGEN 10 MG/DL (7-18); CALCIUM LEVEL 7.7 MG/DL (8.8-10.2); CARBON DIOXIDE LEVEL 25 MEQ/L (21-32); CHLORIDE LEVEL 112 MEQ/L (98-107); CREATININE FOR GFR 0.52 MG/DL (0.70-1.30); GLOMERULAR FILTRATION RATE > 60.0 (>49); GLUCOSE, FASTING 86 MG/DL (70-100); MAGNESIUM LEVEL 1.8 MG/DL (1.8-2.4); POTASSIUM SERUM 3.6 MEQ/L (3.5-5.1); SODIUM LEVEL 144 MEQ/L (136-145)
[2021-08-01] MEDS: ENOXAPARIN 40MG/0.4ML SYRINGE (J1650 PER 10MG) SC SCH (10:26)
[2021-08-01] MEDS: SENOKOT S TAB PO SCH ×2 (10:26→21:36)
[2021-08-01] MEDS: PHENAZOPYRIDINE 100 MG TAB PO SCH ×4 (10:26→21:35)
[2021-08-01] MEDS: levETIRAcetam INJection 750 MG in D5W 100 ML IV SCH (10:26)
[2021-08-01] MEDS: BISACODYL 10 MG SUPP PR SCH (10:27)
[2021-08-01] MEDS: PANTOPRAZOLE 40MG TAB (PROTONIX) PO SCH ×2 (10:27→21:36)
[2021-08-01] MEDS ORDERED: cefTRIAXone SOD 1 GM in D5W MINI-BAG PLUS 50 ML IV SCH (13:00)
--- NOTE | 2021-08-01 14:42 | IPNPDOC ---
Text Note Date of Service The patient was seen on 08/01/21. NOTE SUBJECTIVE: Patient was seen and examined this morning at bedside. He is nonverbal and unable to communicate. One of his [facility] aids is at bedside and states she just got here so she is not sure how he was doing overnight. Of note, the patient had a fever overnight which improved with Tylenol. OBJECTIVE: VITAL SIGNS: See below GENERAL: Resting but responsive to verbal and physical stimuli, comfortable, in no acute distress HEENT: Normocephalic, atraumatic, moist mucous membranes NECK: Supple, trachea midline, no lymphadenopathy CARDIOVASCULAR: Regular rate and rhythm, normal S1 and S2. RESPIRATORY: Clear to auscultation bilaterally with equal air entry bilaterally. No wheezing, rhonchi, or rales. ABDOMEN: Soft, nondistended, bowel sounds present EXTREMITIES: No cyanosis or edema. Pulses 2+/4 in bilateral upper and lower extremities NEUROLOGIC: Moves all 4 extremities spontaneously. PSYCHIATRIC: Mood and affect appropriate ASSESSMENT/PLAN: 61-year-old male with past medical history of meningitis during childhood now nonverbal, epilepsy, hypertension, hyperlipidemia, T-cell leukemia who lives at [facility] who was brought in by staff due to increased lethargy found to be septic with urinalysis suggestive of UTI, admitted for IV antibiotics and further management #Sepsis secondary to E. coli UTI On admission patient meets 3 out of 4 SIRS criteria with fever, tachycardia, and leukocytosis Suspected source UTI due to positive urinalysis Urine culture positive for E. coli. Blood cultures x2 negative at 48 hours Continue IV antibiotics with ceftriaxone day #3 S/p IV fluid resuscitation continue IV maintenance fluids due to poor oral intake No lactic acidosis on admission #Metabolic encephalopathy in the setting of sepsis, resolved Episode of altered mental status with decreased responsiveness and hypotension on 07/31 Resolved with IV fluid hydration Continue to hold home Benadryl and Ativan. #Macrocytic anemia, stable Baseline hemoglobin has been 11-12 Hemoglobin 11.7 on admission, trended down to 9.3 after IV fluids and has remained stable between 9 and 10. Likely related to IV fluid resuscitation. No signs of active bleeding. Continue to trend CBC daily #Elevated LFTs, improved Trend liver profile Hepatitis profile negative Liver ultrasound showed mild hepatomegaly. 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 Holding home Benadryl and Ativan due to episode of altered mental status. [facility] aide at bedside, can add order for sitter if patient needs further redirection DVT prophylaxis: Lovenox Disposition: Pending clinical improvement, expect return to [facility] once medically stable Attending Attestation: I saw and evaluated the patient. I agree with the finding and the plan of care as documented in the residents note. VS,Fishbone, I+O VS, Fishbone, I+O Laboratory Tests 08/01/21 05:10 Vital Signs Date Time Temp Pulse Resp B/P (MAP) Pulse Ox O2 Delivery O2 Flow Rate FiO2 08/01/21 13:00 101.9 95 142/75 (97) 08/01/21 12:00 18 99 Room Air I&O- Last 24 Hours up to 6 AM 08/01/21 06:00 Intake Total 3000 ml Output Total 0 ml Balance 3000 ml HERNAN DICKINSON D.O. Aug 01, 2021 14:42 JEAN-CLAUDE LILLY MD Aug 02, 2021 06:40
[2021-08-01] MEDS: PHENobarbitaL 30 MG TAB PO SCH (21:35)
[2021-08-01] MEDS: traZODone 100 MG TAB PO SCH (21:36)
[2021-08-01] MEDS: levETIRAcetam 250MG TABLET (KEPPRA) PO SCH (21:36)
[2021-08-01] MEDS: DIVALPROEX 500 MG TAB PO SCH (21:36)
[2021-08-01] MEDS: OLANZapine 10 MG TAB PO SCH (21:36)
[2021-08-02] MEDS: NS 1,000 ML IV SCH (04:50)
[2021-08-02 06:00] VITALS: BP 118/56
[2021-08-02 06:59] LABS: HEMATOCRIT 28.2 % (42.0-52.0); HEMOGLOBIN 9.2 g/dl (13.5-17.5); MEAN CORPUSCULAR HEMOGLOBIN 31.5 pg (27.0-33.0); MEAN CORPUSCULAR HGB CONC 32.6 g/dl (32.0-36.5); MEAN CORPUSCULAR VOLUME 96.6 fl (80.0-96.0); PLATELET COUNT, AUTOMATED 174 10^3/uL (150-450); RED BLOOD COUNT 2.92 10^6/uL (4.30-6.10); WHITE BLOOD COUNT 3.3 10^3/uL (4.0-10.0)
[2021-08-02 07:22] LABS: BLOOD UREA NITROGEN 10 MG/DL (7-18); CALCIUM LEVEL 7.8 MG/DL (8.8-10.2); CARBON DIOXIDE LEVEL 27 MEQ/L (21-32); CHLORIDE LEVEL 112 MEQ/L (98-107); CREATININE FOR GFR 0.47 MG/DL (0.70-1.30); GLOMERULAR FILTRATION RATE > 60.0 (>49); GLUCOSE, FASTING 87 MG/DL (70-100); MAGNESIUM LEVEL 1.9 MG/DL (1.8-2.4); POTASSIUM SERUM 3.7 MEQ/L (3.5-5.1); SODIUM LEVEL 145 MEQ/L (136-145)
[2021-08-02] MEDS ORDERED: PIPERACILLIN/TAZOBACTAM SOD 3.375 GM in D5W MINI-BAG PLUS 50 ML IV SCH (09:00)
[2021-08-02] MEDS: BISACODYL 10 MG SUPP PR SCH (09:00)
--- NOTE | 2021-08-02 09:08 | IPNPDOC ---
Text Note Date of Service The patient was seen on 08/02/21. NOTE SUBJECTIVE: Patient was seen and examined this morning at bedside. He is nonverbal and unable to communicate. He does move around and resist me at times, but is cooperative with examination when redirected. There is no aide at bedside from [facility] this morning when I examined the patient. A sitter is present at bedside. Overnight the patient developed another fever up to 103.1 which resolved with oral tylenol. He also took off his monitor and IV overnight. OBJECTIVE: VITAL SIGNS: See below GENERAL: Resting but responsive to verbal and physical stimuli, comfortable, in no acute distress HEENT: Normocephalic, atraumatic, moist mucous membranes NECK: Supple, trachea midline, no lymphadenopathy CARDIOVASCULAR: Regular rate and rhythm, normal S1 and S2. RESPIRATORY: Clear to auscultation bilaterally with equal air entry bilaterally. No wheezing, rhonchi, or rales. ABDOMEN: Soft, nondistended, bowel sounds present EXTREMITIES: No cyanosis or edema. Pulses 2+/4 in bilateral upper and lower extremities NEUROLOGIC: Moves all 4 extremities spontaneously. PSYCHIATRIC: Mood and affect appropriate ASSESSMENT/PLAN: 61-year-old male with past medical history of meningitis during childhood now nonverbal, epilepsy, hypertension, hyperlipidemia, T-cell leukemia who lives at [facility] who was brought in by staff due to increased lethargy found to be septic with urinalysis suggestive of UTI, admitted for IV antibiotics and further management #Sepsis secondary to E. coli UTI On admission patient meets 3 out of 4 SIRS criteria with fever, tachycardia, and leukocytosis Suspected source UTI due to positive urinalysis Urine culture positive for E. coli with broad sensitivities. Blood cultures x2 negative at 48 hours Continue IV antibiotics s/p ceftriaxone, escalated to IV zosyn (day #1) today due to recurrent fevers, (day #4 of IV abx total) S/p IV fluid resuscitation continue IV maintenance fluids due to decreased oral intake No lactic acidosis on admission #Metabolic encephalopathy in the setting of sepsis, resolved Episode of altered mental status with decreased responsiveness and hypotension on 07/31 Resolved with IV fluid hydration Continue to hold home Benadryl and Ativan. #Macrocytic anemia, stable Baseline hemoglobin has been 11-12 Hemoglobin 11.7 on admission, trended down to 9.3 after IV fluids and has remained stable between 9 and 10. Likely related to IV fluid resuscitation. No signs of active bleeding. Continue to trend CBC daily #Elevated LFTs, improved Trend liver profile Hepatitis profile negative Liver ultrasound showed mild hepatomegaly. 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 Holding home Benadryl and Ativan due to episode of altered mental status. [facility] aide at bedside, can add order for sitter if patient needs further redirection DVT prophylaxis: Lovenox Disposition: Pending clinical improvement, expect return to [facility] once medically stable Attending Attestation: I saw and evaluated the patient. I agree with the finding and the plan of care as documented in the residents note. VS,Fishbone, I+O VS, Fishbone, I+O Laboratory Tests 08/02/21 06:30 Vital Signs Date Time Temp Pulse Resp B/P (MAP) Pulse Ox O2 Delivery O2 Flow Rate FiO2 08/02/21 06:00 99.7 80 18 118/56 (76) 95 Room Air I&O- Last 24 Hours up to 6 AM 08/02/21 06:00 Intake Total 792.5 ml Output Total 0 ml Balance 792.5 ml HERNAN DICKINSON D.O. Aug 02, 2021 09:08 JEAN-CLAUDE LILLY MD Aug 03, 2021 11:48
[2021-08-02 09:41] LABS: ATYPICAL LYMPH 5 % (0-5); EOSINOPHILS 1 % (0-3); LYMPHOCYTES 66 % (16-44); METAMYELOCYTES 2 % (0-0); MONOCYTES 3 % (0-5); NEUTROPHILS 22 % (28-66); PLATELET ESTIMATE NORMAL (NORMAL)
[2021-08-02 09:42] LABS: ANISOCYTOSIS 1+
[2021-08-02] MEDS: PHENAZOPYRIDINE 100 MG TAB PO SCH ×3 (11:07→20:38)
[2021-08-02] MEDS: ENOXAPARIN 40MG/0.4ML SYRINGE (J1650 PER 10MG) SC SCH (11:07)
[2021-08-02] MEDS: PANTOPRAZOLE 40MG TAB (PROTONIX) PO SCH ×2 (11:07→20:37)
[2021-08-02] MEDS: levETIRAcetam 250MG TABLET (KEPPRA) PO SCH ×2 (11:07→20:38)
[2021-08-02] MEDS: SENOKOT S TAB PO SCH ×2 (11:07→20:37)
[2021-08-02] MEDS: LORazepam 2 MG TAB PO PRN ×2 (12:02→22:41)
[2021-08-02 14:00] VITALS: BP 150/80
[2021-08-02] MEDS: LevoFLOXacin 500 MG TABLET PO SCH (14:18)
--- NOTE | 2021-08-02 18:44 | ECGEPIP ---
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 Order Number: [id number] Reading MD: Anam Alonso Measurements Intervals [place] Rate: 89 P: 72 AR: 142 QRS: -6 QRSD: 82 T: 34 QT: 336 QTc: 408 Interpretive Statements Normal sinus rhythm Nonspecific T wave abnormality BORDERLINE LOW VOLTAGE IN THE LIMB LEADS(NEW) Last tracing on 07/16/21 at 8:42 No remarkable changes Electronically Signed on 08-02-2021 18:44:16 EDT by Anam Alonso
[2021-08-02] MEDS: DIVALPROEX 500 MG TAB PO SCH (20:38)
[2021-08-02] MEDS: OLANZapine 10 MG TAB PO SCH (20:38)
[2021-08-02] MEDS: PHENobarbitaL 30 MG TAB PO SCH (20:38)
[2021-08-02] MEDS: ACETAMINOPHEN TAB 650MG DOSE (2X325MG) PO PRN (20:39)
[2021-08-02] MEDS: traZODone 100 MG TAB PO SCH (20:39)
[2021-08-03] MEDS: ACETAMINOPHEN TAB 650MG DOSE (2X325MG) PO PRN ×2 (05:09→20:18)
[2021-08-03] MEDS: LevoFLOXacin 500 MG TABLET PO SCH (05:09)
[2021-08-03 06:00] VITALS: BP 150/84
[2021-08-03 07:06] LABS: HEMOGLOBIN 10.6 g/dl (13.5-17.5); MEAN CORPUSCULAR HEMOGLOBIN 31.9 pg (27.0-33.0); MEAN CORPUSCULAR HGB CONC 33.1 g/dl (32.0-36.5); MEAN CORPUSCULAR VOLUME 96.4 fl (80.0-96.0); PLATELET COUNT, AUTOMATED 202 10^3/uL (150-450); RED BLOOD COUNT 3.32 10^6/uL (4.30-6.10); WHITE BLOOD COUNT 4.2 10^3/uL (4.0-10.0)
[2021-08-03 07:13] LABS: BLOOD UREA NITROGEN 8 MG/DL (7-18); CALCIUM LEVEL 8.7 MG/DL (8.8-10.2); CARBON DIOXIDE LEVEL 27 MEQ/L (21-32); CHLORIDE LEVEL 108 MEQ/L (98-107); CREATININE FOR GFR 0.46 MG/DL (0.70-1.30); GLOMERULAR FILTRATION RATE > 60.0 (>49); GLUCOSE, FASTING 108 MG/DL (70-100); MAGNESIUM LEVEL 1.7 MG/DL (1.8-2.4); POTASSIUM SERUM 3.8 MEQ/L (3.5-5.1); SODIUM LEVEL 143 MEQ/L (136-145)
[2021-08-03] MEDS: SENOKOT S TAB PO SCH ×2 (07:58→20:17)
[2021-08-03] MEDS: PHENAZOPYRIDINE 100 MG TAB PO SCH ×3 (07:58→20:18)
[2021-08-03] MEDS: PANTOPRAZOLE 40MG TAB (PROTONIX) PO SCH ×2 (07:59→20:17)
[2021-08-03] MEDS: levETIRAcetam 250MG TABLET (KEPPRA) PO SCH ×2 (07:59→20:18)
[2021-08-03] MEDS: BISACODYL 10 MG SUPP PR SCH (07:59)
[2021-08-03] MEDS: ENOXAPARIN 40MG/0.4ML SYRINGE (J1650 PER 10MG) SC SCH (07:59)
--- NOTE | 2021-08-03 11:29 | IPNPDOC ---
Text Note Date of Service The patient was seen on 08/03/21. NOTE SUBJECTIVE: Patient was seen and examined this morning at bedside. He is nonverbal and unable to communicate. He was restless and not participating with his physical exam. [facility] staff at bedside. OBJECTIVE: VITAL SIGNS: See below GENERAL: Restless but easily re-directed, NAD HEENT: Normocephalic, atraumatic, moist mucous membranes NECK: Supple, trachea midline, no lymphadenopathy RESPIRATORY: CTA EXTREMITIES: No cyanosis or edema. NEUROLOGIC: Moves all 4 extremities spontaneously. PSYCHIATRIC: Mood and affect appropriate ASSESSMENT/PLAN: 61M with PMHx meningitis during childhood now nonverbal, epilepsy, HTN hyperlipidemia, T-cell leukemia who lives at [facility] who was brought in by staff due to increased lethargy found to be septic with urinalysis suggestive of UTI, a dmitted for IV antibiotics and further management #Sepsis secondary to E. coli UTI On admission patient meets 3 out of 4 SIRS criteria with fever, tachycardia, and leukocytosis Suspected source UTI due to positive urinalysis Urine culture positive for E. coli with broad sensitivities. Blood cultures x2 negative at 48 hours Continue levaquin, he does not tolerate an IV - s/p ceftriaxone, zosyn -day #4 of abx total S/p IV fluid resuscitation continue IV maintenance fluids due to decreased oral intake No lactic acidosis on admission #Metabolic encephalopathy in the setting of sepsis, resolved Episode of altered mental status with decreased responsiveness and hypotension on 07/31 Resolved with IV fluid hydration Continue to hold home Benadryl and Ativan. #Macrocytic anemia, stable Baseline hemoglobin has been 11-12 Hemoglobin 11.7 on admission, trended down to 9.3 after IV fluids and has remained stable between 9 and 10. Likely related to IV fluid resuscitation. No signs of active bleeding. Continue to trend CBC daily #Elevated LFTs - resolved Hepatitis profile negative Liver ultrasound showed mild hepatomegaly. #Protein calorie malnutrition Added protein supplement to meals #Epilepsy Continue home medications including Depakote, Keppra, phenobarbital #History of T-cell leukemia Typically patient has leukopenia, WBC trended down from admission #GERD Continue home Protonix #Constipation continue home bowel regimen #History of meningitis with chronic behavioral changes and nonverbal status Continue home medications including olanzapine and trazodone. Holding home Benadryl and Ativan due to episode of altered mental status. [facility] aide at bedside, can add order for sitter if patient needs further redirection DVT prophylaxis: Lovenox Disposition: Pending clinical improvement, anticipate return to [facility] in 24-48 hours Esteban POPE, I+O VSEsteban I+O Laboratory Tests 08/03/21 06:19 Vital Signs Date Time Temp Pulse Resp B/P (MAP) Pulse Ox O2 Delivery O2 Flow Rate FiO2 08/03/21 06:00 97.7 83 18 150/84 (106) 95 Room Air I&O- Last 24 Hours up to 6 AM 08/03/21 06:00 Intake Total 600 ml Output Total 0 ml Balance 600 ml JEAN-CLAUDE LILLY MD Aug 03, 2021 11:29
[2021-08-03] MEDS ORDERED: MAGNESIUM OXIDE 400MG TAB (MAG-OX) PO ONE (11:45)
[2021-08-03 15:00] VITALS: BP 146/86
[2021-08-03] MEDS: LORazepam 2 MG TAB PO PRN (15:23)
[2021-08-03 20:00] VITALS: BP 133/77
[2021-08-03] MEDS: OLANZapine 10 MG TAB PO SCH (20:17)
[2021-08-03] MEDS: PHENobarbitaL 30 MG TAB PO SCH (20:17)
[2021-08-03] MEDS: traZODone 100 MG TAB PO SCH (20:17)
[2021-08-03] MEDS: DIVALPROEX 500 MG TAB PO SCH (20:18)
[2021-08-03 22:00] VITALS: BP 133/77
[2021-08-04] MEDS: LevoFLOXacin 500 MG TABLET PO SCH (05:51)
[2021-08-04 05:55] LABS: HEMATOCRIT 30.2 % (42.0-52.0); HEMOGLOBIN 9.8 g/dl (13.5-17.5); MEAN CORPUSCULAR HEMOGLOBIN 31.3 pg (27.0-33.0); MEAN CORPUSCULAR HGB CONC 32.5 g/dl (32.0-36.5); MEAN CORPUSCULAR VOLUME 96.5 fl (80.0-96.0); PLATELET COUNT, AUTOMATED 235 10^3/uL (150-450); RED BLOOD COUNT 3.13 10^6/uL (4.30-6.10); WHITE BLOOD COUNT 3.9 10^3/uL (4.0-10.0)
[2021-08-04 06:00] VITALS: BP 113/59
[2021-08-04 06:07] LABS: BLOOD UREA NITROGEN 11 MG/DL (7-18); CALCIUM LEVEL 8.6 MG/DL (8.8-10.2); CARBON DIOXIDE LEVEL 31 MEQ/L (21-32); CHLORIDE LEVEL 111 MEQ/L (98-107); CREATININE FOR GFR 0.54 MG/DL (0.70-1.30); GLOMERULAR FILTRATION RATE > 60.0 (>49); GLUCOSE, FASTING 84 MG/DL (70-100); MAGNESIUM LEVEL 1.8 MG/DL (1.8-2.4); SODIUM LEVEL 146 MEQ/L (136-145)
[2021-08-04] MEDS ORDERED: LEVO500T3 PO (07:34)
[2021-08-04] MEDS: levETIRAcetam 250MG TABLET (KEPPRA) PO SCH (08:42)
[2021-08-04] MEDS: PHENAZOPYRIDINE 100 MG TAB PO SCH (08:42)
[2021-08-04] MEDS: PANTOPRAZOLE 40MG TAB (PROTONIX) PO SCH (08:42)
[2021-08-04] MEDS: ENOXAPARIN 40MG/0.4ML SYRINGE (J1650 PER 10MG) SC SCH (08:43)
[2021-08-04] MEDS: SENOKOT S TAB PO SCH (08:43)
[2021-08-04] MEDS: BISACODYL 10 MG SUPP PR SCH (08:43)
--- NOTE | 2021-08-04 13:22 | DS.PDOC ---
Discharge Summary General Date of Admission Jul 30, 2021 at 12:32 Date of Discharge 08/04/21 Discharge Summary PROCEDURES PERFORMED DURING STAY: [None]. DISCHARGE DIAGNOSES: #Sepsis #UTI #Metabolic encephalopathy #Macrocytic anemia #Transaminitis #Protein calorie malnutrition #Epilepsy #T-cell leukemia #GERD #Hypertension #History of meningitis with chronic neurocognitive impairment and nonverbal status COMPLICATIONS/CHIEF COMPLAINT: Sepsis, Uti. 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 History is taken from the chart and [facility] staff. [facility] noted new lethargy with associated poor oral intake and fevers. Due to his nonverbal status, patient is unable to voice complaints. Patient was admitted for sepsis secondary to UTI. Hospital stay was notable for episode of hypotension which responded well to IV fluids. He had episodes of fever through his hospital stay which also resolved. Urine cultures were obtained which received revealed pansensitive E. coli IV antibiotics were initiated on admission however as he returned to his regular mentation he was very restless and would not tolerate having an IV. As such antibiotics were transitioned to orals. His leukocytosis on admission had resolved. Hospital stay was otherwise unremarkable patient was discharged home with outpatient follow-up. DISCHARGE MEDICATIONS: Please see below. ALLERGIES: Please see below. PHYSICAL EXAMINATION ON DISCHARGE: VITAL SIGNS: See below GENERAL: Restless but easily re-directed, NAD HEENT: Normocephalic, atraumatic, moist mucous membranes NECK: Supple, trachea midline, no lymphadenopathy RESPIRATORY: CTA EXTREMITIES: No cyanosis or edema. NEUROLOGIC: Moves all 4 extremities spontaneously. PSYCHIATRIC: Mood and affect appropriate LABORATORY DATA: Please see below. ACTIVITY: [As tolerated]. DISPOSITION: 01 Home, Self-Care. DISCHARGE INSTRUCTIONS: 1. Follow-up with primary care provider in 3 to 5 days DISCHARGE CONDITION: [Stable]. TIME SPENT ON DISCHARGE: 35 minutes. Vital Signs/I&Os Vital Signs Date Time Temp Pulse Resp B/P (MAP) Pulse Ox O2 Delivery O2 Flow Rate FiO2 08/04/21 06:00 99.2 69 17 113/59 (77) 96 Room Air I&O- Last 24 Hours up to 6 AM 08/04/21 06:00 Intake Total 0 ml Output Total 0 ml Balance 0 ml Laboratory Data Labs 24H Laboratory Tests 2 08/04/21 05:19: Nucleated Red Blood Cells % (auto) 0.5H, Anion Gap 4L, Glomerular Filtration Rate > 60.0, Calcium Level 8.6L, Magnesium Level 1.8 CBC/BMP Laboratory Tests 08/04/21 05:19 Microbiology Microbiology 07/30/21 Urine Culture - Final, Complete Escherichia Coli 07/30/21 Blood Culture - Preliminary, Resulted No Growth after 72 hours. All specime... 07/30/21 Blood Culture - Preliminary, Resulted No Growth after 72 hours. All specime... 07/30/21 Respiratory Virus Panel (PCR) (SKINNY) - Final, Complete Discharge Medications Scheduled Bisacodyl (Dulcolax) 10 Mg Supp.rect, 10 MG HI DAILY for constipation, (Reported) Calcium Carbonate/Vitamin D3 (Calcium 600 + Vit D 400 Softgl) 1 Each Capsule, 1 CAP PO BID, (Reported) Diphenhydramine HCl (Banophen) 50 Mg Capsule, 50 MG PO QPM for sleep, (Reported) Divalproex Sodium (Depakote) 500 Mg Tablet.dr, 1,000 MG PO QHS, (Reported) Levetiracetam (Keppra) 750 Mg Tab, 750 MG PO BID, (Reported) Levofloxacin (Levofloxacin) 500 Mg Tablet, 500 MG PO DAILY@06 Magnesium Hydroxide (Milk of Magnesia) 400 Mg/5 Ml Oral.susp, 15 ML PO DAILY, (Reported) 1600 Olanzapine (Zyprexa) 20 Mg Tab, 20 MG PO QHS, (Reported) Pantoprazole Sodium (Pantoprazole Sodium) 40 Mg Tab, 40 MG PO BID, (Reported) Phenobarbital (Phenobarbital) 64.8 Mg Tab, 129.6 MG PO QHS, (Reported) Sennosides/Docusate Sodium (Senna-S Tablet) 1 Each Tablet, 2 TAB PO BID, (Reported) Trazodone HCl (Trazodone HCl) 100 Mg Tab, 300 MG PO QHS, (Reported) Scheduled PRN Lorazepam (Lorazepam) 2 Mg Tablet, 4 MG PO DAILY PRN for ANXIETY, (Reported) Allergies Coded Allergies: No Known Drug Allergies (Verified Allergy, Unknown, 07/14/21) JEAN-CLAUDE LILLY MD Aug 04, 2021 13:22
== END 2021-08-04 12:55 | disposition home or self-care (01) | DRG 871 ==
LOC: M ED 09:15 → M ED INP 09:16 → OBSVTOIN 12:32 → M MSPAV 21:43 → M PCU 07-31 12:46 → M MS5PR 08-01 20:00
PROVIDERS: ADMIT Internal Medicine; ATTEND Internal Medicine
DX: A41.9 Sepsis, unspecified organism (principal); G93.41 Metabolic encephalopathy; N39.0 Urinary tract infection, site not specified; E46 Unspecified protein-calorie malnutrition; K59.04 Chronic idiopathic constipation; F79 Unspecified intellectual disabilities; K21.9 Gastro-esophageal reflux disease without esophagitis; I10 Essential (primary) hypertension; G40.909 Epilepsy, unspecified, not intractable, without status epilepticus; D53.9 Nutritional anemia, unspecified; R41.9 Unspecified symptoms and signs involving cognitive functions and awareness; Z86.61 Personal history of infections of the central nervous system; I95.9 Hypotension, unspecified; B96.29 Other Escherichia coli [E. coli] as the cause of diseases classified elsewhere; Z79.899 Other long term (current) drug therapy; Z85.72 Personal history of non-Hodgkin lymphomas

== ENCOUNTER → 2021-08-15 | Outpatient (CLI) | payer MEDICARE, MEDICAID ==
[~2021-08-15] MED LIST changes: +CALCCAP4 PO; +DULC10SU2 PR; +LEVO500T3 PO
[2021-08-15 13:33] LABS: BASO % 1.2 % (0.0-1.0); EOS % 1.6 % (0.0-3.0); HEMATOCRIT 36.9 % (42.0-52.0); HEMOGLOBIN 11.7 g/dl (13.5-17.5); LYMPH # 1.3 10^3/uL (1.5-5.0); LYMPH % 52.8 % (24.0-44.0); MEAN CORPUSCULAR HEMOGLOBIN 32.1 pg (27.0-33.0); MEAN CORPUSCULAR HGB CONC 31.7 g/dl (32.0-36.5); MEAN CORPUSCULAR VOLUME 101.4 fl (80.0-96.0); MONO # 0.4 10^3/uL (0.0-0.8); MONO % 15.3 % (2.0-8.0); NEUTROPHILS % 29.1 % (36.0-66.0); PLATELET COUNT, AUTOMATED 423 10^3/uL (150-450); RED BLOOD COUNT 3.64 10^6/uL (4.30-6.10); WHITE BLOOD COUNT 2.5 10^3/uL (4.0-10.0)
[2021-08-15 14:07] LABS: NEUTROPHILS # 0.7 10^3/uL (1.5-8.5)
[2021-08-15 14:08] LABS: ALBUMIN 3.1 GM/DL (3.2-5.2); ALT/SGPT 35 U/L (12-78); BILIRUBIN,TOTAL 0.3 MG/DL (0.2-1.0); BLOOD UREA NITROGEN 11 MG/DL (7-18); CALCIUM LEVEL 9.5 MG/DL (8.8-10.2); CARBON DIOXIDE LEVEL 34 MEQ/L (21-32); CHLORIDE LEVEL 105 MEQ/L (98-107); CREATININE FOR GFR 0.73 MG/DL (0.70-1.30); FERRITIN 65 NG/ML (26-388); GLOMERULAR FILTRATION RATE > 60.0 (>49); GLUCOSE, FASTING 61 MG/DL (70-100); IRON (FE) 86 UG/DL (65-175); NT-PRO BNP 11 PG/ML (<125); PERCENT SATURATION 30.5 % (19.7-50.0); PHENOBARBITAL LEVEL 29.7 UG/ML (15.0-40.0); POTASSIUM SERUM 4.2 MEQ/L (3.5-5.1); SODIUM LEVEL 142 MEQ/L (136-145); TOTAL IRON BINDING CAPACITY 282 UG/DL (250-450); TOTAL PROTEIN 6.7 GM/DL (6.4-8.2)
[2021-08-19 13:28] LABS: ALBUMIN % 52.7 % (55.8-66.1); ALPHA-1-GLOBULIN % 4.9 % (2.9-4.9); ALPHA-2-GLOBULINS % 11.1 % (7.1-11.8); BETA-1-GLOBULINS % 5.2 % (4.7-7.2); BETA-2-GLOBULINS % 6.2 % (3.2-6.5); GAMMA GLOBULIN % 19.9 % (11.1-18.8)
[2021-08-19 13:29] LABS: ALBUMIN 3.53 GM/DL (3.29-5.55); ALPHA-1-GLOBULINS 0.33 GM/DL (0.17-0.41); ALPHA-2-GLOBULINS 0.74 GM/DL (0.42-0.99); BETA-1-GLOBULINS 0.35 GM/DL (0.28-0.60); BETA-2-GLOBULINS 0.42 GM/DL (0.19-0.55)
[2021-08-19 13:30] LABS: GAMMA GLOBULINS 1.33 GM/DL (0.65-1.58)
== END ==
LOC: M PLALAB 11:19
PROVIDERS: ATTEND Family Medicine
DX: D50.9 Iron deficiency anemia, unspecified (principal); I10 Essential (primary) hypertension; G40.909 Epilepsy, unspecified, not intractable, without status epilepticus

== ENCOUNTER → 2021-09-03 | Outpatient (CLI) | payer MEDICARE, MEDICAID ==
[~2021-09-03] MED LIST changes: +DIVA500T94 PO; +ISOVUE-370 76% 100ML VIAL As Ordered ONE; -LEVO500T3 PO; +LEVO500T4 PO; +TRAZ-189 PO; +TRAZ1TAB14 PO
== END ==
LOC: M RAD 09:56
PROVIDERS: ATTEND Internal Medicine Pulmonary Disease
DX: R91.8 Other nonspecific abnormal finding of lung field (principal)
CPT/HCPCS: 71260; Q9967

== ENCOUNTER → 2021-09-16 | Outpatient (CLI) | payer MEDICARE, MEDICAID ==
[~2021-09-16] MED LIST changes: -DIVA500T94 PO; -ISOVUE-370 76% 100ML VIAL As Ordered ONE; +LEVO500T3 PO; -LEVO500T4 PO; -TRAZ-189 PO; -TRAZ1TAB14 PO
[2021-09-16 19:45] LABS: BASO % 0.7 % (0.0-1.0); EOS # 0.1 10^3/uL (0.0-0.5); EOS % 3.1 % (0.0-3.0); HEMATOCRIT 39.7 % (42.0-52.0); HEMOGLOBIN 12.7 g/dl (13.5-17.5); LYMPH # 1.4 10^3/uL (1.5-5.0); LYMPH % 47.1 % (24.0-44.0); MEAN CORPUSCULAR HEMOGLOBIN 31.6 pg (27.0-33.0); MEAN CORPUSCULAR VOLUME 98.8 fl (80.0-96.0); MONO # 0.4 10^3/uL (0.0-0.8); MONO % 15.1 % (2.0-8.0); PLATELET COUNT, AUTOMATED 233 10^3/uL (150-450); RED BLOOD COUNT 4.02 10^6/uL (4.30-6.10); WHITE BLOOD COUNT 2.9 10^3/uL (4.0-10.0)
[2021-09-16 19:59] LABS: ALBUMIN 3.5 GM/DL (3.2-5.2); ALT/SGPT 26 U/L (12-78); BILIRUBIN,TOTAL 0.2 MG/DL (0.2-1.0); BLOOD UREA NITROGEN 10 MG/DL (7-18); CALCIUM LEVEL 9.3 MG/DL (8.8-10.2); CARBON DIOXIDE LEVEL 33 MEQ/L (21-32); CHLORIDE LEVEL 104 MEQ/L (98-107); CREATININE FOR GFR 0.75 MG/DL (0.70-1.30); GLOMERULAR FILTRATION RATE > 60.0 (>49); GLUCOSE, FASTING 79 MG/DL (70-100); PHENOBARBITAL LEVEL 33.4 UG/ML (15.0-40.0); POTASSIUM SERUM 4.4 MEQ/L (3.5-5.1); SODIUM LEVEL 141 MEQ/L (136-145); TOTAL PROTEIN 7.5 GM/DL (6.4-8.2)
== END ==
LOC: M WUC 15:35
PROVIDERS: ATTEND Physician Assistant Medical
DX: R56.9 Unspecified convulsions (principal); D72.818 Other decreased white blood cell count

== ENCOUNTER 2021-09-24 20:38 | Emergency (ER) | payer MEDICARE, MEDICAID ==
[2021-09-24 21:52] VITALS: BP 151/97
== END 2021-09-25 04:47 | disposition home or self-care (01) ==
LOC: M ED 20:38
DX: R09.89 Other specified symptoms and signs involving the circulatory and respiratory systems (principal); I10 Essential (primary) hypertension; F99 Mental disorder, not otherwise specified; G40.909 Epilepsy, unspecified, not intractable, without status epilepticus

== ENCOUNTER → 2021-11-12 | Outpatient (CLI) | payer MEDICARE, MEDICAID ==
[~2021-11-12] MED LIST changes: -LEVO500T3 PO; +LEVO500T4 PO
[2021-11-12 16:14] LABS: BLOOD UREA NITROGEN 14 MG/DL (7-18); CALCIUM LEVEL 9.3 MG/DL (8.8-10.2); CARBON DIOXIDE LEVEL 32 MEQ/L (21-32); CHLORIDE LEVEL 106 MEQ/L (98-107); GLOMERULAR FILTRATION RATE > 60.0 (>49); GLUCOSE, FASTING 84 MG/DL (70-100); SODIUM LEVEL 143 MEQ/L (136-145)
== END ==
LOC: M PLALAB 14:03
PROVIDERS: ATTEND Internal Medicine Pulmonary Disease
DX: R91.8 Other nonspecific abnormal finding of lung field (principal)

== ENCOUNTER → 2021-11-12 | Outpatient (CLI) | payer MEDICARE, MEDICAID ==
[~2021-11-12] MED LIST changes: +DIVA500T94 PO
== END ==
LOC: M WHC 14:24
PROVIDERS: ATTEND Family Medicine
DX: Z53.9 Procedure and treatment not carried out, unspecified reason (principal)

== ENCOUNTER 2021-11-17 11:22 | Inpatient (IN) | payer MEDICARE, MEDICAID ==
[~2021-11-17] VITALS: Ht 162.6 cm; Wt 59.7 kg
[~2021-11-17 11:22] MED LIST changes: -DIVA500T94 PO
[2021-11-17] MEDS ORDERED: DIVA500T94 PO (11:42)
[2021-11-17] MEDS ORDERED: LORazepam 2 MG TAB PO STA (12:06)
[2021-11-17] MEDS ORDERED: NS 1,000 ML IV ONE (13:30)
[2021-11-17] MEDS ORDERED: IBUPROFEN 100 MG/5 ML SUSP UDC DYE FREE PO ONE (13:30)
[2021-11-17 13:49] LABS: BASO % 0.1 % (0.0-1.0); HEMATOCRIT 35.6 % (42.0-52.0); HEMOGLOBIN 11.7 g/dl (13.5-17.5); LYMPH % 6.4 % (24.0-44.0); MEAN CORPUSCULAR HGB CONC 32.9 g/dl (32.0-36.5); MEAN CORPUSCULAR VOLUME 97.3 fl (80.0-96.0); MONO # 1.3 10^3/uL (0.0-0.8); MONO % 8.2 % (2.0-8.0); NEUTROPHILS % 81.5 % (36.0-66.0); PLATELET COUNT, AUTOMATED 172 10^3/uL (150-450); RED BLOOD COUNT 3.66 10^6/uL (4.30-6.10); WHITE BLOOD COUNT 15.9 10^3/uL (4.0-10.0)
[2021-11-17] MEDS ORDERED: cefTRIAXone SOD 1 GM in D5W MINI-BAG PLUS 50 ML IV ONE (13:55)
[2021-11-17 14:10] LABS: ERYTHROCYTE SEDIMENTATION RATE 47 mm/hr (0-20)
[2021-11-17] MEDS ORDERED: NS 980 ML in IV 1 EA IV ONE (14:15)
[2021-11-17 14:19] LABS: ALT/SGPT 52 U/L (12-78); BILIRUBIN,DIRECT 0.2 MG/DL (0.0-0.2); BILIRUBIN,TOTAL 0.6 MG/DL (0.2-1.0); BLOOD UREA NITROGEN 13 MG/DL (7-18); CALCIUM LEVEL 8.8 MG/DL (8.8-10.2); CARBON DIOXIDE LEVEL 27 MEQ/L (21-32); CHLORIDE LEVEL 103 MEQ/L (98-107); CREATININE FOR GFR 0.92 MG/DL (0.70-1.30); GLOMERULAR FILTRATION RATE > 60.0 (>49); GLUCOSE, FASTING 95 MG/DL (70-100); LIPASE 55 U/L (73-393); POTASSIUM SERUM 4.4 MEQ/L (3.5-5.1); SODIUM LEVEL 139 MEQ/L (136-145); TOTAL PROTEIN 6.9 GM/DL (6.4-8.2)
[2021-11-17] MEDS ORDERED: HOME MED LIST COMPLETE! XX SCH (15:40)
[2021-11-17] MEDS ORDERED: LORazepam 2 MG TAB PO PRN (16:10)
[2021-11-17] MEDS: OLANZapine 10 MG TAB PO SCH (18:19)
[2021-11-17] MEDS: D5W/0.45% SODIUM CHLORIDE 1,000 ML IV SCH ×2 (19:48→23:49)
[2021-11-17 20:00] VITALS: BP 132/67
[2021-11-17] MEDS ORDERED: traZODone 100 MG TAB PO SCH (21:00)
[2021-11-17] MEDS: HEPARIN SOD (PORCINE) 5000UNITS/ML 1ML VIAL/SYRINGE SQ SCH (21:56)
[2021-11-17 22:00] VITALS: BP 132/67
[2021-11-18] MEDS: PHENobarbitaL 30 MG TAB PO SCH ×2 (00:41→19:44)
[2021-11-18] MEDS: levETIRAcetam 250MG TABLET (KEPPRA) PO SCH ×3 (00:41→19:45)
[2021-11-18] MEDS: DIVALPROEX 500 MG TAB PO SCH ×2 (00:41→19:45)
[2021-11-18] MEDS: PANTOPRAZOLE 40MG TAB (PROTONIX) PO SCH ×3 (00:42→19:45)
[2021-11-18] MEDS: SENOKOT S TAB PO SCH ×3 (00:42→19:45)
[2021-11-18] MEDS: D5W/0.45% SODIUM CHLORIDE 1,000 ML IV SCH (03:21)
[2021-11-18] MEDS: HEPARIN SOD (PORCINE) 5000UNITS/ML 1ML VIAL/SYRINGE SQ SCH ×3 (05:15→20:25)
[2021-11-18 06:00] VITALS: BP 128/76
[2021-11-18] MEDS: BISACODYL 10 MG SUPP PR SCH ×2 (10:05→10:10)
[2021-11-18 13:35] LABS: MEAN CORPUSCULAR HEMOGLOBIN 31.5 pg (27.0-33.0); MEAN CORPUSCULAR HGB CONC 32.4 g/dl (32.0-36.5); MEAN CORPUSCULAR VOLUME 97.4 fl (80.0-96.0); PLATELET COUNT, AUTOMATED 145 10^3/uL (150-450); RED BLOOD COUNT 3.49 10^6/uL (4.30-6.10); WHITE BLOOD COUNT 11.5 10^3/uL (4.0-10.0)
[2021-11-18] MEDS ORDERED: cefTRIAXone SOD 1 GM in D5W MINI-BAG PLUS 50 ML IV SCH (14:00)
[2021-11-18 14:06] LABS: BLOOD UREA NITROGEN 11 MG/DL (7-18); CALCIUM LEVEL 8.8 MG/DL (8.8-10.2); CARBON DIOXIDE LEVEL 28 MEQ/L (21-32); CHLORIDE LEVEL 109 MEQ/L (98-107); CREATININE FOR GFR 0.64 MG/DL (0.70-1.30); GLOMERULAR FILTRATION RATE > 60.0 (>49); GLUCOSE, FASTING 93 MG/DL (70-100); MAGNESIUM LEVEL 2.2 MG/DL (1.8-2.4); PHOSPHORUS LEVEL 1.9 MG/DL (2.5-4.9); POTASSIUM SERUM 4.1 MEQ/L (3.5-5.1); SODIUM LEVEL 143 MEQ/L (136-145)
[2021-11-18] MEDS ORDERED: LORazepam 2 MG TAB PO PRN (15:05)
[2021-11-18] MEDS ORDERED: SODIUM PHOSPHATE INJ 20 MMOL in D5W 250 ML IV ONE (17:00)
[2021-11-18] MEDS: OLANZapine 10 MG TAB PO SCH (19:56)
[2021-11-18] MEDS ORDERED: traZODone 100 MG TAB PO SCH (21:00)
[2021-11-19] MEDS: HEPARIN SOD (PORCINE) 5000UNITS/ML 1ML VIAL/SYRINGE SQ SCH (05:28)
[2021-11-19 06:00] VITALS: BP 125/76
[2021-11-19 06:10] LABS: BASO % 0.1 % (0.0-1.0); EOS % 0.6 % (0.0-3.0); HEMATOCRIT 30.1 % (42.0-52.0); LYMPH # 0.9 10^3/uL (1.5-5.0); LYMPH % 13.5 % (24.0-44.0); MEAN CORPUSCULAR HEMOGLOBIN 31.2 pg (27.0-33.0); MEAN CORPUSCULAR HGB CONC 33.2 g/dl (32.0-36.5); MEAN CORPUSCULAR VOLUME 93.8 fl (80.0-96.0); MONO # 1.3 10^3/uL (0.0-0.8); MONO % 19.1 % (2.0-8.0); NEUTROPHILS # 4.5 10^3/uL (1.5-8.5); NEUTROPHILS % 66.6 % (36.0-66.0); PLATELET COUNT, AUTOMATED 145 10^3/uL (150-450); RED BLOOD COUNT 3.21 10^6/uL (4.30-6.10); WHITE BLOOD COUNT 6.8 10^3/uL (4.0-10.0)
[2021-11-19 06:47] LABS: BLOOD UREA NITROGEN 12 MG/DL (7-18); CALCIUM LEVEL 8.2 MG/DL (8.8-10.2); CARBON DIOXIDE LEVEL 27 MEQ/L (21-32); CHLORIDE LEVEL 109 MEQ/L (98-107); CREATININE FOR GFR 0.64 MG/DL (0.70-1.30); GLOMERULAR FILTRATION RATE > 60.0 (>49); GLUCOSE, FASTING 85 MG/DL (70-100); MAGNESIUM LEVEL 2.1 MG/DL (1.8-2.4); PHOSPHORUS LEVEL 2.3 MG/DL (2.5-4.9); POTASSIUM SERUM 4.2 MEQ/L (3.5-5.1); SODIUM LEVEL 141 MEQ/L (136-145)
[2021-11-19] MEDS: levETIRAcetam 250MG TABLET (KEPPRA) PO SCH (08:42)
[2021-11-19] MEDS: SENOKOT S TAB PO SCH (08:42)
[2021-11-19] MEDS: PANTOPRAZOLE 40MG TAB (PROTONIX) PO SCH (08:42)
[2021-11-19] MEDS: BISACODYL 10 MG SUPP PR SCH (08:42)
[2021-11-19] MEDS ORDERED: CEFDINIR 300 MG CAP (OMNICEF) PO SCH (09:00)
[2021-11-19] MEDS ORDERED: CEFD300CAP PO (11:28)
[2021-11-19] MEDS ORDERED: TRAZ1TAB14 PO ×2 (12:02→12:04)
[2021-11-19] MEDS ORDERED: TRAZ-189 PO ×2 (12:02→12:04)
== END 2021-11-19 12:33 | disposition home or self-care (01) | DRG 872 ==
LOC: M ED 12:24 → M ED INP 14:50 → ENRESERV 16:55 → M MSPAV 18:31
PROVIDERS: ADMIT Internal Medicine; ATTEND Internal Medicine
DX: A41.9 Sepsis, unspecified organism (principal); N39.0 Urinary tract infection, site not specified; E87.2 Acidosis; G40.909 Epilepsy, unspecified, not intractable, without status epilepticus; F79 Unspecified intellectual disabilities; G47.00 Insomnia, unspecified; Z79.899 Other long term (current) drug therapy; D53.9 Nutritional anemia, unspecified

== ENCOUNTER → 2021-12-01 | Outpatient (REF) | payer MEDICARE, MEDICAID ==
[~2021-12-01] MED LIST changes: +DIVA500T94 PO; +TRAZ-189 PO; +TRAZ1TAB14 PO
[2021-12-01 19:59] LABS: APPEARANCE, URINE CLEAR (CLEAR); BACTERIA, URINE AUTO 1+ (NEGATIVE); BILIRUBIN, URINE AUTO NEGATIVE (NEGATIVE); BLOOD, URINE BLOOD NEGATIVE (NEGATIVE); COLOR, URINE STRAW (YELLOW); GLUCOSE, URINE (UA) AUTO NEGATIVE (NEGATIVE); KETONE, URINE AUTO NEGATIVE (NEGATIVE); LEUKOCYTE ESTERASE, URINE AUTO 2+ (NEGATIVE); MUCUS, URINE SMALL (NEGATIVE); NITRITE, URINE AUTO NEGATIVE (NEGATIVE); PROTEIN, URINE AUTO NEGATIVE (NEGATIVE); RBC, URINE AUTO 2 /HPF (0-3); SPECIFIC GRAVITY URINE AUTO 1.005 (1.002-1.035); SQUAMOUS EPITHELIAL CELL UR AU 0 /HPF (0-6); UROBILINOGEN, URINE AUTO 0.2 mg/dL (0.0-2.0); WBC, URINE AUTO 49 /HPF (0-3)
== END ==
LOC: M SFHCPLAZ 19:22
PROVIDERS: ATTEND Family Medicine
DX: N39.0 Urinary tract infection, site not specified (principal)

== ENCOUNTER → 2021-12-08 | Outpatient (CLI) | payer MEDICARE, MEDICAID | LOC: M RAD 10:14 | PROVIDERS: ATTEND Physician Assistant Medical | DX: N30.00 Acute cystitis without hematuria (principal); N28.1 Cyst of kidney, acquired ==

== ENCOUNTER → 2021-12-30 | Outpatient (POV) | payer MEDICARE, MEDICAID ==
[~2021-12-30] VITALS: Ht 162.6 cm; Wt 65.9 kg
[2021-12-30 10:00] VITALS: BP 120/89
== END ==
LOC: M IRPOV 09:45
PROVIDERS: ATTEND Radiology Diagnostic Radiology
DX: Q25.72 Congenital pulmonary arteriovenous malformation (principal); Z79.899 Other long term (current) drug therapy

== ENCOUNTER → 2022-01-16 | Outpatient (CLI) | payer MEDICARE, MEDICAID ==
[2022-01-16 11:06] LABS: BASO % 0.8 % (0.0-1.0); EOS # 0.1 10^3/uL (0.0-0.5); HEMATOCRIT 38.4 % (42.0-52.0); HEMOGLOBIN 12.4 g/dl (13.5-17.5); LYMPH # 1.2 10^3/uL (1.5-5.0); LYMPH % 48.6 % (24.0-44.0); MEAN CORPUSCULAR HEMOGLOBIN 30.8 pg (27.0-33.0); MEAN CORPUSCULAR HGB CONC 32.3 g/dl (32.0-36.5); MEAN CORPUSCULAR VOLUME 95.3 fl (80.0-96.0); MONO # 0.5 10^3/uL (0.0-0.8); MONO % 18.5 % (2.0-8.0); NEUTROPHILS % 30.1 % (36.0-66.0); PLATELET COUNT, AUTOMATED 185 10^3/uL (150-450); RED BLOOD COUNT 4.03 10^6/uL (4.30-6.10); WHITE BLOOD COUNT 2.5 10^3/uL (4.0-10.0)
[2022-01-16 11:40] LABS: ALBUMIN 3.5 GM/DL (3.2-5.2); ALT/SGPT 17 U/L (12-78); BILIRUBIN,TOTAL 0.3 MG/DL (0.2-1.0); BLOOD UREA NITROGEN 13 MG/DL (7-18); CALCIUM LEVEL 9.7 MG/DL (8.8-10.2); CARBON DIOXIDE LEVEL 33 MEQ/L (21-32); CHLORIDE LEVEL 106 MEQ/L (98-107); FERRITIN 25 NG/ML (26-388); GLOMERULAR FILTRATION RATE > 60.0 (>49); GLUCOSE, FASTING 87 MG/DL (70-100); PHENOBARBITAL LEVEL 27.4 UG/ML (15.0-40.0); POTASSIUM SERUM 4.8 MEQ/L (3.5-5.1); SODIUM LEVEL 142 MEQ/L (136-145); TOTAL PROTEIN 7.1 GM/DL (6.4-8.2); VALPROIC ACID (DEPAKOTE) 33.1 UG/ML (50.0-100.0)
[2022-01-16 11:58] LABS: NEUTROPHILS # 0.8 10^3/uL (1.5-8.5)
[2022-01-19 19:07] LABS: LEVETIRACETAM (KEPPRA) 11.5 ug/mL (10.0-40.0); SOLUBLE TRANSFERRIN RECEPTOR 16.4 nmol/L (12.2-27.3)
== END ==
LOC: M WUC 09:16
PROVIDERS: ATTEND Family Medicine
DX: F79 Unspecified intellectual disabilities (principal); G40.909 Epilepsy, unspecified, not intractable, without status epilepticus; D50.9 Iron deficiency anemia, unspecified

== ENCOUNTER → 2022-01-28 | Outpatient (CLI) | payer MEDICARE, MEDICAID | LOC: M PLAIMG 09:27 | PROVIDERS: ATTEND Physician Assistant | DX: S82.444A Nondisplaced spiral fracture of shaft of right fibula, initial encounter for closed fracture (principal); X58.XXXA Exposure to other specified factors, initial encounter; Y92.9 Unspecified place or not applicable ==

== ENCOUNTER → 2022-02-05 | Outpatient (CLI) | payer MEDICARE, MEDICAID | LOC: M SOG 15:10 | PROVIDERS: ATTEND Orthopaedic Surgery Hand Surgery | DX: S82.61XA Displaced fracture of lateral malleolus of right fibula, initial encounter for closed fracture (principal); X58.XXXA Exposure to other specified factors, initial encounter; Y92.9 Unspecified place or not applicable ==

== ENCOUNTER → 2022-02-19 | Outpatient (CLI) | payer MEDICARE, MEDICAID | LOC: M SOG 13:17 | PROVIDERS: ATTEND Physician Assistant | DX: S82.61XD Displaced fracture of lateral malleolus of right fibula, subsequent encounter for closed fracture with routine healing (principal) ==

== ENCOUNTER → 2022-03-10 | Outpatient (CLI) | payer MEDICARE, MEDICAID | LOC: M SOG 08:06 | PROVIDERS: ATTEND Physician Assistant | DX: S82.61XD Displaced fracture of lateral malleolus of right fibula, subsequent encounter for closed fracture with routine healing (principal) ==

== ENCOUNTER → 2022-04-16 | Outpatient (CLI) | payer MEDICARE, MEDICAID | LOC: M SOG 14:02 | PROVIDERS: ATTEND Orthopaedic Surgery Hand Surgery | DX: S82.61XD Displaced fracture of lateral malleolus of right fibula, subsequent encounter for closed fracture with routine healing (principal) ==

== ENCOUNTER 2022-07-15 09:08 | Emergency (ER) | payer MEDICARE, MEDICAID ==
[~2022-07-15] VITALS: Ht 177.8 cm; Wt 59.1 kg
[~2022-07-15 09:08] MED LIST changes: +LEVO1TAB39 PO; -LEVO500T4 PO
[2022-07-15 11:47] VITALS: BP 130/88
== END 2022-07-15 11:51 | disposition home or self-care (01) ==
LOC: EDBD 09:08 → M ED 09:08
DX: T17.920A Food in respiratory tract, part unspecified causing asphyxiation, initial encounter (principal); G40.89 Other seizures; F51.01 Primary insomnia; F79 Unspecified intellectual disabilities; R47.9 Unspecified speech disturbances; Z79.899 Other long term (current) drug therapy

== ENCOUNTER → 2022-12-10 | Outpatient (CLI) | payer MEDICARE, MEDICAID ==
[2022-12-10 13:13] LABS: BASO % 0.6 % (0.0-1.0); EOS % 0.8 % (0.0-3.0); HEMATOCRIT 36.2 % (42.0-52.0); HEMOGLOBIN 11.5 g/dl (13.5-17.5); LYMPH # 1.1 10^3/uL (1.5-5.0); MEAN CORPUSCULAR HEMOGLOBIN 31.9 pg (27.0-33.0); MEAN CORPUSCULAR HGB CONC 31.8 g/dl (32.0-36.5); MEAN CORPUSCULAR VOLUME 100.6 fl (80.0-96.0); MONO # 0.7 10^3/uL (0.0-0.8); MONO % 12.9 % (2.0-8.0); NEUTROPHILS # 3.2 10^3/uL (1.5-8.5); NEUTROPHILS % 63.5 % (36.0-66.0); PLATELET COUNT, AUTOMATED 260 10^3/uL (150-450); WHITE BLOOD COUNT 5.1 10^3/uL (4.0-10.0)
[2022-12-10 13:49] LABS: IRON (FE) 63 UG/DL (65-175); PERCENT SATURATION 23.5 % (19.7-50.0); TOTAL IRON BINDING CAPACITY 268 UG/DL (250-425)
[2022-12-10 13:50] LABS: VALPROIC ACID (DEPAKOTE) 44.7 UG/ML (50.0-100.0)
[2022-12-10 13:52] LABS: ALBUMIN 2.9 G/DL (3.2-5.2); ALKALINE PHOSPHATASE 71 U/L (46-116); ALT/SGPT 13 U/L (7.0-40); AST/SGOT 16 U/L (<34); BILIRUBIN,TOTAL 0.4 MG/DL (0.3-1.2); BLOOD UREA NITROGEN 10 MG/DL (9-23); CALCIUM LEVEL 9.7 MG/DL (8.3-10.6); CARBON DIOXIDE LEVEL 31 MMOL/L (20-31); CHLORIDE LEVEL 101 MMOL/L (98-107); CREATININE FOR GFR 0.61 MG/DL (0.70-1.30); FERRITIN 105.5 NG/ML (10.5-307.3); FREE T4 1.32 NG/DL (0.89-1.76); GLOMERULAR FILTRATION RATE > 60.0 (>49); GLUCOSE, FASTING 82 MG/DL (74-106); POTASSIUM SERUM 4.3 MMOL/L (3.5-5.1); SODIUM LEVEL 140 MMOL/L (136-145); THYROID STIMULATING HORMONE 1.167 uIU/ML (0.55-4.78); TOTAL PROTEIN 6.8 G/DL (5.7-8.2)
[2022-12-10 15:41] LABS: ERYTHROCYTE SEDIMENTATION RATE 83 mm/hr (0-20)
== END ==
LOC: M WUC 09:50
PROVIDERS: ATTEND Physician Assistant
DX: C91.50 Adult T-cell lymphoma/leukemia (HTLV-1-associated) not having achieved remission (principal); R53.1 Weakness; R53.83 Other fatigue; D50.9 Iron deficiency anemia, unspecified; G40.909 Epilepsy, unspecified, not intractable, without status epilepticus

== ENCOUNTER → 2022-12-29 | Outpatient (POV) | payer MEDICARE, MEDICAID ==
[~2022-12-29] VITALS: Ht 162.6 cm; Wt 68.4 kg
== END ==
LOC: M IRPOV 09:38
PROVIDERS: ATTEND Radiology Diagnostic Radiology
DX: Q25.72 Congenital pulmonary arteriovenous malformation (principal)

== ENCOUNTER → 2023-01-14 | Outpatient (CLI) | payer MEDICARE, MEDICAID ==
[~2023-01-14] MED LIST changes: +ISOVUE-370 76% 100ML VIAL As Ordered ONE
== END ==
LOC: M RAD 09:23
PROVIDERS: ATTEND Radiology Diagnostic Radiology
DX: Z53.9 Procedure and treatment not carried out, unspecified reason (principal)

== ENCOUNTER → 2023-04-01 | Outpatient (CLI) | payer MEDICARE, MEDICAID ==
[~2023-04-01] MED LIST changes: -ISOVUE-370 76% 100ML VIAL As Ordered ONE
[2023-04-01 11:01] LABS: BASO % 0.3 % (0.0-1.0); EOS % 0.4 % (0.0-3.0); HEMATOCRIT 40.3 % (42.0-52.0); HEMOGLOBIN 13.2 g/dl (13.5-17.5); LYMPH # 1.2 10^3/uL (1.5-5.0); LYMPH % 14.7 % (24.0-44.0); MEAN CORPUSCULAR HEMOGLOBIN 31.1 pg (27.0-33.0); MEAN CORPUSCULAR HGB CONC 32.8 g/dl (32.0-36.5); MONO % 12.3 % (2.0-8.0); NEUTROPHILS # 5.8 10^3/uL (1.5-8.5); NEUTROPHILS % 72.2 % (36.0-66.0); PLATELET COUNT, AUTOMATED 268 10^3/uL (150-450); RED BLOOD COUNT 4.24 10^6/uL (4.30-6.10)
[2023-04-01 11:09] LABS: LDH LACTATE DEHYDROGENASE 208 U/L (120-246)
[2023-04-01 11:10] LABS: ALBUMIN 3.3 G/DL (3.2-5.2); ALKALINE PHOSPHATASE 73 U/L (46-116); ALT/SGPT 14 U/L (7.0-40); AST/SGOT 15 U/L (<34); BILIRUBIN,TOTAL 0.4 MG/DL (0.3-1.2); BLOOD UREA NITROGEN 12 MG/DL (9-23); CALCIUM LEVEL 10.3 MG/DL (8.3-10.6); CARBON DIOXIDE LEVEL 31 MMOL/L (20-31); CHLORIDE LEVEL 101 MMOL/L (98-107); CREATININE FOR GFR 0.57 MG/DL (0.70-1.30); GLOMERULAR FILTRATION RATE > 60.0 (>49); GLUCOSE, FASTING 77 MG/DL (74-106); POTASSIUM SERUM 4.5 MMOL/L (3.5-5.1); PTH INTACT 38.7 PG/ML (18.5-88.0); SODIUM LEVEL 138 MMOL/L (136-145); TOTAL 25(OH) VITAMIN D 42.8 NG/ML (20.0-100.0); TOTAL PROTEIN 7.7 G/DL (5.7-8.2)
[2023-04-01 11:14] LABS: INR 0.99; PROTHROMBIN TIME 13.3 SECONDS (12.5-14.5)
[2023-04-01 11:15] LABS: PARTIAL THROMBOPLASTIN TIME 30.2 SECONDS (24.8-34.2)
[2023-04-05 18:07] LABS: ANCA-ATYPICAL <1:20 titer (Neg:<1:20); CYTOPLASMIC NEUTROP AB ANCA-C <1:20 titer (Neg:<1:20); PERINUCLEAR AB ANCA-P <1:20 titer (Neg:<1:20)
== END ==
LOC: M WUC 08:24
PROVIDERS: ATTEND Family Medicine
DX: Q25.72 Congenital pulmonary arteriovenous malformation (principal); E55.9 Vitamin D deficiency, unspecified; Z12.5 Encounter for screening for malignant neoplasm of prostate; C91.50 Adult T-cell lymphoma/leukemia (HTLV-1-associated) not having achieved remission; Z79.899 Other long term (current) drug therapy; D50.9 Iron deficiency anemia, unspecified
CPT/HCPCS: 36415; 80053; 82306; 83615; 83970; 85025; 85610; 85730; 86037; G0103

== ENCOUNTER → 2023-05-27 | Outpatient (CLI) | payer MEDICARE, MEDICAID ==
[2023-05-27 12:08] LABS: ALBUMIN 3.3 G/DL (3.2-5.2); ALKALINE PHOSPHATASE 71 U/L (46-116); ALT/SGPT 10 U/L (7.0-40); AST/SGOT 9 U/L (<34); BILIRUBIN,TOTAL 0.2 MG/DL (0.3-1.2); BLOOD UREA NITROGEN 10 MG/DL (9-23); CALCIUM LEVEL 9.6 MG/DL (8.3-10.6); CARBON DIOXIDE LEVEL 30 MMOL/L (20-31); CHLORIDE LEVEL 104 MMOL/L (98-107); CREATININE FOR GFR 0.54 MG/DL (0.70-1.30); FERRITIN 38.9 NG/ML (10.5-307.3); GLOMERULAR FILTRATION RATE > 60.0 (>49); GLUCOSE, FASTING 83 MG/DL (74-106); POTASSIUM SERUM 4.3 MMOL/L (3.5-5.1); PTH INTACT 36.7 PG/ML (18.5-88.0); SODIUM LEVEL 140 MMOL/L (136-145); TOTAL 25(OH) VITAMIN D 40.1 NG/ML (20.0-100.0); TOTAL PROTEIN 7.7 G/DL (5.7-8.2)
[2023-05-30 17:07] LABS: IMMUNOTYPING SERUM IGA SO 313 mg/dL (61-437); IMMUNOTYPING SERUM IGM SO 116 mg/dL (20-172); PSA TOTAL 3.9 ng/mL (0.0-4.0); SOLUBLE TRANSFERRIN RECEPTOR 22.1 nmol/L (12.2-27.3)
== END ==
LOC: M WUC 08:58
PROVIDERS: ATTEND Family Medicine
DX: E55.9 Vitamin D deficiency, unspecified (principal); Z12.5 Encounter for screening for malignant neoplasm of prostate; D50.9 Iron deficiency anemia, unspecified; C91.50 Adult T-cell lymphoma/leukemia (HTLV-1-associated) not having achieved remission; Z79.899 Other long term (current) drug therapy

== ENCOUNTER → 2023-07-28 | Outpatient (CLI) | payer MEDICARE, MEDICAID ==
[2023-07-28 12:30] LABS: BASO % 0.6 % (0.0-1.0); EOS # 0.1 10^3/uL (0.0-0.5); EOS % 2.1 % (0.0-3.0); HEMATOCRIT 41.2 % (42.0-52.0); HEMOGLOBIN 13.1 g/dl (13.5-17.5); LYMPH # 1.6 10^3/uL (1.5-5.0); MEAN CORPUSCULAR HEMOGLOBIN 31.4 pg (27.0-33.0); MEAN CORPUSCULAR HGB CONC 31.8 g/dl (32.0-36.5); MEAN CORPUSCULAR VOLUME 98.8 fl (80.0-96.0); MONO # 0.6 10^3/uL (0.0-0.8); NEUTROPHILS # 1.1 10^3/uL (1.5-8.5); PLATELET COUNT, AUTOMATED 215 10^3/uL (150-450); RED BLOOD COUNT 4.17 10^6/uL (4.30-6.10); WHITE BLOOD COUNT 3.4 10^3/uL (4.0-10.0)
[2023-07-28 12:59] LABS: CHOLESTEROL RISK RATIO 2.19 (<5); HDL CHOLESTEROL 72.1 MG/DL (>40); LDL CHOLESTEROL 70.1 MG/DL (<100); NON-HDL-C 85.9 MG/DL
[2023-07-28 13:00] LABS: THYROID STIMULATING HORMONE 1.351 uIU/ML (0.55-4.78)
[2023-07-28 13:02] LABS: FREE T4 1.15 NG/DL (0.89-1.76)
== END ==
LOC: M WUC 08:17
PROVIDERS: ATTEND Family Medicine
DX: C91.50 Adult T-cell lymphoma/leukemia (HTLV-1-associated) not having achieved remission (principal); D50.9 Iron deficiency anemia, unspecified; I10 Essential (primary) hypertension; Z12.5 Encounter for screening for malignant neoplasm of prostate; R97.20 Elevated prostate specific antigen [PSA]

== ENCOUNTER → 2023-10-21 | Outpatient (CLI) | payer MEDICARE, MEDICAID ==
[2023-10-21 13:36] LABS: VALPROIC ACID (DEPAKOTE) 43.7 UG/ML (50.0-100.0)
[2023-10-21 13:37] LABS: ALBUMIN 3.6 G/DL (3.2-5.2); ALKALINE PHOSPHATASE 74 U/L (46-116); ALT/SGPT 13 U/L (7.0-40); AST/SGOT 13 U/L (<34); BASO % 0.8 % (0.0-1.0); BILIRUBIN,TOTAL 0.3 MG/DL (0.3-1.2); BLOOD UREA NITROGEN 8 MG/DL (9-23); CALCIUM LEVEL 9.6 MG/DL (8.3-10.6); CARBON DIOXIDE LEVEL 34 MMOL/L (20-31); CHLORIDE LEVEL 103 MMOL/L (98-107); EOS # 0.1 10^3/uL (0.0-0.5); EOS % 1.8 % (0.0-3.0); GLOMERULAR FILTRATION RATE > 60.0 (>49); GLUCOSE, FASTING 83 MG/DL (74-106); HEMATOCRIT 42.5 % (42.0-52.0); HEMOGLOBIN 13.5 g/dl (13.5-17.5); LYMPH # 1.8 10^3/uL (1.5-5.0); MEAN CORPUSCULAR HEMOGLOBIN 31.5 pg (27.0-33.0); MEAN CORPUSCULAR HGB CONC 31.8 g/dl (32.0-36.5); MEAN CORPUSCULAR VOLUME 99.3 fl (80.0-96.0); MONO # 0.6 10^3/uL (0.0-0.8); MONO % 16.4 % (2.0-8.0); NEUTROPHILS # 1.2 10^3/uL (1.5-8.5); NEUTROPHILS % 32.7 % (36.0-66.0); PLATELET COUNT, AUTOMATED 236 10^3/uL (150-450); RED BLOOD COUNT 4.28 10^6/uL (4.30-6.10); SODIUM LEVEL 138 MMOL/L (136-145); TOTAL PROTEIN 7.5 G/DL (5.7-8.2); WHITE BLOOD COUNT 3.8 10^3/uL (4.0-10.0)
[2023-10-21 13:39] LABS: PHENOBARBITAL LEVEL 33.4 UG/ML (15.0-40.0)
== END ==
LOC: M PLALAB 08:53
PROVIDERS: ATTEND Psychiatry & Neurology Neurology
DX: G40.89 Other seizures (principal)

== ENCOUNTER 2024-01-12 14:37 | Emergency (ER) | payer MEDICARE, MEDICAID ==
[~2024-01-12] VITALS: Ht 170.2 cm; Wt 63.6 kg
[2024-01-12 14:38] VITALS: BP 145/79; TEMP 97.5; O2SAT 94
[2024-01-12 18:11] LABS: BASO % 0.6 % (0.0-1.0); EOS # 0.1 10^3/uL (0.0-0.5); EOS % 1.9 % (0.0-3.0); HEMATOCRIT 40.6 % (42.0-52.0); HEMOGLOBIN 13.5 g/dl (13.5-17.5); LYMPH # 1.2 10^3/uL (1.5-5.0); LYMPH % 37.8 % (24.0-44.0); MEAN CORPUSCULAR HEMOGLOBIN 31.9 pg (27.0-33.0); MEAN CORPUSCULAR HGB CONC 33.3 g/dl (32.0-36.5); MONO # 0.6 10^3/uL (0.0-0.8); MONO % 19.2 % (2.0-8.0); NEUTROPHILS # 1.3 10^3/uL (1.5-8.5); NEUTROPHILS % 40.5 % (36.0-66.0); PLATELET COUNT, AUTOMATED 196 10^3/uL (150-450); RED BLOOD COUNT 4.23 10^6/uL (4.30-6.10); WHITE BLOOD COUNT 3.2 10^3/uL (4.0-10.0)
[2024-01-12 18:34] LABS: ERYTHROCYTE SEDIMENTATION RATE 39 mm/hr (0-20)
[2024-01-12 18:35] LABS: BLOOD UREA NITROGEN 12 MG/DL (9-23); CALCIUM LEVEL 9.4 MG/DL (8.3-10.6); CARBON DIOXIDE LEVEL 32 MMOL/L (20-31); CHLORIDE LEVEL 103 MMOL/L (98-107); CREATININE FOR GFR 0.52 MG/DL (0.70-1.30); GLOMERULAR FILTRATION RATE > 60.0 (>49); GLUCOSE, FASTING 83 MG/DL (74-106); POTASSIUM SERUM 4.6 MMOL/L (3.5-5.1); SODIUM LEVEL 141 MMOL/L (136-145)
[2024-01-12] MEDS ORDERED: CEPH500C PO (19:24)
[2024-01-12] MEDS: CEPHALEXIN 500 MG CAP PO ONE (19:36)
== END 2024-01-12 19:49 | disposition home or self-care (01) ==
LOC: M ED 14:37
DX: L89.510 Pressure ulcer of right ankle, unstageable (principal); I10 Essential (primary) hypertension; G40.909 Epilepsy, unspecified, not intractable, without status epilepticus; F79 Unspecified intellectual disabilities; F80.9 Developmental disorder of speech and language, unspecified; C91.50 Adult T-cell lymphoma/leukemia (HTLV-1-associated) not having achieved remission; Z79.899 Other long term (current) drug therapy; Z79.2 Long term (current) use of antibiotics; Z79.811 Long term (current) use of aromatase inhibitors
CPT/HCPCS: 36415; 73630; 80048; 83605; 85025; 85652; 86140; 99282; G0463

== ENCOUNTER → 2024-01-14 | Outpatient (REF) | payer MEDICARE, MEDICAID ==
[~2024-01-14] MED LIST changes: +CEPH500C PO
== END ==
LOC: M LAB REF 16:33
PROVIDERS: ATTEND Podiatrist Foot & Ankle Surgery
DX: L03.115 Cellulitis of right lower limb (principal)

== ENCOUNTER → 2024-03-08 | Outpatient (CLI) | payer MEDICARE, MEDICAID ==
[2024-03-08 10:05] LABS: BASO % 0.9 % (0.0-1.0); EOS # 0.1 10^3/uL (0.0-0.5); EOS % 1.9 % (0.0-3.0); HEMATOCRIT 41.3 % (42.0-52.0); HEMOGLOBIN 13.8 g/dl (13.5-17.5); LYMPH # 1.3 10^3/uL (1.5-5.0); LYMPH % 42.1 % (24.0-44.0); MEAN CORPUSCULAR HEMOGLOBIN 32.6 pg (27.0-33.0); MEAN CORPUSCULAR HGB CONC 33.4 g/dl (32.0-36.5); MEAN CORPUSCULAR VOLUME 97.6 fl (80.0-96.0); MONO # 0.5 10^3/uL (0.0-0.8); MONO % 15.8 % (2.0-8.0); NEUTROPHILS # 1.2 10^3/uL (1.5-8.5); PLATELET COUNT, AUTOMATED 227 10^3/uL (150-450); RED BLOOD COUNT 4.23 10^6/uL (4.30-6.10); WHITE BLOOD COUNT 3.2 10^3/uL (4.0-10.0)
[2024-03-08 10:18] LABS: INR 1.01; PARTIAL THROMBOPLASTIN TIME 28.8 SECONDS (24.8-34.2)
[2024-03-08 10:32] LABS: PHENOBARBITAL LEVEL 32.1 UG/ML (15.0-40.0); VALPROIC ACID (DEPAKOTE) 40.9 UG/ML (50.0-100.0)
[2024-03-08 10:34] LABS: ALBUMIN 3.5 G/DL (3.2-5.2); ALKALINE PHOSPHATASE 74 U/L (46-116); ALT/SGPT 17 U/L (7.0-40); AST/SGOT 15 U/L (<34); BILIRUBIN,TOTAL 0.4 MG/DL (0.3-1.2); BLOOD UREA NITROGEN 13 MG/DL (9-23); CALCIUM LEVEL 9.6 MG/DL (8.3-10.6); CARBON DIOXIDE LEVEL 28 MMOL/L (20-31); CHLORIDE LEVEL 105 MMOL/L (98-107); CREATININE FOR GFR 0.59 MG/DL (0.70-1.30); GLOMERULAR FILTRATION RATE > 60.0 (>49); GLUCOSE, FASTING 83 MG/DL (74-106); POTASSIUM SERUM 4.5 MMOL/L (3.5-5.1); SODIUM LEVEL 139 MMOL/L (136-145); TOTAL PROTEIN 7.4 G/DL (5.7-8.2)
[2024-03-08 10:36] LABS: FERRITIN 38.4 NG/ML (10.5-307.3); VITAMIN B12 LEVEL 733 PG/ML (211-911)
[2024-03-10 15:08] LABS: SOLUBLE TRANSFERRIN RECEPTOR 17.6 nmol/L (12.2-27.3)
[2024-03-10 18:13] LABS: LEVETIRACETAM (KEPPRA)X 10.9 ug/mL (10.0-40.0)
== END ==
LOC: M LAB 08:54
PROVIDERS: ATTEND Family Medicine
DX: C91.50 Adult T-cell lymphoma/leukemia (HTLV-1-associated) not having achieved remission (principal); G40.909 Epilepsy, unspecified, not intractable, without status epilepticus

== ENCOUNTER → 2024-05-12 | Outpatient (CLI) | payer MEDICARE, MEDICAID ==
[2024-05-12 14:17] LABS: BLOOD UREA NITROGEN 8 MG/DL (9-23); CREATININE FOR GFR 0.64 MG/DL (0.70-1.30); GLOMERULAR FILTRATION RATE > 60.0 (>49)
== END ==
LOC: M WUC 09:11
PROVIDERS: ATTEND Internal Medicine Pulmonary Disease
DX: I28.0 Arteriovenous fistula of pulmonary vessels (principal)

== ENCOUNTER → 2024-05-17 | Outpatient (CLI) | payer MEDICARE, MEDICAID ==
[~2024-05-17] MED LIST changes: +ISOVUE-370 76% 100ML VIAL As Ordered ONE
== END ==
LOC: M RAD 13:43
PROVIDERS: ATTEND Internal Medicine Pulmonary Disease
DX: I28.0 Arteriovenous fistula of pulmonary vessels (principal); Z53.9 Procedure and treatment not carried out, unspecified reason

== ENCOUNTER → 2024-06-27 | Outpatient (CLI) | payer MEDICARE, MEDICAID ==
[2024-06-27 07:20] VITALS: TEMP 96.7
[2024-06-27 09:00] VITALS: BP 154/88; O2SAT 98
== END ==
LOC: M SDC 07:11
PROVIDERS: ATTEND Internal Medicine Pulmonary Disease
DX: I28.0 Arteriovenous fistula of pulmonary vessels (principal)
CPT/HCPCS: 71275; Q9967

== ENCOUNTER → 2024-08-02 | Outpatient (CLI) | payer MEDICARE, MEDICAID ==
[~2024-08-02] MED LIST changes: -ISOVUE-370 76% 100ML VIAL As Ordered ONE
[2024-08-02 09:56] LABS: BASO % 0.8 % (0.0-1.0); EOS % 1.5 % (0.0-3.0); HEMATOCRIT 41.2 % (42.0-52.0); HEMOGLOBIN 13.8 g/dl (13.5-17.5); LYMPH # 1.1 10^3/uL (1.5-5.0); LYMPH % 42.8 % (24.0-44.0); MEAN CORPUSCULAR HEMOGLOBIN 32.1 pg (27.0-33.0); MEAN CORPUSCULAR HGB CONC 33.5 g/dl (32.0-36.5); MEAN CORPUSCULAR VOLUME 95.8 fl (80.0-96.0); MONO # 0.4 10^3/uL (0.0-0.8); MONO % 14.4 % (2.0-8.0); NEUTROPHILS # 1.1 10^3/uL (1.5-8.5); NEUTROPHILS % 40.1 % (36.0-66.0); PLATELET COUNT, AUTOMATED 194 10^3/uL (150-450); WHITE BLOOD COUNT 2.6 10^3/uL (4.0-10.0)
[2024-08-02 10:23] LABS: INR 0.94; PARTIAL THROMBOPLASTIN TIME 30.9 SECONDS (24.8-34.2); PROTHROMBIN TIME 12.9 SECONDS (12.5-14.5)
[2024-08-02 10:28] LABS: PHENOBARBITAL LEVEL 28.5 UG/ML (15.0-40.0); VALPROIC ACID (DEPAKOTE) 34.2 UG/ML (50.0-100.0)
[2024-08-02 10:30] LABS: ALBUMIN 3.4 G/DL (3.2-5.2); ALKALINE PHOSPHATASE 75 U/L (40-129); ALT/SGPT 17 U/L (7.0-40); AST/SGOT 15 U/L (<34); BILIRUBIN,TOTAL 0.3 MG/DL (0.3-1.2); BLOOD UREA NITROGEN 11 MG/DL (9-23); CALCIUM LEVEL 9.5 MG/DL (8.3-10.6); CARBON DIOXIDE LEVEL 30 MMOL/L (20-31); CHLORIDE LEVEL 108 MMOL/L (98-107); GLOMERULAR FILTRATION RATE > 60.0 (>49); GLUCOSE, FASTING 106 MG/DL (74-106); POTASSIUM SERUM 4.3 MMOL/L (3.5-5.1); SODIUM LEVEL 141 MMOL/L (136-145); TOTAL PROTEIN 7.2 G/DL (5.7-8.2)
[2024-08-02 10:35] LABS: FERRITIN 48.5 NG/ML (10.5-307.3)
[2024-08-02 10:48] LABS: VITAMIN B12 LEVEL 943 PG/ML (211-911)
[2024-08-06 22:02] LABS: LEVETIRACETAM (KEPPRA) 14.5 mcg/mL (6.0-46.0)
== END ==
LOC: M WUC 08:51
PROVIDERS: ATTEND Family Medicine
DX: C91.50 Adult T-cell lymphoma/leukemia (HTLV-1-associated) not having achieved remission (principal); G40.909 Epilepsy, unspecified, not intractable, without status epilepticus

== ENCOUNTER → 2024-09-14 | Outpatient (CLI) | payer MEDICARE, MEDICAID ==
[~2024-09-14] MED LIST changes: -LORA2TA PO; +LORA2TAB15 PO; +MAGN400O77 PO; -MILK24002 PO
== END ==
LOC: M WUC 12:33
PROVIDERS: ATTEND Nurse Practitioner Family
DX: R05.9 Cough, unspecified (principal); I51.7 Cardiomegaly; I70.0 Atherosclerosis of aorta; R91.8 Other nonspecific abnormal finding of lung field

== ENCOUNTER → 2024-10-05 | Outpatient (CLI) | payer MEDICARE, MEDICAID ==
[2024-10-05 12:09] LABS: BASO % 0.3 % (0.0-1.0); EOS % 0.6 % (0.0-3.0); HEMATOCRIT 41.7 % (42.0-52.0); HEMOGLOBIN 13.7 g/dl (13.5-17.5); LYMPH # 1.4 10^3/uL (1.5-5.0); MEAN CORPUSCULAR HEMOGLOBIN 32.1 pg (27.0-33.0); MEAN CORPUSCULAR HGB CONC 32.9 g/dl (32.0-36.5); MEAN CORPUSCULAR VOLUME 97.7 fl (80.0-96.0); MONO # 0.6 10^3/uL (0.0-0.8); MONO % 9.4 % (2.0-8.0); NEUTROPHILS # 4.1 10^3/uL (1.5-8.5); NEUTROPHILS % 66.4 % (36.0-66.0); PLATELET COUNT, AUTOMATED 228 10^3/uL (150-450); RED BLOOD COUNT 4.27 10^6/uL (4.30-6.10); WHITE BLOOD COUNT 6.2 10^3/uL (4.0-10.0)
[2024-10-05 12:42] LABS: PHENOBARBITAL LEVEL 29.7 UG/ML (15.0-40.0)
[2024-10-05 12:44] LABS: ALBUMIN 3.7 G/DL (3.2-5.2); ALKALINE PHOSPHATASE 71 U/L (40-129); ALT/SGPT 16 U/L (7.0-40); AST/SGOT 26 U/L (<34); BILIRUBIN,TOTAL 0.3 MG/DL (0.3-1.2); BLOOD UREA NITROGEN 12 MG/DL (9-23); CALCIUM LEVEL 9.9 MG/DL (8.3-10.6); CARBON DIOXIDE LEVEL 29 MMOL/L (20-31); CHLORIDE LEVEL 105 MMOL/L (98-107); CREATININE FOR GFR 0.67 MG/DL (0.70-1.30); GLOMERULAR FILTRATION RATE > 60.0 (>49); GLUCOSE, FASTING 72 MG/DL (74-106); POTASSIUM SERUM 4.8 MMOL/L (3.5-5.1); SODIUM LEVEL 140 MMOL/L (136-145); TOTAL PROTEIN 7.6 G/DL (5.7-8.2)
== END ==
LOC: M WUC 08:48
PROVIDERS: ATTEND Psychiatry & Neurology Neurology
DX: R56.9 Unspecified convulsions (principal)

== ENCOUNTER → 2024-11-03 | Outpatient (CLI) | payer MEDICARE, MEDICAID ==
[~2024-11-03] MED LIST changes: +MAGN400O73 PO; -MAGN400O77 PO
[2024-11-03 10:40] LABS: BASO % 0.8 % (0.0-1.0); EOS # 0.1 10^3/uL (0.0-0.5); EOS % 2.4 % (0.0-3.0); LYMPH # 1.2 10^3/uL (1.5-5.0); LYMPH % 47.4 % (24.0-44.0); MEAN CORPUSCULAR HEMOGLOBIN 31.6 pg (27.0-33.0); MEAN CORPUSCULAR HGB CONC 31.7 g/dl (32.0-36.5); MEAN CORPUSCULAR VOLUME 99.5 fl (80.0-96.0); MONO # 0.4 10^3/uL (0.0-0.8); MONO % 17.4 % (2.0-8.0); NEUTROPHILS % 31.2 % (36.0-66.0); PLATELET COUNT, AUTOMATED 201 10^3/uL (150-450); RED BLOOD COUNT 4.12 10^6/uL (4.30-6.10); WHITE BLOOD COUNT 2.5 10^3/uL (4.0-10.0)
[2024-11-03 11:38] LABS: NEUTROPHILS # 0.8 10^3/uL (1.5-8.5)
[2024-11-03 11:40] LABS: ALBUMIN 3.7 G/DL (3.2-5.2); ALKALINE PHOSPHATASE 68 U/L (40-129); ALT/SGPT 20 U/L (7.0-40); AST/SGOT 26 U/L (<34); BILIRUBIN,TOTAL 0.4 MG/DL (0.3-1.2); BLOOD UREA NITROGEN 11 MG/DL (9-23); CALCIUM LEVEL 10.1 MG/DL (8.3-10.6); CARBON DIOXIDE LEVEL 31 MMOL/L (20-31); CHLORIDE LEVEL 102 MMOL/L (98-107); CREATININE FOR GFR 0.68 MG/DL (0.70-1.30); GLOMERULAR FILTRATION RATE > 60.0 (>49); GLUCOSE, FASTING 81 MG/DL (74-106); POTASSIUM SERUM 4.5 MMOL/L (3.5-5.1); SODIUM LEVEL 139 MMOL/L (136-145); TOTAL PROTEIN 7.7 G/DL (5.7-8.2)
[2024-11-03 11:41] LABS: FERRITIN 74.9 NG/ML (10.5-307.3)
[2024-11-03 11:42] LABS: VITAMIN B12 LEVEL 915 PG/ML (211-911)
== END ==
LOC: M WUC 08:18
PROVIDERS: ATTEND Family Medicine
DX: C91.50 Adult T-cell lymphoma/leukemia (HTLV-1-associated) not having achieved remission (principal); I10 Essential (primary) hypertension; G40.909 Epilepsy, unspecified, not intractable, without status epilepticus

== ENCOUNTER 2025-05-30 12:27 | Emergency (ER) | payer MEDICARE, MEDICAID ==
[~2025-05-30 12:27] MED LIST changes: +DIVA-41 PO; -DIVA500T94 PO; +OLAN20TA74 PO
[2025-05-30 13:14] VITALS: TEMP 97.1
[2025-05-30] MEDS ORDERED: ACET1TAB55 PO (13:24)
[2025-05-30] MEDS ORDERED: MIRA3350 PO (14:30)
[2025-05-30] MEDS ORDERED: TRAZ1TAB14 PO (14:30)
[2025-05-30] MEDS ORDERED: HOME MED LIST COMPLETE! XX SCH (14:35)
[2025-05-30 16:09] VITALS: BP 127/80; O2SAT 100
== END 2025-05-30 16:10 | disposition home or self-care (01) ==
LOC: M ED 12:27 → EDBD 12:27 → M ED 16:10
DX: R09.89 Other specified symptoms and signs involving the circulatory and respiratory systems (principal); I10 Essential (primary) hypertension; G40.909 Epilepsy, unspecified, not intractable, without status epilepticus; F73 Profound intellectual disabilities; K21.9 Gastro-esophageal reflux disease without esophagitis; B96.81 Helicobacter pylori [H. pylori] as the cause of diseases classified elsewhere; E55.9 Vitamin D deficiency, unspecified; F41.9 Anxiety disorder, unspecified; Z79.1 Long term (current) use of non-steroidal anti-inflammatories (NSAID); Z79.899 Other long term (current) drug therapy

== ENCOUNTER → 2025-06-13 | Outpatient (CLI) | payer MEDICARE, MEDICAID ==
[~2025-06-13] MED LIST changes: +MIRA3350 PO
[2025-06-13 13:27] LABS: INR 0.92
[2025-06-13 13:29] LABS: BASO # 0.0 10^3/uL (0.0-0.2); BASO % 0.9 % (0.0-1.0); EOS # 0.0 10^3/uL (0.0-0.5); EOS % 1.7 % (0.0-3.0); LYMPH # 1.2 10^3/uL (1.5-5.0); LYMPH % 51.9 % (24.0-44.0); MONO # 0.4 10^3/uL (0.0-0.8); MONO % 15.5 % (2.0-8.0); NEUTROPHILS % 30.0 % (36.0-66.0); PLATELET COUNT, AUTOMATED 204 10^3/uL (150-450)
[2025-06-13 13:30] LABS: NEUTROPHILS # 0.7 10^3/uL (1.5-8.5)
[2025-06-13 13:31] LABS: VALPROIC ACID (DEPAKOTE) 35.4 UG/ML (50.0-100.0)
[2025-06-13 13:32] LABS: ALT/SGPT 20 U/L (7.0-40); AST/SGOT 21 U/L (<34); CALCIUM LEVEL 9.6 MG/DL (8.3-10.6); CARBON DIOXIDE LEVEL 32 MMOL/L (20-31); CHLORIDE LEVEL 102 MMOL/L (98-107); CREATININE FOR GFR 0.61 MG/DL (0.70-1.30); GLOMERULAR FILTRATION RATE > 90.0 (>49); POTASSIUM SERUM 4.6 MMOL/L (3.5-5.1); PSA SCREENING 1.15 NG/ML (< 4.00); PTH INTACT 51.2 PG/ML (18.5-88.0); SODIUM LEVEL 142 MMOL/L (136-145)
[2025-06-13 13:35] LABS: PHENOBARBITAL LEVEL 31.6 UG/ML (15.0-40.0); TOTAL 25(OH) VITAMIN D 38.7 NG/ML (20.0-100.0); VITAMIN B12 LEVEL 680 PG/ML (211-911)
[2025-06-17 23:47] LABS: LEVETIRACETAM (KEPPRA) 13.8 mcg/mL (6.0-46.0)
== END ==
LOC: M PLALAB 09:51
PROVIDERS: ATTEND Family Medicine
DX: C91.50 Adult T-cell lymphoma/leukemia (HTLV-1-associated) not having achieved remission (principal); E55.9 Vitamin D deficiency, unspecified; G40.909 Epilepsy, unspecified, not intractable, without status epilepticus; Z12.5 Encounter for screening for malignant neoplasm of prostate
CPT/HCPCS: 36415; 80053; 80164; 80177; 80184; 82306; 82607; 82728; 83970; 84238; 85025; 85610; 85730; G0103

== ENCOUNTER → 2025-07-24 | Outpatient (CLI) | payer MEDICARE, MEDICAID ==
[2025-07-24 14:15] LABS: BASO # 0.0 10^3/uL (0.0-0.2); BASO % 0.4 % (0.0-1.0); EOS # 0.1 10^3/uL (0.0-0.5); EOS % 1.8 % (0.0-3.0); LYMPH # 1.4 10^3/uL (1.5-5.0); LYMPH % 23.7 % (24.0-44.0); MONO # 0.7 10^3/uL (0.0-0.8); MONO % 12.8 % (2.0-8.0); NEUTROPHILS # 3.5 10^3/uL (1.5-8.5); NEUTROPHILS % 61.1 % (36.0-66.0); PLATELET COUNT, AUTOMATED 215 10^3/uL (150-450)
[2025-07-24 14:50] LABS: VALPROIC ACID (DEPAKOTE) 55.2 UG/ML (50.0-100.0)
[2025-07-24 14:53] LABS: ALT/SGPT 23 U/L (7.0-40); AST/SGOT 38 U/L (<34); CALCIUM LEVEL 9.8 MG/DL (8.3-10.6); CARBON DIOXIDE LEVEL 30 MMOL/L (20-31); CHLORIDE LEVEL 101 MMOL/L (98-107); CREATININE FOR GFR 0.53 MG/DL (0.70-1.30); GLOMERULAR FILTRATION RATE > 90.0 (>49); POTASSIUM SERUM 4.5 MMOL/L (3.5-5.1); SODIUM LEVEL 142 MMOL/L (136-145)
[2025-07-25 16:49] LABS: PHENOBARBITAL LEVEL 31.7 UG/ML (15.0-40.0)
== END ==
LOC: M PLALAB 09:21
PROVIDERS: ATTEND Family Medicine
DX: C91.50 Adult T-cell lymphoma/leukemia (HTLV-1-associated) not having achieved remission (principal); G40.909 Epilepsy, unspecified, not intractable, without status epilepticus

== ENCOUNTER → 2025-09-20 | Outpatient (CLI) | payer MEDICARE, MEDICAID ==
[~2025-09-20] MED LIST changes: -CVS100LI4 PO; +GUAI-147 PO
[2025-09-20 13:32] LABS: INR 0.99
[2025-09-20 13:52] LABS: BASO # 0.0 10^3/uL (0.0-0.2); BASO % 0.3 % (0.0-1.0); EOS # 0.0 10^3/uL (0.0-0.5); EOS % 0.2 % (0.0-3.0); LYMPH # 1.1 10^3/uL (1.5-5.0); LYMPH % 9.3 % (24.0-44.0); MONO # 0.6 10^3/uL (0.0-0.8); MONO % 5.2 % (2.0-8.0); NEUTROPHILS # 10.0 10^3/uL (1.5-8.5); NEUTROPHILS % 84.7 % (36.0-66.0); PLATELET COUNT, AUTOMATED 270 10^3/uL (150-450)
[2025-09-20 14:21] LABS: VALPROIC ACID (DEPAKOTE) 43.1 UG/ML (50.0-100.0)
[2025-09-20 14:22] LABS: IRON (FE) 20 UG/DL (65-175); PERCENT SATURATION 6.7 % (19.7-50.0)
[2025-09-20 14:23] LABS: ALT/SGPT 19 U/L (7.0-40); AST/SGOT 22 U/L (<34); CALCIUM LEVEL 9.1 MG/DL (8.3-10.6); CARBON DIOXIDE LEVEL 32 MMOL/L (20-31); CHLORIDE LEVEL 102 MMOL/L (98-107); CHOLESTEROL LEVEL 160 MG/DL (<200); CHOLESTEROL RISK RATIO 3.22 (<5); CREATININE FOR GFR 0.73 MG/DL (0.70-1.30); GLOMERULAR FILTRATION RATE > 90.0 (>49); LDL CHOLESTEROL 64.2 MG/DL (<100); NON-HDL-C 110.4 MG/DL; POTASSIUM SERUM 4.3 MMOL/L (3.5-5.1); PSA SCREENING 1.11 NG/ML (< 4.00); PTH INTACT 38.2 PG/ML (18.5-88.0); SODIUM LEVEL 138 MMOL/L (136-145); TRIGLYCERIDES LEVEL 231 MG/DL (<150)
[2025-09-20 14:24] LABS: PHENOBARBITAL LEVEL 29.7 UG/ML (15.0-40.0); TOTAL 25(OH) VITAMIN D 51.4 NG/ML (20.0-100.0); VITAMIN B12 LEVEL 762 PG/ML (211-911)
== END ==
LOC: M PLALAB 10:11
PROVIDERS: ATTEND Family Medicine
DX: E55.9 Vitamin D deficiency, unspecified (principal); G40.909 Epilepsy, unspecified, not intractable, without status epilepticus; C91.50 Adult T-cell lymphoma/leukemia (HTLV-1-associated) not having achieved remission; D50.9 Iron deficiency anemia, unspecified; Z12.5 Encounter for screening for malignant neoplasm of prostate; I10 Essential (primary) hypertension
CPT/HCPCS: 36415; 80053; 80061; 80164; 80177; 80184; 82306; 82607; 82728; 83550; 83970; 85025; 85610; 85730; G0103